=== PATIENT | female | born 1945 | race Caucasian/White ===

== ENCOUNTER 2020-07-07 15:21 | Inpatient (IN) | payer MEDICARE ==
--- NOTE | 2020-07-07 16:02 | ED ---
General Adult HPI - General Chief complaint: Shortness of Breath Stated complaint: fluid retention-sent by bridge construction inspector Time Seen by Provider: 07/07/20 15:43 Source: patient, family, RN notes reviewed, old records reviewed Mode of arrival: wheelchair Limitations: no limitations - History of Present Illness Initial comments: 75-year-old female presenting for evaluation of worsening dyspnea over the past one month. Patient is 2 months status post 2 vessel bypass and mitral valve repair at outside hospital. This history is obtained from the patient's son who is at bedside. This was at [facility] in [place]. She does follow with cardiology at this institution. She's had a weight gain, peripheral edema and worsening dyspnea over the past 4 weeks since the time of discharge. She is currently on metolazone 5 mg uncertain of other medication she is on. She has no fever. No central chest pain. - Related Data Home Medications Medication Instructions Recorded Confirmed Furosemide [Lasix] 1 tab PO DAILY 02/26/15 02/26/15 INSULIN LISPRO (HumaLOG) [humaLOG] 1 dose SQ DAILY 02/26/15 02/26/15 Insulin Glargine [Lantus] 02/26/15 02/26/15 Nitroglycerin Extended Release 1 tab PO DAILY 02/26/15 02/26/15 [Nitro-Bid] Omeprazole [PriLOSEC] 1 tab PO DAILY 02/26/15 02/26/15 atenoloL [Tenormin] 1 tab PO BID 02/26/15 02/26/15 hydrALAZINE HCL [Apresoline] 1 tab PO DAILY 02/26/15 02/26/15 lisinopriL [Zestril] 1 tab PO BID 02/26/15 02/26/15 Previous Rx's Medication Instructions Recorded Cephalexin [Keflex] 500 mg PO Q8HR #21 cap 02/26/15 Hydrocodone/Acetaminophen [Stuart 2 each PO Q6HR PRN #25 tab 02/26/15 5-325] Allergies Allergy/AdvReac Type Severity Reaction Status Date / Time ciprofloxacin [From Cipro] Allergy Rash/Hives Verified 02/26/15 19:54 ciprofloxacin HCl Allergy Rash/Hives Verified 02/26/15 19:54 [From Cipro] codeine Allergy Rash/Hives Verified 01/02/16 19:54 Penicillins Allergy Rash/Hives Verified 02/26/15 19:54 shellfish derived [Shellfish] Allergy Rash/Hives Verified 02/26/15 19:54 Sulfa (Sulfonamide Allergy Rash/Hives Verified 02/26/15 19:54 Antibiotics) Review of Systems ROS Statement: Those systems with pertinent positive or pertinent negative responses have been documented in the HPI. ROS Other: All systems not noted in ROS Statement are negative. Past Medical History Past Medical History: Heart Failure, Diabetes Mellitus, Hypertension History of Any Multi-Drug Resistant Organisms: None Reported Past Surgical History: Appendectomy, Cholecystectomy, Hysterectomy, Tubal Ligation Past Psychological History: No Psychological Hx Reported Past Alcohol Use History: None Reported Past Drug Use History: None Reported General Exam Limitations: no limitations General appearance: alert, in no apparent distress Head exam: Present: atraumatic, normocephalic Eye exam: Present: normal appearance, PERRL ENT exam: Present: normal exam Neck exam: Present: normal inspection. Absent: tenderness, meningismus Respiratory exam: Present: respiratory distress, wheezes, rhonchi Cardiovascular Exam: Present: normal rhythm, tachycardia GI/Abdominal exam: Present: soft, distended. Absent: tenderness, guarding, rebound Extremities exam: Present: pedal edema, other Neurological exam: Present: alert, oriented X3, CN II-XII intact. Absent: motor sensory deficit Psychiatric exam: Present: normal affect, normal mood Skin exam: Present: warm, dry, intact Course Vital Signs 07/07/20 07/07/20 15:26 17:00 Temperature 97.4 F L Pulse Rate 126 H 118 H Respiratory 18 20 Rate Blood Pressure 83/53 94/55 O2 Sat by Pulse 96 98 Oximetry EKG Findings - EKG Comments: EKG Findings:: Accelerated junctional rhythm, low voltage, rate of 126, QRS duration 94, QTC 466, no ST segment elevation Medical Decision Making - Medical Decision Making 75-year-old female who had presented with worsening dyspnea over the past several months. Initial blood pressures in the 80s. She has an elevated heart rate which is a junctional rhythm. She is in moderate respiratory distress. She has bilateral lower extremity edema which is worse on the left leg. Chest x-ray showing bilateral effusion worse on the right, I did order an urgent echo which was reported as a significantly low EF at 10%. I did perform an ultrasound of the left leg is the swelling in the left leg was worse than the right, this is negative for DVT. I discussed case with Dr. Rodrigues, covering for cardiology, recommended Lasix drip will be placed in the ICU I discussed case with the agricultural equipment sales engineer Dr. Weaver and the admitting physician Dr. Bryan. - Lab Data Result diagrams: 07/07/20 16:03 07/07/20 16:03 Lab Results 07/07/20 07/07/20 07/07/20 Range/Units 16:03 16:03 16:03 WBC 7.4 (3.8-10.6) k/uL RBC 3.72 L (3.80-5.40) m/uL Hgb 10.5 L (11.4-16.0) gm/dL Hct 33.1 L (34.0-46.0) % MCV 89.1 (80.0-100.0) fL MCH 28.3 (25.0-35.0) pg MCHC 31.8 (31.0-37.0) g/dL RDW 17.2 H (11.5-15.5) % Plt Count 238 (150-450) k/uL MPV 7.6 Neutrophils % 79 % Lymphocytes % 11 % Monocytes % 4 % Eosinophils % 5 % Basophils % 1 % Neutrophils # 5.8 (1.3-7.7) k/uL Lymphocytes # 0.8 L (1.0-4.8) k/uL Monocytes # 0.3 (0-1.0) k/uL Eosinophils # 0.4 (0-0.7) k/uL Basophils # 0.1 (0-0.2) k/uL Hypochromasia Slight Anisocytosis Slight PT 12.6 H (9.0-12.0) sec INR 1.2 H (<1.2) APTT 29.5 (22.0-30.0) sec Sodium 130 L (137-145) mmol/L Potassium 5.0 (3.5-5.1) mmol/L Chloride 91 L (98-107) mmol/L Carbon Dioxide 30 (22-30) mmol/L Anion Gap 9 mmol/L BUN 93 H (7-17) mg/dL Creatinine 2.07 H (0.52-1.04) mg/dL Est GFR (CKD-EPI)AfAm 26 (>60 ml/min/1.73 sqM) Est GFR (CKD-EPI)NonAf 23 (>60 ml/min/1.73 sqM) Glucose 134 H (74-99) mg/dL Calcium 8.6 (8.4-10.2) mg/dL Magnesium 3.2 H (1.6-2.3) mg/dL Total Bilirubin 0.6 (0.2-1.3) mg/dL AST 19 (14-36) U/L ALT 10 (4-34) U/L Alkaline Phosphatase 205 H (38-126) U/L Troponin I (0.000-0.034) ng/mL NT-Pro-B Natriuret Pep pg/mL Total Protein 6.6 (6.3-8.2) g/dL Albumin 3.5 (3.5-5.0) g/dL 07/07/20 07/07/20 Range/Units 16:03 16:03 WBC (3.8-10.6) k/uL RBC (3.80-5.40) m/uL Hgb (11.4-16.0) gm/dL Hct (34.0-46.0) % MCV (80.0-100.0) fL MCH (25.0-35.0) pg MCHC (31.0-37.0) g/dL RDW (11.5-15.5) % Plt Count (150-450) k/uL MPV Neutrophils % % Lymphocytes % % Monocytes % % Eosinophils % % Basophils % % Neutrophils # (1.3-7.7) k/uL Lymphocytes # (1.0-4.8) k/uL Monocytes # (0-1.0) k/uL Eosinophils # (0-0.7) k/uL Basophils # (0-0.2) k/uL Hypochromasia Anisocytosis PT (9.0-12.0) sec INR (<1.2) APTT (22.0-30.0) sec Sodium (137-145) mmol/L Potassium (3.5-5.1) mmol/L Chloride (98-107) mmol/L Carbon Dioxide (22-30) mmol/L Anion Gap mmol/L BUN (7-17) mg/dL Creatinine (0.52-1.04) mg/dL Est GFR (CKD-EPI)AfAm (>60 ml/min/1.73 sqM) Est GFR (CKD-EPI)NonAf (>60 ml/min/1.73 sqM) Glucose (74-99) mg/dL Calcium (8.4-10.2) mg/dL Magnesium (1.6-2.3) mg/dL Total Bilirubin (0.2-1.3) mg/dL AST (14-36) U/L ALT (4-34) U/L Alkaline Phosphatase (38-126) U/L Troponin I 0.017 (0.000-0.034) ng/mL NT-Pro-B Natriuret Pep 4330 pg/mL Total Protein (6.3-8.2) g/dL Albumin (3.5-5.0) g/dL Critical Care Time Critical Care Time: Yes Total Critical Care Time: 35 Disposition Clinical Impression: Acute pulmonary edema, Systolic congestive heart failure Disposition: ADMITTED IP TO THIS [facility] Condition: Serious Is patient prescribed a controlled substance at d/c from ED?: No Referrals: Arash Mendoza MD [Primary Care Provider] - 1-2 days Decision to Admit Reason: Admit from EC Decision Date: 07/07/20 Decision Time: 17:47
[2020-07-07 16:14] LABS: Anisocytosis Slight; Basophils # (A) 0.1 k/uL (0-0.2); Basophils % (A) 1 %; Eosinophils # (A) 0.4 k/uL (0-0.7); Eosinophils % (A) 5 %; HCT 33.1 % (34.0-46.0); HGB 10.5 gm/dL (11.4-16.0); Hypochromasia Slight; Lymphocytes # (A) 0.8 k/uL (1.0-4.8); Lymphocytes % (A) 11 %; MCH 28.3 pg (25.0-35.0); MCHC 31.8 g/dL (31.0-37.0); MCV 89.1 fL (80.0-100.0); Mean Platelet Volume 7.6; Monocytes # (A) 0.3 k/uL (0-1.0); Monocytes % (A) 4 %; Neutrophils # (A) 5.8 k/uL (1.3-7.7); Neutrophils % (A) 79 %; Platelet Count 238 k/uL (150-450); RBC 3.72 m/uL (3.80-5.40); RDW 17.2 % (11.5-15.5); WBC 7.4 k/uL (3.8-10.6)
[2020-07-07 16:27] LABS: Albumin 3.5 g/dL (3.5-5.0); Calcium 8.6 mg/dL (8.4-10.2); Magnesium 3.2 mg/dL (1.6-2.3); Total Bilirubin 0.6 mg/dL (0.2-1.3); Total Protein 6.6 g/dL (6.3-8.2)
--- NOTE | 2020-07-07 16:45 | XR ---
EXAMINATION TYPE: XR chest 2V DATE OF EXAM: 07/07/2020 COMPARISON: Correlation made with x-rays of the ribs from 02/26/2015 HISTORY: Shortness of breath. TECHNIQUE: Frontal and lateral views of the chest are obtained. FINDINGS: There is large bilateral pleural effusion worse on the right than on the left with presume d compressive atelectasis. Cardiomegaly and CHF is noted. Sternotomy wires are present. IMPRESSION: Bilateral large pleural effusions right greater than left likely due to CHF with stuart sive atelectasis. Thoracentesis is recommended.
[2020-07-07 17:00] LABS: INR 1.2 (<1.2); Partial Thromboplastin Time 29.5 sec (22.0-30.0); Prothrombin Time 12.6 sec (9.0-12.0)
--- NOTE | 2020-07-07 17:10 | US ---
EXAMINATION TYPE: US venous doppler duplex LE LT DATE OF EXAM: 07/07/2020 5:03 PM COMPARISON: NONE CLINICAL HISTORY: DVT?. edema SIDE PERFORMED: Left TECHNIQUE: The lower extremity deep venous system is examined utilizing real time linear array sonog hernando with graded compression, doppler sonography and color-flow sonography. VESSELS IMAGED: Common Femoral Vein Deep Femoral Vein Greater Saphenous Vein * Femoral Vein Popliteal Vein Small Saphenous Vein * Proximal Calf Veins (* superficial vessels) Left Leg: Negative for DVT IMPRESSION: Grayscale, color doppler, spectral doppler imaging performed of the deep veins of the lo wer extremities. There is normal flow, compressibility, vascular waveforms. No evidence of DVT in th e left lower extremity.
[2020-07-07] MEDS ORDERED: NALOXONE 0.4 MG/ML 1 ML VIAL IV PRN (17:21)
[2020-07-07] MEDS: FUROSEMIDE 100 MG in SODIUM CHLORIDE 0.9% 90 ML IV SCH (17:39)
[2020-07-07] MEDS ORDERED: IPRATROPIUM-ALBUTEROL 3 ML NEB INHALATION STA (17:44)
--- NOTE | 2020-07-07 18:00 | ECHOF ---
Referral Reason:CONCHITA MEASUREMENTS -------- HEIGHT: 152.4 cm WEIGHT: 98.0 kg BP: RVIDd: 3.6 cm (< 3.3) IVSd: 1.1 cm (0.6 - 1.1) LVIDd: 4.3 cm (3.9 - 5.3) LVPWd: 1.5 cm (0.6 - 1.1) IVSs: 1.2 cm LVIDs: 3.1 cm LVPWs: 1.9 cm MV EXCURSION: 17.961 mm (> 18.000) MV EF SLOPE: 98 mm/s (70 - 150) EPSS: 1.7 cm MV E Allan: 1.18 m/s MV DecT: 348 ms MV A Allan: 0.95 m/s MV E/A Ratio: 1.24 RAP: 15.00 mmHg RVSP: 33.88 mmHg FINDINGS -------- Undetermined rhythm. This was a technically difficult study with suboptimal views. The left ventricular size is normal. Left ventricular wall thickness is normal. There is severe g lobal hypokinesis of LV . Overall left ventricular systolic function is severely impaired with, an EF < 20%. The right ventricle is moderately enlarged. The left atrium is moderately dilated. The right atrial size is normal. There is mild aortic valve sclerosis. There is no evidence of aortic regurgitation. The peak and mean MV gradients are 5.94mmHg 1.35mmHg as measured by doppler. Mitral ring annullopla sty is in place. Jcyc-op-svtvodev tricuspid regurgitation present. The right ventricular systolic pressure, as measu red by Doppler, is 33.88mmHg. The pulmonic valve was not well visualized. The aortic root size is normal. There is a trivial pericardial effusion present. Large Pleural Effusion. CONCLUSIONS -------- 1. This was a technically difficult study with suboptimal views. 2. The left ventricular size is normal. 3. Left ventricular wall thickness is normal. 4. There is severe global hypokinesis of LV . 5. Overall left ventricular systolic function is severely impaired with, an EF < 20%. 6. The right ventricle is moderately enlarged. 7. The left atrium is moderately dilated. 8. The right atrial size is normal. 9. There is mild aortic valve sclerosis. 10. The peak and mean MV gradients are 5.94mmHg 1.35mmHg as measured by doppler. 11. Mitral ring annulloplasty is in place. 12. Qnbi-sw-kofvyxsr tricuspid regurgitation present. 13. The right ventricular systolic pressure, as measured by Doppler, is 33.88mmHg. 14. The pulmonic valve was not well visualized. 15. The aortic root size is normal. 16. There is a trivial pericardial effusion present. 17. Large Pleural Effusion. COMPUTED TOMOGRAPHY TECHNICIAN: Val Ashraf RDCS
[2020-07-07 20:16] LABS: Glucose,Whole Blood 69 mg/dL (75-99)
[2020-07-07] MEDS ORDERED: DEXTROSE 50% SYRINGE 50 ML IVP STA (20:47)
[2020-07-07 20:54] LABS: Glucose,Whole Blood 68 mg/dL (75-99)
[2020-07-07] MEDS ORDERED: HYDROcodone/APAP 5-325MG 1 EACH TAB PO PRN (20:54)
[2020-07-07] MEDS ORDERED: bisacodyL 5 MG TABLET.DR PO PRN (21:00)
--- NOTE | 2020-07-07 21:01 | P.HPIM ---
History of Present Illness H&P Date: 07/07/20 Chief Complaint: Shortness of breath Patient is a 75-year-old female with a history of congestive heart failure, diabetes Type 2 insulin requiring, hypertension who presented to the emergency department with complaints of worsening shortness of breath for the last 4 weeks. Apparently patient had 2 vessel bypass with mitral valve repair at [facility]. She underwent extensive evaluation in the emergency department including a chest x-ray which demonstrated large bilateral pleural effusions right greater than left recommending thoracentesis. Venous Doppler was completed which showed no evidence of DVT in the left lower extremity. EKG appeared to be consistent with accelerated junctional rhythm. Laboratory analysis showed hemoglobin of 10.5, creatinine 2. In the ER she was started on a furosemide drip and arrangements are made for admission to the ICU. Echocardiogram was completed this evening which showed an ejection fraction of less than 20%, severe global kinesis of the left ventricle, and a large pleural effusion. Patient was admitted to [facility] on April 22 and was subsequently discharged on June 08. Son was able to provide me with some records. Apparently when she went in she was found to have congestive heart failure with an ejection fraction of less than 15%, she ultimately underwent cardiac catheterization which showed triple vessel disease. She then had double bypass surgery with repair of her mitral valve and maze procedure. They redid an echocardiogram prior to discharge which showed an ejection fraction of 45%. He reports that after surgery she did require reintubation and did attend a stent in inpatient rehab. She has been at home and has had home health through [facility]. She has since transitioned to seeing Dr. Hensley for her primary care and Dr. Rodrigues for cardiology. She was last seen by Dr. Mendoza one week ago and had her left leg bandaged in the office. He presented to the hospital today because they noted that her weight has increased to 216 pounds, it was 109 8 pounds on June 08 and she was discharged from the hospital. They also note that she has had worsening shortness of breath, increased leg swelling, increased abdominal swelling. He reports she has been watching her fluid and salt intake at home. She has a FreeStyle Izabel meter and has been having hypoglycemia down to the 70s at night. Her niece has been taking care of her. They note that some of her medications have been changed since discharge from [place] including moving her Lantus from morning to night time. She reports increased anxiety and feeling as though she has never gotten her recover from this. She reports that she does have chest pain with cough but has not had chest pain otherwise. She has been using a walker. She is unable to lie flat due to shortness of breath. Pertinent positives and negatives as discussed in HPI, a complete review of systems was performed and all other systems are negative. General: ill appearing, mild distress due to dyspnea, Obese, appears older than stated age Derm: erythem left lower extremity with from distal calf to ankle, word left medial calf with slough, pink tissue, maldolorous an. warm, dry Head: atraumatic, normocephalic, symmetric Eyes: EOMI, no lid lag, anicteric sclera, pupils equal round reactive to light ENT: Nose and ears atraumatic, no thrush, no pharyngeal erythema Neck: No thyromegaly, no cervical lymphadenopathy, trachea midline, supple Mouth: no lip lesion, mucus membranes moist Cardiovascular: S1S2 reg, no murmur, positive posterior tibial pulse bilateral, 4+ edema, capillary refill less than 2 seconds Lungs: Decreased bs bilateral bases, no wheeze, no accessory muscle use, 3 word conversational dyspnea Abdominal: soft, nontender to palpation, no guarding, no appreciable organomegaly, normal bowel sounds Ext: no gross muscle atrophy, muscle strength muscle strength 5 out of 5 in all 4 extremities, no contractures Neuro: CN II-XI grossly intact, light touch intact all 4 extremities, finger to nose within normal limits, Psych: Alert, oriented, appropriate affect Acute exacerbation of systolic congestive heart failure with ejection fraction +20%, coronary artery disease with recent 2 vessel bypass and mitral valve replacement - hold entresto - lasix gtt, zaroxolyn - Cadio and Pulm recs - hold coreg due to BP - strict I and O daily weight Large pleural effusion due to CHF - hold xarelto - consult pulm Acute kidney injury versus chronic kidney disease of unknown baseline creatinine - continue with diuretics and monitor renal function closely, suspect cardiorenal syndrome - strict I and O - if Cr worse in AM consult nephro and consider renal US - Hold Entresto Hyponatremia secondary to fluid overload - diuresis - recheck sodium level in AM Normochromic normocytic anemia with unknown baseline -Check iron studies -If Ferritin less than 100 consider IV iron replacement with her systolic congestive heart failure -Follow CBC Asthma - resume spiriva, B agonist and inhaled steroid DM 2, insulin requiring with frequent hypoglycemia - hold lantus - SSI - check A1C , last 6.7 per son - Follow BS - consult certified lactation educator - leave free style izabel in place as patient has been having hypoglycemia and it will alarm P. A fib - hold xarelto with potential need for procedures - follow HR - Coreg on hold due to hypotension - if continues to have tachycardia then consider metoprolol Coccyx pressure ulcer, POA, Left lower extremity wound - Consult wound care - rotate q2 hours - barrier dressing to coccyx - left lower extremity with mucuparcin, vasaline gauze, and kerlix The patient is admitted with an anticipated greater than 2 midnight stay for evaluation of Acute exacerbation of CHF. Surrogate decision-maker: Pedrito Magana- Son CODE STATUS:Full Code DVT prophylaxis: Lovenox Discussed with: patient nursing Anticipated discharge date: 5-[address]: A total of 75 minutes was spent on the care of this complex patient more than 50% of the time was spent in counseling and care coordination. Past Medical History Past Medical History: Coronary Artery Disease (CAD), Heart Failure, Diabetes Vilma litus, Hypertension Additional Past Medical History / Comment(s): asthma, A fib History of Any Multi-Drug Resistant Organisms: None Reported Past Surgical History: Appendectomy, Cholecystectomy, Hysterectomy, Tubal Ligation Additional Past Surgical History / Comment(s): 2 vessel bypass with mitral valve repair - CHEN and endoscopic vein, mitral valve 32mm sjm ridig saddle ring, maze procedure. Retocele repair Past Psychological History: No Psychological Hx Reported Smoking Status: Second hand smoke exposure Past Alcohol Use History: None Reported Past Drug Use History: None Reported Additional History: walker - Past Family History Father Additional Family Medical History / Comment(s): at 55 with a massive [place] Mother Family Medical History: CVA/TIA Medications and Allergies Home Medications Medication Instructions Recorded Confirmed Type ALPRAZolam [Xanax] 0.5 mg PO Q6H PRN 07/07/20 07/07/20 History Acetaminophen Tab [Tylenol Tab] 500 mg PO BID 07/07/20 07/07/20 History Albuterol Inhaler [Ventolin Hfa 2 puff INHALATION RT-Q6H PRN 07/07/20 07/07/20 History Inhaler] Atorvastatin [Lipitor] 80 mg PO HS 07/07/20 07/07/20 History Bumetanide [Bumex] 1 mg PO DAILY 07/07/20 07/07/20 History Carvedilol [Coreg] 50 mg PO Q12H 07/07/20 07/07/20 History Docusate [Colace] 100 mg PO BID 07/07/20 07/07/20 History Fluticasone Nasal Lutz [Flonase 2 spr EA NOSTRIL DAILY 07/07/20 07/07/20 History Nasal Lutz] Fluticasone/Vilanterol [Breo 1 puff INHALATION RT-DAILY 07/07/20 07/07/20 History Ellipta 100-25 Mcg Inhaler] Insulin Glargine,Hum.rec.anlog 18 unit SQ HS 07/07/20 07/07/20 History [Lantus Solostar] Insulin Lispro [Insulin Lispro See Protocol SQ AC-TID 07/07/20 07/07/20 History Kwikpen U-100] Loratadine [Claritin] 10 mg PO DAILY 07/07/20 07/07/20 History Omeprazole 20 mg PO AC-SUPPER 07/07/20 07/07/20 History Rivaroxaban [Xarelto] 2.5 mg PO BID 07/07/20 07/07/20 History Sacubitril/Valsartan [Entresto 24 1 tab PO Q12H 07/07/20 07/07/20 History mg-26 mg Tablet] Tiotropium [place] [Spiriva] 2 cap INHALATION RT-DAILY 07/07/20 07/07/20 History metOLazone [Zaroxolyn] 5 mg PO DAILY 07/07/20 07/07/20 History Allergies Allergy/AdvReac Type Severity Reaction Status Date / Time ciprofloxacin [From Cipro] Allergy Rash/Hives Verified 07/07/20 17:56 ciprofloxacin HCl Allergy Rash/Hives Verified 07/07/20 17:56 [From Cipro] codeine Allergy Rash/Hives Verified 07/07/20 17:56 Penicillins Allergy Rash/Hives Verified 07/07/20 17:56 shellfish derived [Shellfish] Allergy Rash/Hives Verified 07/07/20 17:56 Sulfa (Sulfonamide Allergy Rash/Hives Verified 07/07/20 17:56 Antibiotics) Physical Exam Osteopathic Statement: *. No significant issues noted on an osteopathic structural exam other than those noted in the History and Physical/Consult. Vitals: Vital Signs Temp Pulse Resp BP Pulse Ox 07/07/20 19:00 129 H 18 86/69 98 07/07/20 18:05 128 H 07/07/20 18:00 121 H 20 83/58 99 07/07/20 17:55 118 H 07/07/20 17:00 118 H 20 94/55 98 07/07/20 15:26 97.4 F L 126 H 18 83/53 96 Intake and Output 07/07/20 07/07/20 07/07/20 06:59 14:59 22:59 Other: Weight 97.976 kg Results CBC & Chem 7: 07/07/20 16:03 07/07/20 16:03 Labs: Abnormal Lab Results - Last 24 Hours (Table) 07/07/20 07/07/20 07/07/20 Range/Units 16:03 16:03 16:03 RBC 3.72 L (3.80-5.40) m/uL Hgb 10.5 L (11.4-16.0) gm/dL Hct 33.1 L (34.0-46.0) % RDW 17.2 H (11.5-15.5) % Lymphocytes # 0.8 L (1.0-4.8) k/uL PT 12.6 H (9.0-12.0) sec INR 1.2 H (<1.2) Sodium 130 L (137-145) mmol/L Chloride 91 L (98-107) mmol/L BUN 93 H (7-17) mg/dL Creatinine 2.07 H (0.52-1.04) mg/dL Glucose 134 H (74-99) mg/dL Magnesium 3.2 H (1.6-2.3) mg/dL Alkaline Phosphatase 205 H (38-126) U/L
[2020-07-07 21:02] LABS: Glucose,Whole Blood 147 mg/dL (75-99)
[2020-07-07 21:21] LABS: Glucose,Whole Blood 140 mg/dL (75-99)
[2020-07-07] MEDS: metOLazone 5 MG TAB PO SCH (22:56)
[2020-07-07] MEDS: MUPIROCIN 2% OINT 22 GM TUBE TOPICAL SCH (23:24)
[2020-07-07] MEDS: ATORVASTATIN 80 MG TAB PO SCH (23:25)
[2020-07-08] MEDS ORDERED: DOBUTamine DRIP 500 MG in DEXTROSE/WATER 1 250ML.BAG IV SCH
[2020-07-08] MEDS: FUROSEMIDE 100 MG in SODIUM CHLORIDE 0.9% 90 ML IV SCH ×3 (01:05→21:31)
[2020-07-08 02:08] LABS: Glucose,Whole Blood 81 mg/dL (75-99)
[2020-07-08 04:03] LABS: Anisocytosis Slight; HCT 31.4 % (34.0-46.0); HGB 9.8 gm/dL (11.4-16.0); Hypochromasia Slight; MCH 28.3 pg (25.0-35.0); MCHC 31.3 g/dL (31.0-37.0); MCV 90.4 fL (80.0-100.0); Mean Platelet Volume 7.6; Platelet Count 228 k/uL (150-450); RBC 3.47 m/uL (3.80-5.40); RDW 17.2 % (11.5-15.5); WBC 7.8 k/uL (3.8-10.6)
[2020-07-08 04:38] LABS: Albumin 2.9 g/dL (3.5-5.0); Calcium 8.4 mg/dL (8.4-10.2); Magnesium 3.1 mg/dL (1.6-2.3); Potassium 4.8 mmol/L (3.5-5.1); Total Bilirubin 0.6 mg/dL (0.2-1.3); Total Protein 5.7 g/dL (6.3-8.2)
[2020-07-08 06:50] LABS: Glucose,Whole Blood 68 mg/dL (75-99)
[2020-07-08 07:13] LABS: Glucose,Whole Blood 130 mg/dL (75-99)
[2020-07-08] MEDS: INSULIN ASPART (NovoLOG) 100 UNIT/ML VIAL SQ SCH ×3 (07:41→17:49)
[2020-07-08] MEDS: IPRATROPIUM 0.5 MG/2.5 ML NEBU INHALATION SCH ×4 (07:46→19:16)
[2020-07-08] MEDS: SYMBICORT 80-4.5 MCG INHALER INHALATION SCH ×2 (07:46→19:16)
[2020-07-08] MEDS: ALBUTEROL NEBULIZED 2.5 MG/3 ML INHALATION PRN (07:48)
--- NOTE | 2020-07-08 08:10 | XR ---
EXAMINATION TYPE: XR chest 1V portable DATE OF EXAM: 07/08/2020 COMPARISON: 07/07/2020. HISTORY: Shortness of breath. TECHNIQUE: Single frontal view of the chest is obtained. FINDINGS: Moderate bilateral pleural effusion with compressive atelectasis/consolidation improved co mpared to prior examination. No pneumothorax. Cardiomegaly. IMPRESSION: Moderate bilateral pleural effusion with compressive atelectasis/consolidation. Improved compared to yesterday.
[2020-07-08] MEDS: ACETAMINOPHEN TAB 325 MG TAB PO PRN ×3 (08:49→23:38)
[2020-07-08] MEDS: LORATADINE 10 MG TAB PO SCH (08:50)
[2020-07-08] MEDS: ENOXAPARIN 30 MG/0.3 ML SYRINGE SQ SCH ×2 (08:50→09:16)
[2020-07-08] MEDS: metOLazone 5 MG TAB PO SCH ×2 (08:50→09:17)
[2020-07-08] MEDS ORDERED: DILTIAZEM 5 MG/ML 5 ML VIAL IVP STA (09:00)
[2020-07-08] MEDS: FLUTICASONE 50MCG/SPRAY NASAL 16GM EA NOSTRIL SCH (09:15)
[2020-07-08] MEDS: AMIODARONE 200 MG TAB PO SCH ×3 (09:24→21:38)
--- NOTE | 2020-07-08 09:59 | P.CRDCN ---
History of Present Illness History of present illness: HISTORY OF PRESENTING ILLNESS This is a pleasant 75-year-old female past medical history significant for ischemic cardiomyopathy, coronary artery disease status post bypass graftin g, valvular heart disease status post mitral ring annuloplasty, chronic systolic heart failure, paroxysmal atrial fibrillation on long-term anticoagulation, hypertension, diabetes mellitus, COPD and dyslipidemia. She initially underwent bypass grafting and mitral valve repair approximately 2 months ago and [facility]. She established in town with Dr. Rodrigues June 22. We have been asked to see in consultation for heart failure. She presented to the hospital with symptoms of shortness of breath, cough and lower extremity edema. She was initially admitted to [facility] April 22 where she was found to have an ejection fraction of less than 15%. She underwent cardiac catheterization which showed severe triple vessel disease and underwent two- vessel bypass grafting with repair for mitral valve and maze procedure. Repeat echocardiogram prior to discharge revealed an ejection fraction of 45%. She did go to inpatient rehab shortly thereafter and has since been at home with home care. EKG on arrival revealed atrial tachycardia with a heart rate in the 130s. She was initiated on dobutamine and IV Lasix. She is seen and examined sitting up in bed in no acute distress. Her heart continues to be tachycardic in the 130s. It appears regular but is difficult to differentiate possible underlying atrial flutter. Repeat echocardiogram on this admission revealed ejection fraction of less than 20%, severe global hypokinesia, large pleural effusion and mild to moderate mitral regurgitation. Chest x-ray this morning reveals moderate bilateral pleural effusions improved from previous exam. Venous duplex negative for DVT. Laboratory data reviewed, WBC 7.8, hemoglobin 9.8, platelets 228, sodium 131, potassium 4.8, creatinine 2.01, magnesium 3.1, troponin 0.0 17, TSH 4.03 and and proBNP 4330. Crit daily cardiac medications as recorded in Dr. Rodrigues's office on June 22 reveal aspirin 81 mg daily, atorvastatin 80 mg daily, Bumex 1 mg daily, Coreg 25 mg twice a day, Eliquis 5 mg twice a day, and entresto 24/26 mg twice a day and daily magnesium supplementation. REVIEW OF SYSTEMS At the time of my exam: CONSTITUTIONAL: Denies fever or chills. CARDIOVASCULAR: + sob, orthopnea. Denies chest pain, PND or palpitations. RESPIRATORY: + cough. GASTROINTESTINAL: Denies abdominal pain, diarrhea, constipation, nausea or vomiting. MUSCULOSKELETAL: Denies myalgias. NEUROLOGIC: Denies numbness, tingling, headacbe or weakness. ENDOCRINE: Denies fatigue, weight change, polydipsia or polyurina. GENITOURINARY: Denies burning, hematuria or urgency with micturation. HEMATOLOGIC: Denies history of anemia or bleeding. PHYSICAL EXAMINATION Blood pressure 100/90 heart rate 133 afebrile and maintaining oxygen saturation on nasal cannula. CONSTITUTIONAL: No apparent distress. HEENT: Head is normocephalic. Pupils are equal, round. Sclerae anicteric. Mucous membranes of the mouth are moist. No JVD. No carotid bruit. CHEST EXAMINATION: Bibasilar rales, expiratory wheezes. No rhonchi. No chest wall tenderness is noted on palpation or with deep breathing. HEART EXAMINATION: Regular rate and rhythm. S1, S2 heard. Soft systolic murmur at the left sternal border, no gallops or rub. ABDOMEN: Soft, nontender. Positive bowel sounds. EXTREMITIES: 2+ peripheral pulses, 2+ bilateral lower extremity pitting edema and no calf tenderness. NEUROLOGIC EXAMINATION: Patient is awake, alert and oriented x3. ASSESSMENT Acute on chronic systolic heart failure Acute kidney injury Atrial tachycardia, difficult to discern possible atrial flutter at this rate Coronary artery disease status post bypass grafting Status post mitral ring annuloplasty Paroxysmal atrial fibrillation on long-term anticoagulation Hypertension Dyslipidemia Diabetes mellitus COPD PLAN Resume Eliquis at 2.5 mg twice a day secondary to renal function. Initiate amiodarone 200 mg 3 times a day. Continue close telemetry monitoring. Obtain EKG if she slows down. She continues in atrial tachycardia she may require CELE cardioversion. Bedside cardizem bolus given in an attempt to slow her down to better evaluated her rhythm, unsuccessful. Continue Lasix infusion. Follow renal function and electrolytes daily. Document accurate intake along with daily weights. Hold entresto secondary to renal function and hypotension. Discontinue dobutamine infusion. Further recommendations to follow based upon clinical course. Thank you kindly for this consultation. Nurse Practitioner note has been reviewed, I agree with a documented findings and plan of care. Patient was seen and examined. Past Medical History Past Medical History: Coronary Artery Disease (CAD), Heart Failure, COPD, Diabetes Mellitus, Hypertension Additional Past Medical History / Comment(s): asthma, A fib History of Any Multi-Drug Resistant Organisms: None Reported Past Surgical History: Appendectomy, Cholecystectomy, Hysterectomy, Tubal Ligation Additional Past Surgical History / Comment(s): 2 vessel bypass with mitral valve repair - CHEN and endoscopic vein, mitral valve 32mm sjm ridig saddle ring, maze procedure. Retocele repair Past Anesthesia/Blood Transfusion Reactions: No Reported Reaction Past Psychological History: No Psychological Hx Reported Smoking Status: Never smoker Past Alcohol Use History: None Reported Past Drug Use History: None Reported - Past Family History Father Additional Family Medical History / Comment(s): at 55 with a massive [place] Mother Family Medical History: CVA/TIA Medications and Allergies Home Medications Medication Instructions Recorded Confirmed Type ALPRAZolam [Xanax] 0.5 mg PO Q6H PRN 07/07/20 07/07/20 History Acetaminophen Tab [Tylenol Tab] 500 mg PO BID 07/07/20 07/07/20 History Albuterol Inhaler [Ventolin Hfa 2 puff INHALATION RT-Q6H PRN 07/07/20 07/07/20 History Inhaler] Atorvastatin [Lipitor] 80 mg PO HS 07/07/20 07/07/20 History Bumetanide [Bumex] 1 mg PO DAILY 07/07/20 07/07/20 History Carvedilol [Coreg] 50 mg PO Q12H 07/07/20 07/07/20 History Docusate [Colace] 100 mg PO BID 07/07/20 07/07/20 History Fluticasone Nasal [place] [Flonase 2 spr EA NOSTRIL DAILY 07/07/20 07/07/20 History Nasal [place]] Fluticasone/Vilanterol [Breo 1 puff INHALATION RT-DAILY 07/07/20 07/07/20 History Ellipta 100-25 Mcg Inhaler] Insulin Glargine,Hum.rec.anlog 18 unit SQ HS 07/07/20 07/07/20 History [Lantus Solostar] Insulin Lispro [Insulin Lispro See Protocol SQ AC-TID 07/07/20 07/07/20 History Kwikpen U-100] Loratadine [Claritin] 10 mg PO DAILY 07/07/20 07/07/20 History Omeprazole 20 mg PO AC-SUPPER 07/07/20 07/07/20 History Rivaroxaban [Xarelto] 2.5 mg PO BID 07/07/20 07/07/20 History Sacubitril/Valsartan [Entresto 24 1 tab PO Q12H 07/07/20 07/07/20 History mg-26 mg Tablet] Tiotropium [place] [Spiriva] 2 cap INHALATION RT-DAILY 07/07/20 07/07/20 History metOLazone [Zaroxolyn] 5 mg PO DAILY 07/07/20 07/07/20 History Allergies Allergy/AdvReac Type Severity Reaction Status Date / Time ciprofloxacin [From Cipro] Allergy Rash/Hives Verified 07/07/20 17:56 ciprofloxacin HCl Allergy Rash/Hives Verified 07/07/20 17:56 [From Cipro] codeine Allergy Rash/Hives Verified 07/07/20 17:56 Penicillins Allergy Rash/Hives Verified 07/07/20 17:56 shellfish derived [Shellfish] Allergy Rash/Hives Verified 07/07/20 17:56 Sulfa (Sulfonamide Allergy Rash/Hives Verified 07/07/20 17:56 Antibiotics) Physical Exam Vitals: Vital Signs Temp Pulse Pulse Resp BP Pulse Ox 07/08/20 09:00 133 H 7 L 100/90 99 07/08/20 08:04 132 H 07/08/20 08:00 97.7 F 131 H 24 87/68 100 07/08/20 07:49 130 H 07/08/20 07:00 133 H 17 83/61 96 07/08/20 06:00 133 H 13 89/56 96 07/08/20 05:00 134 H 14 98/56 94 L 07/08/20 04:00 97.5 F L 133 H 16 89/57 96 07/08/20 03:00 133 H 20 91/62 96 07/08/20 02:00 133 H 14 82/55 96 07/08/20 01:00 131 H 16 82/43 98 07/08/20 00:23 96 07/08/20 00:17 97.6 F 131 H 15 07/07/20 23:00 131 H 16 96 07/07/20 22:00 130 H 18 96 07/07/20 21:00 129 H 20 110/84 95 07/07/20 20:24 130 H 30 H 96 07/07/20 19:41 129 H 33 H 72/54 07/07/20 19:00 129 H 18 86/69 98 07/07/20 18:05 128 H 07/07/20 18:00 121 H 20 83/58 99 07/07/20 17:55 118 H 07/07/20 17:00 118 H 20 94/55 98 07/07/20 15:38 14 90 L 07/07/20 15:26 97.4 F L 126 H 18 83/53 96 Intake and Output 07/07/20 07/08/20 07/08/20 22:59 06:59 14:59 Intake Total 74.333 66.01 Output Total 400 520 70 Balance -400 -445.667 -3.99 Intake: Intake, IV Titration 74.333 66.01 Amount DOBUTamine DRIP 500 mg In 66.01 Dextrose/Water 1 250ml. bag @ 2.5 MCG/KG/MIN 7. 348 mls/hr IV .Q24H SASHA Rx#:[id number] Furosemide 100 mg In 74.333 Sodium Chloride 0.9% 90 ml @ 10 MG/HR 10 mls/hr IV .Q10H SASHA Rx#: [id number] Output: Urine 400 520 70 Other: Voiding Method Indwelling Catheter Weight 98.6 kg 98.8 kg Results 07/08/20 03:18 07/08/20 03:18 Cardiac Enzymes 07/07/20 07/07/20 07/08/20 Range/Units 16:03 16:03 03:18 AST 19 17 (14-36) U/L Troponin I 0.017 (0.000-0.034) ng/mL Coagulation 07/07/20 Range/Units 16:03 PT 12.6 H (9.0-12.0) sec APTT 29.5 (22.0-30.0) sec CBC 07/07/20 07/08/20 Range/Units 16:03 03:18 WBC 7.4 7.8 (3.8-10.6) k/uL RBC 3.72 L 3.47 L (3.80-5.40) m/uL Hgb 10.5 L 9.8 L (11.4-16.0) gm/dL Hct 33.1 L 31.4 L (34.0-46.0) % Plt Count 238 228 (150-450) k/uL Comprehensive Metabolic Panel 07/07/20 07/08/20 Range/Units 16:03 03:18 Sodium 130 L 131 L (137-145) mmol/L Potassium 5.0 4.8 (3.5-5.1) mmol/L Chloride 91 L 92 L (98-107) mmol/L Carbon Dioxide 30 29 (22-30) mmol/L BUN 93 H 94 H (7-17) mg/dL Creatinine 2.07 H 2.01 H (0.52-1.04) mg/dL Glucose 134 H 55 L (74-99) mg/dL Calcium 8.6 8.4 (8.4-10.2) mg/dL AST 19 17 (14-36) U/L ALT 10 8 (4-34) U/L Alkaline Phosphatase 205 H 182 H (38-126) U/L Total Protein 6.6 5.7 L (6.3-8.2) g/dL Albumin 3.5 2.9 L (3.5-5.0) g/dL Current Medications Generic Name Dose Route Start Last Admin Trade Name Freq PRN Reason Stop Dose Admin Acetaminophen 650 mg 07/07/20 17:21 07/08/20 08:49 Acetaminophen Tab 325 Mg Tab PO 650 mg Q4HR PRN Administration Fever and/or Mild Pain Hydrocodone Bitart/Acetaminophen 1 each 07/07/20 20:54 Hydrocodone/Apap 5-325mg 1 Each Tab PO Q4HR PRN Moderate Pain Albuterol Sulfate 2.5 mg 07/07/20 21:00 07/08/20 07:48 Albuterol Nebulized 2.5 Mg/3 Ml INHALATION 2.5 mg RT-Q6H PRN Administration Shortness Of Breath Alprazolam 0.5 mg 07/07/20 22:00 Alprazolam 0.5 Mg Tab PO Q6H PRN Anxiety Amiodarone HCl 200 mg 07/08/20 09:15 07/08/20 09:24 Amiodarone 200 Mg Tab PO 200 mg TID SASHA Administration Apixaban 2.5 mg 07/08/20 09:15 Apixaban 2.5 Mg Tablet PO BID SASHA Atorvastatin Calcium 80 mg 07/07/20 21:00 07/07/20 23:25 Atorvastatin 80 Mg Tab PO 80 mg HS SASHA Administration Bisacodyl 5 mg 07/07/20 21:00 Bisacodyl 5 Mg Tablet.Dr PO DAILY PRN Constipation Budesonide/Formoterol Fumarate 2 puff 07/08/20 08:00 07/08/20 07:46 Symbicort 80-4.5 Mcg Inhaler INHALATION 2 puff RT-BID SASHA Administration Fluticasone Propionate 2 spray 07/08/20 09:00 07/08/20 09:15 Fluticasone 50mcg/[place] Nasal 16gm EA NOSTRIL 2 spray DAILY SASHA Administration Furosemide 100 mg/ Sodium 100 mls @ 10 mls/hr 07/07/20 17:00 07/08/20 01:05 Chloride IV 10 mg/hr .Q10H SASHA 10 mls/hr Administration 10 MG/HR Cefazolin Sodium 1,000 mg/ 50 mls @ 100 mls/hr 07/08/20 08:45 07/08/20 09:14 Sodium Chloride IVPB 100 mls/hr Q8HR SASHA Administration Insulin Aspart 0 unit 07/08/20 07:30 07/08/20 07:41 Insulin Aspart (Novolog) 100 Unit/Ml Vial SQ Not Given AC-TID SASHA Protocol Ipratropium [place] 0.5 mg 07/08/20 08:00 07/08/20 07:46 Ipratropium 0.5 Mg/2.5 Ml Nebu INHALATION 0.5 mg RT-QID SASHA Administration Loratadine 10 mg 07/08/20 09:00 07/08/20 08:50 Loratadine 10 Mg Tab PO 10 mg DAILY SASHA Administration Mupirocin 1 applic 07/07/20 22:00 07/07/20 23:24 Mupirocin 2% Oint 22 Gm Tube TOPICAL 1 applic TID SASHA Administration Naloxone HCl 0.2 mg 07/07/20 17:21 Naloxone 0.4 Mg/Ml 1 Ml Vial IV Q2M PRN Opioid Reversal Pantoprazole Sodium 40 mg 07/08/20 17:30 Pantoprazole 40 Mg Tablet PO AC-SUPPER SASHA Intake and Output 07/07/20 07/08/20 07/08/20 22:59 06:59 14:59 Intake Total 74.333 66.01 Output Total 400 520 70 Balance -400 -445.667 -3.99 Intake: Intake, IV Titration 74.333 66.01 Amount DOBUTamine DRIP 500 mg In 66.01 Dextrose/Water 1 250ml. bag @ 2.5 MCG/KG/MIN 7. 348 mls/hr IV .Q24H SASHA Rx#:[id number] Furosemide 100 mg In 74.333 Sodium Chloride 0.9% 90 ml @ 10 MG/HR 10 mls/hr IV .Q10H SASHA Rx#: [id number] Output: Urine 400 520 70 Other: Voiding Method Indwelling Catheter Weight 98.6 kg 98.8 kg 07/08/20 03:18 07/08/20 03:18
[2020-07-08 10:41] LABS: Ferritin 101.2 ng/mL (10.0-291.0)
[2020-07-08 10:43] LABS: % Iron Saturation 7.91 (12.00-45.00)
--- NOTE | 2020-07-08 11:08 | P.CONS ---
History of Present Illness - Reason for Consult Consult date: 07/08/20 wound care - History of Present Illness This is a 75 year old female being seen by wound care in ICU on healing ulceration to the sacrum and the left lower extremity. Sacral ulceration is stage II pressure ulcer with fatty layer exposure. Minimal granulation seen within the wound bed and slough throughout. Periwound wound shows excoriation and scarring. The left lower extremity is a nonhealing ulceration on Limited to skin breakdown with significant amount of drainage a culture was obtained. The left lower extremity dressing has been mupricin and a nonstick adherent dressing. Zinc. Cranial utilize for the sacrum ulceration. Patient's past medical history significant for coronary artery disease, heart failure, COPD, diabetes mellitus, hypertension Review Of Systems: Constitutional: No fever, no chills, no night sweats. No weight change. No weakness, fatigue or lethargy. No daytime sleepiness. Integumentary:reports wounds, no lesions. No rash or pruritus. No unusual bruising. No change in hair or nails. Physical exam: General Appearance: Alert, cooperative, no distress, appears stated age. Skin: See HPI all other Skin color, texture, tugor normal, no rashes or lesions. Neurologic: Alert oriented x3 Assessment: 1. Stage II pressure ulcer sacrum 2. Nonhealing ulceration of fat layer stories left lower extremity 3. Diabetes with skin ulceration Plan: 1. Sacrum ulceration apply honey alginate, saline moistened gauze, sacrum border phone. Change Saturday. Turn patient every 2 hours. Utilize surface algorithm for appropriate surface. When patient is sitting in a chair use waffle cushion. 2. Left lower extremity ulceration awaiting culture. We'll utilize honey alginate to the site feeling moist gauze, dry gauze, rolled gauze and secured paper tape. Change Saturday. 3. Patient may benefit from outpatient wound care upon discharge to the hosp ital we'll be happy to see her in the wound care center. Thank you for the consultation any questions please contact the wound care center DNP note has been reviewed and discussed with Dr. Feng and the impression and plan of care has been directed as dictated. Past Medical History Past Medical History: Coronary Artery Disease (CAD), Heart Failure, COPD, Diabetes Mellitus, Hypertension Additional Past Medical History / Comment(s): asthma, A fib History of Any Multi-Drug Resistant Organisms: None Reported Past Surgical History: Appendectomy, Cholecystectomy, Hysterectomy, Tubal Ligation Additional Past Surgical History / Comment(s): 2 vessel bypass with mitral valve repair - CHEN and endoscopic vein, mitral valve 32mm sjm ridig saddle ring, maze procedure. Retocele repair Past Anesthesia/Blood Transfusion Reactions: No Reported Reaction Past Psychological History: No Psychological Hx Reported Smoking Status: Never smoker Past Alcohol Use History: None Reported Past Drug Use History: None Reported - Past Family History Father Additional Family Medical History / Comment(s): at 55 with a massive [place] Mother Family Medical History: CVA/TIA Medications and Allergies Home Medications Medication Instructions Recorded Confirmed Type ALPRAZolam [Xanax] 0.5 mg PO Q6H PRN 07/07/20 07/07/20 History Acetaminophen Tab [Tylenol Tab] 500 mg PO BID 07/07/20 07/07/20 History Albuterol Inhaler [Ventolin Hfa 2 puff INHALATION RT-Q6H PRN 07/07/20 07/07/20 History Inhaler] Atorvastatin [Lipitor] 80 mg PO HS 07/07/20 07/07/20 History Bumetanide [Bumex] 1 mg PO DAILY 07/07/20 07/07/20 History Carvedilol [Coreg] 50 mg PO Q12H 07/07/20 07/07/20 History Docusate [Colace] 100 mg PO BID 07/07/20 07/07/20 History Fluticasone Nasal [place] [Flonase 2 spr EA NOSTRIL DAILY 07/07/20 07/07/20 History Nasal [place]] Fluticasone/Vilanterol [Breo 1 puff INHALATION RT-DAILY 07/07/20 07/07/20 History Ellipta 100-25 Mcg Inhaler] Insulin Glargine,Hum.rec.anlog 18 unit SQ HS 07/07/20 07/07/20 History [Lantus Solostar] Insulin Lispro [Insulin Lispro See Protocol SQ AC-TID 07/07/20 07/07/20 History Kwikpen U-100] Loratadine [Claritin] 10 mg PO DAILY 07/07/20 07/07/20 History Omeprazole 20 mg PO AC-SUPPER 07/07/20 07/07/20 History Rivaroxaban [Xarelto] 2.5 mg PO BID 07/07/20 07/07/20 History Sacubitril/Valsartan [Entresto 24 1 tab PO Q12H 07/07/20 07/07/20 History mg-26 mg Tablet] Tiotropium [place] [Spiriva] 2 cap INHALATION RT-DAILY 07/07/20 07/07/20 History metOLazone [Zaroxolyn] 5 mg PO DAILY 07/07/20 07/07/20 History Allergies Allergy/AdvReac Type Severity Reaction Status Date / Time ciprofloxacin [From Cipro] Allergy Rash/Hives Verified 07/07/20 17:56 ciprofloxacin HCl Allergy Rash/Hives Verified 07/07/20 17:56 [From Cipro] codeine Allergy Rash/Hives Verified 07/07/20 17:56 Penicillins Allergy Rash/Hives Verified 07/07/20 17:56 shellfish derived [Shellfish] Allergy Rash/Hives Verified 07/07/20 17:56 Sulfa (Sulfonamide Allergy Rash/Hives Verified 07/07/20 17:56 Antibiotics) Physical Exam Vitals: Vital Signs Temp Pulse Pulse Resp BP Pulse Ox 07/08/20 09:00 133 H 7 L 100/90 99 07/08/20 08:04 132 H 07/08/20 08:00 97.7 F 131 H 24 87/68 100 07/08/20 07:49 130 H 07/08/20 07:00 133 H 17 83/61 96 07/08/20 06:00 133 H 13 89/56 96 07/08/20 05:00 134 H 14 98/56 94 L 07/08/20 04:00 97.5 F L 133 H 16 89/57 96 07/08/20 03:00 133 H 20 91/62 96 07/08/20 02:00 133 H 14 82/55 96 07/08/20 01:00 131 H 16 82/43 98 07/08/20 00:23 96 07/08/20 00:17 97.6 F 131 H 15 07/07/20 23:00 131 H 16 96 07/07/20 22:00 130 H 18 96 07/07/20 21:00 129 H 20 110/84 95 07/07/20 20:24 130 H 30 H 96 07/07/20 19:41 129 H 33 H 72/54 07/07/20 19:00 129 H 18 86/69 98 07/07/20 18:05 128 H 07/07/20 18:00 121 H 20 83/58 99 07/07/20 17:55 118 H 07/07/20 17:00 118 H 20 94/55 98 07/07/20 15:38 14 90 L 07/07/20 15:26 97.4 F L 126 H 18 83/53 96 Intake and Output 07/07/20 07/08/20 07/08/20 22:59 06:59 14:59 Intake Total 74.333 66.01 Output Total 400 520 70 Balance -400 -445.667 -3.99 Intake: Intake, IV Titration 74.333 66.01 Amount DOBUTamine DRIP 500 mg In 66.01 Dextrose/Water 1 250ml. bag @ 2.5 MCG/KG/MIN 7. 348 mls/hr IV .Q24H SASHA Rx#:[id number] Furosemide 100 mg In 74.333 Sodium Chloride 0.9% 90 ml @ 10 MG/HR 10 mls/hr IV .Q10H SASHA Rx#: [id number] Output: Urine 400 520 70 Other: Voiding Method Indwelling Catheter Weight 98.6 kg 98.8 kg 98.8 kg Results CBC & Chem 7: 07/08/20 03:18 07/08/20 03:18 Labs: Abnormal Lab Results - Last 24 Hours (Table) 07/07/20 07/07/20 07/07/20 Range/Units 16:03 16:03 16:03 RBC 3.72 L (3.80-5.40) m/uL Hgb 10.5 L (11.4-16.0) gm/dL Hct 33.1 L (34.0-46.0) % RDW 17.2 H (11.5-15.5) % Lymphocytes # 0.8 L (1.0-4.8) k/uL PT 12.6 H (9.0-12.0) sec INR 1.2 H (<1.2) Sodium 130 L (137-145) mmol/L Chloride 91 L (98-107) mmol/L BUN 93 H (7-17) mg/dL Creatinine 2.07 H (0.52-1.04) mg/dL Glucose 134 H (74-99) mg/dL POC Glucose (mg/dL) (75-99) mg/dL Magnesium 3.2 H (1.6-2.3) mg/dL Iron (50-170) ug/dL % Saturation (12.00-45.00) Alkaline Phosphatase 205 H (38-126) U/L Total Protein (6.3-8.2) g/dL Albumin (3.5-5.0) g/dL 07/07/20 07/07/20 07/07/20 Range/Units 20:12 20:44 21:01 RBC (3.80-5.40) m/uL Hgb (11.4-16.0) gm/dL Hct (34.0-46.0) % RDW (11.5-15.5) % Lymphocytes # (1.0-4.8) k/uL PT (9.0-12.0) sec INR (<1.2) Sodium (137-145) mmol/L Chloride (98-107) mmol/L BUN (7-17) mg/dL Creatinine (0.52-1.04) mg/dL Glucose (74-99) mg/dL POC Glucose (mg/dL) 69 L 68 L 147 H (75-99) mg/dL Magnesium (1.6-2.3) mg/dL Iron (50-170) ug/dL % Saturation (12.00-45.00) Alkaline Phosphatase (38-126) U/L Total Protein (6.3-8.2) g/dL Albumin (3.5-5.0) g/dL 07/07/20 07/08/20 07/08/20 Range/Units 21:19 03:18 03:18 RBC 3.47 L (3.80-5.40) m/uL Hgb 9.8 L (11.4-16.0) gm/dL Hct 31.4 L (34.0-46.0) % RDW 17.2 H (11.5-15.5) % Lymphocytes # (1.0-4.8) k/uL PT (9.0-12.0) sec INR (<1.2) Sodium 131 L (137-145) mmol/L Chloride 92 L (98-107) mmol/L BUN 94 H (7-17) mg/dL Creatinine 2.01 H (0.52-1.04) mg/dL Glucose 55 L (74-99) mg/dL POC Glucose (mg/dL) 140 H (75-99) mg/dL Magnesium 3.1 H (1.6-2.3) mg/dL Iron 22 L (50-170) ug/dL % Saturation 7.91 L (12.00-45.00) Alkaline Phosphatase 182 H (38-126) U/L Total Protein 5.7 L (6.3-8.2) g/dL Albumin 2.9 L (3.5-5.0) g/dL 07/08/20 07/08/20 Range/Units 06:49 07:12 RBC (3.80-5.40) m/uL Hgb (11.4-16.0) gm/dL Hct (34.0-46.0) % RDW (11.5-15.5) % Lymphocytes # (1.0-4.8) k/uL PT (9.0-12.0) sec INR (<1.2) Sodium (137-145) mmol/L Chloride (98-107) mmol/L BUN (7-17) mg/dL Creatinine (0.52-1.04) mg/dL Glucose (74-99) mg/dL POC Glucose (mg/dL) 68 L 130 H (75-99) mg/dL Magnesium (1.6-2.3) mg/dL Iron (50-170) ug/dL % Saturation (12.00-45.00) Alkaline Phosphatase (38-126) U/L Total Protein (6.3-8.2) g/dL Albumin (3.5-5.0) g/dL Assessment and Plan (1) Pressure ulcer of sacral region, stage 2 Current Visit: Yes Status: Acute Code(s): L89.152 - PRESSURE ULCER OF SACRAL REGION, STAGE 2 SNOMED Code(s): 841413186 (2) Nonhealing ulcer of left lower extremity limited to breakdown of skin Current Visit: Yes Status: Acute Code(s): L97.921 - NON-PRS CHR ULC UNSP PRT OF L LOW LEG LIMITED TO BRKDWN SKIN SNOMED Code(s): 72318140 (3) Diabetes mellitus with skin ulcer Current Visit: Yes Status: Acute Code(s): E11.622 - TYPE 2 DIABETES MELLITUS WITH OTHER SKIN ULCER; L98.499 - NON-PRESSURE CHRONIC ULCER OF SKIN OF SITES W UNSP SEVERITY SNOMED Code(s): 54466176
--- NOTE | 2020-07-08 11:20 | P.PN ---
Subjective Progress Note Date: 07/08/20 Patient was seen by me in the ICU. She is awake and alert. She is complaining of a lot of pain in her left leg wound. She denies being short of breath. She denies dizziness. She appears tachycardic on the monitor with a heart rate of 130. Nursing staff informed me that patient blood pressure is been running on the lower side this morning. Patient received 1 dose of IV Cardizem in addition on being on Lasix drip. Objective - Vital Signs Vital signs: Vital Signs Temp 97.7 F 07/08/20 08:00 Pulse 130 H 07/08/20 11:10 Resp 15 07/08/20 11:00 BP 80/46 07/08/20 11:00 Pulse Ox 96 07/08/20 11:00 Intake & Output 07/07/20 07/08/20 07/08/20 18:59 06:59 18:59 Intake Total 74.333 66.01 Output Total 920 270 Balance -845.667 -203.99 Weight 97.976 kg 98.8 kg 98.8 kg Intake: Intake, IV Titration 74.333 66.01 Amount DOBUTamine DRIP 500 mg In 66.01 Dextrose/Water 1 250ml. bag @ 2.5 MCG/KG/MIN 7. 348 mls/hr IV .Q24H SASHA Rx#:[id number] Furosemide 100 mg In 74.333 Sodium Chloride 0.9% 90 ml @ 10 MG/HR 10 mls/hr IV .Q10H SASHA Rx#: [id number] Output: Urine 920 270 Other: Voiding Method Indwelling Catheter Indwelling Catheter - Exam General: The patient is awake and alert, in no distress Eye: there is normal conjunctiva bilaterally. Neck: The neck is supple, there is no JVD. Cardiovascular: Normal S1-S2, no S3-S4, no murmurs. Respiratory: Lungs clear to auscultation bilaterally Gastrointestinal: Abdomen is soft, nontender Musculoskeletal: There is evidence of anasarca up to the abdomen Neurological:. Speech is normal. Skin: Skin is warm and dry . Left lower extremity wound involving the mid chin area with some surrounding redness and no drainage - Labs CBC & Chem 7: 07/08/20 03:18 07/08/20 03:18 Labs: Abnormal Lab Results - Last 24 Hours (Table) 07/07/20 07/07/20 07/07/20 Range/Units 16:03 16:03 16:03 RBC 3.72 L (3.80-5.40) m/uL Hgb 10.5 L (11.4-16.0) gm/dL Hct 33.1 L (34.0-46.0) % RDW 17.2 H (11.5-15.5) % Lymphocytes # 0.8 L (1.0-4.8) k/uL PT 12.6 H (9.0-12.0) sec INR 1.2 H (<1.2) Sodium 130 L (137-145) mmol/L Chloride 91 L (98-107) mmol/L BUN 93 H (7-17) mg/dL Creatinine 2.07 H (0.52-1.04) mg/dL Glucose 134 H (74-99) mg/dL POC Glucose (mg/dL) (75-99) mg/dL Magnesium 3.2 H (1.6-2.3) mg/dL Iron (50-170) ug/dL % Saturation (12.00-45.00) Alkaline Phosphatase 205 H (38-126) U/L Total Protein (6.3-8.2) g/dL Albumin (3.5-5.0) g/dL 07/07/20 07/07/20 07/07/20 Range/Units 20:12 20:44 21:01 RBC (3.80-5.40) m/uL Hgb (11.4-16.0) gm/dL Hct (34.0-46.0) % RDW (11.5-15.5) % Lymphocytes # (1.0-4.8) k/uL PT (9.0-12.0) sec INR (<1.2) Sodium (137-145) mmol/L Chloride (98-107) mmol/L BUN (7-17) mg/dL Creatinine (0.52-1.04) mg/dL Glucose (74-99) mg/dL POC Glucose (mg/dL) 69 L 68 L 147 H (75-99) mg/dL Magnesium (1.6-2.3) mg/dL Iron (50-170) ug/dL % Saturation (12.00-45.00) Alkaline Phosphatase (38-126) U/L Total Protein (6.3-8.2) g/dL Albumin (3.5-5.0) g/dL 07/07/20 07/08/20 07/08/20 Range/Units 21:19 03:18 03:18 RBC 3.47 L (3.80-5.40) m/uL Hgb 9.8 L (11.4-16.0) gm/dL Hct 31.4 L (34.0-46.0) % RDW 17.2 H (11.5-15.5) % Lymphocytes # (1.0-4.8) k/uL PT (9.0-12.0) sec INR (<1.2) Sodium 131 L (137-145) mmol/L Chloride 92 L (98-107) mmol/L BUN 94 H (7-17) mg/dL Creatinine 2.01 H (0.52-1.04) mg/dL Glucose 55 L (74-99) mg/dL POC Glucose (mg/dL) 140 H (75-99) mg/dL Magnesium 3.1 H (1.6-2.3) mg/dL Iron 22 L (50-170) ug/dL % Saturation 7.91 L (12.00-45.00) Alkaline Phosphatase 182 H (38-126) U/L Total Protein 5.7 L (6.3-8.2) g/dL Albumin 2.9 L (3.5-5.0) g/dL 07/08/20 07/08/20 Range/Units 06:49 07:12 RBC (3.80-5.40) m/uL Hgb (11.4-16.0) gm/dL Hct (34.0-46.0) % RDW (11.5-15.5) % Lymphocytes # (1.0-4.8) k/uL PT (9.0-12.0) sec INR (<1.2) Sodium (137-145) mmol/L Chloride (98-107) mmol/L BUN (7-17) mg/dL Creatinine (0.52-1.04) mg/dL Glucose (74-99) mg/dL POC Glucose (mg/dL) 68 L 130 H (75-99) mg/dL Magnesium (1.6-2.3) mg/dL Iron (50-170) ug/dL % Saturation (12.00-45.00) Alkaline Phosphatase (38-126) U/L Total Protein (6.3-8.2) g/dL Albumin (3.5-5.0) g/dL Assessment and Plan Assessment: This is a 75-year-old female with very complex past medical history noted below Presented to the emergency room with worsening dyspnea, patient was evaluated in the ER and admitted to the ICU for further management of her medical problems noted below. 1. Acute systolic heart failure exacerbation: Started on IV Lasix drip. Managed by cardiology. Echocardiogram showed ejection fraction of 20% with severe global hypokinesia of the left ventricle. 2. Significant fluid overload with evidence of anasarca up to the abdomen and bilateral large pleural effusion 3. Acute kidney injury with possible underlying chronic kidney disease: Baseline creatinine unknown. Avoid nephrotoxins. 4. Atrial fibrillation with rapid ventricular response: Started on amiodarone and Eliquis by cardiology 5. Left lower extremity wound infection: Started on antibiotic with cefazolin day #1 6. Type 2 diabetes with episode of hypoglycemia: Home dose of Lantus discontinued. Continue sliding scale insulin 7. Coccyx pressure ulcer, POA: Wound care consulted, appreciate recommendation 8. Chronic medical problems, coronary artery disease status post 2 vessel bypass with mitral valve repair at [facility] in April 2020 9. CODE STATUS, patient is full code. Discussed by admitting physician
[2020-07-08 12:07] LABS: Glucose,Whole Blood 132 mg/dL (75-99)
[2020-07-08] MEDS: APIXABAN 2.5 MG TABLET PO SCH ×2 (12:37→21:31)
--- NOTE | 2020-07-08 14:01 | P.CNPUL ---
History of Present Illness Consult date: 07/08/20 Requesting physician: Jess Clark Reason for consult: dyspnea, pleural effusion Chief complaint: Shortness of breath History of present illness: This is a 75-year-old female with history of multiple medical problems including type 2 diabetes, hypertension, ischemic cardiomyopathy and LV dysfunction, patient had a two-vessel bypass surgery and mitral valve repair in the last couple of months at [facility], patient presented to the ER with a few weeks history of increased shortness of breath, workup was done in the ER, clearly the patient was in congestive heart failure with bilateral pleural effusions left greater than right. And check her blood pressure was noted to be marginal but did not require any pressors while in the ER. Patient was seen by cardiology on consultation, and she was noted to have an accelerated junctional rhythm, recommended that the patient gets admitted to the ICU and The patient on Lasix drip at 10 mg per hour. Considering her pleural effusions and her shortness of breath, I was asked to see the patient on consultation. I was notified about this patient last night from the ICU nurse where in she was noted to have marginal blood pressure and she had fairly good urine output, I did recommend starting the patient on Dobutrex at 2.5 mcg/kg/m, and the patient has been responding quite well to the Dobutrex along with a Lasix drip. Echocardi ogram showed poor LV function of 20%, there was severe global hypokinesis of the left ventricle. Follow-up chest x-ray this morning after diuresing the patient showed definite improvement in her pleural effusions, hence I have no plans to arrange for thoracentesis at this point. In addition to all of this, the patient had developed significant ulceration and what seems to be a cellulitis involving the left lower extremity related to the site of saphenous vein salvage. The area seems to be a bit necrotic, and I recommended starting the patient on antibiotics in the form of Ancef. Review of Systems CONSTITUTIONAL: Denies fever chills, but she feels generally weak. CARDIOVASCULAR: As noted in HPI mostly shortness of breath which is clearly cardiac in nature. RESPIRATORY: Minimal cough and shortness of breath GASTROINTESTINAL: No nausea no vomiting no abdominal pain MUSCULOSKELETAL: Denies any arthritis symptoms or myalgia. NEUROLOGIC: No headache blurred vision or dizziness. ENDOCRINE: Advised we stress and fatigue and her sugars have been fairly under control. GENITOURINARY: No dysuria frequency urgency or hematuria. HEMATOLOGIC: No history of clotting bleeding or bruising. Past Medical History Past Medical History: Coronary Artery Disease (CAD), Heart Failure, COPD, Diabetes Mellitus, Hypertension Additional Past Medical History / Comment(s): asthma, A fib History of Any Multi-Drug Resistant Organisms: None Reported Past Surgical History: Appendectomy, Cholecystectomy, Hysterectomy, Tubal Ligation Additional Past Surgical History / Comment(s): 2 vessel bypass with mitral valve repair - CHEN and endoscopic vein, mitral valve 32mm sjm ridig saddle ring, maze procedure. Retocele repair Past Anesthesia/Blood Transfusion Reactions: No Reported Reaction Past Psychological History: No Psychological Hx Reported Smoking Status: Never smoker Past Alcohol Use History: None Reported Past Drug Use History: None Reported - Past Family History Father Additional Family Medical History / Comment(s): at 55 with a massive NC Mother Family Medical History: CVA/TIA Medications and Allergies Home Medications Medication Instructions Recorded Confirmed Type ALPRAZolam [Xanax] 0.5 mg PO Q6H PRN 07/07/20 07/07/20 History Acetaminophen Tab [Tylenol Tab] 500 mg PO BID 07/07/20 07/07/20 History Albuterol Inhaler [Ventolin Hfa 2 puff INHALATION RT-Q6H PRN 07/07/20 07/07/20 History Inhaler] Atorvastatin [Lipitor] 80 mg PO HS 07/07/20 07/07/20 History Bumetanide [Bumex] 1 mg PO DAILY 07/07/20 07/07/20 History Carvedilol [Coreg] 50 mg PO Q12H 07/07/20 07/07/20 History Docusate [Colace] 100 mg PO BID 07/07/20 07/07/20 History Fluticasone Nasal [place] [Flonase 2 spr EA NOSTRIL DAILY 07/07/20 07/07/20 History Nasal [place]] Fluticasone/Vilanterol [Breo 1 puff INHALATION RT-DAILY 07/07/20 07/07/20 History Ellipta 100-25 Mcg Inhaler] Insulin Glargine,Hum.rec.anlog 18 unit SQ 07/07/20 07/07/20 History [Lantus Solostar] Insulin Lispro [Insulin Lispro See Protocol SQ AC-TID 07/07/20 07/07/20 History Kwikpen U-100] Loratadine [Claritin] 10 mg PO DAILY 07/07/20 07/07/20 History Omeprazole 20 mg PO AC-SUPPER 07/07/20 07/07/20 History Rivaroxaban [Xarelto] 2.5 mg PO BID 07/07/20 07/07/20 History Sacubitril/Valsartan [Entresto 24 1 tab PO Q12H 07/07/20 07/07/20 History mg-26 mg Tablet] Tiotropium [place] [Spiriva] 2 cap INHALATION RT-DAILY 07/07/20 07/07/20 History metOLazone [Zaroxolyn] 5 mg PO DAILY 07/07/20 07/07/20 History Allergies Allergy/AdvReac Type Severity Reaction Status Date / Time ciprofloxacin [From Cipro] Allergy Rash/Hives Verified 07/07/20 17:56 ciprofloxacin HCl Allergy Rash/Hives Verified 07/07/20 17:56 [From Cipro] codeine Allergy Rash/Hives Verified 07/07/20 17:56 Penicillins Allergy Rash/Hives Verified 07/07/20 17:56 shellfish derived [Shellfish] Allergy Rash/Hives Verified 07/07/20 17:56 Sulfa (Sulfonamide Allergy Rash/Hives Verified 07/07/20 17:56 Antibiotics) Physical Exam Vitals: Vital Signs Temp Pulse Pulse Resp BP Pulse Ox 07/08/20 13:00 129 H 9 L 103/70 96 07/08/20 12:00 97.9 F 128 H 12 77/56 96 07/08/20 11:19 128 H 07/08/20 11:10 130 H 07/08/20 11:00 129 H 15 80/46 96 07/08/20 10:00 130 H 8 L 66/41 96 07/08/20 09:00 133 H 7 L 100/90 99 07/08/20 08:04 132 H 07/08/20 08:00 97.7 F 131 H 24 87/68 100 07/08/20 07:49 130 H 07/08/20 07:00 133 H 17 83/61 96 07/08/20 06:00 133 H 13 89/56 96 07/08/20 05:00 134 H 14 98/56 94 L 07/08/20 04:00 97.5 F L 133 H 16 89/57 96 07/08/20 03:00 133 H 20 91/62 96 07/08/20 02:00 133 H 14 82/55 96 07/08/20 01:00 131 H 16 82/43 98 07/08/20 00:23 96 07/08/20 00:17 97.6 F 131 H 15 07/07/20 23:00 131 H 16 96 07/07/20 22:00 130 H 18 96 07/07/20 21:00 129 H 20 110/84 95 07/07/20 20:24 130 H 30 H 96 07/07/20 19:41 129 H 33 H 72/54 07/07/20 19:00 129 H 18 86/69 98 07/07/20 18:05 128 H 07/07/20 18:00 121 H 20 83/58 99 07/07/20 17:55 118 H 07/07/20 17:00 118 H 20 94/55 98 07/07/20 15:38 14 90 L 07/07/20 15:26 97.4 F L 126 H 18 83/53 96 Intake and Output 07/07/20 07/08/20 07/08/20 22:59 06:59 14:59 Intake Total 74.333 316.01 Output Total 400 520 520 Balance -400 -445.667 -203.99 Intake: Intake, IV Titration 74.333 166.01 Amount DOBUTamine DRIP 500 mg In 66.01 Dextrose/Water 1 250ml. bag @ 2.5 MCG/KG/MIN 7. 348 mls/hr IV .Q24H SASHA Rx#:[id number] Furosemide 100 mg In 74.333 100 Sodium Chloride 0.9% 90 ml @ 10 MG/HR 10 mls/hr IV .Q10H SASHA Rx#: [id number] Oral 150 Output: Urine 400 520 520 Other: Voiding Method Indwelling Catheter Indwelling Catheter Weight 98.6 kg 98.8 kg 98.8 kg Physical Exam: Revealed a 75-year-old female in no distress, on 2 L nasal cannula, and her O2 saturation is 96% Head: Atraumatic, normocephalic. HEENT:[Neck is supple.] [No neck masses.] [No thyromegaly.] [No JVD.] Chest: Symmetrical chest expansion, crackles at the bases, no rhonchi and no wheezes. Cardiac Exam: [Normal S1 and S2, no S3 gallop, over 6 systolic murmur thought the precordium. Abdomen: [Obese, Soft, nontender, no megaly, no rebound, no guarding, normal bowel sounds.] Abdominal wall edema is noted. Extremities: 1+ bipedal edema, ulceration noted in the medial aspect of the left lower extremity in the calf region. Wrapped with sterile dressing. Neurological Exam: Alert and oriented 3 no focal deficit. Psychiatric: Normal mood affect and normal mental status examination. Musculoskeletal: No deformities noted limitation range of motion. Results - Laboratory Findings CBC and BMP: 07/08/20 03:18 07/08/20 03:18 PT/INR, D-dimer PT 12.6 sec (9.0-12.0) H 07/07/20 16:03 INR 1.2 (<1.2) H 07/07/20 16:03 Abnormal lab findings: Abnormal Labs 07/07/20 07/07/20 07/07/20 16:03 16:03 16:03 RBC 3.72 L Hgb 10.5 L Hct 33.1 L RDW 17.2 H Lymphocytes # 0.8 L PT 12.6 H INR 1.2 H Sodium 130 L Chloride 91 L BUN 93 H Creatinine 2.07 H Glucose 134 H POC Glucose (mg/dL) Magnesium 3.2 H Iron % Saturation Alkaline Phosphatase 205 H Total Protein Albumin 07/07/20 07/07/20 07/07/20 20:12 20:44 21:01 RBC Hgb Hct RDW Lymphocytes # PT INR Sodium Chloride BUN Creatinine Glucose POC Glucose (mg/dL) 69 L 68 L 147 H Magnesium Iron % Saturation Alkaline Phosphatase Total Protein Albumin 07/07/20 07/08/20 07/08/20 21:19 03:18 03:18 RBC 3.47 L Hgb 9.8 L Hct 31.4 L RDW 17.2 H Lymphocytes # PT INR Sodium 131 L Chloride 92 L BUN 94 H Creatinine 2.01 H Glucose 55 L POC Glucose (mg/dL) 140 H Magnesium 3.1 H Iron 22 L % Saturation 7.91 L Alkaline Phosphatase 182 H Total Protein 5.7 L Albumin 2.9 L 07/08/20 07/08/20 07/08/20 06:49 07:12 12:06 RBC Hgb Hct RDW Lymphocytes # PT INR Sodium Chloride BUN Creatinine Glucose POC Glucose (mg/dL) 68 L 130 H 132 H Magnesium Iron % Saturation Alkaline Phosphatase Total Protein Albumin - Diagnostic Findings Chest x-ray: image reviewed (As noted in HPI. Chest x-ray is consistent with congestive heart failure.) Assessment and Plan Assessment: Impression: Acute on chronic systolic congestive heart failure Acute bilateral pleural effusions secondary to congestive heart failure as noted above. History of coronary artery disease and recent CABG at [facility]. paroxysmal atrial fibrillation, on long-term anti coagulation therapy. Acute kidney injury could be cardiorenal in nature knowing the patient has severe LV dysfunction. Type 2 diabetes. Questionable history of underlying COPD. Acute cellulitis of left lower extremity Recommendation: Continue Lasix drip. Discontinue Dobutrex. Continue amiodarone as ordered by cardiology. Continue to monitor I's and O's strictly. Continue to monitor electrolytes and renal profile daily. Cardiology is considering CELE/cardioversion. Continue bronchodilators. No need for thoracentesis at this point since we are certain that her pleural effusions are related to CHF, and the patient is clearly responding to diuretics. Prognosis is definitely guarded, we'll continue to follow. Time with Patient: Greater than 30
[2020-07-08] MEDS: MUPIROCIN 2% OINT 22 GM TUBE TOPICAL SCH ×3 (15:27→21:32)
[2020-07-08 17:29] LABS: Glucose,Whole Blood 177 mg/dL (75-99)
[2020-07-08] MEDS: PANTOPRAZOLE 40 MG TABLET PO SCH (17:49)
[2020-07-08] MEDS: ALPRAZolam 0.5 MG TAB PO PRN ×2 (17:51→23:38)
[2020-07-08] MEDS: ATORVASTATIN 80 MG TAB PO SCH (21:31)
[2020-07-08 21:42] LABS: Glucose,Whole Blood 196 mg/dL (75-99)
[2020-07-09 02:39] LABS: Glucose,Whole Blood 216 mg/dL (75-99)
[2020-07-09 04:07] LABS: Anisocytosis Slight; Basophils # (A) 0.1 k/uL (0-0.2); Basophils % (A) 1 %; Eosinophils # (A) 0.4 k/uL (0-0.7); Eosinophils % (A) 5 %; HCT 29.4 % (34.0-46.0); HGB 9.7 gm/dL (11.4-16.0); Lymphocytes # (A) 0.7 k/uL (1.0-4.8); Lymphocytes % (A) 10 %; MCH 29.6 pg (25.0-35.0); MCHC 33.1 g/dL (31.0-37.0); MCV 89.5 fL (80.0-100.0); Mean Platelet Volume 7.6; Monocytes # (A) 0.5 k/uL (0-1.0); Monocytes % (A) 7 %; Neutrophils # (A) 5.5 k/uL (1.3-7.7); Neutrophils % (A) 76 %; Platelet Count 190 k/uL (150-450); RBC 3.28 m/uL (3.80-5.40); RDW 16.9 % (11.5-15.5); WBC 7.2 k/uL (3.8-10.6)
[2020-07-09 04:40] LABS: Albumin 2.9 g/dL (3.5-5.0); Calcium 8.1 mg/dL (8.4-10.2); Magnesium 3.1 mg/dL (1.6-2.3); Potassium 4.5 mmol/L (3.5-5.1); Total Bilirubin 0.6 mg/dL (0.2-1.3); Total Protein 5.6 g/dL (6.3-8.2)
[2020-07-09] MEDS: ALBUTEROL NEBULIZED 2.5 MG/3 ML INHALATION PRN ×2 (05:58→21:02)
[2020-07-09 06:57] LABS: Glucose,Whole Blood 196 mg/dL (75-99)
[2020-07-09] MEDS: INSULIN ASPART (NovoLOG) 100 UNIT/ML VIAL SQ SCH ×3 (07:05→16:49)
--- NOTE | 2020-07-09 07:11 | XR ---
EXAMINATION TYPE: XR chest 1V portable DATE OF EXAM: 07/09/2020 COMPARISON: 07/08/2020 HISTORY: Pleural effusion TECHNIQUE: Single frontal view of the chest is obtained. FINDINGS: There is increasing right-sided consolidation and pleural effusion is stable left-sided co nsolidation postoperative changes with cardiomegaly noted. No sizable pneumothorax. Diffuse soft tiss ue. IMPRESSION: 1. Bilateral infiltrate and pleural effusion correlate for CHF otherwise consider pneumonia.
[2020-07-09] MEDS: FUROSEMIDE 100 MG in SODIUM CHLORIDE 0.9% 90 ML IV SCH ×2 (08:01→16:34)
[2020-07-09] MEDS: LORATADINE 10 MG TAB PO SCH (08:17)
[2020-07-09] MEDS: MUPIROCIN 2% OINT 22 GM TUBE TOPICAL SCH ×3 (08:18→21:21)
[2020-07-09] MEDS: AMIODARONE 200 MG TAB PO SCH (08:18)
[2020-07-09] MEDS: APIXABAN 2.5 MG TABLET PO SCH ×2 (08:18→21:20)
[2020-07-09] MEDS: FLUTICASONE 50MCG/SPRAY NASAL 16GM EA NOSTRIL SCH (08:19)
[2020-07-09] MEDS: SYMBICORT 80-4.5 MCG INHALER INHALATION SCH ×2 (09:18→21:02)
[2020-07-09] MEDS: IPRATROPIUM 0.5 MG/2.5 ML NEBU INHALATION SCH ×5 (09:18→21:02)
--- NOTE | 2020-07-09 09:28 | US ---
EXAMINATION TYPE: US chest DATE OF EXAM: 07/09/2020 COMPARISON: CXR CLINICAL HISTORY: pleural effusions. Effusion TECHNIQUE: Targeted ultrasound of the posterior lower bilateral hemithoraces EXAM MEASUREMENTS: Left Pleural Effusion pocket size: 7.8 cm Left skin surface to fluid distance: 3.9 cm Right side NOT marked for possible thoracentesis outside the dept. Left side marked for possible thoracentesis outside the dept. Pulmonologists are able to review the images in the patient?s EMR. IMPRESSIONS: Left pleural effusion.
--- NOTE | 2020-07-09 11:14 | P.PN ---
Subjective Progress Note Date: 07/09/20 Principal diagnosis: Acute on chronic systolic congestive heart failure This is a 75-year-old female with history of multiple medical problems including type 2 diabetes, hypertension, ischemic cardiomyopathy and LV dysfunction, patient had a two-vessel bypass surgery and mitral valve repair in the last couple of months at [facility], patient presented to the ER with a few weeks history of increased shortness of breath, workup was done in the ER, clearly the patient was in congestive heart failure with bilateral pleural effusions left greater than right. And check her blood pressure was noted to be marginal but did not require any pressors while in the ER. Patient was seen by cardiology on consultation, and she was noted to have an accelerated junctional rhythm, recommended that the patient gets admitted to the ICU and The patient on Lasix drip at 10 mg per hour. Considering her pleural effusions and her shortness of breath, I was asked to see the patient on consultation. I was notified about this patient last night from the ICU nurse where in she was noted to have marginal blood pressure and she had fairly good urine output, I did recommend starting the patient on Dobutrex at 2.5 mcg/kg/m, and the patient has been responding quite well to the Dobutrex along with a Lasix drip. Echocardiogram showed poor LV function of 20%, there was severe global hypokinesis of the left ventricle. Follow-up chest x-ray this morning after diuresing the patient showed definite improvement in her pleural effusions, hence I have no plans to arrange for thoracentesis at this point. In addition to all of this, the patient had developed significant ulceration and what seems to be a cellulitis involving the left lower extremity related to the site of saphenous vein salvage. The area seems to be a bit necrotic, and I recommended starting the patient on antibiotics in the form of Ancef. Patient was reevaluated today on 07/09/2020, remains in the ICU, patient is basically about the same. Minimal improvement if any. remains on Lasix drip, remains in atrial fibrillation urine output is dropping cough, she is down to 30 mL per hour. Patient remains on 2 L nasal cannula, chest x-ray questioned right pleural effusion more so than left pleural effusion, however the ultrasound of the chest showed more fluid on the left side, and hardly any fluid on the right side. Still planning to continue diuretics on this patient, will hold on thoracentesis unless the patient shows no improvement with diuresis. She still on Lasix at 10 mg per hour still on cefazolin. Creatinine today is slightly worse at 2.11, patient was doing better when she was on Dobutrex. However this was discontinued by cardiology, mostly because of her atrial fibrillation with RVR. WBC count is 7.2 hemoglobin is 9.7 BUN is 94 creatinine 2.11 Objective - Vital Signs Vital signs: Vital Signs Temp 97.4 F L 07/09/20 08:00 Pulse 123 H 07/09/20 10:00 Resp 14 07/09/20 10:00 BP 81/60 07/09/20 10:00 Pulse Ox 94 L 07/09/20 10:00 Intake & Output 07/08/20 07/09/20 07/09/20 18:59 06:59 18:59 Intake Total 466.01 389.167 150 Output Total 1045 480 90 Balance -578.99 -90.833 60 Weight 98.8 kg 98.5 kg Intake: Intake, IV Titration 166.01 139.167 150 Amount DOBUTamine DRIP 500 mg In 66.01 Dextrose/Water 1 250ml. bag @ 2.5 MCG/KG/MIN 7. 348 mls/hr IV .Q24H [facility] Rx#:[id number] Furosemide 100 mg In 100 89.167 100 Sodium Chloride 0.9% 90 ml @ 10 MG/HR 10 mls/hr IV .Q10H [facility] Rx#: [id number] ceFAZolin 1,000 mg In 50 50 Sodium Chloride 0.9% 50 ml @ 100 mls/hr IVPB Q8HR [facility] Rx#:[id number] Oral 300 250 Output: Urine 1045 480 90 Other: Voiding Method Indwelling Catheter Indwelling Catheter Indwelling Catheter - Exam Physical Exam: Revealed a 75-year-old female in no distress, on 2 L nasal cannula, and her O2 saturation is 96% Head: Atraumatic, normocephalic. HEENT:[Neck is supple.] [No neck masses.] [No thyromegaly.] [No JVD.] Chest: Symmetrical chest expansion, crackles at the bases, no rhonchi and no wh eezes. Cardiac Exam: [Normal S1 and S2, no S3 gallop, over 6 systolic murmur thought the precordium. Abdomen: [Obese, Soft, nontender, no megaly, no rebound, no guarding, normal bowel sounds.] Abdominal wall edema is noted. Extremities: 2+ bipedal edema, ulceration noted in the medial aspect of the left lower extremity in the calf region. Wrapped with sterile dressing. Neurological Exam: Alert and oriented 3 no focal deficit. Psychiatric: Normal mood affect and normal mental status examination. Musculoskeletal: No deformities noted limitation range of motion. - Labs CBC & Chem 7: 07/09/20 03:46 07/09/20 03:46 Labs: Abnormal Lab Results - Last 24 Hours (Table) 07/08/20 07/08/20 07/08/20 Range/Units 03:18 12:06 17:28 RBC (3.80-5.40) m/uL Hgb (11.4-16.0) gm/dL Hct (34.0-46.0) % RDW (11.5-15.5) % Lymphocytes # (1.0-4.8) k/uL Sodium (137-145) mmol/L Chloride (98-107) mmol/L Carbon Dioxide (22-30) mmol/L BUN (7-17) mg/dL Creatinine (0.52-1.04) mg/dL Glucose (74-99) mg/dL POC Glucose (mg/dL) 132 H 177 H (75-99) mg/dL Hemoglobin A1c 6.4 H (4.0-6.0) % Calcium (8.4-10.2) mg/dL Magnesium (1.6-2.3) mg/dL Alkaline Phosphatase (38-126) U/L Total Protein (6.3-8.2) g/dL Albumin (3.5-5.0) g/dL 07/08/20 07/09/20 07/09/20 Range/Units 21:40 02:38 03:46 RBC 3.28 L (3.80-5.40) m/uL Hgb 9.7 L (11.4-16.0) gm/dL Hct 29.4 L (34.0-46.0) % RDW 16.9 H (11.5-15.5) % Lymphocytes # 0.7 L (1.0-4.8) k/uL Sodium (137-145) mmol/L Chloride (98-107) mmol/L Carbon Dioxide (22-30) mmol/L BUN (7-17) mg/dL Creatinine (0.52-1.04) mg/dL Glucose (74-99) mg/dL POC Glucose (mg/dL) 196 H 216 H (75-99) mg/dL Hemoglobin A1c (4.0-6.0) % Calcium (8.4-10.2) mg/dL Magnesium (1.6-2.3) mg/dL Alkaline Phosphatase (38-126) U/L Total Protein (6.3-8.2) g/dL Albumin (3.5-5.0) g/dL 07/09/20 07/09/20 Range/Units 03:46 06:56 RBC (3.80-5.40) m/uL Hgb (11.4-16.0) gm/dL Hct (34.0-46.0) % RDW (11.5-15.5) % Lymphocytes # (1.0-4.8) k/uL Sodium 129 L (137-145) mmol/L Chloride 91 L (98-107) mmol/L Carbon Dioxide 31 H (22-30) mmol/L BUN 94 H (7-17) mg/dL Creatinine 2.11 H (0.52-1.04) mg/dL Glucose 182 H (74-99) mg/dL POC Glucose (mg/dL) 196 H (75-99) mg/dL Hemoglobin A1c (4.0-6.0) % Calcium 8.1 L (8.4-10.2) mg/dL Magnesium 3.1 H (1.6-2.3) mg/dL Alkaline Phosphatase 190 H (38-126) U/L Total Protein 5.6 L (6.3-8.2) g/dL Albumin 2.9 L (3.5-5.0) g/dL Microbiology - Last 24 Hours (Table) 07/08/20 09:30 Wound Culture - Preliminary Leg - Left 07/08/20 09:30 Anaerobic Culture - Preliminary Leg - Left Assessment and Plan Assessment: Impression: Acute on chronic systolic congestive heart failure Acute bilateral pleural effusions secondary to congestive heart failure as noted above. History of coronary artery disease and recent CABG at [facility]. paroxysmal atrial fibrillation, on long-term anti coagulation therapy. Acute kidney injury could be cardiorenal in nature knowing the patient has severe LV dysfunction. Type 2 diabetes. Questionable history of underlying COPD. Acute cellulitis of left lower extremity Recommendation: Continue Lasix drip. Cardiology to address her atrial fibrillation with RVR. Consider adding Dobutrex again. Patient was doing better with Dobutrex as far as her renal status is concerned and urine output. Continue to monitor I's and O's strictly. Continue to monitor electrolytes and renal profile daily. Cardiology is considering CELE/cardioversion. Continue bronchodilators. Would hold on thoracentesis for now, ultrasound was reviewed. Prognosis is definitely guarded, we'll continue to follow. Time with Patient: Less than 30
--- NOTE | 2020-07-09 12:11 | P.PN ---
Subjective Progress Note Date: 07/09/20 Patient is not feeling better today. Nursing staff informed me that patient became oliguric in the last few hours. Creatinine about the same compared to yesterday. Blood pressure still borderline low but this is expected with her low EF. Lactic acid yesterday was normal. Objective - Vital Signs Vital signs: Vital Signs Temp 97.4 F L 07/09/20 08:00 Pulse 123 H 07/09/20 10:00 Resp 14 07/09/20 10:00 BP 81/60 07/09/20 10:00 Pulse Ox 94 L 07/09/20 10:00 Intake & Output 07/08/20 07/09/20 07/09/20 18:59 06:59 18:59 Intake Total 466.01 389.167 150 Output Total 1045 480 130 Balance -578.99 -90.833 20 Weight 98.8 kg 98.5 kg Intake: Intake, IV Titration 166.01 139.167 150 Amount DOBUTamine DRIP 500 mg In 66.01 Dextrose/Water 1 250ml. bag @ 2.5 MCG/KG/MIN 7. 348 mls/hr IV .Q24H [facility] Rx#:[id number] Furosemide 100 mg In 100 89.167 100 Sodium Chloride 0.9% 90 ml @ 10 MG/HR 10 mls/hr IV .Q10H [facility] Rx#: [id number] ceFAZolin 1,000 mg In 50 50 Sodium Chloride 0.9% 50 ml @ 100 mls/hr IVPB Q8HR [facility] Rx#:[id number] Oral 300 250 Output: Urine 1045 480 130 Other: Voiding Method Indwelling Catheter Indwelling Catheter Indwelling Catheter - Exam General: The patient is awake and alert, in no distress Eye: there is normal conjunctiva bilaterally. Neck: The neck is supple, there is no JVD. Cardiovascular: Normal S1-S2, no S3-S4, no murmurs. Respiratory: Lungs clear to auscultation bilaterally Gastrointestinal: Abdomen is soft, nontender Musculoskeletal: There is evidence of anasarca up to the abdomen Neurological:. Speech is normal. Skin: Skin is warm and dry . Left lower extremity wound involving the mid chin area with some surrounding redness and no drainage - Labs CBC & Chem 7: 07/09/20 03:46 07/09/20 03:46 Labs: Abnormal Lab Results - Last 24 Hours (Table) 07/08/20 07/08/20 07/08/20 Range/Units 03:18 17:28 21:40 RBC (3.80-5.40) m/uL Hgb (11.4-16.0) gm/dL Hct (34.0-46.0) % RDW (11.5-15.5) % Lymphocytes # (1.0-4.8) k/uL Sodium (137-145) mmol/L Chloride (98-107) mmol/L Carbon Dioxide (22-30) mmol/L BUN (7-17) mg/dL Creatinine (0.52-1.04) mg/dL Glucose (74-99) mg/dL POC Glucose (mg/dL) 177 H 196 H (75-99) mg/dL Hemoglobin A1c 6.4 H (4.0-6.0) % Calcium (8.4-10.2) mg/dL Magnesium (1.6-2.3) mg/dL Alkaline Phosphatase (38-126) U/L Total Protein (6.3-8.2) g/dL Albumin (3.5-5.0) g/dL 07/09/20 07/09/20 07/09/20 Range/Units 02:38 03:46 03:46 RBC 3.28 L (3.80-5.40) m/uL Hgb 9.7 L (11.4-16.0) gm/dL Hct 29.4 L (34.0-46.0) % RDW 16.9 H (11.5-15.5) % Lymphocytes # 0.7 L (1.0-4.8) k/uL Sodium 129 L (137-145) mmol/L Chloride 91 L (98-107) mmol/L Carbon Dioxide 31 H (22-30) mmol/L BUN 94 H (7-17) mg/dL Creatinine 2.11 H (0.52-1.04) mg/dL Glucose 182 H (74-99) mg/dL POC Glucose (mg/dL) 216 H (75-99) mg/dL Hemoglobin A1c (4.0-6.0) % Calcium 8.1 L (8.4-10.2) mg/dL Magnesium 3.1 H (1.6-2.3) mg/dL Alkaline Phosphatase 190 H (38-126) U/L Total Protein 5.6 L (6.3-8.2) g/dL Albumin 2.9 L (3.5-5.0) g/dL 07/09/20 Range/Units 06:56 RBC (3.80-5.40) m/uL Hgb (11.4-16.0) gm/dL Hct (34.0-46.0) % RDW (11.5-15.5) % Lymphocytes # (1.0-4.8) k/uL Sodium (137-145) mmol/L Chloride (98-107) mmol/L Carbon Dioxide (22-30) mmol/L BUN (7-17) mg/dL Creatinine (0.52-1.04) mg/dL Glucose (74-99) mg/dL POC Glucose (mg/dL) 196 H (75-99) mg/dL Hemoglobin A1c (4.0-6.0) % Calcium (8.4-10.2) mg/dL Magnesium (1.6-2.3) mg/dL Alkaline Phosphatase (38-126) U/L Total Protein (6.3-8.2) g/dL Albumin (3.5-5.0) g/dL Microbiology - Last 24 Hours (Table) 07/08/20 09:30 Wound Culture - Preliminary Leg - Left 07/08/20 09:30 Anaerobic Culture - Preliminary Leg - Left Assessment and Plan Assessment: This is a 75-year-old female with very complex past medical history noted below Presented to the emergency room with worsening dyspnea, patient was evaluated in the ER and admitted to the ICU for further management of her medical problems noted below. 1. Acute systolic heart failure exacerbation: Started on IV Lasix drip. Managed by cardiology. Echocardiogram showed ejection fraction of 20% with severe global hypokinesia of the left ventricle. Patient may benefit from dobu tamine drip 2. Significant fluid overload with evidence of anasarca up to the abdomen and bilateral large pleural effusion 3. Acute kidney injury with possible underlying chronic kidney disease: B aseline creatinine unknown. Avoid nephrotoxins. Nephrology consulted for further evaluation. 4. Atrial fibrillation with rapid ventricular response: Started on amiodarone and Eliquis by cardiology 5. Left lower extremity wound infection: Started on antibiotic with cefazolin day #2 6. Type 2 diabetes with episode of hypoglycemia: Home dose of Lantus decreased from 18 units to 8 units of Levemir daily. Continue sliding scale insulin 7. Coccyx pressure ulcer, POA: Wound care consulted, appreciate recommendation 8. Chronic medical problems, coronary artery disease status post 2 vessel bypass with mitral valve repair at [facility] in April 2020 9. CODE STATUS, patient is full code. Discussed with her at bedside today
[2020-07-09 12:15] LABS: Glucose,Whole Blood 252 mg/dL (75-99)
[2020-07-09] MEDS: INSULIN DETEMIR (LEVEMIR) 100 UNIT/ML SYR SQ SCH (12:46)
[2020-07-09] MEDS ORDERED: AMIODARONE 360 MG in DEXTROSE 5% IN WATER 200 ML IV ONE ×2 (13:07)
[2020-07-09 16:38] LABS: Glucose,Whole Blood 201 mg/dL (75-99)
[2020-07-09] MEDS: PANTOPRAZOLE 40 MG TABLET PO SCH (16:49)
[2020-07-09] MEDS: DOBUTamine DRIP 500 MG in DEXTROSE/WATER 1 250ML.BAG IV SCH (18:18)
[2020-07-09] MEDS: NOREPINEPHRINE 4 MG in SODIUM CHLORIDE 0.9% 250 ML IV SCH (18:18)
[2020-07-09] MEDS: AMIODARONE 450 MG in DEXTROSE 5% IN WATER 250 ML IV SCH ×2 (18:55)
--- NOTE | 2020-07-09 21:09 | P.PN ---
Subjective HISTORY OF PRESENTING ILLNESS This is a pleasant 75-year-old female past medical history significant for ischemic cardiomyopathy, coronary artery disease status post bypass grafting, valvular heart disease status post mitral ring annuloplasty, chronic systolic heart failure, paroxysmal atrial fibrillation on long-term anticoagulation, hypertension, diabetes mellitus, COPD and dyslipidemia. She initially underwent bypass grafting and mitral valve repair approximately 2 months ago and [facility]. She established in town with Dr. Rodrigues June 22. We have been asked to see in consultation for heart failure. She presented to the hospital with symptoms of shortness of breath, cough and lower extremity edema. She was initially admitted to [facility] April 22 where she was found to have an ejection fraction of less than 15%. She underwent cardiac catheterization which showed severe triple vessel disease and underwent two-vessel bypass grafting with repair for mitral valve and maze procedure. Repeat echocardiogram prior to discharge revealed an ejection fraction of 45%. She did go to inpatient rehab shortly thereafter and has since been at home with home care. EKG on arrival revealed atrial tachycardia with a heart rate in the 130s. She was initiated on dobutamine and IV Lasix. She is seen and examined sitting up in bed in no acute distress. Her heart continues to be tachycardic in the 130s. It appears regular but is difficult to differentiate possible underlying atrial flutter. Repeat echocardiogram on this admission revealed ejection fraction of less than 20%, severe global hypok inesia, large pleural effusion and mild to moderate mitral regurgitation. Chest x-ray this morning reveals moderate bilateral pleural effusions improved from previous exam. Venous duplex negative for DVT. Laboratory data reviewed, WBC 7.8, hemoglobin 9.8, platelets 228, sodium 131, potassium 4.8, creatinine 2.01, magnesium 3.1, troponin 0.0 17, TSH 4.03 and and proBNP 4330. Crit daily cardiac medications as recorded in Dr. Rodrigues's office on June 22 reveal aspirin 81 mg daily, atorvastatin 80 mg daily, Bumex 1 mg daily, Coreg 25 mg twice a day, Eliquis 5 mg twice a day, and entresto 24/26 mg twice a day and daily magnesium supplementation. 07/09 Patient seen and examined. Patient remains with heart rates predominantly right at 128, occasionally lower with amiodarone and Cardizem were appears to be possible atrial flutter versus atrial tachycardia. She states she feels somewhat more tired than yesterday. Still complains of shortness breath. She previously did have good urine output however has decreased. Her blood pressures decreased into the 70s over 50s with a map in the low 60s. She had previously been on dobutamine to begin with however I was not on any vasopressors or inotropes. Echocardiogram revealed severely decreased ejection fraction 20% with [id number] mitral regurgitation. She is sitting upright in bed. Her creatinine mildly increased at 2.1 today. She denies any chest pain or pressure. She is still coughing. Patient and son at bedside admit that she has been tachycardic for approximately the last 3 weeks, was noted to be tachycardic when home health care came a few times. She was transitioned over to IV amiodarone earlier in the day without much improvement. REVIEW OF SYSTEMS At the time of my exam: CONSTITUTIONAL: Denies fever or chills. CARDIOVASCULAR: + sob, +orthopnea. Denies chest pain, PND or palpitations. RESPIRATORY: + cough. GASTROINTESTINAL: Denies abdominal pain, diarrhea, constipation, nausea or vomiting. MUSCULOSKELETAL: Denies myalgias. NEUROLOGIC: Denies numbness, tingling, headacbe or weakness. ENDOCRINE: Denies fatigue, weight change, polydipsia or polyurina. GENITOURINARY: Denies burning, hematuria or urgency with micturation. HEMATOLOGIC: Denies history of anemia or bleeding. PHYSICAL EXAMINATION Blood pressure 100/90 heart rate 133 afebrile and maintaining oxygen saturation on nasal cannula. CONSTITUTIONAL: No apparent distress. HEENT: Head is normocephalic. Pupils are equal, round. Sclerae anicteric. Mucous membranes of the mouth are moist. No JVD. No carotid bruit. CHEST EXAMINATION: Bibasilar rales, expiratory wheezes. No rhonchi. No chest wall tenderness is noted on palpation or with deep breathing. HEART EXAMINATION: Regular rate and rhythm. S1, S2 heard. Soft systolic murmur at the left sternal border, no gallops or rub. ABDOMEN: Soft, nontender. Positive bowel sounds. EXTREMITIES: 2+ peripheral pulses, 2+ bilateral lower extremity pitting edema and no calf tenderness. NEUROLOGIC EXAMINATION: Patient is awake, alert and oriented x3. ASSESSMENT Acute on chronic systolic heart failure Acute kidney injury Atrial tachycardia, difficult to discern possible atrial flutter at this rate Coronary artery disease status post bypass grafting Status post mitral ring annuloplasty Paroxysmal atrial fibrillation on long-term anticoagulation Hypertension Dyslipidemia Diabetes mellitus COPD PLAN Resume Eliquis at 2.5 mg twice a day secondary to renal function. Patient with worsened hypotension systolics in the 70s and 80s with a map in the low 60s. Concern of cardiogenic shock. Suspect a major component of her decompensation is uncontrolled atrial flutter versus atrial tachycardia with RVR for the last few weeks. She denies any angina-type symptoms. We therefore changed her to IV amiodarone. Additionally she is mildly hypotensive and we will start levo fed as well as dobutamine. Although dobutamine may worsen her tachycardia, she appears set at the rate of 128. Long discussion with patient and with son at bedside. Son at bedside anxious for patient to be back to normal. Discussed patient in critical condition with decreased blood pressure, multiorgan failure and concern of cardiogenic shock. Discussed possibility of attempting to treat with medications with antiarrhythmics versus more urgent cardioversion. Patient states she has been taking her anticoagulation without stopped for the last 30 days and if needed may consider urgent cardioversion. Patient and son however at this time would like to try of medications. Monitor urine output closely, goal MAP 65-70 and would avoid any higher pressures which will worsen heart failure. Prognosis guarded. Objective - Vital Signs Vital signs: Vital Signs Temp 97.7 F 07/09/20 12:00 Pulse 129 H 07/09/20 19:00 Resp 19 07/09/20 19:00 BP 112/66 07/09/20 19:00 Pulse Ox 97 07/09/20 19:00 Intake & Output 07/09/20 07/09/20 07/10/20 06:59 18:59 06:59 Intake Total 389.167 244.882 7.694 Output Total 480 290 30 Balance -90.833 -45.118 -22.306 Weight 98.5 kg Intake: Intake, IV Titration 139.167 244.882 7.694 Amount Furosemide 100 mg In 89.167 185.5 Sodium Chloride 0.9% 90 ml @ 10 MG/HR 10 mls/hr IV .Q10H [facility] Rx#: [id number] Norepinephrine 4 mg In 9.382 7.694 Sodium Chloride 0.9% 250 ml @ 0.05 MCG/KG/MIN 18. 764 mls/hr IV .[id number] [facility] Rx#:[id number] ceFAZolin 1,000 mg In 50 50 Sodium Chloride 0.9% 50 ml @ 100 mls/hr IVPB Q8HR [facility] Rx#:[id number] Oral 250 Output: Urine 480 290 30 Other: Voiding Method Indwelling Catheter Indwelling Catheter - Labs CBC & Chem 7: 07/09/20 03:46 07/09/20 03:46 Labs: Abnormal Lab Results - Last 24 Hours (Table) 07/08/20 07/09/20 07/09/20 Range/Units 21:40 02:38 03:46 RBC 3.28 L (3.80-5.40) m/uL Hgb 9.7 L (11.4-16.0) gm/dL Hct 29.4 L (34.0-46.0) % RDW 16.9 H (11.5-15.5) % Lymphocytes # 0.7 L (1.0-4.8) k/uL Sodium (137-145) mmol/L Chloride (98-107) mmol/L Carbon Dioxide (22-30) mmol/L BUN (7-17) mg/dL Creatinine (0.52-1.04) mg/dL Glucose (74-99) mg/dL POC Glucose (mg/dL) 196 H 216 H (75-99) mg/dL Calcium (8.4-10.2) mg/dL Magnesium (1.6-2.3) mg/dL Alkaline Phosphatase (38-126) U/L Total Protein (6.3-8.2) g/dL Albumin (3.5-5.0) g/dL 07/09/20 07/09/20 07/09/20 Range/Units 03:46 06:56 12:13 RBC (3.80-5.40) m/uL Hgb (11.4-16.0) gm/dL Hct (34.0-46.0) % RDW (11.5-15.5) % Lymphocytes # (1.0-4.8) k/uL Sodium 129 L (137-145) mmol/L Chloride 91 L (98-107) mmol/L Carbon Dioxide 31 H (22-30) mmol/L BUN 94 H (7-17) mg/dL Creatinine 2.11 H (0.52-1.04) mg/dL Glucose 182 H (74-99) mg/dL POC Glucose (mg/dL) 196 H 252 H (75-99) mg/dL Calcium 8.1 L (8.4-10.2) mg/dL Magnesium 3.1 H (1.6-2.3) mg/dL Alkaline Phosphatase 190 H (38-126) U/L Total Protein 5.6 L (6.3-8.2) g/dL Albumin 2.9 L (3.5-5.0) g/dL 07/09/20 Range/Units 16:36 RBC (3.80-5.40) m/uL Hgb (11.4-16.0) gm/dL Hct (34.0-46.0) % RDW (11.5-15.5) % Lymphocytes # (1.0-4.8) k/uL Sodium (137-145) mmol/L Chloride (98-107) mmol/L Carbon Dioxide (22-30) mmol/L BUN (7-17) mg/dL Creatinine (0.52-1.04) mg/dL Glucose (74-99) mg/dL POC Glucose (mg/dL) 201 H (75-99) mg/dL Calcium (8.4-10.2) mg/dL Magnesium (1.6-2.3) mg/dL Alkaline Phosphatase (38-126) U/L Total Protein (6.3-8.2) g/dL Albumin (3.5-5.0) g/dL Microbiology - Last 24 Hours (Table) 07/08/20 09:30 Wound Culture - Preliminary Leg - Left 07/08/20 09:30 Anaerobic Culture - Preliminary Leg - Left
[2020-07-09] MEDS: ATORVASTATIN 80 MG TAB PO SCH (21:20)
[2020-07-09] MEDS: ALPRAZolam 0.5 MG TAB PO PRN (22:47)
[2020-07-10] MEDS: FUROSEMIDE 100 MG in SODIUM CHLORIDE 0.9% 90 ML IV SCH ×3 (02:10→21:02)
[2020-07-10 02:11] LABS: Glucose,Whole Blood 102 mg/dL (75-99)
[2020-07-10 03:45] LABS: Anisocytosis Slight; Basophils # (A) 0.1 k/uL (0-0.2); Basophils % (A) 1 %; Eosinophils # (A) 0.5 k/uL (0-0.7); Eosinophils % (A) 6 %; HCT 30.7 % (34.0-46.0); HGB 10.2 gm/dL (11.4-16.0); Lymphocytes # (A) 0.7 k/uL (1.0-4.8); Lymphocytes % (A) 9 %; MCH 29.7 pg (25.0-35.0); MCHC 33.1 g/dL (31.0-37.0); MCV 89.7 fL (80.0-100.0); Mean Platelet Volume 7.4; Monocytes # (A) 0.5 k/uL (0-1.0); Monocytes % (A) 7 %; Neutrophils # (A) 5.7 k/uL (1.3-7.7); Neutrophils % (A) 76 %; Platelet Count 217 k/uL (150-450); RBC 3.42 m/uL (3.80-5.40); RDW 16.7 % (11.5-15.5); WBC 7.5 k/uL (3.8-10.6)
[2020-07-10 04:15] LABS: Calcium 8.3 mg/dL (8.4-10.2); Magnesium 2.9 mg/dL (1.6-2.3); Potassium 4.3 mmol/L (3.5-5.1)
[2020-07-10 07:01] LABS: Glucose,Whole Blood 98 mg/dL (75-99)
[2020-07-10] MEDS: ALBUTEROL NEBULIZED 2.5 MG/3 ML INHALATION PRN ×2 (07:43→11:20)
[2020-07-10] MEDS: IPRATROPIUM 0.5 MG/2.5 ML NEBU INHALATION SCH ×4 (07:43→19:20)
[2020-07-10] MEDS: SYMBICORT 80-4.5 MCG INHALER INHALATION SCH ×2 (07:44→19:20)
--- NOTE | 2020-07-10 08:17 | XR ---
EXAMINATION TYPE: XR chest 1V portable DATE OF EXAM: 07/10/2020 COMPARISON: 07/09/2020 HISTORY: Shortness of breath TECHNIQUE: Single frontal view of the chest is obtained. FINDINGS: Stable bilateral consolidation and pleural effusion. Heart is enlarged and there is postop erative change. Atherosclerotic change aorta. Arthropathy of the shoulders. No pneumothorax. Biapical pleural thickening. IMPRESSION: Stable diffuse pleural-parenchymal changes correlate for CHF versus pneumonia.
[2020-07-10] MEDS: INSULIN ASPART (NovoLOG) 100 UNIT/ML VIAL SQ SCH ×3 (08:32→17:23)
[2020-07-10] MEDS: AMIODARONE 450 MG in DEXTROSE 5% IN WATER 250 ML IV SCH ×4 (08:44→21:02)
[2020-07-10] MEDS: INSULIN DETEMIR (LEVEMIR) 100 UNIT/ML SYR SQ SCH (08:44)
[2020-07-10] MEDS: MUPIROCIN 2% OINT 22 GM TUBE TOPICAL SCH ×3 (08:45→23:07)
[2020-07-10] MEDS: FLUTICASONE 50MCG/SPRAY NASAL 16GM EA NOSTRIL SCH (08:46)
--- NOTE | 2020-07-10 09:23 | US ---
EXAMINATION TYPE: US chest DATE OF EXAM: 07/10/2020 COMPARISON: US & CXR CLINICAL HISTORY: Markings for thoracentesis by pulmonary staff. Effusion TECHNIQUE: Targeted ultrasound of the posterior lower bilateral hemithoraces EXAM MEASUREMENTS: Right Pleural Effusion pocket size: 10.4 cm Right skin surface to fluid distance: 4.2 cm Left Pleural Effusion pocket size: 9.7 cm Left skin surface to fluid distance: 4.2 cm Right side marked for possible thoracentesis outside the dept. Left side marked for possible thoracentesis outside the dept. Pulmonologists are able to review the images in the patient?s EMR. IMPRESSIONS: Bilateral pleural effusion.
[2020-07-10] MEDS: ACETAMINOPHEN TAB 325 MG TAB PO PRN ×2 (10:14→20:43)
--- NOTE | 2020-07-10 10:42 | US ---
EXAMINATION TYPE: US kidneys/renal and bladder DATE OF EXAM: 07/10/2020 COMPARISON: NONE CLINICAL HISTORY: rf. Renal failure EXAM MEASUREMENTS: Right Kidney: 11.0 x 5.3 x 6.4 cm Left Kidney: 11.4 x 5.7 x 5.8 cm Morbidly obese, immobile ICU pt, difficult exam Right Kidney: Cortical thinning Left Kidney: Cortical thinning Bladder: Unable to visualize, pt has cath in place No hydronephrosis or nephrolithiasis as visualized. See above regarding limitation of this exam. IMPRESSION: Correlate for chronic medical renal disease.
[2020-07-10] MEDS ORDERED: HEPARIN SODIUM 1,000 UN/ML (10ML VL) IV PRN (10:44)
[2020-07-10] MEDS: APIXABAN 2.5 MG TABLET PO SCH (10:48)
--- NOTE | 2020-07-10 10:53 | P.PN ---
Subjective HISTORY OF PRESENTING ILLNESS This is a pleasant 75-year-old female past medical history significant for ischemic cardiomyopathy, coronary artery disease status post bypass grafting, valvular heart disease status post mitral ring annuloplasty, chronic systolic heart failure, paroxysmal atrial fibrillation on long-term anticoagulation, hypertension, diabetes mellitus, COPD and dyslipidemia. She initially underwent bypass grafting and mitral valve repair approximately 2 months ago and [facility]. She established in town with Dr. Rodrigues June 22. We have been asked to see in consultation for heart failure. She presented to the hospital with symptoms of shortness of breath, cough and lower extremity edema. She was initially admitted to [facility] April 22 where she was found to have an ejection fraction of less than 15%. She underwent cardiac catheterization which showed severe triple vessel disease and underwent two-vessel bypass grafting with repair for mitral valve and maze procedure. Repeat echocardiogram prior to discharge revealed an ejection fraction of 45%. She did go to inpatient rehab shortly thereafter and has since been at home with home care. EKG on arrival revealed atrial tachycardia with a heart rate in the 130s. She was initiated on dobutamine and IV Lasix. She is seen and examined sitting up in bed in no acute distress. Her heart continues to be tachycardic in the 130s. It appears regular but is difficult to differentiate possible underlying atrial flutter. Repeat echocardiogram on this admission revealed ejection fraction of less than 20%, severe global hypok inesia, large pleural effusion and mild to moderate mitral regurgitation. Chest x-ray this morning reveals moderate bilateral pleural effusions improved from previous exam. Venous duplex negative for DVT. Laboratory data reviewed, WBC 7.8, hemoglobin 9.8, platelets 228, sodium 131, potassium 4.8, creatinine 2.01, magnesium 3.1, troponin 0.0 17, TSH 4.03 and and proBNP 4330. Crit daily cardiac medications as recorded in Dr. Rodrigues's office on June 22 reveal aspirin 81 mg daily, atorvastatin 80 mg daily, Bumex 1 mg daily, Coreg 25 mg twice a day, Eliquis 5 mg twice a day, and entresto 24/26 mg twice a day and daily magnesium supplementation. 07/09 Patient seen and examined. Patient remains with heart rates predominantly right at 128, occasionally lower with amiodarone and Cardizem were appears to be possible atrial flutter versus atrial tachycardia. She states she feels somewhat more tired than yesterday. Still complains of shortness breath. She previously did have good urine output however has decreased. Her blood pressures decreased into the 70s over 50s with a map in the low 60s. She had previously been on dobutamine to begin with however I was not on any vasopressors or inotropes. Echocardiogram revealed severely decreased ejection fraction 20% with [id number] mitral regurgitation. She is sitting upright in bed. Her creatinine mildly increased at 2.1 today. She denies any chest pain or pressure. She is still coughing. Patient and son at bedside admit that she has been tachycardic for approximately the last 3 weeks, was noted to be tachycardic when home health care came a few times. She was transitioned over to IV amiodarone earlier in the day without much improvement. 07/10 Patient seen and examined. Patient states she feels somewhat better compared to yesterday. Maintained on amiodarone drip, she was placed on levophed and dobutamine drip yesterday and has had improved urine outputs this morning up to 300-400 mL an hour on the Lasix drip. She denies any chest pain or pressure. Remains in the atrial tachycardia, atrial flutter at 130 bpm. REVIEW OF SYSTEMS At the time of my exam: CONSTITUTIONAL: Denies fever or chills. CARDIOVASCULAR: + sob, +orthopnea. Denies chest pain, PND or palpitations. RESPIRATORY: + cough. GASTROINTESTINAL: Denies abdominal pain, diarrhea, constipation, nausea or vomiting. MUSCULOSKELETAL: Denies myalgias. NEUROLOGIC: Denies numbness, tingling, headacbe or weakness. ENDOCRINE: Denies fatigue, weight change, polydipsia or polyurina. GENITOURINARY: Denies burning, hematuria or urgency with micturation. HEMATOLOGIC: Denies history of anemia or bleeding. PHYSICAL EXAMINATION vital signs reviewed CONSTITUTIONAL: No apparent distress. HEENT: Head is normocephalic. Pupils are equal, round. Sclerae anicteric. Mucous membranes of the mouth are moist. No JVD. No carotid bruit. CHEST EXAMINATION: Bibasilar rales, expiratory wheezes. No rhonchi. No chest wall tenderness is noted on palpation or with deep breathing. HEART EXAMINATION: Regular rate and rhythm. S1, S2 heard. Soft systolic murmur at the left sternal border, no gallops or rub. ABDOMEN: Soft, nontender. Positive bowel sounds. EXTREMITIES: 2+ peripheral pulses, 2+ bilateral lower extremity pitting edema and no calf tenderness. NEUROLOGIC EXAMINATION: Patient is awake, alert and oriented x3. ASSESSMENT Acute on chronic systolic heart failure Cardiogenic shock Acute kidney injury Atrial tachycardia, difficult to discern possible atrial flutter at this rate Coronary artery disease status post bypass grafting Status post mitral ring annuloplasty Paroxysmal atrial fibrillation on long-term anticoagulation Hypertension Dyslipidemia Diabetes mellitus COPD PLAN Patient with hypotension, multiorgan failure related to cardiogenic shock. Decrease in ejection fraction possibly related to tachycardia induced cardiomyopathy. Long discussion yesterday with patient and son and at this time they would like to try medical therapy with treating her heart failure, atrial flutter/ atrial tach. She has recently had increased urine output up to 300-400 mL/h. It appears she is opening up and we will continue with current therapy with levophed with MAP goal 65-70 and low dose Dobutamine. May increase dobutamine drip if urine outpt decreases. Discussed with pulmonary, ICU regarding possible thoracentesis tomorrow. We will transition from Eliquis to heparin drip and if needed patient may undergo thoracentesis tomorrow. Patient has however had good urine output and we will continue with current Lasix drip. Objective - Vital Signs Vital signs: Vital Signs Temp 97.5 F L 07/10/20 08:00 Pulse 135 H 07/10/20 10:00 Resp 24 07/10/20 10:00 BP 103/72 07/10/20 09:00 Pulse Ox 93 L 07/10/20 10:00 Intake & Output 07/09/20 07/10/20 07/10/20 18:59 06:59 18:59 Intake Total 244.882 203.694 345.949 Output Total 290 1330 350 Balance -45.118 -1126.306 -4.051 Weight 100.2 kg Intake: Intake, IV Titration 244.882 103.694 345.949 Amount Amiodarone 450 mg In 230.282 Dextrose 5% in Water 250 ml @ 0.5 MG/MIN 16.667 mls/hr IV .Q15H [facility] Rx#: [id number] Furosemide 100 mg In 185.5 96 65.667 Sodium Chloride 0.9% 90 ml @ 10 MG/HR 10 mls/hr IV .Q10H [facility] Rx#: [id number] Norepinephrine 4 mg In 9.382 7.694 Sodium Chloride 0.9% 250 ml @ 0.05 MCG/KG/MIN 18. 764 mls/hr IV .[id number] [facility] Rx#:[id number] ceFAZolin 1,000 mg In 50 Sodium Chloride 0.9% 50 ml @ 100 mls/hr IVPB Q12HR [facility] Rx#:[id number] ceFAZolin 1,000 mg In 50 Sodium Chloride 0.9% 50 ml @ 100 mls/hr IVPB Q8HR [facility] Rx#:[id number] Oral 100 Output: Urine 290 1330 350 Other: Voiding Method Indwelling Catheter Indwelling Catheter ABP, PAP, CO, CI - Last Documented Arterial Blood Pressure 105/51 - Labs CBC & Chem 7: 07/10/20 03:05 07/10/20 03:05 Labs: Abnormal Lab Results - Last 24 Hours (Table) 07/09/20 07/09/20 07/10/20 Range/Units 12:13 16:36 02:09 RBC (3.80-5.40) m/uL Hgb (11.4-16.0) gm/dL Hct (34.0-46.0) % RDW (11.5-15.5) % Lymphocytes # (1.0-4.8) k/uL Sodium (137-145) mmol/L Chloride (98-107) mmol/L BUN (7-17) mg/dL Creatinine (0.52-1.04) mg/dL POC Glucose (mg/dL) 252 H 201 H 102 H (75-99) mg/dL Calcium (8.4-10.2) mg/dL Magnesium (1.6-2.3) mg/dL 07/10/20 07/10/20 Range/Units 03:05 03:05 RBC 3.42 L (3.80-5.40) m/uL Hgb 10.2 L (11.4-16.0) gm/dL Hct 30.7 L (34.0-46.0) % RDW 16.7 H (11.5-15.5) % Lymphocytes # 0.7 L (1.0-4.8) k/uL Sodium 128 L (137-145) mmol/L Chloride 92 L (98-107) mmol/L BUN 100 H (7-17) mg/dL Creatinine 2.04 H (0.52-1.04) mg/dL POC Glucose (mg/dL) (75-99) mg/dL Calcium 8.3 L (8.4-10.2) mg/dL Magnesium 2.9 H (1.6-2.3) mg/dL Microbiology - Last 24 Hours (Table) 07/08/20 09:30 Gram Stain - Preliminary Leg - Left Wound Culture - Preliminary
[2020-07-10] MEDS: LORATADINE 10 MG TAB PO SCH (10:58)
[2020-07-10] MEDS: HEPARIN SOD,PORK IN 0.45% NACL 25,000 UNIT in 0.45% NACL 1 250ML.BAG IV SCH (11:29)
--- NOTE | 2020-07-10 11:33 | CONS ---
CONSULTATION REASON FOR CONSULT: Renal failure. HISTORY OF PRESENT ILLNESS: Patient is a 75-year-old female with history of coronary artery bypass surgery which was recent although deet is not available. The patient was at home and apparently was not taking her medications and was admitted to the hospital with complaints of worsening shortness of breath, increased lower extremity edema and decreased mentation. She had been weak as well. No significant nausea, vomiting. The patient was definitely fluid overloaded and is currently being diuresed. Her blood pressure was low and her urine output was low as well on initial admission. Ejection fraction is less than 20%. The patient was started on small dose of Levophed along with dobutamine and Lasix drip. Her urine output has improved significantly now. Blood pressure is not low. Overall, patient is feeling better. Serum creatinine is at 2.0. It has been about 2.0 since admission on 07/07/2020. We do not have any prior labs available for comparison. Serum sodium was 130 on initial admission, currently at 128. PAST MEDICAL HISTORY: Coronary artery disease status post recent coronary artery bypass surgery, CHF, type 2 diabetes, hypertension. The patient denies history of kidney disease. She has history of atrial fibrillation. PAST SURGICAL HISTORY: Appendectomy, cholecystectomy, hysterectomy, tubal ligation, coronary artery bypass surgery possibly in May of 2020, rectocele repair, maze procedure, mitral valve ring, not sure this was mitral valve replacement or repair. SOCIAL HISTORY: Negative for drug abuse or alcohol abuse. Patient has history of secondhand smoking. MEDICATIONS: Medications at home prior to admission included Xanax, Lipitor, Bumex, Coreg, Colace, insulin, Claritin, Xarelto, omeprazole, Entresto, Spiriva, Zaroxolyn, although patient was not taking most of her medications. ALLERGIES: Include CIPRO, CODEINE, PENICILLIN, SHELLFISH. REVIEW OF SYSTEMS: As per HPI. Other systems negative. EXAMINATION: Patient is awake, comfortable, not in any acute distress. Blood pressure 89/59, heart rate 111 per minute. She is afebrile. Examination of the heart S1, S2. Examination of the lungs, decreased breath sounds at bases. Abdomen is soft, obese. Examination of lower extremities shows edema 3+ bilaterally. Left leg is noted to have a wound in the lower part at the site of the harvesting of the veins for coronary artery bypass surgery. It is currently draining and it is dressed. [employer] exam grossly intact. Patient is moving all four extremities. LAB: Show sodium 128, potassium 4.3, chloride 92, BUN 100, serum creatinine 2.04, hemoglobin 10.2 g/dL. BNP 5820. ASSESSMENT: 1. Acute kidney injury, cardiorenal, currently stable. Patient is being diuresed. I will continue with the Lasix drip for now and we can switch to IV push Lasix later on this evening. The patient currently has an output of about 125-175 mL an hour. Continue with the dobutamine. The patient is on a small dose of Levophed which I will continue as well for now. 2. Rule out chronic kidney disease. 3. Volume overload. 4. Congestive heart failure, acute on top of chronic, mainly systolic. 5. Left leg wound at the site of harvesting of the veins for coronary artery bypass surgery. Infectious Disease has been consulted. Maintained on IV antibiotics. 6. Recent coronary artery bypass surgery in May of 2020 at [facility]. 7. Hyponatremia which is hypervolemic but worsened with use of dobutamine which is mostly based in D5W. PLAN: Continue to diurese patient. Switch to IV push Lasix later on this evening. Monitor electrolytes. If the sodium is worse tomorrow, I will add a dose of tolvaptan. Check urinalysis and check ultrasound of the kidneys. Thank you for this consultation. We will continue to follow the patient with you during her hospitalization. MMODL / IJN: [id number] /
[2020-07-10 11:39] LABS: Appearance,Urine Clear (Clear); Bacteria,Urine Occasional /hpf; Bilirubin,Urine Negative (Negative); Blood,Urine Large (Negative); Color,Urine Light Yellow; Glucose,Urine (UA) Negative (Negative); Hyaline Casts,Urine 1 /lpf (0-2); Ketones,Urine Negative (Negative); Leukocyte Esterase,Urine Small (Negative); Mucus,Urine Rare /hpf; Nitrite,Urine Negative (Negative); Protein,Urine Negative (Negative); RBC,Urine >182 /hpf (0-5); Specific Gravity,Urine 1.007 (1.001-1.035); Urobilinogen,Urine <2.0 mg/dL (<2.0); WBC,Urine 7 /hpf (0-5)
[2020-07-10 11:41] LABS: Glucose,Whole Blood 161 mg/dL (75-99)
[2020-07-10 11:52] LABS: INR 1.2 (<1.2); Partial Thromboplastin Time 28.3 sec (22.0-30.0); Prothrombin Time 12.6 sec (9.0-12.0)
--- NOTE | 2020-07-10 13:13 | PCN ---
PROCEDURE NOTE OPERATIVE REPORT: Placement of right brachial arterial line. PREOPERATIVE DIAGNOSES: Acute hypoxic respiratory failure, acute systolic congestive heart failure and atrial fibrillation with RVR. POSTOPERATIVE DIAGNOSES: Acute hypoxic respiratory failure, acute systolic congestive heart failure and atrial fibrillation with RVR. ANESTHESIA: Used none deployed. PROCEDURE DETAILS: The patient was placed in a supine position. The arm was taped to a bedside table, and the right brachial area was prepared in a sterile fashion. The drapes were applied. The right brachial artery was localized by Doppler. Then the cannulation of the right brachial artery was done. A guidewire was placed and a Cook catheter was placed over the guidewire and the guidewire was removed. Good blood flow, good waveform noted. No evidence of any complications. The line was secured using 3.0 silk sutures. MMODL / IJN: [id number] /
--- NOTE | 2020-07-10 13:25 | PCN ---
PROCEDURE NOTE OPERATIVE REPORT: Placement of the right femoral triple-lumen catheter. PREOPERATIVE DIAGNOSES: Acute systolic congestive heart failure, atrial fibrillation with RVR, hypotension. The patient is on multiple inotropes and pressors. POSTOPERATIVE DIAGNOSES: Acute systolic congestive heart failure, atrial fibrillation with RVR, hypotension. The patient is on multiple inotropes and pressors. ANESTHESIA USED: 2 mL of 1% lidocaine. PROCEDURE: The patient was placed in a supine position, the right groin was prepared in a sterile fashion and drapes were applied. The area was locally anesthetized, then the right femoral vein was easily cannulated with 1 attempt, and a guidewire was placed. The area of the guidewire was dilated. Then a triple-lumen catheter was inserted over the guidewire, and the guidewire was removed. Good blood flow noted in the 3 different ports, the line was secured using 3.0 silk sutures. No evidence of any immediate complications. MMODL / IJN: [id number] /
--- NOTE | 2020-07-10 13:50 | P.PN ---
Subjective Progress Note Date: 07/10/20 Principal diagnosis: Acute on chronic systolic congestive heart failure This is a 75-year-old female with history of multiple medical problems including type 2 diabetes, hypertension, ischemic cardiomyopathy and LV dysfunction, patient had a two-vessel bypass surgery and mitral valve repair in the last couple of months at [facility], patient presented to the ER with a few weeks history of increased shortness of breath, workup was done in the ER, clearly the patient was in congestive heart failure with bilateral pleural effusions left greater than right. And check her blood pressure was noted to be marginal but did not require any pressors while in the ER. Patient was seen by cardiology on consultation, and she was noted to have an accelerated junctional rhythm, recommended that the patient gets admitted to the ICU and The patient on Lasix drip at 10 mg per hour. Considering her pleural effusions and her shortness of breath, I was asked to see the patient on consultation. I was notified about this patient last night from the ICU nurse where in she was noted to have marginal blood pressure and she had fairly good urine output, I did recommend starting the patient on Dobutrex at 2.5 mcg/kg/m, and the patient has been responding quite well to the Dobutrex along with a Lasix drip. Echocardiogram showed poor LV function of 20%, there was severe global hypokinesis of the left ventricle. Follow-up chest x-ray this morning after diuresing the patient showed definite improvement in her pleural effusions, hence I have no plans to arrange for thoracentesis at this point. In addition to all of this, the patient had developed significant ulceration and what seems to be a cellulitis involving the left lower extremity related to the site of saphenous vein salvage. The area seems to be a bit necrotic, and I recommended starting the patient on antibiotics in the form of Ancef. Patient was reevaluated today on 07/09/2020, remains in the ICU, patient is basically about the same. Minimal improvement if any. remains on Lasix drip, remains in atrial fibrillation urine output is dropping cough, she is down to 30 mL per hour. Patient remains on 2 L nasal cannula, chest x-ray questioned right pleural effusion more so than left pleural effusion, however the ultrasound of the chest showed more fluid on the left side, and hardly any fluid on the right side. Still planning to continue diuretics on this patient, will hold on thoracentesis unless the patient shows no improvement with diuresis. She still on Lasix at 10 mg per hour still on cefazolin. Creatinine today is slightly worse at 2.11, patient was doing better when she was on Dobutrex. However this was discontinued by cardiology, mostly because of her atrial fibrillation with RVR. WBC count is 7.2 hemoglobin is 9.7 BUN is 94 creatinine 2.11 Patient was reevaluated today on 07/10/2020, patient is feeling better today, breathing a lot easier, however she is now back on Dobutrex 2.5 mcg/kg/m. she is also on amiodarone, 0.5 mg/m. norepinephrine, 0.03 mcg/kg/m Lasix 10 mg per hour drip and as soon as this was done, her urine output has picked up nicely to 309575 mL per hour. Patient remains in atrial flutter rate of 134/m. Chest x-ray this morning showed worsening right-sided pleural effusion, ultrasound confirmed fairly good sized right-sided pleural effusion the left sided pleural effusion is small and the patient will definitely require a right-sided thoracentesis if she does not improve with diuretics. I have a feeling that the patient may not require thoracentesis if she continues to respond with significant urine output as such. However in the meantime I did transition the patient to heparin and discussed her condition with the bounty trapper on the case , they may consider cardioversion on this patient, and she will remain anticoagulated, and if we decide to do thoracentesis in the next 48 hours, that could be accomplished by holding the heparin for few hours prior. I did discontinue her Eliquis for the time being. Considering the patient is now on multiple drips including Dobutrex, norepinephrine, and amiodarone, I did place a right femoral triple-lumen catheter and I also placed a arterial line for close monitoring of the patient. Surprisingly the patient did clinically improve as her urine output picked up nicely with the inotropes and pressors on the case WBC count is 7.5 hemoglobin is 10.2 patient remains on cefazolin for her cellul itis. Renal functioning showed a BUN of 100 creatinine 2.04, and this is again a cardiorenal picture. Will likely improve with the inotropes and pressors her BNP level today is 5820. Objective - Vital Signs Vital signs: Vital Signs Temp 96.8 F L 07/10/20 12:00 Pulse 122 H 07/10/20 13:00 Resp 12 07/10/20 13:00 BP 103/72 07/10/20 09:00 Pulse Ox 94 L 07/10/20 13:00 Intake & Output 07/09/20 07/10/20 07/10/20 18:59 06:59 18:59 Intake Total 244.882 203.694 345.949 Output Total 290 1330 1150 Balance -45.118 -1126.306 -804.051 Weight 100.2 kg Intake: Intake, IV Titration 244.882 103.694 345.949 Amount Amiodarone 450 mg In 230.282 Dextrose 5% in Water 250 ml @ 0.5 MG/MIN 16.667 mls/hr IV .Q15H SASHA Rx#: [id number] Furosemide 100 mg In 185.5 96 65.667 Sodium Chloride 0.9% 90 ml @ 10 MG/HR 10 mls/hr IV .Q10H SASHA Rx#: [id number] Norepinephrine 4 mg In 9.382 7.694 Sodium Chloride 0.9% 250 ml @ 0.05 MCG/KG/MIN 18. 764 mls/hr IV .[id number] SASHA Rx#:[id number] ceFAZolin 1,000 mg In 50 Sodium Chloride 0.9% 50 ml @ 100 mls/hr IVPB Q12HR SASHA Rx#:[id number] ceFAZolin 1,000 mg In 50 Sodium Chloride 0.9% 50 ml @ 100 mls/hr IVPB Q8HR SASHA Rx#:[id number] Oral 100 Output: Urine 290 1330 1150 Other: Voiding Method Indwelling Catheter Indwelling Catheter Indwelling Catheter ABP, PAP, CO, CI - Last Documented Arterial Blood Pressure 106/44 - Exam Physical Exam: Revealed a 75-year-old female in no distress, on 2 L nasal cannula, feels better today compared to yesterday. Head: Atraumatic, normocephalic. HEENT:[Neck is supple.] [No neck masses.] [No thyromegaly.] [No JVD.] Chest: Symmetrical chest expansion, crackles at the bases, no rhonchi and no wheezes. Cardiac Exam: [Normal S1 and S2, no S3 gallop, over 6 systolic murmur thought the precordium. Abdomen: [Obese, Soft, nontender, no megaly, no rebound, no guarding, normal bowel sounds.] Abdominal wall edema is noted. Extremities: 2+ bipedal edema, ulceration noted in the medial aspect of the left lower extremity in the calf region. Wrapped with sterile dressing. Neurological Exam: Alert and oriented 3 no focal deficit. Psychiatric: Normal mood affect and normal mental status examination. Musculoskeletal: No deformities noted limitation range of motion. - Labs CBC & Chem 7: 07/10/20 03:05 07/10/20 03:05 Labs: Abnormal Lab Results - Last 24 Hours (Table) 07/09/20 07/10/20 07/10/20 Range/Units 16:36 02:09 03:05 RBC 3.42 L (3.80-5.40) m/uL Hgb 10.2 L (11.4-16.0) gm/dL Hct 30.7 L (34.0-46.0) % RDW 16.7 H (11.5-15.5) % Lymphocytes # 0.7 L (1.0-4.8) k/uL PT (9.0-12.0) sec INR (<1.2) Sodium (137-145) mmol/L Chloride (98-107) mmol/L BUN (7-17) mg/dL Creatinine (0.52-1.04) mg/dL POC Glucose (mg/dL) 201 H 102 H (75-99) mg/dL Calcium (8.4-10.2) mg/dL Magnesium (1.6-2.3) mg/dL Urine Blood (Negative) Ur Leukocyte Esterase (Negative) Urine RBC (0-5) /hpf Urine WBC (0-5) /hpf Urine Bacteria (None) /hpf Urine Mucus (None) /hpf 07/10/20 07/10/20 07/10/20 Range/Units 03:05 10:07 10:46 RBC (3.80-5.40) m/uL Hgb (11.4-16.0) gm/dL Hct (34.0-46.0) % RDW (11.5-15.5) % Lymphocytes # (1.0-4.8) k/uL PT 12.6 H (9.0-12.0) sec INR 1.2 H (<1.2) Sodium 128 L (137-145) mmol/L Chloride 92 L (98-107) mmol/L BUN 100 H (7-17) mg/dL Creatinine 2.04 H (0.52-1.04) mg/dL POC Glucose (mg/dL) (75-99) mg/dL Calcium 8.3 L (8.4-10.2) mg/dL Magnesium 2.9 H (1.6-2.3) mg/dL Urine Blood Large H (Negative) Ur Leukocyte Esterase Small H (Negative) Urine RBC >182 H (0-5) /hpf Urine WBC 7 H (0-5) /hpf Urine Bacteria Occasional H (None) /hpf Urine Mucus Rare H (None) /hpf 07/10/20 Range/Units 11:40 RBC (3.80-5.40) m/uL Hgb (11.4-16.0) gm/dL Hct (34.0-46.0) % RDW (11.5-15.5) % Lymphocytes # (1.0-4.8) k/uL PT (9.0-12.0) sec INR (<1.2) Sodium (137-145) mmol/L Chloride (98-107) mmol/L BUN (7-17) mg/dL Creatinine (0.52-1.04) mg/dL POC Glucose (mg/dL) 161 H (75-99) mg/dL Calcium (8.4-10.2) mg/dL Magnesium (1.6-2.3) mg/dL Urine Blood (Negative) Ur Leukocyte Esterase (Negative) Urine RBC (0-5) /hpf Urine WBC (0-5) /hpf Urine Bacteria (None) /hpf Urine Mucus (None) /hpf Microbiology - Last 24 Hours (Table) 07/08/20 09:30 Gram Stain - Preliminary Leg - Left Wound Culture - Preliminary Assessment and Plan Assessment: Impression: Acute on chronic systolic congestive heart failure Acute bilateral pleural effusions secondary to congestive heart failure as noted above. Right greater than left, may or may not require thoracentesis patient is presently improving with inotropes pressors and Lasix drip. History of coronary artery disease and recent CABG at [facility]. Atrial flutter, poorly controlled, patient is now on amiodarone, norepinephrine, and she is also on Dobutrex as recommended by cardiology again. May eventually require cardioversion. Acute kidney injury could be cardiorenal in nature knowing the patient has severe LV dysfunction. Type 2 diabetes. Questionable history of underlying COPD. Acute cellulitis of left lower extremity, remains on cefazolin. Recommendation: Continue pressors and inotropes as per cardiology. Continue amiodarone. Continue Lasix drip. Urine output has been excellent since above meds were added. Will hold Eliquis for now, and place the patient on heparin just in case we need to do thoracentesis and assuming the patient doesn't improve with diuresis. At this rate of her urine output, I believe the patient may not even need thoracentesis. Cardiology may consider cardioversion on this patient in the next 24 hours. Continue to monitor I's and O's strictly. Continue to monitor electrolytes and renal profile daily. Continue bronchodilators. Discussed with cardiology may or may not require thoracentesis, and that will be decided upon in the next 24-48 hours. Central line and arterial line were placed in this patient because she is on multiple meds as noted above. Critical care time is over 30 minutes. Discussed her condition with her son yesterday. And explained to him her whole clinical picture. Prognosis is definitely guarded, we'll continue to follow. Time with Patient: Greater than 30
--- NOTE | 2020-07-10 14:08 | P.PN ---
Subjective Progress Note Date: 07/10/20 Patient is feeling better today. Her shortness of breath is improving. Nursing staff informed me that urine output improved significantly and currently around 300 mL per hour. Patient was started on dobutamine drip this morning. Also amiodarone changed to drink by cardiology. Her son is at bedside. Objective - Vital Signs Vital signs: Vital Signs Temp 96.8 F L 07/10/20 12:00 Pulse 122 H 07/10/20 13:00 Resp 12 07/10/20 13:00 BP 103/72 07/10/20 09:00 Pulse Ox 94 L 07/10/20 13:00 Intake & Output 07/09/20 07/10/20 07/10/20 18:59 06:59 18:59 Intake Total 244.882 203.694 345.949 Output Total 290 1330 1150 Balance -45.118 -1126.306 -804.051 Weight 100.2 kg Intake: Intake, IV Titration 244.882 103.694 345.949 Amount Amiodarone 450 mg In 230.282 Dextrose 5% in Water 250 ml @ 0.5 MG/MIN 16.667 mls/hr IV .Q15H SASHA Rx#: [id number] Furosemide 100 mg In 185.5 96 65.667 Sodium Chloride 0.9% 90 ml @ 10 MG/HR 10 mls/hr IV .Q10H SASHA Rx#: [id number] Norepinephrine 4 mg In 9.382 7.694 Sodium Chloride 0.9% 250 ml @ 0.05 MCG/KG/MIN 18. 764 mls/hr IV .[id number] SASHA Rx#:[id number] ceFAZolin 1,000 mg In 50 Sodium Chloride 0.9% 50 ml @ 100 mls/hr IVPB Q12HR SASHA Rx#:[id number] ceFAZolin 1,000 mg In 50 Sodium Chloride 0.9% 50 ml @ 100 mls/hr IVPB Q8HR SASHA Rx#:[id number] Oral 100 Output: Urine 290 1330 1150 Other: Voiding Method Indwelling Catheter Indwelling Catheter Indwelling Catheter ABP, PAP, CO, CI - Last Documented Arterial Blood Pressure 106/44 - Exam General: The patient is awake and alert, in no distress Eye: there is normal conjunctiva bilaterally. Neck: The neck is supple, there is no JVD. Cardiovascular: Normal S1-S2, no S3-S4, no murmurs. Respiratory: Lungs clear to auscultation bilaterally Gastrointestinal: Abdomen is soft, nontender Musculoskeletal: There is evidence of anasarca up to the abdomen Neurological:. Speech is normal. Skin: Skin is warm and dry . Left lower extremity wound involving the mid chin area with some surrounding redness and no drainage - Labs CBC & Chem 7: 07/10/20 03:05 07/10/20 03:05 Labs: Abnormal Lab Results - Last 24 Hours (Table) 07/09/20 07/10/20 07/10/20 Range/Units 16:36 02:09 03:05 RBC 3.42 L (3.80-5.40) m/uL Hgb 10.2 L (11.4-16.0) gm/dL Hct 30.7 L (34.0-46.0) % RDW 16.7 H (11.5-15.5) % Lymphocytes # 0.7 L (1.0-4.8) k/uL PT (9.0-12.0) sec INR (<1.2) Sodium (137-145) mmol/L Chloride (98-107) mmol/L BUN (7-17) mg/dL Creatinine (0.52-1.04) mg/dL POC Glucose (mg/dL) 201 H 102 H (75-99) mg/dL Calcium (8.4-10.2) mg/dL Magnesium (1.6-2.3) mg/dL Procalcitonin (0.02-0.09) ng/mL Urine Blood (Negative) Ur Leukocyte Esterase (Negative) Urine RBC (0-5) /hpf Urine WBC (0-5) /hpf Urine Bacteria (None) /hpf Urine Mucus (None) /hpf 07/10/20 07/10/20 07/10/20 Range/Units 03:05 03:05 10:07 RBC (3.80-5.40) m/uL Hgb (11.4-16.0) gm/dL Hct (34.0-46.0) % RDW (11.5-15.5) % Lymphocytes # (1.0-4.8) k/uL PT (9.0-12.0) sec INR (<1.2) Sodium 128 L (137-145) mmol/L Chloride 92 L (98-107) mmol/L BUN 100 H (7-17) mg/dL Creatinine 2.04 H (0.52-1.04) mg/dL POC Glucose (mg/dL) (75-99) mg/dL Calcium 8.3 L (8.4-10.2) mg/dL Magnesium 2.9 H (1.6-2.3) mg/dL Procalcitonin 0.11 H (0.02-0.09) ng/mL Urine Blood Large H (Negative) Ur Leukocyte Esterase Small H (Negative) Urine RBC >182 H (0-5) /hpf Urine WBC 7 H (0-5) /hpf Urine Bacteria Occasional H (None) /hpf Urine Mucus Rare H (None) /hpf 07/10/20 07/10/20 Range/Units 10:46 11:40 RBC (3.80-5.40) m/uL Hgb (11.4-16.0) gm/dL Hct (34.0-46.0) % RDW (11.5-15.5) % Lymphocytes # (1.0-4.8) k/uL PT 12.6 H (9.0-12.0) sec INR 1.2 H (<1.2) Sodium (137-145) mmol/L Chloride (98-107) mmol/L BUN (7-17) mg/dL Creatinine (0.52-1.04) mg/dL POC Glucose (mg/dL) 161 H (75-99) mg/dL Calcium (8.4-10.2) mg/dL Magnesium (1.6-2.3) mg/dL Procalcitonin (0.02-0.09) ng/mL Urine Blood (Negative) Ur Leukocyte Esterase (Negative) Urine RBC (0-5) /hpf Urine WBC (0-5) /hpf Urine Bacteria (None) /hpf Urine Mucus (None) /hpf Microbiology - Last 24 Hours (Table) 07/08/20 09:30 Gram Stain - Preliminary Leg - Left Wound Culture - Preliminary Assessment and Plan Assessment: This is a 75-year-old female with very complex past medical history noted below Presented to the emergency room with worsening dyspnea, patient was evaluated in the ER and admitted to the ICU for further management of her medical problems noted below. 1. Acute systolic heart failure exacerbation: Started on IV Lasix drip. Managed by cardiology. Echocardiogram showed ejection fraction of 20% with severe global hypokinesia of the left ventricle. Dobutamine drip managed by [facility] 2. Significant fluid overload with evidence of anasarca up to the abdomen and bilateral large pleural effusion: Plan for possible thoracentesis tomorrow 3. Acute kidney injury with possible underlying chronic kidney disease: Creatinine stable around 2. Baseline creatinine unknown. Avoid nephrotoxins. Nephrology consulted for further evaluation. 4. Atrial fibrillation with rapid ventricular response: Started on amiodarone and Eliquis by cardiology 5. Left lower extremity wound infection: Started on antibiotic with cefazolin day #3 6. Type 2 diabetes with episode of hypoglycemia: Home dose of Lantus decreased from 18 units to 8 units of Levemir daily. Continue sliding scale insulin 7. Coccyx pressure ulcer, POA: Wound care consulted, appreciate recommendation 8. Chronic medical problems, coronary artery disease status post 2 vessel bypass with mitral valve repair at [facility] in April 2020 9. CODE STATUS, patient is full code. Discussed with her at bedside today
[2020-07-10 16:37] LABS: Glucose,Whole Blood 181 mg/dL (75-99)
[2020-07-10] MEDS: NOREPINEPHRINE 4 MG in SODIUM CHLORIDE 0.9% 250 ML IV SCH ×2 (17:23→20:45)
[2020-07-10] MEDS: PANTOPRAZOLE 40 MG TABLET PO SCH (17:23)
[2020-07-10 20:07] LABS: Glucose,Whole Blood 131 mg/dL (75-99)
[2020-07-10] MEDS: ATORVASTATIN 80 MG TAB PO SCH (20:44)
[2020-07-10] MEDS: DOBUTamine DRIP 500 MG in DEXTROSE/WATER 1 250ML.BAG IV SCH (20:44)
[2020-07-10] MEDS: ALPRAZolam 0.5 MG TAB PO PRN (21:47)
[2020-07-10] MEDS: POTASSIUM CHLORIDE 20 MEQ in WATER FOR INJECTION 1 100ML.BAG IVPB SCH (23:44)
[2020-07-11 02:26] LABS: Glucose,Whole Blood 177 mg/dL (75-99)
[2020-07-11] MEDS: POTASSIUM CHLORIDE 20 MEQ in WATER FOR INJECTION 1 100ML.BAG IVPB SCH (02:33)
[2020-07-11 04:55] LABS: Anisocytosis Slight; Basophils # (A) 0.1 k/uL (0-0.2); Basophils % (A) 1 %; Eosinophils # (A) 0.7 k/uL (0-0.7); Eosinophils % (A) 8 %; HCT 30.8 % (34.0-46.0); Lymphocytes # (A) 0.8 k/uL (1.0-4.8); Lymphocytes % (A) 9 %; MCH 28.5 pg (25.0-35.0); MCHC 32.4 g/dL (31.0-37.0); MCV 87.9 fL (80.0-100.0); Mean Platelet Volume 7.1; Monocytes # (A) 0.4 k/uL (0-1.0); Monocytes % (A) 5 %; Neutrophils # (A) 6.9 k/uL (1.3-7.7); Neutrophils % (A) 78 %; Platelet Count 251 k/uL (150-450); RDW 17.2 % (11.5-15.5); WBC 8.8 k/uL (3.8-10.6)
[2020-07-11 05:07] LABS: ALT <6 U/L (4-34); AST 17 U/L (14-36); African American GFR (CKD) 39 (>60 ml/min/1.73 sqM); Albumin 3.1 g/dL (3.5-5.0); Alkaline Phosphatase 190 U/L (38-126); Anion Gap 9 mmol/L; Blood Urea Nitrogen 84 mg/dL (7-17); Calcium 8.5 mg/dL (8.4-10.2); Carbon Dioxide 34 mmol/L (22-30); Chloride 90 mmol/L (98-107); Glucose 165 mg/dL (74-99); Non-African American GFR(CKD) 33 (>60 ml/min/1.73 sqM); Sodium 133 mmol/L (137-145); Total Bilirubin 0.9 mg/dL (0.2-1.3)
[2020-07-11 05:18] LABS: Potassium 3.6 mmol/L (3.5-5.1)
--- NOTE | 2020-07-11 06:21 | CONS ---
CONSULTATION DATE OF SERVICE: 07/10/2020 REASON FOR CONSULTATION: 1. Left lower extremity wound. 2. Possible pneumonia. HISTORY OF PRESENT ILLNESS: The patient is a 75-year-old female who is status post 2 vessel coronary artery bypass grafting and mitral valve repair done at [facility] in March of 2020. The patient mentioning he did have a wound to the left lower extremity at the site of vein grafting which has not healed. The patient presented to [facility] ER on the June for evaluation of increasing shortness of breath along with increasing swelling to the lower extremity that apparently has been getting worse for the last few days before presentation to the hospital. The patient on arrival to the ER was noticed to be afebrile. The patient did have a normal white count. Chest x- ray has been suggestive of bilateral large pleural effusion, right greater than the left with some compressive atelectasis. Patient has been diagnosed with acute exacerbation of congestive heart failure. Patient with EF of 20%. Has been treated with IV Lasix drip as well as dobutamine. Did have renal insufficiency. The patient also has a cough which is moderate in intensity with occasional whitish to yellow sputum. No hemoptysis. No nausea, no vomiting. No abdominal pain or diarrhea. The patient did have mild dull aching pain to the left leg wound, intensity 3 to 4/10 and no radiation. The patient is currently being treated with cefazolin. Infectious Disease consulted today with concern for possible left leg wound cellulitis and possible pneumonia. REVIEW OF SYSTEMS: Positive points have been mentioned in HPI. Rest of systems are negative. PAST MEDICAL HISTORY: Heart failure, diabetes mellitus, hypertension, coronary artery disease. PAST SURGICAL HISTORY: Appendectomy, cholecystectomy hysterectomy, tubal ligation and coronary artery bypass grafting, mitral valve repair. SOCIAL HISTORY: Denies smoking, drinking or drug use. FAMILY HISTORY: No pertinent findings noticed. ALLERGIES: PENICILLIN SULFA, CIPROFLOXACIN. MEDICATIONS: The patient is currently on Tylenol, Amma, Ventolin, Xanax, amiodarone, Lipitor, Dulcolax, Symbicort, cefazolin 1 g q.12h. She is on dobutamine, Lasix drip, heparin, NovoLog, Levemir, Atrovent, Claritin. PHYSICAL EXAMINATION: VITAL SIGNS: Blood pressure 133/65, pulse of 123, temperature 98. She is 95% on 2 L nasal cannula. GENERAL DESCRIPTION: Patient is an elderly female lying in bed in no distress. No tachypnea or accessory muscles of respiration use. HEENT: Examination shows slight pallor, no scleral icterus. Oral mucous membrane is dry. NECK: Trachea central, no thyromegaly. LUNGS: Unlabored breathing, coarse breath sounds bilaterally, no wheeze. HEART: S1-S2, regular rate and rhythm. ABDOMEN: Soft, no tenderness. No guarding or rigidity. EXTREMITIES: 2+ edema of the feet. The patient did have a wound to the left leg with slough tissue. No significant surrounding swelling, redness or drainage. SKIN: The patient has a stage I pressure ulcer to the sacral area. NEUROLOGICAL: Patient is awake, alert, oriented times three. Mood and affect normal. LABORATORY DATA: White count was 10.1, white count 7.5, procalcitonin 0.11 BUN of 100, creatinine 2.04. Electrolytes have been normal. DIAGNOSTIC IMPRESSION: 1. Patient with chronic nonhealing wound to left leg, site of vein bypass grafting in this patient status post coronary bypass grafting x2 in March now with evidence of nonhealing wound, but no evidence of any secondary cellulitis. The wound base did have slough tissue. 2. The patient with stage I sacral pressure ulcer with no evidence of cellulitis. 3. The patient did have a congested cough and mildly elevated procalcitonin at 0.11. Clinically not behaving as pneumonia. PLAN: 1. Local wound care to the left leg wound with Santyl followed by moist dressing to be changed daily. 2. Calmoseptine lotion to sacral wound area. 3. No need for any systemic antibiotic therapy since clinic suspicion low for pneumonia. Thank you for this consultation. Will follow this patient along with you. MMODL / IJN: [id number] / MTDD
[2020-07-11 06:36] LABS: Glucose,Whole Blood 179 mg/dL (75-99)
[2020-07-11] MEDS: INSULIN DETEMIR (LEVEMIR) 100 UNIT/ML SYR SQ SCH (06:43)
[2020-07-11] MEDS: INSULIN ASPART (NovoLOG) 100 UNIT/ML VIAL SQ SCH ×3 (06:43→17:25)
[2020-07-11] MEDS: AMIODARONE 450 MG in DEXTROSE 5% IN WATER 250 ML IV SCH ×2 (07:10)
[2020-07-11] MEDS: NOREPINEPHRINE 4 MG in SODIUM CHLORIDE 0.9% 250 ML IV SCH (07:10)
[2020-07-11] MEDS: FUROSEMIDE 100 MG in SODIUM CHLORIDE 0.9% 90 ML IV SCH ×2 (07:10→16:44)
[2020-07-11] MEDS: IPRATROPIUM 0.5 MG/2.5 ML NEBU INHALATION SCH ×4 (07:37→19:20)
[2020-07-11] MEDS: SYMBICORT 80-4.5 MCG INHALER INHALATION SCH ×2 (07:38→19:20)
--- NOTE | 2020-07-11 08:24 | XR ---
EXAMINATION TYPE: XR chest 1V portable DATE OF EXAM: 07/11/2020 COMPARISON: Chest x-ray 07/10/2020 HISTORY: Assess lungs, abnormal chest x-ray TECHNIQUE: Single frontal view of the chest is obtained. FINDINGS: Bibasilar increased attenuation is again noted, there is blunting the costophrenic angles. Patient is post median sternotomy and cardiac valve replacement. Aorta is dense. There is no evident pneumothorax. Heart is obscured but thought to be enlarged and stable. There is some prominence of i nterstitium. Question prominence of pulmonary artery, consider pulmonary artery hypertension. IMPRESSION: Right greater than left pleural effusion. Correlate for volume overload, pulmonary venou s hypertension and interstitial edema.
[2020-07-11] MEDS: COLLAGENASE 250 UNIT/GM OINTMENT 30 GM TUBE TOPICAL SCH (09:31)
[2020-07-11] MEDS: FLUTICASONE 50MCG/SPRAY NASAL 16GM EA NOSTRIL SCH (09:31)
[2020-07-11] MEDS: LORATADINE 10 MG TAB PO SCH (09:31)
[2020-07-11] MEDS: MUPIROCIN 2% OINT 22 GM TUBE TOPICAL SCH ×3 (09:32→20:44)
--- NOTE | 2020-07-11 10:10 | PN ---
PROGRESS NOTE The patient is seen for followup for acute kidney injury mostly cardiorenal. Currently patient is being diuresed. She is maintained on Lasix drip. She has had good urine output and she is in negative 3.4 L for 24 hours. Total urine output 5.3 L over 24 hours. Serum creatinine has improved going down from 2.0 to 1.5 currently. CO2 has increased to 34 from 28. Blood pressure remains stable around 120 to 114 mmHg. Overall patient states she is feeling better. PHYSICAL EXAMINATION: On examination today, blood pressure 115/52, heart rate 120 per minute. She is afebrile EXAMINATION OF THE HEART: S1, S2. EXAMINATION OF THE LUNGS: Decreased breath sounds at bases. Abdomen is soft, obese, nontender. Examination of the lower extremities chronic skin changes, draining wound on the left lower extremity and edema about 3+ bilaterally. 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 Patient moving all 4 extremities. LABS: Labs show sodium 133, potassium 3.6, chloride 90, CO2 is 34, BUN 84, creatinine 1.5. ASSESSMENT: 1. Acute kidney injury cardiorenal currently improved with ongoing diuresis. We will continue to diurese patient. Decrease Lasix drip to 5 mg an hour this evening. 2. Metabolic alkalosis secondary to diuresis. Expect improvement with decreasing diuretics. 3. Hypervolemic hyponatremia improved with ongoing diuresis. 4. Congestive heart failure acute on top of chronic, systolic, ejection fraction less than 20%. 5. Left leg wound at the site of the harvesting of veins for coronary artery bypass surgery. 6. Recent coronary artery bypass surgery May of 2020. PLAN: Decrease Lasix drip to 5 mg an hour today and switch to IV push Lasix tomorrow. Watch for worsening metabolic alkalosis from ongoing diuresis. Repeat labs in a.m. Monitor electrolytes. MMODL / IJN: [id number] /
--- NOTE | 2020-07-11 10:13 | P.PN ---
Subjective Progress Note Date: 07/11/20 Patient is diuresing well. She was 3 L negative. Her fluid balance yesterday. She was started on norepinephrine as directed by cardiology. No acute events overnight reported to me by nursing staff. Objective - Vital Signs Vital signs: Vital Signs Temp 97.6 F 07/11/20 08:00 Pulse 137 H 07/11/20 10:00 Resp 8 L 07/11/20 10:00 BP 103/65 07/11/20 07:00 Pulse Ox 94 L 07/11/20 10:00 Intake & Output 07/10/20 07/11/20 07/11/20 18:59 06:59 18:59 Intake Total 775.874 7591.102 534.333 Output Total 2730 2625 1150 Balance -2048.711 -1392.898 -615.667 Weight 99.8 kg Intake: Intake, IV Titration 681.289 752.102 434.333 Amount Amiodarone 450 mg In 230.282 205.004 168.892 Dextrose 5% in Water 250 ml @ 0.5 MG/MIN 16.667 mls/hr IV .Q15H [facility] Rx#: [id number] DOBUTamine DRIP 500 mg In 195.289 Dextrose/Water 1 250ml. bag @ 2.5 MCG/KG/MIN 7. 388 mls/hr IV .Q24H [facility] Rx#:[id number] Furosemide 100 mg In 165.667 100 Sodium Chloride 0.9% 90 ml @ 10 MG/HR 10 mls/hr IV .Q10H [facility] Rx#: [id number] Heparin Sod,Pork in 0.45% 70.333 109.812 NaCl 25,000 unit In 0.45 % NaCl 1 250ml.bag @ 9.98 UNITS/KG/HR 10 mls/hr IV .Q24H [facility] Rx#:[id number] Norepinephrine 4 mg In 165.007 151.809 5.629 Sodium Chloride 0.9% 250 ml @ 0.05 MCG/KG/MIN 18. 764 mls/hr IV .[id number] [facility] Rx#:[id number] Potassium Chloride 20 meq 200 In Water For Injection 1 100ml.bag @ 50 mls/hr IVPB Q2H [facility] Rx#: [id number] ceFAZolin 1,000 mg In 50 50 Sodium Chloride 0.9% 50 ml @ 100 mls/hr IVPB Q12HR [facility] Rx#:[id number] Oral 480 100 Output: Urine 2730 2625 1150 Other: Voiding Method Indwelling Catheter Indwelling Catheter # Bowel Movements 1 ABP, PAP, CO, CI - Last Documented Arterial Blood Pressure 117/54 - Exam General: The patient is awake and alert, in no distress Eye: there is normal conjunctiva bilaterally. Neck: The neck is supple, there is no JVD. Cardiovascular: Normal S1-S2, no S3-S4, no murmurs. Respiratory: Lungs clear to auscultation bilaterally Gastrointestinal: Abdomen is soft, nontender Musculoskeletal: There is evidence of anasarca up to the abdomen Neurological:. Speech is normal. Skin: Skin is warm and dry . Left lower extremity wound involving the mid chin area with some surrounding redness and no drainage - Labs CBC & Chem 7: 07/11/20 04:40 07/11/20 04:40 Labs: Abnormal Lab Results - Last 24 Hours (Table) 07/10/20 07/10/20 07/10/20 Range/Units 03:05 10:07 10:46 RBC (3.80-5.40) m/uL Hgb (11.4-16.0) gm/dL Hct (34.0-46.0) % RDW (11.5-15.5) % Lymphocytes # (1.0-4.8) k/uL PT 12.6 H (9.0-12.0) sec INR 1.2 H (<1.2) APTT (22.0-30.0) sec Sodium (137-145) mmol/L Potassium (3.5-5.1) mmol/L Chloride (98-107) mmol/L Carbon Dioxide (22-30) mmol/L BUN (7-17) mg/dL Creatinine (0.52-1.04) mg/dL Glucose (74-99) mg/dL POC Glucose (mg/dL) (75-99) mg/dL Alkaline Phosphatase (38-126) U/L Total Protein (6.3-8.2) g/dL Albumin (3.5-5.0) g/dL Procalcitonin 0.11 H (0.02-0.09) ng/mL Urine Blood Large H (Negative) Ur Leukocyte Esterase Small H (Negative) Urine RBC >182 H (0-5) /hpf Urine WBC 7 H (0-5) /hpf Urine Bacteria Occasional H (None) /hpf Urine Mucus Rare H (None) /hpf 07/10/20 07/10/20 07/10/20 Range/Units 11:40 16:36 17:36 RBC (3.80-5.40) m/uL Hgb (11.4-16.0) gm/dL Hct (34.0-46.0) % RDW (11.5-15.5) % Lymphocytes # (1.0-4.8) k/uL PT (9.0-12.0) sec INR (<1.2) APTT 82.9 H (22.0-30.0) sec Sodium (137-145) mmol/L Potassium (3.5-5.1) mmol/L Chloride (98-107) mmol/L Carbon Dioxide (22-30) mmol/L BUN (7-17) mg/dL Creatinine (0.52-1.04) mg/dL Glucose (74-99) mg/dL POC Glucose (mg/dL) 161 H 181 H (75-99) mg/dL Alkaline Phosphatase (38-126) U/L Total Protein (6.3-8.2) g/dL Albumin (3.5-5.0) g/dL Procalcitonin (0.02-0.09) ng/mL Urine Blood (Negative) Ur Leukocyte Esterase (Negative) Urine RBC (0-5) /hpf Urine WBC (0-5) /hpf Urine Bacteria (None) /hpf Urine Mucus (None) /hpf 07/10/20 07/10/20 07/10/20 Range/Units 20:00 20:05 23:35 RBC (3.80-5.40) m/uL Hgb (11.4-16.0) gm/dL Hct (34.0-46.0) % RDW (11.5-15.5) % Lymphocytes # (1.0-4.8) k/uL PT (9.0-12.0) sec INR (<1.2) APTT 51.2 H (22.0-30.0) sec Sodium (137-145) mmol/L Potassium 3.4 L (3.5-5.1) mmol/L Chloride (98-107) mmol/L Carbon Dioxide (22-30) mmol/L BUN (7-17) mg/dL Creatinine (0.52-1.04) mg/dL Glucose (74-99) mg/dL POC Glucose (mg/dL) 131 H (75-99) mg/dL Alkaline Phosphatase (38-126) U/L Total Protein (6.3-8.2) g/dL Albumin (3.5-5.0) g/dL Procalcitonin (0.02-0.09) ng/mL Urine Blood (Negative) Ur Leukocyte Esterase (Negative) Urine RBC (0-5) /hpf Urine WBC (0-5) /hpf Urine Bacteria (None) /hpf Urine Mucus (None) /hpf 07/11/20 07/11/20 07/11/20 Range/Units 02:25 04:40 04:40 RBC 3.50 L (3.80-5.40) m/uL Hgb 10.0 L (11.4-16.0) gm/dL Hct 30.8 L (34.0-46.0) % RDW 17.2 H (11.5-15.5) % Lymphocytes # 0.8 L (1.0-4.8) k/uL PT (9.0-12.0) sec INR (<1.2) APTT 49.0 H (22.0-30.0) sec Sodium (137-145) mmol/L Potassium (3.5-5.1) mmol/L Chloride (98-107) mmol/L Carbon Dioxide (22-30) mmol/L BUN (7-17) mg/dL Creatinine (0.52-1.04) mg/dL Glucose (74-99) mg/dL POC Glucose (mg/dL) 177 H (75-99) mg/dL Alkaline Phosphatase (38-126) U/L Total Protein (6.3-8.2) g/dL Albumin (3.5-5.0) g/dL Procalcitonin (0.02-0.09) ng/mL Urine Blood (Negative) Ur Leukocyte Esterase (Negative) Urine RBC (0-5) /hpf Urine WBC (0-5) /hpf Urine Bacteria (None) /hpf Urine Mucus (None) /hpf 07/11/20 07/11/20 Range/Units 04:40 06:35 RBC (3.80-5.40) m/uL Hgb (11.4-16.0) gm/dL Hct (34.0-46.0) % RDW (11.5-15.5) % Lymphocytes # (1.0-4.8) k/uL PT (9.0-12.0) sec INR (<1.2) APTT (22.0-30.0) sec Sodium 133 L (137-145) mmol/L Potassium (3.5-5.1) mmol/L Chloride 90 L (98-107) mmol/L Carbon Dioxide 34 H (22-30) mmol/L BUN 84 H (7-17) mg/dL Creatinine 1.51 H (0.52-1.04) mg/dL Glucose 165 H (74-99) mg/dL POC Glucose (mg/dL) 179 H (75-99) mg/dL Alkaline Phosphatase 190 H (38-126) U/L Total Protein 6.0 L (6.3-8.2) g/dL Albumin 3.1 L (3.5-5.0) g/dL Procalcitonin (0.02-0.09) ng/mL Urine Blood (Negative) Ur Leukocyte Esterase (Negative) Urine RBC (0-5) /hpf Urine WBC (0-5) /hpf Urine Bacteria (None) /hpf Urine Mucus (None) /hpf Microbiology - Last 24 Hours (Table) 07/08/20 09:30 Gram Stain - Final Leg - Left Wound Culture - Final Assessment and Plan Assessment: This is a 75-year-old female with very complex past medical history noted below Presented to the emergency room with worsening dyspnea, patient was evaluated in the ER and admitted to the ICU for further management of her medical problems noted below. 1. Acute systolic heart failure exacerbation: Started on IV Lasix drip. Managed by cardiology. Echocardiogram showed ejection fraction of 20% with severe global hypokinesia of the left ventricle. Dobutamine and norepinephrine drip managed by cardiology 2. Significant fluid overload with evidence of anasarca up to the abdomen and bilateral large pleural effusion: Plan for possible thoracentesis today 3. Acute kidney injury with possible underlying chronic kidney disease: Creatinine stable around 2. Baseline creatinine unknown. Avoid nephrotoxins. Nephrology consulted for further evaluation. 4. Atrial fibrillation with rapid ventricular response: Started on amiodarone and Eliquis by cardiology. Anticoagulation on hold right now for possible thoracentesis 5. Left lower extremity wound infection: Started on antibiotic with cefazolin day #4 then discontinued by infectious disease. Continue local wound care. 6. Type 2 diabetes with episode of hypoglycemia: Home dose of Lantus decreased from 18 units to 8 units of Levemir daily. Continue sliding scale insulin 7. Coccyx pressure ulcer, POA: Wound care consulted, appreciate recommendation 8. Chronic medical problems, coronary artery disease status post 2 vessel bypass with mitral valve repair at [facility] in April 2020 9. CODE STATUS, patient is full code. Discussed with her at bedside
--- NOTE | 2020-07-11 10:51 | XR ---
EXAMINATION TYPE: XR chest 1V DATE OF EXAM: 07/11/2020 COMPARISON: Chest x-ray 07/11/2020 at earlier time HISTORY: Status post thoracentesis TECHNIQUE: Single frontal view of the chest is obtained. FINDINGS: There is some improvement in aeration in the right lung as compared to prior exam. No evid ent pneumothorax. No other significant interval change. IMPRESSION: No evident complication status post thoracentesis.
--- NOTE | 2020-07-11 11:05 | P.PN ---
Subjective Progress Note Date: 07/11/20 Principal diagnosis: Congestive heart failure. This is a 75-year-old female with history of multiple medical problems including type 2 diabetes, hypertension, ischemic cardiomyopathy and LV dysfunction, patient had a two-vessel bypass surgery and mitral valve repair in the last couple of months at [facility], patient presented to the ER with a few weeks history of increased shortness of breath, workup was done in the ER, clearly the patient was in congestive heart failure with bilateral pleural effusions left greater than right. And check her blood pressure was noted to be marginal but did not require any pressors while in the ER. Patient was seen by cardiology on consultation, and she was noted to have an accelerated junctional rhythm, recommended that the patient gets admitted to the ICU and The patient on Lasix drip at 10 mg per hour. Considering her pleural effusions and her shortness of breath, I was asked to see the patient on consultation. I was n otified about this patient last night from the ICU nurse where in she was noted to have marginal blood pressure and she had fairly good urine output, I did recommend starting the patient on Dobutrex at 2.5 mcg/kg/m, and the patient has been responding quite well to the Dobutrex along with a Lasix drip. Echocardiogram showed poor LV function of 20%, there was severe global hypokinesis of the left ventricle. Follow-up chest x-ray this morning after diuresing the patient showed definite improvement in her pleural effusions, hence I have no plans to arrange for thoracentesis at this point. In addition to all of this, the patient had developed significant ulceration and what seems to be a cellulitis involving the left lower extremity related to the site of saphenous vein salvage. The area seems to be a bit necrotic, and I recommended starting the patient on antibiotics in the form of Ancef. Patient was reevaluated today on 07/09/2020, remains in the ICU, patient is basically about the same. Minimal improvement if any. remains on Lasix drip, remains in atrial fibrillation urine output is dropping cough, she is down to 30 mL per hour. Patient remains on 2 L nasal cannula, chest x-ray questioned right pleural effusion more so than left pleural effusion, however the ultrasound of t he chest showed more fluid on the left side, and hardly any fluid on the right side. Still planning to continue diuretics on this patient, will hold on thoracentesis unless the patient shows no improvement with diuresis. She still on Lasix at 10 mg per hour still on cefazolin. Creatinine today is slightly worse at 2.11, patient was doing better when she was on Dobutrex. However this was discontinued by cardiology, mostly because of her atrial fibrillation with RVR. WBC count is 7.2 hemoglobin is 9.7 BUN is 94 creatinine 2.11 Patient was reevaluated today on 07/10/2020, patient is feeling better today, breathing a lot easier, however she is now back on Dobutrex 2.5 mcg/kg/m. she is also on amiodarone, 0.5 mg/m. norepinephrine, 0.03 mcg/kg/m Lasix 10 mg per hour drip and as soon as this was done, her urine output has picked up nicely to 981031 mL per hour. Patient remains in atrial flutter rate of 134/m. Chest x-ray this morning showed worsening right-sided pleural effusion, ultrasound confirmed fairly good sized right-sided pleural effusion the left sided pleural effusion is small and the patient will definitely require a right-sided thoracentesis if she does not improve with diuretics. I have a feeling that the patient may not require thoracentesis if she continues to respond with significant urine output as such. However in the meantime I did transition the patient to heparin and discussed her condition with the neurosurgery physician on the case, they may consider cardioversion on this patient, and she will remain anticoagulated, and if we decide to do thoracentesis in the next 48 hours, that could be accomplished by holding the heparin for few hours prior. I did di scontinue her Eliquis for the time being. Considering the patient is now on multiple drips including Dobutrex, norepinephrine, and amiodarone, I did place a right femoral triple-lumen catheter and I also placed a arterial line for close monitoring of the patient. Surprisingly the patient did clinically improve as her urine output picked up nicely with the inotropes and pressors on the case WBC count is 7.5 hemoglobin is 10.2 patient remains on cefazolin for her cellulitis. Renal functioning showed a BUN of 100 creatinine 2.04, and this is again a cardiorenal picture. Will likely improve with the inotropes and pressors her BNP level today is 5820. Progress note dated 07/11/2020. 75-year-old female admitted on July 07 with a diagnosis of CHF. The patient had a recent bypass grafting at [facility] 2 months ago. Chest x-rays reviewed and shows bilateral pleural effusions. Today, we did a right-sided thoracentesis, and 360 mL of yellow fluid was removed. It was sent for anal ysis. We will do the left side tomorrow. The patient's breathing is improved. She still on 2 L nasal cannula. She is on a number of drips. Currently, she is on Lasix drip at 10 mg an hour, heparin drip via weightbase based protocol, amiodarone, and 0.5 mg/m, dobutamine, at 2.5 mcg/kg/m, and norepinephrine at 5 mcg/m. The patient tolerated the thoracentesis well. I told her that we would do the left side tomorrow. Heparin was discontinued a couple hours before the thoracentesis was done. White count 8.8, hemoglobin 10, hematocrit 30.8, and platelet count 251,000. PTT is 49. Sodium 133, potassium 3.6, chlorides 90, CO2 34, anion gap 9, BUN 84, and creatinine 1.51. Chest x-ray shows improvement in the aeration of the right lung following the procedure, without evidence of pneumothorax. Objective - Vital Signs Vital signs: Vital Signs Temp 97.6 F 07/11/20 08:00 Pulse 137 H 07/11/20 10:00 Resp 8 L 07/11/20 10:00 BP 103/65 07/11/20 07:00 Pulse Ox 94 L 07/11/20 10:00 Intake & Output 07/10/20 07/11/20 07/11/20 18:59 06:59 18:59 Intake Total 596.898 5217.102 534.333 Output Total 2730 2625 1150 Balance -2048.711 -1392.898 -615.667 Weight 99.8 kg Intake: Intake, IV Titration 681.289 752.102 434.333 Amount Amiodarone 450 mg In 230.282 205.004 168.892 Dextrose 5% in Water 250 ml @ 0.5 MG/MIN 16.667 mls/hr IV .Q15H [facility] Rx#: [id number] DOBUTamine DRIP 500 mg In 195.289 Dextrose/Water 1 250ml. bag @ 2.5 MCG/KG/MIN 7. 388 mls/hr IV .Q24H [facility] Rx#:[id number] Furosemide 100 mg In 165.667 100 Sodium Chloride 0.9% 90 ml @ 10 MG/HR 10 mls/hr IV .Q10H [facility] Rx#: [id number] Heparin Sod,Pork in 0.45% 70.333 109.812 NaCl 25,000 unit In 0.45 % NaCl 1 250ml.bag @ 9.98 UNITS/KG/HR 10 mls/hr IV .Q24H [facility] Rx#:[id number] Norepinephrine 4 mg In 165.007 151.809 5.629 Sodium Chloride 0.9% 250 ml @ 0.05 MCG/KG/MIN 18. 764 mls/hr IV .[id number] [facility] Rx#:[id number] Potassium Chloride 20 meq 200 In Water For Injection 1 100ml.bag @ 50 mls/hr IVPB Q2H [facility] Rx#: [id number] ceFAZolin 1,000 mg In 50 50 Sodium Chloride 0.9% 50 ml @ 100 mls/hr IVPB Q12HR [facility] Rx#:[id number] Oral 480 100 Output: Urine 2730 2625 1150 Other: Voiding Method Indwelling Catheter Indwelling Catheter Indwelling Catheter # Bowel Movements 1 ABP, PAP, CO, CI - Last Documented Arterial Blood Pressure 117/54 - Exam No acute distress, oriented 3. Patient with mild conversational dyspnea, currently on 2 L. HEENT examination is grossly unremarkable. Neck supple. Full range of motion. No adenopathy thyromegaly or neck vein distention. Cardiovascular examination reveals regular rhythm rate. S1-S2 normal. No S3 or S4. A soft systolic murmur is noted. Heart rate 120 bpm. Lungs reveal diminished breath sounds at the bases. Bibasilar crackles are noted. No rhonchi or wheezes. Breath sounds equal bilaterally. There is dullness at the bases as well. Abdomen soft bowel sounds are heard. No masses or tenderness. Extremities are intact. No cyanosis or clubbing noted. There is bilateral lower extremity edema, 1-2+. Skin is without rash or lesion. Neurologic examination is brief but nonfocal. - Labs CBC & Chem 7: 07/11/20 04:40 07/11/20 04:40 Labs: Abnormal Lab Results - Last 24 Hours (Table) 07/10/20 07/10/20 07/10/20 Range/Units 03:05 10:07 10:46 RBC (3.80-5.40) m/uL Hgb (11.4-16.0) gm/dL Hct (34.0-46.0) % RDW (11.5-15.5) % Lymphocytes # (1.0-4.8) k/uL PT 12.6 H (9.0-12.0) sec INR 1.2 H (<1.2) APTT (22.0-30.0) sec Sodium (137-145) mmol/L Potassium (3.5-5.1) mmol/L Chloride (98-107) mmol/L Carbon Dioxide (22-30) mmol/L BUN (7-17) mg/dL Creatinine (0.52-1.04) mg/dL Glucose (74-99) mg/dL POC Glucose (mg/dL) (75-99) mg/dL Alkaline Phosphatase (38-126) U/L Total Protein (6.3-8.2) g/dL Albumin (3.5-5.0) g/dL Procalcitonin 0.11 H (0.02-0.09) ng/mL Urine Blood Large H (Negative) Ur Leukocyte Esterase Small H (Negative) Urine RBC >182 H (0-5) /hpf Urine WBC 7 H (0-5) /hpf Urine Bacteria Occasional H (None) /hpf Urine Mucus Rare H (None) /hpf 07/10/20 07/10/20 07/10/20 Range/Units 11:40 16:36 17:36 RBC (3.80-5.40) m/uL Hgb (11.4-16.0) gm/dL Hct (34.0-46.0) % RDW (11.5-15.5) % Lymphocytes # (1.0-4.8) k/uL PT (9.0-12.0) sec INR (<1.2) APTT 82.9 H (22.0-30.0) sec Sodium (137-145) mmol/L Potassium (3.5-5.1) mmol/L Chloride (98-107) mmol/L Carbon Dioxide (22-30) mmol/L BUN (7-17) mg/dL Creatinine (0.52-1.04) mg/dL Glucose (74-99) mg/dL POC Glucose (mg/dL) 161 H 181 H (75-99) mg/dL Alkaline Phosphatase (38-126) U/L Total Protein (6.3-8.2) g/dL Albumin (3.5-5.0) g/dL Procalcitonin (0.02-0.09) ng/mL Urine Blood (Negative) Ur Leukocyte Esterase (Negative) Urine RBC (0-5) /hpf Urine WBC (0-5) /hpf Urine Bacteria (None) /hpf Urine Mucus (None) /hpf 07/10/20 07/10/20 07/10/20 Range/Units 20:00 20:05 23:35 RBC (3.80-5.40) m/uL Hgb (11.4-16.0) gm/dL Hct (34.0-46.0) % RDW (11.5-15.5) % Lymphocytes # (1.0-4.8) k/uL PT (9.0-12.0) sec INR (<1.2) APTT 51.2 H (22.0-30.0) sec Sodium (137-145) mmol/L Potassium 3.4 L (3.5-5.1) mmol/L Chloride (98-107) mmol/L Carbon Dioxide (22-30) mmol/L BUN (7-17) mg/dL Creatinine (0.52-1.04) mg/dL Glucose (74-99) mg/dL POC Glucose (mg/dL) 131 H (75-99) mg/dL Alkaline Phosphatase (38-126) U/L Total Protein (6.3-8.2) g/dL Albumin (3.5-5.0) g/dL Procalcitonin (0.02-0.09) ng/mL Urine Blood (Negative) Ur Leukocyte Esterase (Negative) Urine RBC (0-5) /hpf Urine WBC (0-5) /hpf Urine Bacteria (None) /hpf Urine Mucus (None) /hpf 07/11/20 07/11/20 07/11/20 Range/Units 02:25 04:40 04:40 RBC 3.50 L (3.80-5.40) m/uL Hgb 10.0 L (11.4-16.0) gm/dL Hct 30.8 L (34.0-46.0) % RDW 17.2 H (11.5-15.5) % Lymphocytes # 0.8 L (1.0-4.8) k/uL PT (9.0-12.0) sec INR (<1.2) APTT 49.0 H (22.0-30.0) sec Sodium (137-145) mmol/L Potassium (3.5-5.1) mmol/L Chloride (98-107) mmol/L Carbon Dioxide (22-30) mmol/L BUN (7-17) mg/dL Creatinine (0.52-1.04) mg/dL Glucose (74-99) mg/dL POC Glucose (mg/dL) 177 H (75-99) mg/dL Alkaline Phosphatase (38-126) U/L Total Protein (6.3-8.2) g/dL Albumin (3.5-5.0) g/dL Procalcitonin (0.02-0.09) ng/mL Urine Blood (Negative) Ur Leukocyte Esterase (Negative) Urine RBC (0-5) /hpf Urine WBC (0-5) /hpf Urine Bacteria (None) /hpf Urine Mucus (None) /hpf 07/11/20 07/11/20 Range/Units 04:40 06:35 RBC (3.80-5.40) m/uL Hgb (11.4-16.0) gm/dL Hct (34.0-46.0) % RDW (11.5-15.5) % Lymphocytes # (1.0-4.8) k/uL PT (9.0-12.0) sec INR (<1.2) APTT (22.0-30.0) sec Sodium 133 L (137-145) mmol/L Potassium (3.5-5.1) mmol/L Chloride 90 L (98-107) mmol/L Carbon Dioxide 34 H (22-30) mmol/L BUN 84 H (7-17) mg/dL Creatinine 1.51 H (0.52-1.04) mg/dL Glucose 165 H (74-99) mg/dL POC Glucose (mg/dL) 179 H (75-99) mg/dL Alkaline Phosphatase 190 H (38-126) U/L Total Protein 6.0 L (6.3-8.2) g/dL Albumin 3.1 L (3.5-5.0) g/dL Procalcitonin (0.02-0.09) ng/mL Urine Blood (Negative) Ur Leukocyte Esterase (Negative) Urine RBC (0-5) /hpf Urine WBC (0-5) /hpf Urine Bacteria (None) /hpf Urine Mucus (None) /hpf Microbiology - Last 24 Hours (Table) 07/08/20 09:30 Gram Stain - Final Leg - Left Wound Culture - Final Assessment and Plan Assessment: Acute on chronic systolic congestive heart failure. Bilateral pleural effusions, status post right-sided thoracentesis today, with plans on doing the left side tomorrow. History of CAD, and recent bypass grafting at [facility]. Poorly-controlled atrial flutter. Acute kidney injury. Type 2 diabetes mellitus. Questionable history of underlying COPD. Acute cellulitis of left lower extremity. Plan: Plan dated 07/11/2020. The patient underwent right-sided thoracentesis today. 360 mL of yellow, thin fluid was removed, likely related to underlying CHF. The fluid was sent for analysis including microbiology, cytology, and chemistry. The left side will be drained tomorrow. The patient remains on a number of different drips including Lasix, heparin, amiodarone, dobutamine, and norepinephrine. The patient did have a bypass grafting 2 months ago at [facility]. Most of the patient's issues are cardiac in nature. We'll continue to follow for the time being. The patient continues on antibiotics for the left leg cellulitis. Microbiology is currently negative. The chest x-ray after thoracentesis showed improved aera tion of the right lung, without evidence of pneumothorax. Time with Patient: Greater than 30
[2020-07-11 11:31] LABS: Glucose,Whole Blood 137 mg/dL (75-99)
--- NOTE | 2020-07-11 11:31 | P.PN ---
Subjective Progress Note Date: 07/11/20 HISTORY OF PRESENT ILLNESS: This is a pleasant 75-year-old female past medical history significant for ischemic cardiomyopathy, coronary artery disease status post bypass grafting, valvular heart disease status post mitral ring annuloplasty, chronic systolic heart failure, paroxysmal atrial fibrillation on long-term anticoagulation, hypertension, diabetes mellitus, COPD and dyslipidemia. She initially underwent bypass grafting and mitral valve repair approximately 2 months ago and [facility]. She established in town with Dr. Rodrigues June 22. We have been asked to see in consultation for heart failure. She presented to the hospital with symptoms of shortness of breath, cough and lower extremity edema. She was initially admitted to April 22 where she was found to have an ejection fraction of less than 15%. She underwent cardiac catheterization which showed severe triple vessel disease and underwent two-vessel bypass grafting with repair for mitral valve and maze procedure. Repeat echocardiogram prior to discharge revealed an ejection fraction of 45%. She did go to inpatient rehab shortly thereafter and has since been at home with home care. EKG on arrival revealed atrial tachycardia with a heart rate in the 130s. She was initiated on dobutamine and IV Lasix. She is seen and examined sitting up in bed in no acute distress. Her heart continues to be tachycardic in the 130s. It appears regular but is difficult to differentiate possible underlying atrial flutter. Repeat echocardiogram on this admission revealed ejection fraction of less than 20%, severe global hypokinesia, large pleural effusion and mild to moderate mitral regurgitation. Chest x-ray this morning reveals moderate bilateral pleural effusions improved from previous exam. Venous duplex negative for DVT. Laboratory data reviewed, WBC 7.8, hemoglobin 9.8, platelets 228, sodium 131, potassium 4.8, creatinine 2.01, magnesium 3.1, troponin 0.0 17, TSH 4.03 and and proBNP 4330. Crit daily cardiac medications as recorded in Dr. Rodrigues's office on June 22 reveal aspirin 81 mg daily, atorvastatin 80 mg daily, Bumex 1 mg daily, Coreg 25 mg twice a day, Eliquis 5 mg twice a day, and entresto 24/26 mg twice a day and daily magnesium supplementation. 07/09 Patient seen and examined. Patient remains with heart rates predominantly right at 128, occasionally lower with amiodarone and Cardizem were appears to be possible atrial flutter versus atrial tachycardia. She states she feels somewhat more tired than yesterday. Still complains of shortness breath. She previously did have good urine output however has decreased. Her blood pressures decreased into the 70s over 50s with a map in the low 60s. She had previously been on dobutamine to begin with however I was not on any vasopressors or inotropes. Echocardiogram revealed severely decreased ejection fraction 20% with [id number] mitral regurgitation. She is sitting upright in bed. Her creatinine mildly increased at 2.1 today. She denies any chest pain or pressure. She is still coughing. Patient and son at bedside admit that she has been tachycardic for approximately the last 3 weeks, was noted to be tachycardic when home health care came a few times. She was transitioned over to IV amiodarone earlier in the day without much improvement. 07/10 Patient seen and examined. Patient states she feels somewhat better compared to yesterday. Maintained on amiodarone drip, she was placed on levophed and dobutamine drip yesterday and has had improved urine outputs this morning up to 300-400 mL an hour on the Lasix drip. She denies any chest pain or pressure. Remains in the atrial tachycardia, atrial flutter at 130 bpm. 07/11/2020 Patient examined this morning in the intensive care unit. Patient remains on lasix drip, amio, dobutamine, and levophed. She continues to have good urine output. Eliquis remains on hold. Patient is on IV heparin for possible thoracentesis. Patient remains tachycardic with a heart rate in the 120s. PHYSICAL EXAM: VITAL SIGNS: Reviewed. GENERAL: Well-developed in no acute distress. NECK: Supple. No JVD or thyromegaly LUNGS: Respirations even and unlabored. Lungs diminished bilaterally with expiratory wheezing noted. HEART: Tachycardic. Irregular rate and rhythm. S1 and S2 heard. Systolic murmur noted. EXTREMITIES: Normal range of motion. No clubbing or cyanosis. Peripheral p ulses intact. 2+ bilateral lower extremity edema. Dressing to left leg noted. ASSESSMENT: Acute on chronic systolic heart failure, EF 20% Cardiogenic shock Acute kidney injury Atrial tachycardia, difficult to discern possible atrial flutter at this rate Coronary artery disease status post bypass grafting Status post mitral ring annuloplasty Paroxysmal atrial fibrillation on long-term anticoagulation Hypertension Dyslipidemia Diabetes mellitus COPD PLAN: Discontinue IV Amio. Begin oral amio 400mg BID Add metoprolol 25mg BID. Continue IV Dobutamine Continue Lasix drip Monitor I&O Wean levophed as tolerated Continue lipitor Continue heparin. May transition back to Eliquis after thoracentesis. Further recommendations pending patient course Nurse practitioner note has been reviewed by physician. Signing provider agrees with the documented findings, assessment, and plan of care. Objective - Vital Signs Vital signs: Vital Signs Temp 97.6 F 07/11/20 08:00 Pulse 137 H 07/11/20 10:00 Resp 8 L 07/11/20 10:00 BP 103/65 07/11/20 07:00 Pulse Ox 94 L 07/11/20 10:00 Intake & Output 07/10/20 07/11/20 07/11/20 18:59 06:59 18:59 Intake Total 881.945 8850.102 534.333 Output Total 2730 2625 1150 Balance -2048.711 -1392.898 -615.667 Weight 99.8 kg Intake: Intake, IV Titration 681.289 752.102 434.333 Amount Amiodarone 450 mg In 230.282 205.004 168.892 Dextrose 5% in Water 250 ml @ 0.5 MG/MIN 16.667 mls/hr IV .Q15H SASHA Rx#: [id number] DOBUTamine DRIP 500 mg In 195.289 Dextrose/Water 1 250ml. bag @ 2.5 MCG/KG/MIN 7. 388 mls/hr IV .Q24H SASHA Rx#:[id number] Furosemide 100 mg In 165.667 100 Sodium Chloride 0.9% 90 ml @ 10 MG/HR 10 mls/hr IV .Q10H SASHA Rx#: [id number] Heparin Sod,Pork in 0.45% 70.333 109.812 NaCl 25,000 unit In 0.45 % NaCl 1 250ml.bag @ 9.98 UNITS/KG/HR 10 mls/hr IV .Q24H SASHA Rx#:[id number] Norepinephrine 4 mg In 165.007 151.809 5.629 Sodium Chloride 0.9% 250 ml @ 0.05 MCG/KG/MIN 18. 764 mls/hr IV .[id number] SASHA Rx#:[id number] Potassium Chloride 20 meq 200 In Water For Injection 1 100ml.bag @ 50 mls/hr IVPB Q2H SASHA Rx#: [id number] ceFAZolin 1,000 mg In 50 50 Sodium Chloride 0.9% 50 ml @ 100 mls/hr IVPB Q12HR SASHA Rx#:[id number] Oral 480 100 Output: Urine 2730 2625 1150 Other: Voiding Method Indwelling Catheter Indwelling Catheter # Bowel Movements 1 ABP, PAP, CO, CI - Last Documented Arterial Blood Pressure 117/54 - Labs CBC & Chem 7: 07/11/20 04:40 07/11/20 04:40 Labs: Abnormal Lab Results - Last 24 Hours (Table) 07/10/20 07/10/20 07/10/20 Range/Units 03:05 10:07 10:46 RBC (3.80-5.40) m/uL Hgb (11.4-16.0) gm/dL Hct (34.0-46.0) % RDW (11.5-15.5) % Lymphocytes # (1.0-4.8) k/uL PT 12.6 H (9.0-12.0) sec INR 1.2 H (<1.2) APTT (22.0-30.0) sec Sodium (137-145) mmol/L Potassium (3.5-5.1) mmol/L Chloride (98-107) mmol/L Carbon Dioxide (22-30) mmol/L BUN (7-17) mg/dL Creatinine (0.52-1.04) mg/dL Glucose (74-99) mg/dL POC Glucose (mg/dL) (75-99) mg/dL Alkaline Phosphatase (38-126) U/L Total Protein (6.3-8.2) g/dL Albumin (3.5-5.0) g/dL Procalcitonin 0.11 H (0.02-0.09) ng/mL Urine Blood Large H (Negative) Ur Leukocyte Esterase Small H (Negative) Urine RBC >182 H (0-5) /hpf Urine WBC 7 H (0-5) /hpf Urine Bacteria Occasional H (None) /hpf Urine Mucus Rare H (None) /hpf 07/10/20 07/10/20 07/10/20 Range/Units 11:40 16:36 17:36 RBC (3.80-5.40) m/uL Hgb (11.4-16.0) gm/dL Hct (34.0-46.0) % RDW (11.5-15.5) % Lymphocytes # (1.0-4.8) k/uL PT (9.0-12.0) sec INR (<1.2) APTT 82.9 H (22.0-30.0) sec Sodium (137-145) mmol/L Potassium (3.5-5.1) mmol/L Chloride (98-107) mmol/L Carbon Dioxide (22-30) mmol/L BUN (7-17) mg/dL Creatinine (0.52-1.04) mg/dL Glucose (74-99) mg/dL POC Glucose (mg/dL) 161 H 181 H (75-99) mg/dL Alkaline Phosphatase (38-126) U/L Total Protein (6.3-8.2) g/dL Albumin (3.5-5.0) g/dL Procalcitonin (0.02-0.09) ng/mL Urine Blood (Negative) Ur Leukocyte Esterase (Negative) Urine RBC (0-5) /hpf Urine WBC (0-5) /hpf Urine Bacteria (None) /hpf Urine Mucus (None) /hpf 07/10/20 07/10/20 07/10/20 Range/Units 20:00 20:05 23:35 RBC (3.80-5.40) m/uL Hgb (11.4-16.0) gm/dL Hct (34.0-46.0) % RDW (11.5-15.5) % Lymphocytes # (1.0-4.8) k/uL PT (9.0-12.0) sec INR (<1.2) APTT 51.2 H (22.0-30.0) sec Sodium (137-145) mmol/L Potassium 3.4 L (3.5-5.1) mmol/L Chloride (98-107) mmol/L Carbon Dioxide (22-30) mmol/L BUN (7-17) mg/dL Creatinine (0.52-1.04) mg/dL Glucose (74-99) mg/dL POC Glucose (mg/dL) 131 H (75-99) mg/dL Alkaline Phosphatase (38-126) U/L Total Protein (6.3-8.2) g/dL Albumin (3.5-5.0) g/dL Procalcitonin (0.02-0.09) ng/mL Urine Blood (Negative) Ur Leukocyte Esterase (Negative) Urine RBC (0-5) /hpf Urine WBC (0-5) /hpf Urine Bacteria (None) /hpf Urine Mucus (None) /hpf 07/11/20 07/11/20 07/11/20 Range/Units 02:25 04:40 04:40 RBC 3.50 L (3.80-5.40) m/uL Hgb 10.0 L (11.4-16.0) gm/dL Hct 30.8 L (34.0-46.0) % RDW 17.2 H (11.5-15.5) % Lymphocytes # 0.8 L (1.0-4.8) k/uL PT (9.0-12.0) sec INR (<1.2) APTT 49.0 H (22.0-30.0) sec Sodium (137-145) mmol/L Potassium (3.5-5.1) mmol/L Chloride (98-107) mmol/L Carbon Dioxide (22-30) mmol/L BUN (7-17) mg/dL Creatinine (0.52-1.04) mg/dL Glucose (74-99) mg/dL POC Glucose (mg/dL) 177 H (75-99) mg/dL Alkaline Phosphatase (38-126) U/L Total Protein (6.3-8.2) g/dL Albumin (3.5-5.0) g/dL Procalcitonin (0.02-0.09) ng/mL Urine Blood (Negative) Ur Leukocyte Esterase (Negative) Urine RBC (0-5) /hpf Urine WBC (0-5) /hpf Urine Bacteria (None) /hpf Urine Mucus (None) /hpf 07/11/20 07/11/20 Range/Units 04:40 06:35 RBC (3.80-5.40) m/uL Hgb (11.4-16.0) gm/dL Hct (34.0-46.0) % RDW (11.5-15.5) % Lymphocytes # (1.0-4.8) k/uL PT (9.0-12.0) sec INR (<1.2) APTT (22.0-30.0) sec Sodium 133 L (137-145) mmol/L Potassium (3.5-5.1) mmol/L Chloride 90 L (98-107) mmol/L Carbon Dioxide 34 H (22-30) mmol/L BUN 84 H (7-17) mg/dL Creatinine 1.51 H (0.52-1.04) mg/dL Glucose 165 H (74-99) mg/dL POC Glucose (mg/dL) 179 H (75-99) mg/dL Alkaline Phosphatase 190 H (38-126) U/L Total Protein 6.0 L (6.3-8.2) g/dL Albumin 3.1 L (3.5-5.0) g/dL Procalcitonin (0.02-0.09) ng/mL Urine Blood (Negative) Ur Leukocyte Esterase (Negative) Urine RBC (0-5) /hpf Urine WBC (0-5) /hpf Urine Bacteria (None) /hpf Urine Mucus (None) /hpf Microbiology - Last 24 Hours (Table) 07/08/20 09:30 Gram Stain - Final Leg - Left Wound Culture - Final
[2020-07-11] MEDS: AMIODARONE 200 MG TAB PO SCH ×2 (11:33→20:44)
[2020-07-11] MEDS: METOPROLOL TARTRATE 25 MG TAB PO SCH ×2 (11:33→20:43)
--- NOTE | 2020-07-11 12:15 | PN ---
PROGRESS NOTE DATE OF SERVICE: 07/11/2020 REASON FOR FOLLOWUP: Left lower extremity wound and a question of pneumonia. INTERVAL HISTORY: The patient is afebrile. The patient is breathing slightly comfortably. The patient's cough has decreased in intensity. No chest pain. No nausea, no vomiting. No abdominal pain. Did complain of pain to the left leg last night, states it is slightly better this morning. PHYSICAL EXAMINATION: Blood pressure 110/46, pulse of 116, temperature is 97.6. She is 96% on 2 L nasal cannula. General description is an elderly female lying in bed in no distress. RESPIRATORY SYSTEM: Unlabored breathing, clear to auscultation anteriorly. HEART: S1, S2. Regular rate and rhythm. ABDOMEN: Soft, no tenderness. Left leg wound is currently dressed. No drainage on the dressing. LABS: Hemoglobin is 10, white count 8.8. BUN of 84, creatinine 1.51. DIAGNOSTIC IMPRESSION AND PLAN: 1. Patient with left lower extremity wound in this patient with recent vein grafts for her bypass surgery. No significant inflammation was noticed. Local care to continue with Santyl and mild compression dressing. 2. Patient with cough, shortness of breath, more likely fluid overload. Clinically doubt pneumonia. 3. Patient has stage I pressure ulcer to sacral area with no cellulitis. Local care to continue with Calmoseptine lotion, keep the area dry and off the pressure. MMODL / IJN: [id number] /
[2020-07-11] MEDS: PANTOPRAZOLE 40 MG TABLET PO SCH (16:40)
[2020-07-11] MEDS: ACETAMINOPHEN TAB 325 MG TAB PO PRN ×2 (16:40→23:51)
[2020-07-11] MEDS: HEPARIN SOD,PORK IN 0.45% NACL 25,000 UNIT in 0.45% NACL 1 250ML.BAG IV SCH (16:47)
[2020-07-11 17:16] LABS: Glucose,Whole Blood 184 mg/dL (75-99)
[2020-07-11 17:32] LABS: Appearance,BF Hazy; Nucleated Cells, Body Fluid 16 /uL; RBC, Body Fluid 495 /uL
[2020-07-11 20:28] LABS: Glucose,Whole Blood 155 mg/dL (75-99)
[2020-07-11] MEDS: ATORVASTATIN 80 MG TAB PO SCH (20:44)
--- NOTE | 2020-07-11 21:52 | PCN ---
PROCEDURE NOTE PULMONARY/CRITICAL CARE PROCEDURE NOTE: PROCEDURE: Right-sided thoracentesis. PREOPERATIVE DIAGNOSIS: Right pleural effusion. POSTOPERATIVE DIAGNOSIS: Right pleural effusion. OPERATORS: 1. Dr. Pickens. 2. Dr. Paulino. There was informed consent and universal timeout. The right posterior chest was marked by ultrasound. PROCEDURE DESCRIPTION: A time-out was completed verifying correct patient, procedure, site, positioning, and implant (s) or special equipment if applicable. Ultrasound guidance was used and appropriate fluid pocket was identified and marked. Patient was positioned, prepped and draped in usual sterile fashion. Lidocaine was used to anesthetize the area. A thoracentesis catheter was introduced into the pleural space and fluid was removed. Blood loss was none. A chest x-ray was ordered to evaluate for pneumothorax. Total Fluid Removed from the right pleural space: 360 mL Color of Fluid: Yellow and thin. It appeared to be a transudate. Fluid was sent for appropriate laboratory tests. Patient tolerated the procedure well and there were no immediate complications. The left side will be done tomorrow. MMODL / IJN: [id number] /
[2020-07-11] MEDS: ALPRAZolam 0.5 MG TAB PO PRN (23:51)
[2020-07-11] MEDS: DOBUTamine DRIP 500 MG in DEXTROSE/WATER 1 250ML.BAG IV SCH (23:54)
[2020-07-12] MEDS: NOREPINEPHRINE 4 MG in SODIUM CHLORIDE 0.9% 250 ML IV SCH ×3 (00:51→23:25)
[2020-07-12 01:23] LABS: Total Protein, Body Fluid 2240 mg/dL
[2020-07-12 01:37] LABS: Glucose, BF Source Pleural Fluid; Glucose, Body Fluid 155 mg/dL; LDH, Body Fluid Source Pleural Fluid
[2020-07-12 02:03] LABS: Glucose,Whole Blood 188 mg/dL (75-99)
[2020-07-12 04:18] LABS: Anisocytosis Slight; Basophils % (A) 0 %; Eosinophils # (A) 0.7 k/uL (0-0.7); Eosinophils % (A) 8 %; HCT 29.3 % (34.0-46.0); HGB 9.9 gm/dL (11.4-16.0); Lymphocytes # (A) 0.7 k/uL (1.0-4.8); Lymphocytes % (A) 9 %; MCH 29.3 pg (25.0-35.0); MCHC 33.7 g/dL (31.0-37.0); MCV 86.8 fL (80.0-100.0); Monocytes # (A) 0.4 k/uL (0-1.0); Monocytes % (A) 5 %; Neutrophils # (A) 6.1 k/uL (1.3-7.7); Neutrophils % (A) 77 %; Platelet Count 232 k/uL (150-450); RBC 3.38 m/uL (3.80-5.40)
[2020-07-12 05:37] LABS: ALT <6 U/L (4-34); AST 20 U/L (14-36); African American GFR (CKD) 54 (>60 ml/min/1.73 sqM); Albumin 2.9 g/dL (3.5-5.0); Alkaline Phosphatase 174 U/L (38-126); Anion Gap 5 mmol/L; Blood Urea Nitrogen 70 mg/dL (7-17); Calcium 8.5 mg/dL (8.4-10.2); Carbon Dioxide 39 mmol/L (22-30); Chloride 89 mmol/L (98-107); Glucose 173 mg/dL (74-99); Non-African American GFR(CKD) 46 (>60 ml/min/1.73 sqM); Potassium 3.2 mmol/L (3.5-5.1); Sodium 133 mmol/L (137-145); Total Bilirubin 0.9 mg/dL (0.2-1.3); Total Protein 5.6 g/dL (6.3-8.2)
[2020-07-12] MEDS: POTASSIUM CHLORIDE 20 MEQ in WATER FOR INJECTION 1 100ML.BAG IVPB SCH ×2 (06:12→09:14)
[2020-07-12 06:21] LABS: Glucose,Whole Blood 212 mg/dL (75-99)
[2020-07-12] MEDS: INSULIN DETEMIR (LEVEMIR) 100 UNIT/ML SYR SQ SCH (06:23)
[2020-07-12] MEDS: INSULIN ASPART (NovoLOG) 100 UNIT/ML VIAL SQ SCH ×3 (06:24→17:36)
[2020-07-12] MEDS: SYMBICORT 80-4.5 MCG INHALER INHALATION SCH ×2 (06:55→20:48)
[2020-07-12] MEDS: IPRATROPIUM 0.5 MG/2.5 ML NEBU INHALATION SCH ×4 (06:55→20:48)
[2020-07-12] MEDS: FUROSEMIDE 100 MG in SODIUM CHLORIDE 0.9% 90 ML IV SCH (07:03)
--- NOTE | 2020-07-12 08:12 | XR ---
EXAMINATION TYPE: XR chest 1V portable DATE OF EXAM: 07/12/2020 COMPARISON: Prior chest x-ray 07/11/2020 HISTORY: Abnormal chest x-ray, pleural effusions TECHNIQUE: Single frontal view of the chest is obtained. FINDINGS: Findings are similar to prior exam. IMPRESSION: Correlate for congestive heart failure, bilateral effusions
--- NOTE | 2020-07-12 09:27 | XR ---
EXAMINATION TYPE: XR chest 1V portable DATE OF EXAM: 07/12/2020 CLINICAL HISTORY: Left-sided thoracentesis progress study. TECHNIQUE: Single AP portable frontal view of the chest is obtained. COMPARISON: Chest x-ray from earlier today an older studies FINDINGS: No left-sided pneumothorax after thoracentesis. Persistent small to moderate right greater than left pleural effusions and associated bibasilar atelectasis and/or infiltrate. Overlying sterna l wires and mediastinal clips along with cardiomegaly and valvular ring redemonstrated. Degenerative change bilateral glenohumeral joints. IMPRESSION: No pneumothorax after left-sided thoracentesis. Other findings are not significantly burt ged.
[2020-07-12] MEDS: AMIODARONE 200 MG TAB PO SCH ×2 (09:38→21:28)
[2020-07-12] MEDS: LORATADINE 10 MG TAB PO SCH (09:38)
[2020-07-12] MEDS: METOPROLOL TARTRATE 25 MG TAB PO SCH ×3 (09:39→21:28)
[2020-07-12] MEDS: FLUTICASONE 50MCG/SPRAY NASAL 16GM EA NOSTRIL SCH (09:39)
[2020-07-12] MEDS: COLLAGENASE 250 UNIT/GM OINTMENT 30 GM TUBE TOPICAL SCH (09:39)
--- NOTE | 2020-07-12 09:46 | P.PN ---
Subjective Progress Note Date: 07/12/20 Patient is doing fairly well today. She is diuresing well. She underwent a left-sided thoracentesis this morning with postprocedure x-ray showing no evidence of pneumothorax. Patient denies any shortness of breath at this time. Objective - Vital Signs Vital signs: Vital Signs Temp 97.9 F 07/12/20 00:00 Pulse 131 H 07/12/20 09:15 Resp 15 07/12/20 09:15 BP 103/65 07/12/20 05:45 Pulse Ox 94 L 07/12/20 09:15 Intake & Output 07/11/20 07/12/20 07/12/20 18:59 06:59 18:59 Intake Total 1167.139 685.795 122.072 Output Total 3550 2400 500 Balance -2382.861 -1714.205 -377.928 Weight 97 kg Intake: Intake, IV Titration 817.139 205.795 122.072 Amount Amiodarone 450 mg In 232.782 Dextrose 5% in Water 250 ml @ 0.5 MG/MIN 16.667 mls/hr IV .Q15H SASHA Rx#: [id number] Furosemide 100 mg In 195.667 100 Sodium Chloride 0.9% 90 ml @ 5 MG/HR 5 mls/hr IV .Q20H SASHA Rx#:[id number] Heparin Sod,Pork in 0.45% 140.730 122.072 NaCl 25,000 unit In 0.45 % NaCl 1 250ml.bag @ 9.98 UNITS/KG/HR 10 mls/hr IV .Q24H SASHA Rx#:[id number] Norepinephrine 4 mg In 197.960 55.795 Sodium Chloride 0.9% 250 ml @ 0.05 MCG/KG/MIN 18. 764 mls/hr IV .[id number] SASHA Rx#:[id number] ceFAZolin 1,000 mg In 50 50 Sodium Chloride 0.9% 50 ml @ 100 mls/hr IVPB Q12HR SASHA Rx#:[id number] Oral 350 480 Output: Urine 3550 2400 500 Other: Voiding Method Indwelling Catheter Indwelling Catheter ABP, PAP, CO, CI - Last Documented Arterial Blood Pressure 102/45 - Exam General: The patient is awake and alert, in no distress Eye: there is normal conjunctiva bilaterally. Neck: The neck is supple, there is no JVD. Cardiovascular: Normal S1-S2, no S3-S4, no murmurs. Respiratory: Lungs clear to auscultation bilaterally Gastrointestinal: Abdomen is soft, nontender Musculoskeletal: There is evidence of anasarca up to the abdomen Neurological:. Speech is normal. Skin: Skin is warm and dry . Left lower extremity wound involving the mid chin area with some surrounding redness and no drainage - Labs CBC & Chem 7: 07/12/20 04:05 07/12/20 04:05 Labs: Abnormal Lab Results - Last 24 Hours (Table) 07/11/20 07/11/20 07/11/20 Range/Units 11:29 17:15 20:26 RBC (3.80-5.40) m/uL Hgb (11.4-16.0) gm/dL Hct (34.0-46.0) % RDW (11.5-15.5) % Lymphocytes # (1.0-4.8) k/uL APTT (22.0-30.0) sec Sodium (137-145) mmol/L Potassium (3.5-5.1) mmol/L Chloride (98-107) mmol/L Carbon Dioxide (22-30) mmol/L BUN (7-17) mg/dL Creatinine (0.52-1.04) mg/dL Glucose (74-99) mg/dL POC Glucose (mg/dL) 137 H 184 H 155 H (75-99) mg/dL Alkaline Phosphatase (38-126) U/L Total Protein (6.3-8.2) g/dL Albumin (3.5-5.0) g/dL 07/12/20 07/12/20 07/12/20 Range/Units 02:02 04:05 04:05 RBC 3.38 L (3.80-5.40) m/uL Hgb 9.9 L (11.4-16.0) gm/dL Hct 29.3 L (34.0-46.0) % RDW 17.0 H (11.5-15.5) % Lymphocytes # 0.7 L (1.0-4.8) k/uL APTT 56.8 H (22.0-30.0) sec Sodium (137-145) mmol/L Potassium (3.5-5.1) mmol/L Chloride (98-107) mmol/L Carbon Dioxide (22-30) mmol/L BUN (7-17) mg/dL Creatinine (0.52-1.04) mg/dL Glucose (74-99) mg/dL POC Glucose (mg/dL) 188 H (75-99) mg/dL Alkaline Phosphatase (38-126) U/L Total Protein (6.3-8.2) g/dL Albumin (3.5-5.0) g/dL 07/12/20 07/12/20 Range/Units 04:05 06:19 RBC (3.80-5.40) m/uL Hgb (11.4-16.0) gm/dL Hct (34.0-46.0) % RDW (11.5-15.5) % Lymphocytes # (1.0-4.8) k/uL APTT (22.0-30.0) sec Sodium 133 L (137-145) mmol/L Potassium 3.2 L (3.5-5.1) mmol/L Chloride 89 L (98-107) mmol/L Carbon Dioxide 39 H (22-30) mmol/L BUN 70 H (7-17) mg/dL Creatinine 1.15 H (0.52-1.04) mg/dL Glucose 173 H (74-99) mg/dL POC Glucose (mg/dL) 212 H (75-99) mg/dL Alkaline Phosphatase 174 H (38-126) U/L Total Protein 5.6 L (6.3-8.2) g/dL Albumin 2.9 L (3.5-5.0) g/dL Microbiology - Last 24 Hours (Table) 07/11/20 10:00 Gram Stain - Preliminary Pleural Fluid Body Fluid Culture - Preliminary 07/08/20 09:30 Anaerobic Culture - Final Leg - Left Anaerobic Gm Negative Bacilli Assessment and Plan Assessment: This is a 75-year-old female with very complex past medical history noted below Presented to the emergency room with worsening dyspnea, patient was evaluated in the ER and admitted to the ICU for further management of her medical problems noted below. 1. Acute systolic heart failure exacerbation: Started on IV Lasix drip. Managed by cardiology. Echocardiogram showed ejection fraction of 20% with severe global hypokinesia of the left ventricle. Dobutamine and norepinephrine drip managed by cardiology 2. Significant fluid overload with evidence of anasarca up to the abdomen and bilateral large pleural effusion: Status post left thoracentesis on 07/12 3. Acute kidney injury with possible underlying chronic kidney disease: Creatinine improving since admission. Avoid nephrotoxins. Nephrology consulted for further evaluation. 4. Atrial fibrillation with rapid ventricular response: Started on amiodarone and Eliquis by cardiology. Anticoagulation on hold right now for possible thoracentesis 5. Left lower extremity wound infection: Started on antibiotic with cefazolin day #4 then discontinued by infectious disease. Continue local wound care. Apparently antibiotic was resumed ICU team today 6. Type 2 diabetes with episode of hypoglycemia: Home dose of Lantus decreased from 18 units to 8 units of Levemir daily. Continue sliding scale insulin 7. Coccyx pressure ulcer, POA: Wound care consulted, appreciate recommendation 8. Chronic medical problems, coronary artery disease status post 2 vessel bypass with mitral valve repair at [facility] in April 2020 9. CODE STATUS, patient is full code. Discussed with her at bedside
--- NOTE | 2020-07-12 09:49 | PCN ---
PROCEDURE NOTE PROCEDURE: Left thoracentesis. PREOPERATIVE DIAGNOSIS: Left pleural effusion. POSTOPERATIVE DIAGNOSIS: Left pleural effusion. There was informed consent and universal timeout. The patient's procedure took place in room 256. OPERATORS: Dr. Pickens and Dr. Paulino. Indication Pleural effusion. A time-out was completed verifying correct patient, procedure, site, positioning , and implant (s) or special equipment if applicable. Ultrasound guidance was used and appropriate fluid pocket was identified and marked. Patient was positioned, prepped and draped in usual sterile fashion. Lidocaine was used to anesthetize the area. A Thoracentesis catheter was introduced into the pleural space and fluid was removed. Blood loss was none. A chest x-ray was ordered to evaluate for pneumothorax. Total Fluid Removed: Only about 3 to 4 mL. Color of Fluid: Bloody fluid. Fluid was not sent for appropriate laboratory tests. Patient tolerated the procedure well and there were no complications. The left posterior chest was marked by ultrasound. Only about 3-4 mL of bloody fluid was removed from the left pleural space. The patient tolerated the procedure well. The fluid will not be sent for analysis. Yesterday's fluid was sent for analysis. There was no immediate complication. A chest x-ray was ordered to rule out pneumothorax. The patient tolerated the procedure well. MMODL / IJN: [id number] /
[2020-07-12] MEDS: MUPIROCIN 2% OINT 22 GM TUBE TOPICAL SCH (10:00)
--- NOTE | 2020-07-12 10:28 | P.PN ---
Subjective Progress Note Date: 07/12/20 Principal diagnosis: Congestive heart failure. This is a 75-year-old female with history of multiple medical problems including type 2 diabetes, hypertension, ischemic cardiomyopathy and LV dysfunction, patient had a two-vessel bypass surgery and mitral valve repair in the last couple of months at [facility], patient presented to the ER with a few weeks history of increased shortness of breath, workup was done in the ER, clearly the patient was in congestive heart failure with bilateral pleural effusions left greater than right. And check her blood pressure was noted to be marginal but did not require any pressors while in the ER. Patient was seen by cardiology on consultation, and she was noted to have an accelerated junctional rhythm, recommended that the patient gets admitted to the ICU and The patient on Lasix drip at 10 mg per hour. Considering her pleural effusions and her shortness of breath, I was asked to see the patient on consultation. I was n otified about this patient last night from the ICU nurse where in she was noted to have marginal blood pressure and she had fairly good urine output, I did recommend starting the patient on Dobutrex at 2.5 mcg/kg/m, and the patient has been responding quite well to the Dobutrex along with a Lasix drip. Echocardiogram showed poor LV function of 20%, there was severe global hypokinesis of the left ventricle. Follow-up chest x-ray this morning after diuresing the patient showed definite improvement in her pleural effusions, hence I have no plans to arrange for thoracentesis at this point. In addition to all of this, the patient had developed significant ulceration and what seems to be a cellulitis involving the left lower extremity related to the site of saphenous vein salvage. The area seems to be a bit necrotic, and I recommended starting the patient on antibiotics in the form of Ancef. Patient was reevaluated today on 07/09/2020, remains in the ICU, patient is basically about the same. Minimal improvement if any. remains on Lasix drip, remains in atrial fibrillation urine output is dropping cough, she is down to 30 mL per hour. Patient remains on 2 L nasal cannula, chest x-ray questioned right pleural effusion more so than left pleural effusion, however the ultrasound of t he chest showed more fluid on the left side, and hardly any fluid on the right side. Still planning to continue diuretics on this patient, will hold on thoracentesis unless the patient shows no improvement with diuresis. She still on Lasix at 10 mg per hour still on cefazolin. Creatinine today is slightly worse at 2.11, patient was doing better when she was on Dobutrex. However this was discontinued by cardiology, mostly because of her atrial fibrillation with RVR. WBC count is 7.2 hemoglobin is 9.7 BUN is 94 creatinine 2.11 Patient was reevaluated today on 07/10/2020, patient is feeling better today, breathing a lot easier, however she is now back on Dobutrex 2.5 mcg/kg/m. she is also on amiodarone, 0.5 mg/m. norepinephrine, 0.03 mcg/kg/m Lasix 10 mg per hour drip and as soon as this was done, her urine output has picked up nicely to 889808 mL per hour. Patient remains in atrial flutter rate of 134/m. Chest x-ray this morning showed worsening right-sided pleural effusion, ultrasound confirmed fairly good sized right-sided pleural effusion the left sided pleural effusion is small and the patient will definitely require a right-sided thoracentesis if she does not improve with diuretics. I have a feeling that the patient may not require thoracentesis if she continues to respond with significant urine output as such. However in the meantime I did transition the patient to heparin and discussed her condition with the wallpaper printer on the case, they may consider cardioversion on this patient, and she will remain anticoagulated, and if we decide to do thoracentesis in the next 48 hours, that could be accomplished by holding the heparin for few hours prior. I did di scontinue her Eliquis for the time being. Considering the patient is now on multiple drips including Dobutrex, norepinephrine, and amiodarone, I did place a right femoral triple-lumen catheter and I also placed a arterial line for close monitoring of the patient. Surprisingly the patient did clinically improve as her urine output picked up nicely with the inotropes and pressors on the case WBC count is 7.5 hemoglobin is 10.2 patient remains on cefazolin for her cellulitis. Renal functioning showed a BUN of 100 creatinine 2.04, and this is again a cardiorenal picture. Will likely improve with the inotropes and pressors her BNP level today is 5820. Progress note dated 07/11/2020. 75-year-old female admitted on July 07 with a diagnosis of CHF. The patient had a recent bypass grafting at [facility] 2 months ago. Chest x-rays reviewed and shows bilateral pleural effusions. Today, we did a right-sided thoracentesis, and 360 mL of yellow fluid was removed. It was sent for anal ysis. We will do the left side tomorrow. The patient's breathing is improved. She still on 2 L nasal cannula. She is on a number of drips. Currently, she is on Lasix drip at 10 mg an hour, heparin drip via weightbase based protocol, amiodarone, and 0.5 mg/m, dobutamine, at 2.5 mcg/kg/m, and norepinephrine at 5 mcg/m. The patient tolerated the thoracentesis well. I told her that we would do the left side tomorrow. Heparin was discontinued a couple hours before the thoracentesis was done. White count 8.8, hemoglobin 10, hematocrit 30.8, and platelet count 251,000. PTT is 49. Sodium 133, potassium 3.6, chlorides 90, CO2 34, anion gap 9, BUN 84, and creatinine 1.51. Chest x-ray shows improvement in the aeration of the right lung following the procedure, without evidence of pneumothorax. Progress note dated 07/12/2020. 75-year-old female, admitted on July 07, with a diagnosis of CHF. The patient had a recent bypass grafting at [facility], some 2 months ago. Yesterday, she had a right-sided thoracentesis and today we attempted a left- sided thoracentesis but only got a minimum amount of fluid, maybe 5 mL or so. Yesterday's fluid was sent for analysis. Yesterday, we were able to remove 360 mL of thin yellow fluid consistent with transudate and probably related to CHF. Currently, the patient is on 2 L nasal cannula. The patient's on heparin via weightbase protocol, Lasix drip at 5 mg an hour, dobutamine at 2.5 g kilogram per minute, and norepinephrine at 3 mcg/m. She's not receiving any IV fluids. She does feel a bit better although she does have a very congested cough. Chest x-ray yesterday after thoracentesis, did not show a pneumothorax and chest x-ray today after thoracentesis also did not show a pneumothorax. White count 8.0, hemoglobin 9.9, hematocrit 29.3, and platelet count 232,000. PTT is 56.8. Sodium 133, potassium 3.2, chlorides 89, CO2 39, anion gap 5, BUN 70, and creatinine 1.15. Chest x-rays from yesterday and today are both reviewed. Objective - Vital Signs Vital signs: Vital Signs Temp 97.9 F 07/12/20 00:00 Pulse 111 H 07/12/20 10:00 Resp 13 07/12/20 10:00 BP 103/65 07/12/20 05:45 Pulse Ox 96 07/12/20 10:00 Intake & Output 07/11/20 07/12/20 07/12/20 18:59 06:59 18:59 Intake Total 1167.139 685.795 462.072 Output Total 3550 2400 975 Balance -2382.861 -1714.205 -512.928 Weight 97 kg Intake: Intake, IV Titration 817.139 205.795 222.072 Amount Amiodarone 450 mg In 232.782 Dextrose 5% in Water 250 ml @ 0.5 MG/MIN 16.667 mls/hr IV .Q15H [facility] Rx#: [id number] Furosemide 100 mg In 195.667 100 Sodium Chloride 0.9% 90 ml @ 5 MG/HR 5 mls/hr IV .Q20H [facility] Rx#:[id number] Heparin Sod,Pork in 0.45% 140.730 122.072 NaCl 25,000 unit In 0.45 % NaCl 1 250ml.bag @ 9.98 UNITS/KG/HR 10 mls/hr IV .Q24H [facility] Rx#:[id number] Norepinephrine 4 mg In 197.960 55.795 Sodium Chloride 0.9% 250 ml @ 0.05 MCG/KG/MIN 18. 764 mls/hr IV .[id number] [facility] Rx#:[id number] Potassium Chloride 20 meq 100 In Water For Injection 1 100ml.bag @ 50 mls/hr IVPB Q2H [facility] Rx#: [id number] ceFAZolin 1,000 mg In 50 50 Sodium Chloride 0.9% 50 ml @ 100 mls/hr IVPB Q12HR [facility] Rx#:[id number] Oral 350 480 240 Output: Urine 3550 2400 975 Other: Voiding Method Indwelling Catheter Indwelling Catheter Indwelling Catheter ABP, PAP, CO, CI - Last Documented Arterial Blood Pressure 99/50 - Exam No acute distress, oriented 3. Patient with mild conversational dyspnea, currently on 2 L. HEENT examination is grossly unremarkable. Neck supple. Full range of motion. No adenopathy thyromegaly or neck vein distention. Cardiovascular examination reveals regular rhythm rate. S1-S2 normal. No S3 or S4. A soft systolic murmur is noted. Heart rate 111 bpm. Lungs reveal diminished breath sounds at the bases. Bibasilar crackles are noted. No rhonchi or wheezes. Breath sounds equal bilaterally. There is dullness at the bases as well. Abdomen soft bowel sounds are heard. No masses or tenderness. Extremities are intact. No cyanosis or clubbing noted. There is bilateral lower extremity edema, 1-2+. Skin is without rash or lesion. Neurologic examination is brief but nonfocal. - Labs CBC & Chem 7: 07/12/20 04:05 07/12/20 04:05 Labs: Abnormal Lab Results - Last 24 Hours (Table) 07/11/20 07/11/20 07/11/20 Range/Units 11:29 17:15 20:26 RBC (3.80-5.40) m/uL Hgb (11.4-16.0) gm/dL Hct (34.0-46.0) % RDW (11.5-15.5) % Lymphocytes # (1.0-4.8) k/uL APTT (22.0-30.0) sec Sodium (137-145) mmol/L Potassium (3.5-5.1) mmol/L Chloride (98-107) mmol/L Carbon Dioxide (22-30) mmol/L BUN (7-17) mg/dL Creatinine (0.52-1.04) mg/dL Glucose (74-99) mg/dL POC Glucose (mg/dL) 137 H 184 H 155 H (75-99) mg/dL Alkaline Phosphatase (38-126) U/L Total Protein (6.3-8.2) g/dL Albumin (3.5-5.0) g/dL 07/12/20 07/12/20 07/12/20 Range/Units 02:02 04:05 04:05 RBC 3.38 L (3.80-5.40) m/uL Hgb 9.9 L (11.4-16.0) gm/dL Hct 29.3 L (34.0-46.0) % RDW 17.0 H (11.5-15.5) % Lymphocytes # 0.7 L (1.0-4.8) k/uL APTT 56.8 H (22.0-30.0) sec Sodium (137-145) mmol/L Potassium (3.5-5.1) mmol/L Chloride (98-107) mmol/L Carbon Dioxide (22-30) mmol/L BUN (7-17) mg/dL Creatinine (0.52-1.04) mg/dL Glucose (74-99) mg/dL POC Glucose (mg/dL) 188 H (75-99) mg/dL Alkaline Phosphatase (38-126) U/L Total Protein (6.3-8.2) g/dL Albumin (3.5-5.0) g/dL 07/12/20 07/12/20 Range/Units 04:05 06:19 RBC (3.80-5.40) m/uL Hgb (11.4-16.0) gm/dL Hct (34.0-46.0) % RDW (11.5-15.5) % Lymphocytes # (1.0-4.8) k/uL APTT (22.0-30.0) sec Sodium 133 L (137-145) mmol/L Potassium 3.2 L (3.5-5.1) mmol/L Chloride 89 L (98-107) mmol/L Carbon Dioxide 39 H (22-30) mmol/L BUN 70 H (7-17) mg/dL Creatinine 1.15 H (0.52-1.04) mg/dL Glucose 173 H (74-99) mg/dL POC Glucose (mg/dL) 212 H (75-99) mg/dL Alkaline Phosphatase 174 H (38-126) U/L Total Protein 5.6 L (6.3-8.2) g/dL Albumin 2.9 L (3.5-5.0) g/dL Microbiology - Last 24 Hours (Table) 07/11/20 10:00 Gram Stain - Preliminary Pleural Fluid Body Fluid Culture - Preliminary 07/08/20 09:30 Anaerobic Culture - Final Leg - Left Anaerobic Gm Negative Bacilli Assessment and Plan Assessment: Acute on chronic systolic congestive heart failure. Bilateral pleural effusions, status post right-sided thoracentesis today, with plans on doing the left side tomorrow. History of CAD, and recent bypass grafting at [facility]. Poorly-controlled atrial flutter. Acute kidney injury. Type 2 diabetes mellitus. Questionable history of underlying COPD. Acute cellulitis of left lower extremity. Plan: Plan dated 07/11/2020. The patient underwent right-sided thoracentesis today. 360 mL of yellow, thin fluid was removed, likely related to underlying CHF. The fluid was sent for analysis including microbiology, cytology, and chemistry. The left side will be drained tomorrow. The patient remains on a number of different drips including Lasix, heparin, amiodarone, dobutamine, and norepinephrine. The patient did have a bypass grafting 2 months ago at [facility]. Most of the patient's issues are cardiac in nature. We'll continue to follow for the time being. The patient continues on antibiotics for the left leg cellulitis. Microbiology is currently negative. The chest x-ray after thoracentesis showed improved aeration of the right lung, without evidence of pneumothorax. Plan dated 07/12/2020. The patient seemed be doing a bit better. The patient did have a left-sided thoracentesis today, but only about 5 mL of fluid was retrieved. It was discarded. Yesterday's fluid was sent for analysis. Labs and x-rays are reviewed. There wasn't evidence of any pneumothorax after either thoracentesis. The fluid from yesterday was hazy in color, with a glucose of 155, a total protein at 2.24 g, and an LDH of 93. This is consistent with a transudate. This likely relates to her underlying CHF. We will continue to follow and make recommendations. Apparently her Lasix drip is been converted to Lasix 40 mg IV push every 8 hours, and dobutamine has been turned off. We will continue to f oli make recommendations were appropriate. Time with Patient: Greater than 30
--- NOTE | 2020-07-12 10:57 | P.PN ---
Subjective Progress Note Date: 07/12/20 HISTORY OF PRESENT ILLNESS: This is a pleasant 75-year-old female past medical history significant for ischemic cardiomyopathy, coronary artery disease status post bypass grafting, valvular heart disease status post mitral ring annuloplasty, chronic systolic heart failure, paroxysmal atrial fibrillation on long-term anticoagulation, hypertension, diabetes mellitus, COPD and dyslipidemia. She initially underwent bypass grafting and mitral valve repair approximately 2 months ago and [facility]. She established in town with Dr. Rodrigues June 22. We have been asked to see in consultation for heart failure. She presented to the hospital with symptoms of shortness of breath, cough and lower extremity edema. She was initially admitted to [facility] April 22 where she was found to have an ejection fraction of less than 15%. She underwent cardiac catheterization which showed severe triple vessel disease and underwent two-vessel bypass grafting with repair for mitral valve and maze procedure. Repeat echocardiogram prior to discharge revealed an ejection fraction of 45%. She did go to inpatient rehab shortly thereafter and has since been at home with home care. EKG on arrival revealed atrial tachycardia with a heart rate in the 130s. She was initiated on dobutamine and IV Lasix. She is seen and examined sitting up in bed in no acute distress. Her heart continues to be tachycardic in the 130s. It appears regular but is difficult to differentiate possible underlying atrial flutter. Repeat echocardiogram on this admission revealed ejection fraction of less than 20%, severe global hypokinesia, large pleural effusion and mild to moderate mitral regurgitation. Chest x-ray this morning reveals moderate bilateral pleural effusions improved from previous exam. Venous duplex negative for DVT. Laboratory data reviewed, WBC 7.8, hemoglobin 9.8, platelets 228, sodium 131, potassium 4.8, creatinine 2.01, magnesium 3.1, troponin 0.0 17, TSH 4.03 and and proBNP 4330. Crit daily cardiac medications as recorded in Dr. Rodrigues's office on June 22 reveal aspirin 81 mg daily, atorvastatin 80 mg daily, Bumex 1 mg daily, Coreg 25 mg twice a day, Eliquis 5 mg twice a day, and entresto 24/26 mg twice a day and daily magnesium supplementation. 07/09 Patient seen and examined. Patient remains with heart rates predominantly right at 128, occasionally lower with amiodarone and Cardizem were appears to be possible atrial flutter versus atrial tachycardia. She states she feels somewhat more tired than yesterday. Still complains of shortness breath. She previously did have good urine output however has decreased. Her blood pressures decreased into the 70s over 50s with a map in the low 60s. She had previously been on dobutamine to begin with however I was not on any vasopressors or inotropes. Echocardiogram revealed severely decreased ejection fraction 20% with [id number] mitral regurgitation. She is sitting upright in bed. Her creatinine mildly increased at 2.1 today. She denies any chest pain or pressure. She is still coughing. Patient and son at bedside admit that she has been tachycardic for approximately the last 3 weeks, was noted to be tachycardic when home health care came a few times. She was transitioned over to IV amiodarone earlier in the day without much improvement. 07/10 Patient seen and examined. Patient states she feels somewhat better compared to yesterday. Maintained on amiodarone drip, she was placed on levophed and dobutamine drip yesterday and has had improved urine outputs this morning up to 300-400 mL an hour on the Lasix drip. She denies any chest pain or pressure. Remains in the atrial tachycardia, atrial flutter at 130 bpm. 07/11/2020 Patient examined this morning in the intensive care unit. Patient remains on lasix drip, amio, dobutamine, and levophed. She continues to have good urine output. Eliquis remains on hold. Patient is on IV heparin for possible thoracentesis. Patient remains tachycardic with a heart rate in the 120s. 07/12/2020 Patient examined this morning in the ICU. Patient states her breathing has improved today. She underwent left thoracentesis with Dr. Pickens and is scheduled to have right thoracentesis performed today. She is on IV heparin, IV dobutatmine, Levophed and lasix drip. She denies chest pain or pressure. PHYSICAL EXAM: VITAL SIGNS: Reviewed. GENERAL: Well-developed in no acute distress. NECK: Supple. No JVD or thyromegaly LUNGS: Respirations even and unlabored. Lungs diminished bilaterally HEART: Tachycardic. Irregular rate and rhythm. S1 and S2 heard. Systolic murmur noted. EXTREMITIES: Normal range of motion. No clubbing or cyanosis. Peripheral pulses intact. 1-2+ bilateral lower extremity edema. Dressing to left leg noted. ASSESSMENT: Acute on chronic systolic heart failure, EF 20% Cardiogenic shock Acute kidney injury Coronary artery disease status post bypass grafting Status post mitral ring annuloplasty Paroxysmal atrial fibrillation on long-term anticoagulation Atrial tachycardia, difficult to discern possible atrial flutter at this rate Hypertension Dyslipidemia Diabetes mellitus COPD Bilateral pleural effusions, s/p thoracentesis PLAN: Continue oral amio Increase metoprolol to 25mg TID Discontinue IV Dobutamine Lasix switched to 40mg IVP q8 hours per nephrology Monitor I&O Wean levophed as tolerated Continue lipitor Resume Eliquis. Change dosing to 5mg BID Further recommendations pending patient course Nurse practitioner note has been reviewed by physician. Signing provider agrees with the documented findings, assessment, and plan of care. Objective - Vital Signs Vital signs: Vital Signs Temp 97.9 F 07/12/20 00:00 Pulse 111 H 07/12/20 10:00 Resp 13 07/12/20 10:00 BP 103/65 07/12/20 05:45 Pulse Ox 96 07/12/20 10:00 Intake & Output 07/11/20 07/12/20 07/12/20 18:59 06:59 18:59 Intake Total 1167.139 685.795 462.072 Output Total 3550 2400 975 Balance -2382.861 -1714.205 -512.928 Weight 97 kg Intake: Intake, IV Titration 817.139 205.795 222.072 Amount Amiodarone 450 mg In 232.782 Dextrose 5% in Water 250 ml @ 0.5 MG/MIN 16.667 mls/hr IV .Q15H [facility] Rx#: [id number] Furosemide 100 mg In 195.667 100 Sodium Chloride 0.9% 90 ml @ 5 MG/HR 5 mls/hr IV .Q20H [facility] Rx#:[id number] Heparin Sod,Pork in 0.45% 140.730 122.072 NaCl 25,000 unit In 0.45 % NaCl 1 250ml.bag @ 9.98 UNITS/KG/HR 10 mls/hr IV .Q24H [facility] Rx#:[id number] Norepinephrine 4 mg In 197.960 55.795 Sodium Chloride 0.9% 250 ml @ 0.05 MCG/KG/MIN 18. 764 mls/hr IV .[id number] [facility] Rx#:[id number] Potassium Chloride 20 meq 100 In Water For Injection 1 100ml.bag @ 50 mls/hr IVPB Q2H [facility] Rx#: [id number] ceFAZolin 1,000 mg In 50 50 Sodium Chloride 0.9% 50 ml @ 100 mls/hr IVPB Q12HR [facility] Rx#:[id number] Oral 350 480 240 Output: Urine 3550 2400 975 Other: Voiding Method Indwelling Catheter Indwelling Catheter Indwelling Catheter ABP, PAP, CO, CI - Last Documented Arterial Blood Pressure 99/50 - Labs CBC & Chem 7: 07/12/20 04:05 07/12/20 04:05 Labs: Abnormal Lab Results - Last 24 Hours (Table) 07/11/20 07/11/20 07/11/20 Range/Units 11:29 17:15 20:26 RBC (3.80-5.40) m/uL Hgb (11.4-16.0) gm/dL Hct (34.0-46.0) % RDW (11.5-15.5) % Lymphocytes # (1.0-4.8) k/uL APTT (22.0-30.0) sec Sodium (137-145) mmol/L Potassium (3.5-5.1) mmol/L Chloride (98-107) mmol/L Carbon Dioxide (22-30) mmol/L BUN (7-17) mg/dL Creatinine (0.52-1.04) mg/dL Glucose (74-99) mg/dL POC Glucose (mg/dL) 137 H 184 H 155 H (75-99) mg/dL Alkaline Phosphatase (38-126) U/L Total Protein (6.3-8.2) g/dL Albumin (3.5-5.0) g/dL 07/12/20 07/12/20 07/12/20 Range/Units 02:02 04:05 04:05 RBC 3.38 L (3.80-5.40) m/uL Hgb 9.9 L (11.4-16.0) gm/dL Hct 29.3 L (34.0-46.0) % RDW 17.0 H (11.5-15.5) % Lymphocytes # 0.7 L (1.0-4.8) k/uL APTT 56.8 H (22.0-30.0) sec Sodium (137-145) mmol/L Potassium (3.5-5.1) mmol/L Chloride (98-107) mmol/L Carbon Dioxide (22-30) mmol/L BUN (7-17) mg/dL Creatinine (0.52-1.04) mg/dL Glucose (74-99) mg/dL POC Glucose (mg/dL) 188 H (75-99) mg/dL Alkaline Phosphatase (38-126) U/L Total Protein (6.3-8.2) g/dL Albumin (3.5-5.0) g/dL 07/12/20 07/12/20 Range/Units 04:05 06:19 RBC (3.80-5.40) m/uL Hgb (11.4-16.0) gm/dL Hct (34.0-46.0) % RDW (11.5-15.5) % Lymphocytes # (1.0-4.8) k/uL APTT (22.0-30.0) sec Sodium 133 L (137-145) mmol/L Potassium 3.2 L (3.5-5.1) mmol/L Chloride 89 L (98-107) mmol/L Carbon Dioxide 39 H (22-30) mmol/L BUN 70 H (7-17) mg/dL Creatinine 1.15 H (0.52-1.04) mg/dL Glucose 173 H (74-99) mg/dL POC Glucose (mg/dL) 212 H (75-99) mg/dL Alkaline Phosphatase 174 H (38-126) U/L Total Protein 5.6 L (6.3-8.2) g/dL Albumin 2.9 L (3.5-5.0) g/dL Microbiology - Last 24 Hours (Table) 07/11/20 10:00 Gram Stain - Preliminary Pleural Fluid Body Fluid Culture - Preliminary 07/08/20 09:30 Anaerobic Culture - Final Leg - Left Anaerobic Gm Negative Bacilli
[2020-07-12] MEDS ORDERED: APIXABAN 2.5 MG TABLET PO SCH (11:00)
--- NOTE | 2020-07-12 11:06 | PN ---
PROGRESS NOTE The patient is seen for followup for acute kidney injury and volume overload with CHF exacerbation. The patient's renal function has been improving. Her volume status has improved. She has been on Lasix drip which was decreased yesterday to 5 mg an hour. Patient has developed some degree of metabolic alkalosis. Urine output has been 150- 200 mL an hour with 24-hour output at 5.9 L. PHYSICAL EXAMINATION: On examination today, patient is comfortable, awake. She is not in any acute distress. She states she is feeling better. Blood pressure 107/52, heart rate 125 per minute. She is afebrile. EXAMINATION OF THE HEART: S1, S2. EXAMINATION OF THE LUNGS: Bilateral breath sounds are heard. Abdomen is soft, nontender. Examination of lower extremities shows much improved edema. STUDIO DIRECTOR exam grossly intact. Left leg ulcer is currently dressed. LABS: Labs show sodium 133, potassium 3.2, chloride 89. CO2 is 39, BUN 70, creatinine 1.15, hemoglobin 9.9 g/dL. ASSESSMENT: 1. Acute kidney injury, cardiorenal, currently improved with diuresis. 2. Metabolic alkalosis secondary to diuresis, will decrease Lasix. 3. Hypokalemia secondary to diuretics, we will replace. 4. Hyponatremia which is hypervolemic and exacerbated by dobutamine which is maintained on D5W currently improved with ongoing diuresis. 5. Congestive heart failure acute on top of chronic systolic. 6. Status post recent coronary artery bypass surgery in May at . 7. Left lower extremity ulcer. 8. Cardiomyopathy, ejection fraction less than 20%. PLAN: Decrease Lasix to 40 mg q.8 hours. Replace potassium and repeat labs in a.m. MMODL / IJN: [id number] /
[2020-07-12 11:35] LABS: Glucose,Whole Blood 164 mg/dL (75-99)
[2020-07-12] MEDS: APIXABAN 5 MG TAB PO SCH ×2 (11:51→21:28)
[2020-07-12] MEDS: PANTOPRAZOLE 40 MG TABLET PO SCH (16:46)
[2020-07-12] MEDS: FUROSEMIDE 10 MG/ML 4 ML VIAL IV SCH ×2 (16:47→23:25)
[2020-07-12 17:08] LABS: Glucose,Whole Blood 64 mg/dL (75-99)
[2020-07-12 17:31] LABS: Glucose,Whole Blood 83 mg/dL (75-99)
--- NOTE | 2020-07-12 20:15 | PN ---
PROGRESS NOTE DATE OF SERVICE: 07/12/2020 REASON FOR FOLLOWUP: 1. Left lower extremity wound and a question of cellulitis. 2. Cough and question of pneumonia. INTERVAL HISTORY: The patient is currently afebrile. The patient is breathing comfortably. The patient does have a congested cough, not bringing up any sputum. No chest pain. No abdominal pain. Pain to the left lower leg has slightly decreased in intensity. PHYSICAL EXAMINATION: Blood pressure 112/64, pulse is 125, temperature of 98. She is 99% on 2 L nasal cannula. General description is an elderly female lying in bed in no distress. RESPIRATORY SYSTEM: Unlabored breathing with decreased intensity of breath sounds. No wheeze. HEART: S1, S2. Regular rate and rhythm. ABDOMEN: Soft. No tenderness. LABS: Hemoglobin is 9.9, white count 8.0, BUN of 70, creatinine 1.15. Local culture with anaerobes. DIAGNOSTIC IMPRESSION AND PLAN: Patient with left lower extremity wound. Clinically doubt any cellulitis. I recommend local wound care with Santyl. No need for systemic antibiotic therapy, as no evidence of pneumonia, either. MMODL / IJN: [id number] /
[2020-07-12 21:08] LABS: Glucose,Whole Blood 145 mg/dL (75-99)
[2020-07-12] MEDS: ATORVASTATIN 80 MG TAB PO SCH (21:28)
[2020-07-12] MEDS: ACETAMINOPHEN TAB 325 MG TAB PO PRN (21:33)
[2020-07-13 02:16] LABS: Glucose,Whole Blood 141 mg/dL (75-99)
[2020-07-13] MEDS: ALPRAZolam 0.5 MG TAB PO PRN (02:18)
[2020-07-13 04:49] LABS: Anisocytosis Slight; Basophils % (A) 1 %; Eosinophils # (A) 0.5 k/uL (0-0.7); Eosinophils % (A) 7 %; HCT 29.1 % (34.0-46.0); HGB 9.7 gm/dL (11.4-16.0); Lymphocytes # (A) 0.7 k/uL (1.0-4.8); Lymphocytes % (A) 9 %; MCH 29.2 pg (25.0-35.0); MCHC 33.3 g/dL (31.0-37.0); MCV 87.6 fL (80.0-100.0); Mean Platelet Volume 7.7; Monocytes # (A) 0.4 k/uL (0-1.0); Monocytes % (A) 5 %; Neutrophils # (A) 5.8 k/uL (1.3-7.7); Neutrophils % (A) 77 %; Platelet Count 215 k/uL (150-450); RBC 3.32 m/uL (3.80-5.40); WBC 7.6 k/uL (3.8-10.6)
[2020-07-13 05:38] LABS: ALT <6 U/L (4-34); AST 17 U/L (14-36); African American GFR (CKD) 53 (>60 ml/min/1.73 sqM); Albumin 2.9 g/dL (3.5-5.0); Alkaline Phosphatase 170 U/L (38-126); Blood Urea Nitrogen 55 mg/dL (7-17); Calcium 8.5 mg/dL (8.4-10.2); Chloride 89 mmol/L (98-107); Glucose 135 mg/dL (74-99); Non-African American GFR(CKD) 46 (>60 ml/min/1.73 sqM); Potassium 3.4 mmol/L (3.5-5.1); Sodium 135 mmol/L (137-145); Total Protein 5.7 g/dL (6.3-8.2)
[2020-07-13 05:45] LABS: Anion Gap 8 mmol/L; Carbon Dioxide 38 mmol/L (22-30)
[2020-07-13] MEDS ORDERED: Potassium Replacement Protocol 1 EACH MISC MISCELLANE PRN (06:17)
[2020-07-13 06:33] LABS: Glucose,Whole Blood 160 mg/dL (75-99)
[2020-07-13] MEDS: INSULIN DETEMIR (LEVEMIR) 100 UNIT/ML SYR SQ SCH (06:44)
[2020-07-13] MEDS: POTASSIUM CHLORIDE 20 MEQ in WATER FOR INJECTION 1 100ML.BAG IVPB SCH ×2 (06:44→11:10)
[2020-07-13] MEDS: INSULIN ASPART (NovoLOG) 100 UNIT/ML VIAL SQ SCH ×3 (06:44→17:00)
[2020-07-13] MEDS: IPRATROPIUM 0.5 MG/2.5 ML NEBU INHALATION SCH (09:12)
[2020-07-13] MEDS: SYMBICORT 80-4.5 MCG INHALER INHALATION SCH ×2 (09:12→19:53)
--- NOTE | 2020-07-13 09:25 | XR ---
EXAMINATION TYPE: XR chest 1V DATE OF EXAM: 07/13/2020 COMPARISON: Chest x-ray 07/12/2020 HISTORY: Shortness of breath TECHNIQUE: Single frontal view of the chest is obtained. FINDINGS: Findings are similar to prior exam. Bilateral pleural effusions are present, postop change s are stable. Heart remains enlarged. No evident pneumothorax. There is some prominence of interstiti um. IMPRESSION: Correlate for congestive heart failure with pleural effusions, pneumonia not excluded. Akiko winston.
--- NOTE | 2020-07-13 09:42 | P.PN ---
Subjective Progress Note Date: 07/13/20 Principal diagnosis: Congestive heart failure. This is a 75-year-old female with history of multiple medical problems including type 2 diabetes, hypertension, ischemic cardiomyopathy and LV dysfunction, patient had a two-vessel bypass surgery and mitral valve repair in the last couple of months at , patient presented to the ER with a few weeks history of increased shortness of breath, workup was done in the ER, clearly the patient was in congestive heart failure with bilateral pleural effusions left greater than right. And check her blood pressure was noted to be marginal but did not require any pressors while in the ER. Patient was seen by cardiology on consultation, and she was noted to have an accelerated junctional rhythm, recommended that the patient gets admitted to the ICU and The patient on Lasix drip at 10 mg per hour. Considering her pleural effusions and her shortness of breath, I was asked to see the patient on consultation. I was n otified about this patient last night from the ICU nurse where in she was noted to have marginal blood pressure and she had fairly good urine output, I did recommend starting the patient on Dobutrex at 2.5 mcg/kg/m, and the patient has been responding quite well to the Dobutrex along with a Lasix drip. Echocardiogram showed poor LV function of 20%, there was severe global hypokinesis of the left ventricle. Follow-up chest x-ray this morning after diuresing the patient showed definite improvement in her pleural effusions, hence I have no plans to arrange for thoracentesis at this point. In addition to all of this, the patient had developed significant ulceration and what seems to be a cellulitis involving the left lower extremity related to the site of saphenous vein salvage. The area seems to be a bit necrotic, and I recommended starting the patient on antibiotics in the form of Ancef. Patient was reevaluated today on 07/09/2020, remains in the ICU, patient is basically about the same. Minimal improvement if any. remains on Lasix drip, remains in atrial fibrillation urine output is dropping cough, she is down to 30 mL per hour. Patient remains on 2 L nasal cannula, chest x-ray questioned right pleural effusion more so than left pleural effusion, however the ultrasound of t he chest showed more fluid on the left side, and hardly any fluid on the right side. Still planning to continue diuretics on this patient, will hold on thoracentesis unless the patient shows no improvement with diuresis. She still on Lasix at 10 mg per hour still on cefazolin. Creatinine today is slightly worse at 2.11, patient was doing better when she was on Dobutrex. However this was discontinued by cardiology, mostly because of her atrial fibrillation with RVR. WBC count is 7.2 hemoglobin is 9.7 BUN is 94 creatinine 2.11 Patient was reevaluated today on 07/10/2020, patient is feeling better today, breathing a lot easier, however she is now back on Dobutrex 2.5 mcg/kg/m. she is also on amiodarone, 0.5 mg/m. norepinephrine, 0.03 mcg/kg/m Lasix 10 mg per hour drip and as soon as this was done, her urine output has picked up nicely to 332141 mL per hour. Patient remains in atrial flutter rate of 134/m. Chest x-ray this morning showed worsening right-sided pleural effusion, ultrasound confirmed fairly good sized right-sided pleural effusion the left sided pleural effusion is small and the patient will definitely require a right-sided thoracentesis if she does not improve with diuretics. I have a feeling that the patient may not require thoracentesis if she continues to respond with significant urine output as such. However in the meantime I did transition the patient to heparin and discussed her condition with the smooth stucco resurfacer on the case, they may consider cardioversion on this patient, and she will remain anticoagulated, and if we decide to do thoracentesis in the next 48 hours, that could be accomplished by holding the heparin for few hours prior. I did di scontinue her Eliquis for the time being. Considering the patient is now on multiple drips including Dobutrex, norepinephrine, and amiodarone, I did place a right femoral triple-lumen catheter and I also placed a arterial line for close monitoring of the patient. Surprisingly the patient did clinically improve as her urine output picked up nicely with the inotropes and pressors on the case WBC count is 7.5 hemoglobin is 10.2 patient remains on cefazolin for her cellulitis. Renal functioning showed a BUN of 100 creatinine 2.04, and this is again a cardiorenal picture. Will likely improve with the inotropes and pressors her BNP level today is 5820. Progress note dated 07/11/2020. 75-year-old female admitted on July 07 with a diagnosis of CHF. The patient had a recent bypass grafting at 2 months ago. Chest x-rays reviewed and shows bilateral pleural effusions. Today, we did a right-sided thoracentesis, and 360 mL of yellow fluid was removed. It was sent for anal ysis. We will do the left side tomorrow. The patient's breathing is improved. She still on 2 L nasal cannula. She is on a number of drips. Currently, she is on Lasix drip at 10 mg an hour, heparin drip via weightbase based protocol, amiodarone, and 0.5 mg/m, dobutamine, at 2.5 mcg/kg/m, and norepinephrine at 5 mcg/m. The patient tolerated the thoracentesis well. I told her that we would do the left side tomorrow. Heparin was discontinued a couple hours before the thoracentesis was done. White count 8.8, hemoglobin 10, hematocrit 30.8, and platelet count 251,000. PTT is 49. Sodium 133, potassium 3.6, chlorides 90, CO2 34, anion gap 9, BUN 84, and creatinine 1.51. Chest x-ray shows improvement in the aeration of the right lung following the procedure, without evidence of pneumothorax. Progress note dated 07/12/2020. 75-year-old female, admitted on July 07, with a diagnosis of CHF. The patient had a recent bypass grafting at , some 2 months ago. Yesterday, she had a right-sided thoracentesis and today we attempted a left- sided thoracentesis but only got a minimum amount of fluid, maybe 5 mL or so. Yesterday's fluid was sent for analysis. Yesterday, we were able to remove 360 mL of thin yellow fluid consistent with transudate and probably related to CHF. Currently, the patient is on 2 L nasal cannula. The patient's on heparin via weightbase protocol, Lasix drip at 5 mg an hour, dobutamine at 2.5 g kilogram per minute, and norepinephrine at 3 mcg/m. She's not receiving any IV fluids. She does feel a bit better although she does have a very congested cough. Chest x-ray yesterday after thoracentesis, did not show a pneumothorax and chest x-ray today after thoracentesis also did not show a pneumothorax. White count 8.0, hemoglobin 9.9, hematocrit 29.3, and platelet count 232,000. PTT is 56.8. Sodium 133, potassium 3.2, chlorides 89, CO2 39, anion gap 5, BUN 70, and creatinine 1.15. Chest x-rays from yesterday and today are both reviewed. Progress note dated 07/13/2020. 75-year-old female, admitted back on July 07 with a diagnosis of congestive heart failure. The patient had a recent bypass grafting at , about 2 months ago. A couple days ago, we did a right-sided thoracentesis in yesterday we attempted a left-sided thoracentesis. We were able to remove about 360 mL from the right pleural space and only 5 mL in the left pleural space. Currently, the patient's on 2 L nasal cannula. Her norepinephrine is at 1 mcg/m. Can be turned on. She's not receiving any IV fluids. From my perspective, the patient could be transferred out to the cardiac floor. Her breathing is much improved. Chest x-rays improved. White count 7.6, hemoglobin 9.7, hematocrit 29.1, platelet count 215,000. Sodium 135, potassium 3.4, chlorides 89, CO2 38, anion gap 8, BUN 55, creatinine 1.16. Chest x-ray shows findings of congestive heart failure, with pleural effusions. Objective - Vital Signs Vital signs: Vital Signs Temp 97.9 F 07/13/20 04:00 Pulse 106 H 07/13/20 09:25 Resp 18 07/13/20 07:00 BP 103/65 07/12/20 05:45 Pulse Ox 92 L 07/13/20 09:13 Intake & Output 07/12/20 07/13/20 07/13/20 18:59 06:59 18:59 Intake Total 873.584 187.398 70.426 Output Total 1620 995 135 Balance -746.416 -807.602 -64.574 Weight 91.4 kg Intake: IV 33 6 A line flush 33 6 Intake, IV Titration 393.584 29.398 64.426 Amount Heparin Sod,Pork in 0.45% 122.072 NaCl 25,000 unit In 0.45 % NaCl 1 250ml.bag @ 9.98 UNITS/KG/HR 10 mls/hr IV .Q24H SASHA Rx#:[id number] Norepinephrine 4 mg In 171.512 29.398 64.426 Sodium Chloride 0.9% 250 ml @ 0.05 MCG/KG/MIN 18. 764 mls/hr IV .[id number] SASHA Rx#:[id number] Potassium Chloride 20 meq 100 In Water For Injection 1 100ml.bag @ 50 mls/hr IVPB Q2H SASHA Rx#: [id number] Oral 480 125 Output: Urine 1620 995 135 Other: Voiding Method Indwelling Catheter Indwelling Catheter ABP, PAP, CO, CI - Last Documented Arterial Blood Pressure 127/69 - Exam No acute distress, oriented 3. Patient with mild conversational dyspnea, currently on 2 L. lacerations 97%. HEENT examination is grossly unremarkable. Neck supple. Full range of motion. No adenopathy thyromegaly or neck vein distention. Cardiovascular examination reveals regular rhythm rate. S1-S2 normal. No S3 or S4. A soft systolic murmur is noted. Heart rate 106 bpm. Lungs reveal diminished breath sounds at the bases. Bibasilar crackles are noted. No rhonchi or wheezes. Breath sounds equal bilaterally. There is dullness at the bases as well. Abdomen soft bowel sounds are heard. No masses or tenderness. Extremities are intact. No cyanosis or clubbing noted. There is bilateral lower extremity edema, 1-2+. Skin is without rash or lesion. Neurologic examination is brief but nonfocal. - Labs CBC & Chem 7: 07/13/20 04:45 07/13/20 04:45 Labs: Abnormal Lab Results - Last 24 Hours (Table) 07/12/20 07/12/20 07/12/20 Range/Units 11:33 17:06 21:07 RBC (3.80-5.40) m/uL Hgb (11.4-16.0) gm/dL Hct (34.0-46.0) % RDW (11.5-15.5) % Lymphocytes # (1.0-4.8) k/uL Sodium (137-145) mmol/L Potassium (3.5-5.1) mmol/L Chloride (98-107) mmol/L Carbon Dioxide (22-30) mmol/L BUN (7-17) mg/dL Creatinine (0.52-1.04) mg/dL Glucose (74-99) mg/dL POC Glucose (mg/dL) 164 H 64 L 145 H (75-99) mg/dL Alkaline Phosphatase (38-126) U/L Total Protein (6.3-8.2) g/dL Albumin (3.5-5.0) g/dL 07/13/20 07/13/20 07/13/20 Range/Units 02:14 04:45 04:45 RBC 3.32 L (3.80-5.40) m/uL Hgb 9.7 L (11.4-16.0) gm/dL Hct 29.1 L (34.0-46.0) % RDW 17.0 H (11.5-15.5) % Lymphocytes # 0.7 L (1.0-4.8) k/uL Sodium 135 L (137-145) mmol/L Potassium 3.4 L (3.5-5.1) mmol/L Chloride 89 L (98-107) mmol/L Carbon Dioxide 38 H (22-30) mmol/L BUN 55 H (7-17) mg/dL Creatinine 1.16 H (0.52-1.04) mg/dL Glucose 135 H (74-99) mg/dL POC Glucose (mg/dL) 141 H (75-99) mg/dL Alkaline Phosphatase 170 H (38-126) U/L Total Protein 5.7 L (6.3-8.2) g/dL Albumin 2.9 L (3.5-5.0) g/dL 07/13/20 Range/Units 06:31 RBC (3.80-5.40) m/uL Hgb (11.4-16.0) gm/dL Hct (34.0-46.0) % RDW (11.5-15.5) % Lymphocytes # (1.0-4.8) k/uL Sodium (137-145) mmol/L Potassium (3.5-5.1) mmol/L Chloride (98-107) mmol/L Carbon Dioxide (22-30) mmol/L BUN (7-17) mg/dL Creatinine (0.52-1.04) mg/dL Glucose (74-99) mg/dL POC Glucose (mg/dL) 160 H (75-99) mg/dL Alkaline Phosphatase (38-126) U/L Total Protein (6.3-8.2) g/dL Albumin (3.5-5.0) g/dL Microbiology - Last 24 Hours (Table) 07/12/20 15:31 Gram Stain - Preliminary Sputum Sputum Culture - Preliminary 07/11/20 10:00 Gram Stain - Preliminary Pleural Fluid Body Fluid Culture - Preliminary Assessment and Plan Assessment: Acute on chronic systolic congestive heart failure. Bilateral pleural effusions, status post right-sided thoracentesis 07/11/2020, with left-sided thoracentesis on 07/12/2020. History of CAD, and recent bypass grafting at . Poorly-controlled atrial flutter. Acute kidney injury. Type 2 diabetes mellitus. Questionable history of underlying COPD. Acute cellulitis of left lower extremity. Plan: Plan dated 07/11/2020. The patient underwent right-sided thoracentesis today. 360 mL of yellow, thin fluid was removed, likely related to underlying CHF. The fluid was sent for analysis including microbiology, cytology, and chemistry. The left side will be drained tomorrow. The patient remains on a number of different drips including Lasix, heparin, amiodarone, dobutamine, and norepinephrine. The patient did have a bypass grafting 2 months ago at . Most of the patient's issues are cardiac in nature. We'll continue to follow for the time being. The patient continues on antibiotics for the left leg cellulitis. Microbiology is currently negative. The chest x-ray after thoracentesis showed improved aeration of the right lung, without evidence of pneumothorax. Plan dated 07/12/2020. The patient seemed be doing a bit better. The patient did have a left-sided thoracentesis today, but only about 5 mL of fluid was retrieved. It was discarded. Yesterday's fluid was sent for analysis. Labs and x-rays are reviewed. There wasn't evidence of any pneumothorax after either thoracentesis. The fluid from yesterday was hazy in color, with a glucose of 155, a total protein at 2.24 g, and an LDH of 93. This is consistent with a transudate. This likely relates to her underlying CHF. We will continue to follow and make recommendations. Apparently her Lasix drip is been converted to Lasix 40 mg IV push every 8 hours, and dobutamine has been turned off. We will continue to follow make recommendations were appropriate. Plan dated 07/13/2020. The patient's doing much better. She's only on 2 L nasal cannula. She is on 1 mcg/m of norepinephrine which can be discontinued. From my perspective, if she stays up and norepinephrine, she can be transferred out to the cardiac floor. The fluid analysis shows transudate from the right side. Small amount of fluid from the left side was not sent for analysis. Additional recommendations and suggestions are forthcoming. Additional recommendations and suggestions are forthcoming. We'll continue to follow this patient for the time being. Time with Patient: Less than 30
[2020-07-13] MEDS ORDERED: IPRATROPIUM-ALBUTEROL 3 ML NEB INHALATION PRN (09:43)
--- NOTE | 2020-07-13 10:23 | PN ---
PROGRESS NOTE Patient is seen for followup for acute kidney injury, mostly cardiorenal. Her renal function has improved. She is doing better. Volume status has improved as well. PHYSICAL EXAMINATION: On examination today, patient is comfortable awake. Blood pressure was 127/69, heart rate 103 per minute. She is afebrile. EXAMINATION OF THE HEART: S1, S2. EXAMINATION OF THE LUNGS: Decreased breath sounds at bases. Abdomen is soft, obese, nontender. Examination lower extremities shows edema 2+ bilaterally. Chronic skin changes noted. Left leg ulcer is currently dressed. LABS: Labs show sodium 135, potassium 3.4, chloride 89. CO2 is 38, BUN 55, creatinine 1.16. ASSESSMENT: 1. Acute kidney injury cardiorenal currently improved. Patient continues to diurese fairly well. She was on Lasix drip which was discontinued yesterday and she is currently on 40 mg IV q.8 hours. The 24-hour urine output was about 2.6 L. Her weight is down significantly. I will increase the Lasix to 60 mg q.8 hours for today. 2. Metabolic alkalosis, currently stable. 3. Hypokalemia secondary to diuresis, we will replace. 4. Cardiomyopathy, ejection fraction less than 20%. 5. Left lower extremity ulcer. 6. Status post recent coronary artery bypass surgery in May. 7. Hypervolemic hyponatremia, currently improved. PLAN: Increase Lasix to 60 mg q.8 hours for 24 to 48 hours. Replace potassium. Repeat labs in a.m. MMODL / IJN: [id number] /
--- NOTE | 2020-07-13 10:45 | P.PN ---
Subjective Progress Note Date: 07/13/20 HISTORY OF PRESENT ILLNESS: This is a pleasant 75-year-old female past medical history significant for ischemic cardiomyopathy, coronary artery disease status post bypass grafting, valvular heart disease status post mitral ring annuloplasty, chronic systolic heart failure, paroxysmal atrial fibrillation on long-term anticoagulation, hypertension, diabetes mellitus, COPD and dyslipidemia. She initially underwent bypass grafting and mitral valve repair approximately 2 months ago and [facility]. She established in town with Dr. Rodrigues June 22. We have been asked to see in consultation for heart failure. She presented to the hospital with symptoms of shortness of breath, cough and lower extremity edema. She was initially admitted to [facility] April 22 where she was found to have an ejection fraction of less than 15%. She underwent cardiac catheterization which showed severe triple vessel disease and underwent two-vessel bypass grafting with repair for mitral valve and maze procedure. Repeat echocardiogram prior to discharge revealed an ejection fraction of 45%. She did go to inpatient rehab shortly thereafter and has since been at home with home care. EKG on arrival revealed atrial tachycardia with a heart rate in the 130s. She was initiated on dobutamine and IV Lasix. She is seen and examined sitting up in bed in no acute distress. Her heart continues to be tachycardic in the 130s. It appears regular but is difficult to differentiate possible underlying atrial flutter. Repeat echocardiogram on this admission revealed ejection fraction of less than 20%, severe global hypokinesia, large pleural effusion and mild to moderate mitral regurgitation. Chest x-ray this morning reveals moderate bilateral pleural effusions improved from previous exam. Venous duplex negative for DVT. Laboratory data reviewed, WBC 7.8, hemoglobin 9.8, platelets 228, sodium 131, potassium 4.8, creatinine 2.01, magnesium 3.1, troponin 0.0 17, TSH 4.03 and and proBNP 4330. Crit daily cardiac medications as recorded in Dr. Rodrigues's office on June 22 reveal aspirin 81 mg daily, atorvastatin 80 mg daily, Bumex 1 mg daily, Coreg 25 mg twice a day, Eliquis 5 mg twice a day, and entresto 24/26 mg twice a day and daily magnesium supplementation. 07/09 Patient seen and examined. Patient remains with heart rates predominantly right at 128, occasionally lower with amiodarone and Cardizem were appears to be possible atrial flutter versus atrial tachycardia. She states she feels somewhat more tired than yesterday. Still complains of shortness breath. She previously did have good urine output however has decreased. Her blood pressures decreased into the 70s over 50s with a map in the low 60s. She had previously been on dobutamine to begin with however I was not on any vasopressors or inotropes. Echocardiogram revealed severely decreased ejection fraction 20% with [id number] mitral regurgitation. She is sitting upright in bed. Her creatinine mildly increased at 2.1 today. She denies any chest pain or pressure. She is still coughing. Patient and son at bedside admit that she has been tachycardic for approximately the last 3 weeks, was noted to be tachycardic when home health care came a few times. She was transitioned over to IV amiodarone earlier in the day without much improvement. 07/10 Patient seen and examined. Patient states she feels somewhat better compared to yesterday. Maintained on amiodarone drip, she was placed on levophed and dobutamine drip yesterday and has had improved urine outputs this morning up to 300-400 mL an hour on the Lasix drip. She denies any chest pain or pressure. Remains in the atrial tachycardia, atrial flutter at 130 bpm. 07/11/2020 Patient examined this morning in the intensive care unit. Patient remains on lasix drip, amio, dobutamine, and levophed. She continues to have good urine output. Eliquis remains on hold. Patient is on IV heparin for possible thoracentesis. Patient remains tachycardic with a heart rate in the 120s. 07/12/2020 Patient examined this morning in the ICU. Patient states her breathing has improved today. She underwent left thoracentesis with Dr. Pickens and is scheduled to have right thoracentesis performed today. She is on IV heparin, IV dobutatmine, Levophed and lasix drip. She denies chest pain or pressure. 07/13/2020 Patient examined this morning in the ICU. Patient is s/p bilateral thoracentesis with 360cc removed from the right and 5cc removed from the left. Patient was resumed on her Eliquis yesterday. She remains on IV lasix per nephrology. Vasopressors have been weaned off this morning. Telemetry reveals afib with fairly controlled ventricular rate of 80-110. PHYSICAL EXAM: VITAL SIGNS: Reviewed. GENERAL: Well-developed in no acute distress. NECK: Supple. No JVD or thyromegaly LUNGS: Respirations even and unlabored. Lungs diminished bilaterally HEART: Tachycardic. Irregular rate and rhythm. S1 and S2 heard. Systolic murmur noted. EXTREMITIES: Normal range of motion. No clubbing or cyanosis. Peripheral pulses intact. 1-2+ bilateral lower extremity edema. Dressing to left leg noted. ASSESSMENT: Acute on chronic systolic heart failure, EF 20% Cardiogenic shock Acute kidney injury Coronary artery disease status post bypass grafting Status post mitral ring annuloplasty Paroxysmal atrial fibrillation on long-term anticoagulation Atrial tachycardia, difficult to discern possible atrial flutter at this rate Hypertension Dyslipidemia Diabetes mellitus COPD Bilateral pleural effusions, s/p thoracentesis PLAN: Continue oral amio Continue metoprolol to 25mg TID. Continue telemetry monitoring. Continue lipitor and eliquis Continue IV lasix per nephrology Monitor I&O Patient may transfer to with telemetry Further recommendations pending patient course Nurse practitioner note has been reviewed by physician. Signing provider agrees with the documented findings, assessment, and plan of care. Objective - Vital Signs Vital signs: Vital Signs Temp 97.9 F 07/13/20 04:00 Pulse 106 H 07/13/20 09:25 Resp 18 07/13/20 07:00 BP 103/65 07/12/20 05:45 Pulse Ox 92 L 07/13/20 09:13 Intake & Output 07/12/20 07/13/20 07/13/20 18:59 06:59 18:59 Intake Total 873.584 187.398 70.426 Output Total 1620 995 135 Balance -746.416 -807.602 -64.574 Weight 91.4 kg Intake: IV 33 6 A line flush 33 6 Intake, IV Titration 393.584 29.398 64.426 Amount Heparin Sod,Pork in 0.45% 122.072 NaCl 25,000 unit In 0.45 % NaCl 1 250ml.bag @ 9.98 UNITS/KG/HR 10 mls/hr IV .Q24H [facility] Rx#:[id number] Norepinephrine 4 mg In 171.512 29.398 64.426 Sodium Chloride 0.9% 250 ml @ 0.05 MCG/KG/MIN 18. 764 mls/hr IV .[id number] [facility] Rx#:[id number] Potassium Chloride 20 meq 100 In Water For Injection 1 100ml.bag @ 50 mls/hr IVPB Q2H [facility] Rx#: [id number] Oral 480 125 Output: Urine 1620 995 135 Other: Voiding Method Indwelling Catheter Indwelling Catheter ABP, PAP, CO, CI - Last Documented Arterial Blood Pressure 127/69 - Labs CBC & Chem 7: 07/13/20 04:45 07/13/20 04:45 Labs: Abnormal Lab Results - Last 24 Hours (Table) 07/12/20 07/12/20 07/12/20 Range/Units 11:33 17:06 21:07 RBC (3.80-5.40) m/uL Hgb (11.4-16.0) gm/dL Hct (34.0-46.0) % RDW (11.5-15.5) % Lymphocytes # (1.0-4.8) k/uL Sodium (137-145) mmol/L Potassium (3.5-5.1) mmol/L Chloride (98-107) mmol/L Carbon Dioxide (22-30) mmol/L BUN (7-17) mg/dL Creatinine (0.52-1.04) mg/dL Glucose (74-99) mg/dL POC Glucose (mg/dL) 164 H 64 L 145 H (75-99) mg/dL Alkaline Phosphatase (38-126) U/L Total Protein (6.3-8.2) g/dL Albumin (3.5-5.0) g/dL 07/13/20 07/13/20 07/13/20 Range/Units 02:14 04:45 04:45 RBC 3.32 L (3.80-5.40) m/uL Hgb 9.7 L (11.4-16.0) gm/dL Hct 29.1 L (34.0-46.0) % RDW 17.0 H (11.5-15.5) % Lymphocytes # 0.7 L (1.0-4.8) k/uL Sodium 135 L (137-145) mmol/L Potassium 3.4 L (3.5-5.1) mmol/L Chloride 89 L (98-107) mmol/L Carbon Dioxide 38 H (22-30) mmol/L BUN 55 H (7-17) mg/dL Creatinine 1.16 H (0.52-1.04) mg/dL Glucose 135 H (74-99) mg/dL POC Glucose (mg/dL) 141 H (75-99) mg/dL Alkaline Phosphatase 170 H (38-126) U/L Total Protein 5.7 L (6.3-8.2) g/dL Albumin 2.9 L (3.5-5.0) g/dL 07/13/20 Range/Units 06:31 RBC (3.80-5.40) m/uL Hgb (11.4-16.0) gm/dL Hct (34.0-46.0) % RDW (11.5-15.5) % Lymphocytes # (1.0-4.8) k/uL Sodium (137-145) mmol/L Potassium (3.5-5.1) mmol/L Chloride (98-107) mmol/L Carbon Dioxide (22-30) mmol/L BUN (7-17) mg/dL Creatinine (0.52-1.04) mg/dL Glucose (74-99) mg/dL POC Glucose (mg/dL) 160 H (75-99) mg/dL Alkaline Phosphatase (38-126) U/L Total Protein (6.3-8.2) g/dL Albumin (3.5-5.0) g/dL Microbiology - Last 24 Hours (Table) 07/12/20 15:31 Gram Stain - Preliminary Sputum Sputum Culture - Preliminary 07/11/20 10:00 Gram Stain - Preliminary Pleural Fluid Body Fluid Culture - Preliminary
[2020-07-13] MEDS: APIXABAN 5 MG TAB PO SCH ×2 (11:10→20:31)
[2020-07-13] MEDS: METOPROLOL TARTRATE 25 MG TAB PO SCH ×3 (11:10→20:31)
[2020-07-13] MEDS: FUROSEMIDE 10 MG/ML 4 ML VIAL IV SCH ×2 (11:10→16:57)
[2020-07-13] MEDS: LORATADINE 10 MG TAB PO SCH (11:10)
[2020-07-13] MEDS: AMIODARONE 200 MG TAB PO SCH ×2 (11:10→20:31)
[2020-07-13] MEDS: FLUTICASONE 50MCG/SPRAY NASAL 16GM EA NOSTRIL SCH (11:17)
[2020-07-13] MEDS: COLLAGENASE 250 UNIT/GM OINTMENT 30 GM TUBE TOPICAL SCH (11:25)
[2020-07-13] MEDS: ACETAMINOPHEN TAB 325 MG TAB PO PRN ×2 (11:52→20:29)
[2020-07-13 12:13] LABS: Glucose,Whole Blood 223 mg/dL (75-99)
[2020-07-13] MEDS: IPRATROPIUM-ALBUTEROL 3 ML NEB INHALATION SCH ×2 (12:25→19:53)
--- NOTE | 2020-07-13 16:18 | P.PN ---
Subjective Progress Note Date: 07/13/20 (delayed charting seen at 0945) Principal diagnosis: shortness of breath Patient is a 75-year-old female with a history of congestive heart failure, diabetes Type 2 insulin requiring, hypertension who presented to the emergency department with complaints of worsening shortness of breath for the last 4 weeks. Apparently patient had 2 vessel bypass with mitral valve repair at [facility] in April 2018. She underwent extensive evaluation in the emergency department including a chest x-ray which demonstrated large bilateral pleural effusions right greater than left recommending thoracentesis. Venous Doppler was completed which showed no evidence of DVT in the left lower extremity. EKG appeared to be consistent with accelerated junctional rhythm. Laboratory analysis showed hemoglobin of 10.5, creatinine 2. In the ER she was started on a furosemide drip and arrangements are made for admission to the ICU. Cardiology and pulm consulted. She was started on dobutamine for cardiogenic shock. She became tachycardiac, they attempted Cardizem bolus which was unsuccessful and she was started on oral amio due to concerns for a flutter. Cardio stopped the dobutmine infusion due to A fib with RVR. She did not respond to oral amio and was started on amio gtt. She became hypotensive and was started on levo and dobutamined. Art line and TLC placed on 07/10. Eliquis was transitioned to heparin gtt for thoracentesis. She underwent right sided tho racentesis on 07/11. On 07/12 dobutamine was stopped and Lasix was transitioned to IVP. She was able to come off Levo on 07/13. Patient seen and examined at bedside. She denies any chest pain, breathing is much easier than on admission, edema is lessening, no nausea or vomiting, eating and drinking well. We discussed the importance of taking medications as prescribed on discharge. Having tell health monitoring and needing close cardiac follow-up. General: Ill-appearing, no distress, appears at stated age, obese Derm: warm, dry Head: atraumatic, normocephalic, symmetric Eyes: EOMI, no lid lag, anicteric sclera Mouth: no lip lesion, mucus membranes moist Cardiovascular: S1S2 reg, no murmur, positive posterior tibial pulse bilateral, Lungs: [Coarse breath sounds bilateral, no accessory muscle use Abdominal: soft, nontender to palpation, no guarding, no appreciable organomegaly Ext: no gross muscle atrophy, 4+ edema, no contractures Neuro: CN II-XI grossly intact, no focal neuro deficits Psych: Alert, oriented, appropriate affect Acute exacerbation of systolic congestive heart failure with ejection fraction <20% and large pleural effusions, coronary artery disease with recent 2 vessel bypass and mitral valve replacement - hold entresto - Lasix IVP - Cadio and Pulm recs - lopressor - strict I and O daily weight -s/p Right sided thoracentesis on 07/11 Acute kidney injury versus chronic kidney disease of unknown baseline creatinine, improving - due to cardiorenal syndrome - strict I and O - avoid additional nephrotoxic agents - Hold Entresto Hyponatremia secondary to fluid overload - diuresis - recheck sodium level in AM Fe deficiency anemia - start oral iron - follow CBC Left lower extremity wound infection - ID recs no need to systemic antibotics, santyl Asthma - resume spiriva, B agonist and inhaled steroid DM 2, insulin requiring with frequent hypoglycemia - levemir - SSI - A1C 6.4 - Follow BS P. A fib with RVR - amio, eliquis - follow HR - metoprolol Stage II pressure ulcer of the scarum, nonhealing ulcer of left lower extremity -Wound care recs -Outpatient follow-up with wound care DVT prophylaxis: Ray Discussed with: Patient, nursing, cardio Anticipated discharge: 2-[address]: home A total of 45 minutes was spent on the care of this complex patient more than 50% of the time was spent in counseling and care coordination. Objective - Vital Signs Vital signs: Vital Signs Temp 98.5 F 07/13/20 12:00 Pulse 99 07/13/20 14:00 Resp 15 07/13/20 14:00 BP 103/65 07/12/20 05:45 Pulse Ox 95 07/13/20 14:00 Intake & Output 07/12/20 07/13/20 07/13/20 18:59 06:59 18:59 Intake Total 873.584 187.398 285.426 Output Total 1620 995 785 Balance -746.416 -807.602 -499.574 Weight 91.4 kg 91.4 kg Intake: IV 33 21 A line flush 33 21 Intake, IV Titration 393.584 29.398 264.426 Amount Heparin Sod,Pork in 0.45% 122.072 NaCl 25,000 unit In 0.45 % NaCl 1 250ml.bag @ 9.98 UNITS/KG/HR 10 mls/hr IV .Q24H [facility] Rx#:[id number] Norepinephrine 4 mg In 171.512 29.398 64.426 Sodium Chloride 0.9% 250 ml @ 0.05 MCG/KG/MIN 18. 764 mls/hr IV .[id number] [facility] Rx#:[id number] Potassium Chloride 20 meq 100 In Water For Injection 1 100ml.bag @ 50 mls/hr IVPB Q2H [facility] Rx#: [id number] Potassium Chloride 20 meq 200 In Water For Injection 1 100ml.bag @ 50 mls/hr IVPB Q2H [facility] Rx#: [id number] Oral 480 125 Output: Urine 1620 995 785 Other: Voiding Method Indwelling Catheter Indwelling Catheter Indwelling Catheter ABP, PAP, CO, CI - Last Documented Arterial Blood Pressure 98/92 - Labs CBC & Chem 7: 07/13/20 04:45 07/13/20 04:45 Labs: Abnormal Lab Results - Last 24 Hours (Table) 07/12/20 07/12/20 07/13/20 Range/Units 17:06 21:07 02:14 RBC (3.80-5.40) m/uL Hgb (11.4-16.0) gm/dL Hct (34.0-46.0) % RDW (11.5-15.5) % Lymphocytes # (1.0-4.8) k/uL Sodium (137-145) mmol/L Potassium (3.5-5.1) mmol/L Chloride (98-107) mmol/L Carbon Dioxide (22-30) mmol/L BUN (7-17) mg/dL Creatinine (0.52-1.04) mg/dL Glucose (74-99) mg/dL POC Glucose (mg/dL) 64 L 145 H 141 H (75-99) mg/dL Alkaline Phosphatase (38-126) U/L Total Protein (6.3-8.2) g/dL Albumin (3.5-5.0) g/dL 07/13/20 07/13/20 07/13/20 Range/Units 04:45 04:45 06:31 RBC 3.32 L (3.80-5.40) m/uL Hgb 9.7 L (11.4-16.0) gm/dL Hct 29.1 L (34.0-46.0) % RDW 17.0 H (11.5-15.5) % Lymphocytes # 0.7 L (1.0-4.8) k/uL Sodium 135 L (137-145) mmol/L Potassium 3.4 L (3.5-5.1) mmol/L Chloride 89 L (98-107) mmol/L Carbon Dioxide 38 H (22-30) mmol/L BUN 55 H (7-17) mg/dL Creatinine 1.16 H (0.52-1.04) mg/dL Glucose 135 H (74-99) mg/dL POC Glucose (mg/dL) 160 H (75-99) mg/dL Alkaline Phosphatase 170 H (38-126) U/L Total Protein 5.7 L (6.3-8.2) g/dL Albumin 2.9 L (3.5-5.0) g/dL 07/13/20 Range/Units 12:12 RBC (3.80-5.40) m/uL Hgb (11.4-16.0) gm/dL Hct (34.0-46.0) % RDW (11.5-15.5) % Lymphocytes # (1.0-4.8) k/uL Sodium (137-145) mmol/L Potassium (3.5-5.1) mmol/L Chloride (98-107) mmol/L Carbon Dioxide (22-30) mmol/L BUN (7-17) mg/dL Creatinine (0.52-1.04) mg/dL Glucose (74-99) mg/dL POC Glucose (mg/dL) 223 H (75-99) mg/dL Alkaline Phosphatase (38-126) U/L Total Protein (6.3-8.2) g/dL Albumin (3.5-5.0) g/dL Microbiology - Last 24 Hours (Table) 07/12/20 15:31 Gram Stain - Preliminary Sputum Sputum Culture - Preliminary Gram Neg Bacilli 07/11/20 10:00 Gram Stain - Preliminary Pleural Fluid Body Fluid Culture - Preliminary
--- NOTE | 2020-07-13 16:30 | PN ---
PROGRESS NOTE DATE OF SERVICE: 07/13/2020 REASON FOR FOLLOWUP: Left lower extremity wound and a question of pneumonia. INTERVAL HISTORY: The patient is currently afebrile. The patient is breathing more comfortably. The patient denies having any chest pain. She continues to have some cough, not bringing up any sputum. No abdominal pain or diarrhea. PHYSICAL EXAMINATION: Blood pressure is 120/58 with a pulse of 94, temperature 98.5. She is 100% on 2 L nasal cannula. General description is an elderly female lying in bed in no distress. RESPIRATORY SYSTEM: Unlabored breathing. Clear to auscultation anteriorly. HEART: S1, S2. Regular rate and rhythm. ABDOMEN: Soft. No tenderness. Left heel wound is currently dressed. No obvious drainage on the dressing. LABS: Hemoglobin is 9.7, white count 7.6, BUN of 55, creatinine is 1.16. DIAGNOSTIC IMPRESSION AND PLAN: 1. Patient with left lower extremity wound with no evidence of any secondary cellulitis. Local care to continue with Santyl followed by moist dressing. 2. Patient with a positive sputum culture showing Gram-negative. She is clinically not behaving as a pneumonia, with normal white count. We will repeat her procalcitonin and CRP tomorrow and continue with supportive care. MMODL / IJN: [id number] /
[2020-07-13] MEDS: PANTOPRAZOLE 40 MG TABLET PO SCH (16:57)
[2020-07-13] MEDS: FERROUS SULFATE 325 MG TAB PO SCH (16:57)
[2020-07-13 16:58] LABS: Glucose,Whole Blood 183 mg/dL (75-99)
[2020-07-13 19:55] LABS: Glucose,Whole Blood 135 mg/dL (75-99)
[2020-07-13] MEDS: ATORVASTATIN 80 MG TAB PO SCH (20:31)
[2020-07-14] MEDS: FUROSEMIDE 10 MG/ML 4 ML VIAL IV SCH (00:14)
[2020-07-14 03:26] LABS: Glucose,Whole Blood 137 mg/dL (75-99)
[2020-07-14 04:03] LABS: Anisocytosis Slight; HCT 30.5 % (34.0-46.0); HGB 10.3 gm/dL (11.4-16.0); Hypochromasia Slight; MCH 30.1 pg (25.0-35.0); MCHC 33.7 g/dL (31.0-37.0); MCV 89.2 fL (80.0-100.0); Mean Platelet Volume 7.1; Platelet Count 207 k/uL (150-450); RBC 3.42 m/uL (3.80-5.40); RDW 16.8 % (11.5-15.5); WBC 7.4 k/uL (3.8-10.6)
[2020-07-14 04:11] LABS: Potassium 3.7 mmol/L (3.5-5.1)
[2020-07-14 04:14] LABS: ALT <6 U/L (4-34); AST 18 U/L (14-36); African American GFR (CKD) 59 (>60 ml/min/1.73 sqM); Albumin 3.1 g/dL (3.5-5.0); Alkaline Phosphatase 183 U/L (38-126); Anion Gap 6 mmol/L; Blood Urea Nitrogen 51 mg/dL (7-17); C Reactive Protein 5.7 mg/dL (<1.0); Calcium 8.8 mg/dL (8.4-10.2); Carbon Dioxide 37 mmol/L (22-30); Chloride 89 mmol/L (98-107); Glucose 122 mg/dL (74-99); Magnesium 1.8 mg/dL (1.6-2.3); Non-African American GFR(CKD) 51 (>60 ml/min/1.73 sqM); Sodium 132 mmol/L (137-145); Total Bilirubin 0.9 mg/dL (0.2-1.3)
[2020-07-14] MEDS ORDERED: POTASSIUM CHLORIDE ER 20 MEQ TAB.ER PO SCH (05:00)
[2020-07-14 06:37] LABS: Glucose,Whole Blood 144 mg/dL (75-99)
[2020-07-14] MEDS: FERROUS SULFATE 325 MG TAB PO SCH ×2 (06:51→16:38)
[2020-07-14] MEDS: INSULIN DETEMIR (LEVEMIR) 100 UNIT/ML SYR SQ SCH (06:51)
[2020-07-14] MEDS: INSULIN ASPART (NovoLOG) 100 UNIT/ML VIAL SQ SCH ×3 (06:51→18:09)
[2020-07-14] MEDS: SYMBICORT 80-4.5 MCG INHALER INHALATION SCH ×2 (07:30→20:25)
[2020-07-14] MEDS: IPRATROPIUM-ALBUTEROL 3 ML NEB INHALATION SCH ×3 (07:30→20:25)
[2020-07-14] MEDS: FLUTICASONE 50MCG/SPRAY NASAL 16GM EA NOSTRIL SCH (08:40)
[2020-07-14] MEDS: LORATADINE 10 MG TAB PO SCH (08:40)
[2020-07-14] MEDS: AMIODARONE 200 MG TAB PO SCH ×2 (08:40→20:45)
[2020-07-14] MEDS: METOPROLOL TARTRATE 25 MG TAB PO SCH ×3 (08:40→20:45)
[2020-07-14] MEDS: COLLAGENASE 250 UNIT/GM OINTMENT 30 GM TUBE TOPICAL SCH (08:40)
[2020-07-14] MEDS: APIXABAN 5 MG TAB PO SCH ×2 (08:40→20:45)
[2020-07-14] MEDS ORDERED: FUROSEMIDE 40 MG TAB PO SCH (09:00)
--- NOTE | 2020-07-14 09:38 | P.PN ---
Subjective Progress Note Date: 07/14/20 Principal diagnosis: Congestive heart failure. This is a 75-year-old female with history of multiple medical problems including type 2 diabetes, hypertension, ischemic cardiomyopathy and LV dysfunction, patient had a two-vessel bypass surgery and mitral valve repair in the last couple of months at [facility], patient presented to the ER with a few weeks history of increased shortness of breath, workup was done in the ER, clearly the patient was in congestive heart failure with bilateral pleural effusions left greater than right. And check her blood pressure was noted to be marginal but did not require any pressors while in the ER. Patient was seen by cardiology on consultation, and she was noted to have an accelerated junctional rhythm, recommended that the patient gets admitted to the ICU and The patient on Lasix drip at 10 mg per hour. Considering her pleural effusions and her shortness of breath, I was asked to see the patient on consultation. I was n otified about this patient last night from the ICU nurse where in she was noted to have marginal blood pressure and she had fairly good urine output, I did recommend starting the patient on Dobutrex at 2.5 mcg/kg/m, and the patient has been responding quite well to the Dobutrex along with a Lasix drip. Echocardiogram showed poor LV function of 20%, there was severe global hypokinesis of the left ventricle. Follow-up chest x-ray this morning after diuresing the patient showed definite improvement in her pleural effusions, hence I have no plans to arrange for thoracentesis at this point. In addition to all of this, the patient had developed significant ulceration and what seems to be a cellulitis involving the left lower extremity related to the site of saphenous vein salvage. The area seems to be a bit necrotic, and I recommended starting the patient on antibiotics in the form of Ancef. Patient was reevaluated today on 07/09/2020, remains in the ICU, patient is basically about the same. Minimal improvement if any. remains on Lasix drip, remains in atrial fibrillation urine output is dropping cough, she is down to 30 mL per hour. Patient remains on 2 L nasal cannula, chest x-ray questioned right pleural effusion more so than left pleural effusion, however the ultrasound of t he chest showed more fluid on the left side, and hardly any fluid on the right side. Still planning to continue diuretics on this patient, will hold on thoracentesis unless the patient shows no improvement with diuresis. She still on Lasix at 10 mg per hour still on cefazolin. Creatinine today is slightly worse at 2.11, patient was doing better when she was on Dobutrex. However this was discontinued by cardiology, mostly because of her atrial fibrillation with RVR. WBC count is 7.2 hemoglobin is 9.7 BUN is 94 creatinine 2.11 Patient was reevaluated today on 07/10/2020, patient is feeling better today, breathing a lot easier, however she is now back on Dobutrex 2.5 mcg/kg/m. she is also on amiodarone, 0.5 mg/m. norepinephrine, 0.03 mcg/kg/m Lasix 10 mg per hour drip and as soon as this was done, her urine output has picked up nicely to 309148 mL per hour. Patient remains in atrial flutter rate of 134/m. Chest x-ray this morning showed worsening right-sided pleural effusion, ultrasound confirmed fairly good sized right-sided pleural effusion the left sided pleural effusion is small and the patient will definitely require a right-sided thoracentesis if she does not improve with diuretics. I have a feeling that the patient may not require thoracentesis if she continues to respond with significant urine output as such. However in the meantime I did transition the patient to heparin and discussed her condition with the track dresser on the case, they may consider cardioversion on this patient, and she will remain anticoagulated, and if we decide to do thoracentesis in the next 48 hours, that could be accomplished by holding the heparin for few hours prior. I did di scontinue her Eliquis for the time being. Considering the patient is now on multiple drips including Dobutrex, norepinephrine, and amiodarone, I did place a right femoral triple-lumen catheter and I also placed a arterial line for close monitoring of the patient. Surprisingly the patient did clinically improve as her urine output picked up nicely with the inotropes and pressors on the case WBC count is 7.5 hemoglobin is 10.2 patient remains on cefazolin for her cellulitis. Renal functioning showed a BUN of 100 creatinine 2.04, and this is again a cardiorenal picture. Will likely improve with the inotropes and pressors her BNP level today is 5820. Progress note dated 07/11/2020. 75-year-old female admitted on July 07 with a diagnosis of CHF. The patient had a recent bypass grafting at [facility] 2 months ago. Chest x-rays reviewed and shows bilateral pleural effusions. Today, we did a right-sided thoracentesis, and 360 mL of yellow fluid was removed. It was sent for anal ysis. We will do the left side tomorrow. The patient's breathing is improved. She still on 2 L nasal cannula. She is on a number of drips. Currently, she is on Lasix drip at 10 mg an hour, heparin drip via weightbase based protocol, amiodarone, and 0.5 mg/m, dobutamine, at 2.5 mcg/kg/m, and norepinephrine at 5 mcg/m. The patient tolerated the thoracentesis well. I told her that we would do the left side tomorrow. Heparin was discontinued a couple hours before the thoracentesis was done. White count 8.8, hemoglobin 10, hematocrit 30.8, and platelet count 251,000. PTT is 49. Sodium 133, potassium 3.6, chlorides 90, CO2 34, anion gap 9, BUN 84, and creatinine 1.51. Chest x-ray shows improvement in the aeration of the right lung following the procedure, without evidence of pneumothorax. Progress note dated 07/12/2020. 75-year-old female, admitted on July 07, with a diagnosis of CHF. The patient had a recent bypass grafting at [facility], some 2 months ago. Yesterday, she had a right-sided thoracentesis and today we attempted a left- sided thoracentesis but only got a minimum amount of fluid, maybe 5 mL or so. Yesterday's fluid was sent for analysis. Yesterday, we were able to remove 360 mL of thin yellow fluid consistent with transudate and probably related to CHF. Currently, the patient is on 2 L nasal cannula. The patient's on heparin via weightbase protocol, Lasix drip at 5 mg an hour, dobutamine at 2.5 g kilogram per minute, and norepinephrine at 3 mcg/m. She's not receiving any IV fluids. She does feel a bit better although she does have a very congested cough. Chest x-ray yesterday after thoracentesis, did not show a pneumothorax and chest x-ray today after thoracentesis also did not show a pneumothorax. White count 8.0, hemoglobin 9.9, hematocrit 29.3, and platelet count 232,000. PTT is 56.8. Sodium 133, potassium 3.2, chlorides 89, CO2 39, anion gap 5, BUN 70, and creatinine 1.15. Chest x-rays from yesterday and today are both reviewed. Progress note dated 07/13/2020. 75-year-old female, admitted back on July 07 with a diagnosis of congestive heart failure. The patient had a recent bypass grafting at [facility], about 2 months ago. A couple days ago, we did a right-sided thoracentesis in yesterday we attempted a left-sided thoracentesis. We were able to remove about 360 mL from the right pleural space and only 5 mL in the left pleural space. Currently, the patient's on 2 L nasal cannula. Her norepinephrine is at 1 mcg/m. Can be turned on. She's not receiving any IV fluids. From my perspective, the patient could be transferred out to the cardiac floor. Her breathing is much improved. Chest x-rays improved. White count 7.6, hemoglobin 9.7, hematocrit 29.1, platelet count 215,000. Sodium 135, potassium 3.4, chlorides 89, CO2 38, anion gap 8, BUN 55, creatinine 1.16. Chest x-ray shows findings of congestive heart failure, with pleural effusions. Progress note dated 07/14/2020. 75-year-old female, admitted back on July 07 with a diagnosis of congestive heart failure. The patient had a recent bypass grafting at [facility]. She had thoracentesis both on the right side and left side. Currently, she is on 2 L nasal cannula. Not receiving any IV fluids. Initially she was on a number different drips but those have all been weaned off. All her medications are oral now. White count 7.4, hemoglobin 10.3, hematocrit 30.5, platelet count 207,000. Sodium 132, potassium 3.7, chlorides 89, CO2 37, anion gap 6, BUN 51, creatinine 1.07. Objective - Vital Signs Vital signs: Vital Signs Temp 97.9 F 07/14/20 04:00 Pulse 110 H 07/14/20 07:40 Resp 20 07/14/20 04:49 BP 111/65 07/14/20 04:00 Pulse Ox 95 07/14/20 04:00 Intake & Output 07/13/20 07/14/20 07/14/20 18:59 06:59 18:59 Intake Total 294.426 275 Output Total 1485 880 0 Balance -1190.574 -605 0 Weight 91.4 kg 90.5 kg Intake: IV 30 A line flush 30 Intake, IV Titration 264.426 Amount Norepinephrine 4 mg In 64.426 Sodium Chloride 0.9% 250 ml @ 0.05 MCG/KG/MIN 18. 764 mls/hr IV .[id number] [facility] Rx#:[id number] Potassium Chloride 20 meq 200 In Water For Injection 1 100ml.bag @ 50 mls/hr IVPB Q2H [facility] Rx#: [id number] Oral 275 Output: Urine 1485 880 0 Other: Voiding Method Indwelling Catheter Indwelling Catheter # Voids 0 ABP, PAP, CO, CI - Last Documented Arterial Blood Pressure 98/92 - Exam No acute distress, oriented 3. Patient with mild conversational dyspnea, currently on 2 L. Saturations 95%. HEENT examination is grossly unremarkable. Neck supple. Full range of motion. No adenopathy thyromegaly or neck vein distention. Cardiovascular examination reveals regular rhythm rate. S1-S2 normal. No S3 or S4. A soft systolic murmur is noted. Heart rate 110 bpm. Lungs reveal diminished breath sounds at the bases. Bibasilar crackles are noted. No rhonchi or wheezes. Breath sounds equal bilaterally. Abdomen soft bowel sounds are heard. No masses or tenderness. Extremities are intact. No cyanosis or clubbing noted. There is bilateral lower extremity edema, 1+. Skin is without rash or lesion. Neurologic examination is brief but nonfocal. - Labs CBC & Chem 7: 07/14/20 03:33 07/14/20 03:33 Labs: Abnormal Lab Results - Last 24 Hours (Table) 07/13/20 07/13/20 07/13/20 Range/Units 12:12 16:56 19:54 RBC (3.80-5.40) m/uL Hgb (11.4-16.0) gm/dL Hct (34.0-46.0) % RDW (11.5-15.5) % Sodium (137-145) mmol/L Chloride (98-107) mmol/L Carbon Dioxide (22-30) mmol/L BUN (7-17) mg/dL Creatinine (0.52-1.04) mg/dL Glucose (74-99) mg/dL POC Glucose (mg/dL) 223 H 183 H 135 H (75-99) mg/dL Alkaline Phosphatase (38-126) U/L C-Reactive Protein (<1.0) mg/dL Total Protein (6.3-8.2) g/dL Albumin (3.5-5.0) g/dL 07/14/20 07/14/20 07/14/20 Range/Units 03:25 03:33 03:33 RBC 3.42 L (3.80-5.40) m/uL Hgb 10.3 L (11.4-16.0) gm/dL Hct 30.5 L (34.0-46.0) % RDW 16.8 H (11.5-15.5) % Sodium 132 L (137-145) mmol/L Chloride 89 L (98-107) mmol/L Carbon Dioxide 37 H (22-30) mmol/L BUN 51 H (7-17) mg/dL Creatinine 1.07 H (0.52-1.04) mg/dL Glucose 122 H (74-99) mg/dL POC Glucose (mg/dL) 137 H (75-99) mg/dL Alkaline Phosphatase 183 H (38-126) U/L C-Reactive Protein 5.7 H (<1.0) mg/dL Total Protein 6.0 L (6.3-8.2) g/dL Albumin 3.1 L (3.5-5.0) g/dL 07/14/20 Range/Units 06:36 RBC (3.80-5.40) m/uL Hgb (11.4-16.0) gm/dL Hct (34.0-46.0) % RDW (11.5-15.5) % Sodium (137-145) mmol/L Chloride (98-107) mmol/L Carbon Dioxide (22-30) mmol/L BUN (7-17) mg/dL Creatinine (0.52-1.04) mg/dL Glucose (74-99) mg/dL POC Glucose (mg/dL) 144 H (75-99) mg/dL Alkaline Phosphatase (38-126) U/L C-Reactive Protein (<1.0) mg/dL Total Protein (6.3-8.2) g/dL Albumin (3.5-5.0) g/dL Microbiology - Last 24 Hours (Table) 07/11/20 10:00 Gram Stain - Preliminary Pleural Fluid Body Fluid Culture - Preliminary 07/12/20 15:31 Gram Stain - Preliminary Sputum Sputum Culture - Preliminary Gram Neg Bacilli Assessment and Plan Assessment: Acute on chronic systolic congestive heart failure. Bilateral pleural effusions, status post right-sided thoracentesis 07/11/2020, with left-sided thoracentesis on 07/12/2020. History of CAD, and recent CABG at [facility]. Poorly-controlled atrial flutter. Acute kidney injury. Type 2 diabetes mellitus. Questionable history of underlying COPD. Acute cellulitis of left lower extremity. Plan: Plan dated 07/11/2020. The patient underwent right-sided thoracentesis today. 360 mL of yellow, thin fluid was removed, likely related to underlying CHF. The fluid was sent for analysis including microbiology, cytology, and chemistry. The left side will be drained tomorrow. The patient remains on a number of different drips including Lasix, heparin, amiodarone, dobutamine, and norepinephrine. The patient did have a bypass grafting 2 months ago at [facility]. Most of the patient's issues are cardiac in nature. We'll continue to follow for the time being. The patient continues on antibiotics for the left leg cellulitis. Microbiology is currently negative. The chest x-ray after thoracentesis showed improved aeration of the right lung, without evidence of pneumothorax. Plan dated 07/12/2020. The patient seemed be doing a bit better. The patient did have a left-sided thoracentesis today, but only about 5 mL of fluid was retrieved. It was discarded. Yesterday's fluid was sent for analysis. Labs and x-rays are reviewed. There wasn't evidence of any pneumothorax after either thoracentesis. The fluid from yesterday was hazy in color, with a glucose of 155, a total protein at 2.24 g, and an LDH of 93. This is consistent with a transudate. This likely relates to her underlying CHF. We will continue to follow and make recommendations. Apparently her Lasix drip is been converted to Lasix 40 mg IV push every 8 hours, and dobutamine has been turned off. We will continue to fo llow make recommendations were appropriate. Plan dated 07/13/2020. The patient's doing much better. She's only on 2 L nasal cannula. She is on 1 mcg/m of norepinephrine which can be discontinued. From my perspective, if she stays up and norepinephrine, she can be transferred out to the cardiac floor. The fluid analysis shows transudate from the right side. Small amount of fluid from the left side was not sent for analysis. Additional recommendations and suggestions are forthcoming. Additional recommendations and suggestions are forthcoming. We'll continue to follow this patient for the time being. Plan dated 07/14/2020. The patient's doing much better. The patient is only on 2 L. She's not receiving any IV fluids. The patient can be transferred to the cardiac floor. No additional recommendations are made. Prognosis is guarded. We'll see only as needed in the future. Respiratory status and hemodynamics status are both stable this time. Time with Patient: Less than 30
--- NOTE | 2020-07-14 11:54 | P.PN ---
Subjective Progress Note Date: 07/14/20 HISTORY OF PRESENT ILLNESS: This is a pleasant 75-year-old female past medical history significant for ischemic cardiomyopathy, coronary artery disease status post bypass grafting, valvular heart disease status post mitral ring annuloplasty, chronic systolic heart failure, paroxysmal atrial fibrillation on long-term anticoagulation, hypertension, diabetes mellitus, COPD and dyslipidemia. She initially underwent bypass grafting and mitral valve repair approximately 2 months ago and [facility]. She established in town with Dr. Rodrigues June 22. We have been asked to see in consultation for heart failure. She presented to the hospital with symptoms of shortness of breath, cough and lower extremity edema. She was initially admitted to [facility] April 22 where she was found to have an ejection fraction of less than 15%. She underwent cardiac catheterization which showed severe triple vessel disease and underwent two-vessel bypass grafting with repair for mitral valve and maze procedure. Repeat echocardiogram prior to discharge revealed an ejection fraction of 45%. She did go to inpatient rehab shortly thereafter and has since been at home with home care. EKG on arrival revealed atrial tachycardia with a heart rate in the 130s. She was initiated on dobutamine and IV Lasix. She is seen and examined sitting up in bed in no acute distress. Her heart continues to be tachycardic in the 130s. It appears regular but is difficult to differentiate possible underlying atrial flutter. Repeat echocardiogram on this admission revealed ejection fraction of less than 20%, severe global hypokinesia, large pleural effusion and mild to moderate mitral regurgitation. Chest x-ray this morning reveals moderate bilateral pleural effusions improved from previous exam. Venous duplex negative for DVT. Laboratory data reviewed, WBC 7.8, hemoglobin 9.8, platelets 228, sodium 131, potassium 4.8, creatinine 2.01, magnesium 3.1, troponin 0.0 17, TSH 4.03 and and proBNP 4330. Crit daily cardiac medications as recorded in Dr. Rodrigues's office on June 22 reveal aspirin 81 mg daily, atorvastatin 80 mg daily, Bumex 1 mg daily, Coreg 25 mg twice a day, Eliquis 5 mg twice a day, and entresto 24/26 mg twice a day and daily magnesium supplementation. 07/09 Patient seen and examined. Patient remains with heart rates predominantly right at 128, occasionally lower with amiodarone and Cardizem were appears to be possible atrial flutter versus atrial tachycardia. She states she feels somewhat more tired than yesterday. Still complains of shortness breath. She previously did have good urine output however has decreased. Her blood pressures decreased into the 70s over 50s with a map in the low 60s. She had previously been on dobutamine to begin with however I was not on any vasopressors or inotropes. Echocardiogram revealed severely decreased ejection fraction 20% with [id number] mitral regurgitation. She is sitting upright in bed. Her creatinine mildly increased at 2.1 today. She denies any chest pain or pressure. She is still coughing. Patient and son at bedside admit that she has been tachycardic for approximately the last 3 weeks, was noted to be tachycardic when home health care came a few times. She was transitioned over to IV amiodarone earlier in the day without much improvement. 07/10 Patient seen and examined. Patient states she feels somewhat better compared to yesterday. Maintained on amiodarone drip, she was placed on levophed and dobutamine drip yesterday and has had improved urine outputs this morning up to 300-400 mL an hour on the Lasix drip. She denies any chest pain or pressure. Remains in the atrial tachycardia, atrial flutter at 130 bpm. 07/11/2020 Patient examined this morning in the intensive care unit. Patient remains on lasix drip, amio, dobutamine, and levophed. She continues to have good urine output. Eliquis remains on hold. Patient is on IV heparin for possible thoracentesis. Patient remains tachycardic with a heart rate in the 120s. 07/12/2020 Patient examined this morning in the ICU. Patient states her breathing has improved today. She underwent left thoracentesis with Dr. Pickens and is scheduled to have right thoracentesis performed today. She is on IV heparin, IV dobutatmine, Levophed and lasix drip. She denies chest pain or pressure. 07/13/2020 Patient examined this morning in the ICU. Patient is s/p bilateral thoracentesis with 360cc removed from the right and 5cc removed from the left. Patient was resumed on her Eliquis yesterday. She remains on IV lasix per nephrology. Vasopressors have been weaned off this morning. Telemetry reveals afib with fairly controlled ventricular rate of 80-110. 07/14/2020 Patient examined this morning in the ICU. Patient is sitting up in the chair. She denies chest pain or pressure. She remains in atrial fibrillation with heart rate ranging from 90-115. Blood pressures are on the lower side of normal with SBP in the 90-100s. Patient was changed to IV lasix 60mg IV q 8 hours per internal medicine. PHYSICAL EXAM: VITAL SIGNS: Reviewed. GENERAL: Well-developed in no acute distress. NECK: Supple. No JVD or thyromegaly LUNGS: Respirations even and unlabored. Lungs diminished bilaterally HEART: Tachycardic. Irregular rate and rhythm. S1 and S2 heard. Systolic murmur noted. EXTREMITIES: Normal range of motion. No clubbing or cyanosis. Peripheral pulses intact. 1+ bilateral lower extremity edema. Dressing to left leg noted. ASSESSMENT: Acute on chronic systolic heart failure, EF 20% Cardiogenic shock Acute kidney injury Coronary artery disease status post bypass grafting Status post mitral ring annuloplasty Paroxysmal atrial fibrillation on long-term anticoagulation Atrial tachycardia, difficult to discern possible atrial flutter at this rate Hypertension Dyslipidemia Diabetes mellitus COPD Bilateral pleural effusions, s/p thoracentesis PLAN: Continue oral amio Continue metoprolol to 25mg TID. Continue telemetry monitoring. Continue lipitor and eliquis Patient placed on IV lasix 60mg IV q8 hours per internal medicine Monitor I&O Patient may transfer to with telemetry Further recommendations pending patient course Nurse practitioner note has been reviewed by physician. Signing provider agrees with the documented findings, assessment, and plan of care. Objective - Vital Signs Vital signs: Vital Signs Temp 98.2 F 07/14/20 08:00 Pulse 102 H 07/14/20 11:26 Resp 20 07/14/20 08:00 BP 114/62 07/14/20 08:00 Pulse Ox 95 07/14/20 04:00 Intake & Output 07/13/20 07/14/20 07/14/20 18:59 06:59 18:59 Intake Total 294.426 275 240 Output Total 1485 880 1 Balance -1190.574 -605 239 Weight 91.4 kg 90.5 kg Intake: IV 30 A line flush 30 Intake, IV Titration 264.426 Amount Norepinephrine 4 mg In 64.426 Sodium Chloride 0.9% 250 ml @ 0.05 MCG/KG/MIN 18. 764 mls/hr IV .[id number] [facility] Rx#:[id number] Potassium Chloride 20 meq 200 In Water For Injection 1 100ml.bag @ 50 mls/hr IVPB Q2H [facility] Rx#: [id number] Oral 275 240 Output: Urine 1485 880 0 Stool 1 Other: Voiding Method Indwelling Catheter Indwelling Catheter Indwelling Catheter # Voids 1 ABP, PAP, CO, CI - Last Documented Arterial Blood Pressure 98/92 - Labs CBC & Chem 7: 07/14/20 03:33 07/14/20 03:33 Labs: Abnormal Lab Results - Last 24 Hours (Table) 07/13/20 07/13/20 07/13/20 Range/Units 12:12 16:56 19:54 RBC (3.80-5.40) m/uL Hgb (11.4-16.0) gm/dL Hct (34.0-46.0) % RDW (11.5-15.5) % Sodium (137-145) mmol/L Chloride (98-107) mmol/L Carbon Dioxide (22-30) mmol/L BUN (7-17) mg/dL Creatinine (0.52-1.04) mg/dL Glucose (74-99) mg/dL POC Glucose (mg/dL) 223 H 183 H 135 H (75-99) mg/dL Alkaline Phosphatase (38-126) U/L C-Reactive Protein (<1.0) mg/dL Total Protein (6.3-8.2) g/dL Albumin (3.5-5.0) g/dL 07/14/20 07/14/20 07/14/20 Range/Units 03:25 03:33 03:33 RBC 3.42 L (3.80-5.40) m/uL Hgb 10.3 L (11.4-16.0) gm/dL Hct 30.5 L (34.0-46.0) % RDW 16.8 H (11.5-15.5) % Sodium 132 L (137-145) mmol/L Chloride 89 L (98-107) mmol/L Carbon Dioxide 37 H (22-30) mmol/L BUN 51 H (7-17) mg/dL Creatinine 1.07 H (0.52-1.04) mg/dL Glucose 122 H (74-99) mg/dL POC Glucose (mg/dL) 137 H (75-99) mg/dL Alkaline Phosphatase 183 H (38-126) U/L C-Reactive Protein 5.7 H (<1.0) mg/dL Total Protein 6.0 L (6.3-8.2) g/dL Albumin 3.1 L (3.5-5.0) g/dL 07/14/20 Range/Units 06:36 RBC (3.80-5.40) m/uL Hgb (11.4-16.0) gm/dL Hct (34.0-46.0) % RDW (11.5-15.5) % Sodium (137-145) mmol/L Chloride (98-107) mmol/L Carbon Dioxide (22-30) mmol/L BUN (7-17) mg/dL Creatinine (0.52-1.04) mg/dL Glucose (74-99) mg/dL POC Glucose (mg/dL) 144 H (75-99) mg/dL Alkaline Phosphatase (38-126) U/L C-Reactive Protein (<1.0) mg/dL Total Protein (6.3-8.2) g/dL Albumin (3.5-5.0) g/dL Microbiology - Last 24 Hours (Table) 07/12/20 15:31 Gram Stain - Final Sputum Sputum Culture - Final Citrobacter freundii 07/11/20 10:00 Gram Stain - Preliminary Pleural Fluid Body Fluid Culture - Preliminary
[2020-07-14 11:58] LABS: Glucose,Whole Blood 154 mg/dL (75-99)
--- NOTE | 2020-07-14 12:41 | PN ---
PROGRESS NOTE Patient is seen for followup for acute kidney injury and volume overload. The patient is being transferred out of the ICU. She is currently comfortable, awake, not in any acute distress. PHYSICAL EXAMINATION: Blood pressure was 114/62, heart rate 110 per minute. She has had about 2.3 L of urine output for 24 hours. The patient still continues to have significant edema. The legs have about 3+ edema bilaterally. Left leg ulcer is currently wrapped. SURVEYOR GEOPHYSICAL PROSPECTING exam grossly intact. Examination of the lungs done showed basal crackles as per hospitalist. The Mcgregor catheter has been discontinued. LABS: Labs show sodium 132, potassium 3.7, chloride 89. CO2 is 37, BUN 51, creatinine 1.07, Hemoglobin 10.3. ASSESSMENT: 1. Acute kidney injury, cardiorenal, currently improved. 2. Volume overload slowly improving. The patient remains with significant edema of lower extremities. I will change the IV back to IV Lasix for another 24-48 hours. 3. Metabolic alkalosis, stable and improved since discontinuation of Lasix drip. 4. Chronic atrial fibrillation maintained on Eliquis. 5. Hypokalemia secondary to diuresis, status post replacement. 6. Cardiomyopathy, ejection fraction less than 20%. 7. Status post recent coronary artery bypass surgery. 8. Hypervolemic hyponatremia, currently improved. PLAN: Maintain Lasix 60 IV q.8 hours for another 24 to 48 hours. Repeat labs in a.m. MMODL / IJN: [id number] /
[2020-07-14] MEDS ORDERED: CEFEPIME 2 GM in SODIUM CHLORIDE 0.9% 100 ML IVPB ONE (14:00)
--- NOTE | 2020-07-14 14:36 | P.PN ---
Subjective Progress Note Date: 07/14/20 (delayed charting seen at 1030) Principal diagnosis: shortness of breath Patient is a 75-year-old female with a history of congestive heart failure, diabetes Type 2 insulin requiring, hypertension who presented to the emergency department with complaints of worsening shortness of breath for the last 4 weeks. Apparently patient had 2 vessel bypass with mitral valve repair at [facility] in April 2018. She underwent extensive evaluation in the emergency department including a chest x-ray which demonstrated large bilateral pleural effusions right greater than left recommending thoracentesis. Venous Doppler was completed which showed no evidence of DVT in the left lower extremity. EKG appeared to be consistent with accelerated junctional rhythm. Laboratory analysis showed hemoglobin of 10.5, creatinine 2. In the ER she was started on a furosemide drip and arrangements are made for admission to the ICU. Cardiology and pulm consulted. She was started on dobutamine for cardiogenic shock. She became tachycardiac, they attempted Cardizem bolus which was unsuccessful and she was started on oral amio due to concerns for a flutter. Cardio stopped the dobutmine infusion due to A fib with RVR. She did not respond to oral amio and was started on amio gtt. She became hypotensive and was started on levo and dobutamined. Art line and TLC placed on 07/10. Eliquis was transitioned to heparin gtt for thoracentesis. She underwent right sided tho racentesis on 07/11. On 07/12 dobutamine was stopped and Lasix was transitioned to IVP. She was able to come off Levo on 07/13. She continued with lasix and her breathing improved. Patient seen and examined at bedside. No chest pain, breathing so much better, no nausea, no vomiting, feeling better everyday. General: Ill-appearing, no distress, appears at stated age, obese Derm: warm, dry Head: atraumatic, normocephalic, symmetric Eyes: EOMI, no lid lag, anicteric sclera Mouth: no lip lesion, mucus membranes moist Cardiovascular: S1S2 reg, no murmur, positive posterior tibial pulse bilateral, Lungs: [Coarse breath sounds bilateral, no accessory muscle use Abdominal: soft, nontender to palpation, no guarding, no appreciable organomegaly Ext: no gross muscle atrophy, 4+ edema, no contractures Neuro: CN II-XI grossly intact, no focal neuro deficits Psych: Alert, oriented, appropriate affect Acute exacerbation of systolic congestive heart failure with ejection fraction <20% and large pleural effusions, coronary artery disease with recent 2 vessel bypass and mitral valve replacement - hold entresto - Lasix IVP 60 q8- d/w nephro - Cadio and Pulm recs - lopressor - strict I and O daily weight -s/p Right sided thoracentesis on 07/11 Acute kidney injury versus chronic kidney disease of unknown baseline creatinine, improving - due to cardiorenal syndrome - strict I and O - avoid additional nephrotoxic agents - Hold Entresto Hyponatremia secondary to fluid overload - diuresis - recheck sodium level in AM Fe deficiency anemia - start oral iron - follow CBC Left lower extremity wound infection - ID recs no need to systemic antibotics, santyl Asthma - resume spiriva, B agonist and inhaled steroid DM 2, insulin requiring with frequent hypoglycemia - levemir - SSI - A1C 6.4 - Follow BS P. A fib with RVR - amiomukeshquis - follow HR - metoprolol Stage II pressure ulcer of the scarum, nonhealing ulcer of left lower extremity -Wound care recs -Outpatient follow-up with wound care transfer to DVT prophylaxis: Ray Discussed with: Patient, nursing, cardio Anticipated discharge: 1-[address]: home A total of 45 minutes was spent on the care of this complex patient more than 50% of the time was spent in counseling and care coordination. Objective - Vital Signs Vital signs: Vital Signs Temp 98.0 F 07/14/20 12:00 Pulse 105 H 07/14/20 12:00 Resp 18 07/14/20 12:00 BP 114/70 07/14/20 12:00 Pulse Ox 95 07/14/20 04:00 Intake & Output 07/13/20 07/14/20 07/14/20 18:59 06:59 18:59 Intake Total 294.426 275 240 Output Total 1485 880 1 Balance -1190.574 -605 239 Weight 91.4 kg 90.5 kg Intake: IV 30 A line flush 30 Intake, IV Titration 264.426 Amount Norepinephrine 4 mg In 64.426 Sodium Chloride 0.9% 250 ml @ 0.05 MCG/KG/MIN 18. 764 mls/hr IV .[id number] SASHA Rx#:[id number] Potassium Chloride 20 meq 200 In Water For Injection 1 100ml.bag @ 50 mls/hr IVPB Q2H SASHA Rx#: [id number] Oral 275 240 Output: Urine 1485 880 0 Stool 1 Other: Voiding Method Indwelling Catheter Indwelling Catheter Indwelling Catheter # Voids 1 ABP, PAP, CO, CI - Last Documented Arterial Blood Pressure 98/92 - Labs CBC & Chem 7: 07/14/20 03:33 07/14/20 03:33 Labs: Abnormal Lab Results - Last 24 Hours (Table) 07/13/20 07/13/20 07/14/20 Range/Units 16:56 19:54 03:25 RBC (3.80-5.40) m/uL Hgb (11.4-16.0) gm/dL Hct (34.0-46.0) % RDW (11.5-15.5) % Sodium (137-145) mmol/L Chloride (98-107) mmol/L Carbon Dioxide (22-30) mmol/L BUN (7-17) mg/dL Creatinine (0.52-1.04) mg/dL Glucose (74-99) mg/dL POC Glucose (mg/dL) 183 H 135 H 137 H (75-99) mg/dL Alkaline Phosphatase (38-126) U/L C-Reactive Protein (<1.0) mg/dL Total Protein (6.3-8.2) g/dL Albumin (3.5-5.0) g/dL 07/14/20 07/14/20 07/14/20 Range/Units 03:33 03:33 06:36 RBC 3.42 L (3.80-5.40) m/uL Hgb 10.3 L (11.4-16.0) gm/dL Hct 30.5 L (34.0-46.0) % RDW 16.8 H (11.5-15.5) % Sodium 132 L (137-145) mmol/L Chloride 89 L (98-107) mmol/L Carbon Dioxide 37 H (22-30) mmol/L BUN 51 H (7-17) mg/dL Creatinine 1.07 H (0.52-1.04) mg/dL Glucose 122 H (74-99) mg/dL POC Glucose (mg/dL) 144 H (75-99) mg/dL Alkaline Phosphatase 183 H (38-126) U/L C-Reactive Protein 5.7 H (<1.0) mg/dL Total Protein 6.0 L (6.3-8.2) g/dL Albumin 3.1 L (3.5-5.0) g/dL 07/14/20 Range/Units 11:57 RBC (3.80-5.40) m/uL Hgb (11.4-16.0) gm/dL Hct (34.0-46.0) % RDW (11.5-15.5) % Sodium (137-145) mmol/L Chloride (98-107) mmol/L Carbon Dioxide (22-30) mmol/L BUN (7-17) mg/dL Creatinine (0.52-1.04) mg/dL Glucose (74-99) mg/dL POC Glucose (mg/dL) 154 H (75-99) mg/dL Alkaline Phosphatase (38-126) U/L C-Reactive Protein (<1.0) mg/dL Total Protein (6.3-8.2) g/dL Albumin (3.5-5.0) g/dL Microbiology - Last 24 Hours (Table) 07/12/20 15:31 Gram Stain - Final Sputum Sputum Culture - Final Citrobacter freundii 07/11/20 10:00 Gram Stain - Preliminary Pleural Fluid Body Fluid Culture - Preliminary
[2020-07-14] MEDS: ACETAMINOPHEN TAB 325 MG TAB PO PRN (14:52)
[2020-07-14 15:57] LABS: Glucose,Whole Blood 254 mg/dL (75-99)
[2020-07-14] MEDS ORDERED: FUROSEMIDE 10 MG/ML 4 ML VIAL IV SCH (16:00)
--- NOTE | 2020-07-14 16:32 | PN ---
PROGRESS NOTE DATE OF SERVICE: 07/15/2020 REASON FOR FOLLOWUP: 1. Left leg wound. 2. Positive sputum culture and a question of pneumonia. INTERVAL HISTORY: The patient is afebrile. The patient is breathing comfortably. The patient denies having any chest pain or shortness of breath. She continues to have a cough with occasional sputum. No abdominal pain. Still has pain to the left medial leg wound area, but no worsening. PHYSICAL EXAMINATION: Blood pressure is 114/70, pulse of 105, temperature 98. General description is an elderly female up in the chair in no distress. RESPIRATORY SYSTEM: Unlabored breathing. Coarse breath sounds bilaterally. No wheeze. HEART: S1, S2. Regular rate and rhythm. ABDOMEN: Soft. No tenderness. Left medial leg surrounding redness and no drainage. LABS: Hemoglobin is 10.3, white count 7.4. CRP is 5.7. Pleural cultures are currently pending. Sputum is showing Citrobacter. DIAGNOSTIC IMPRESSION AND PLAN: 1. Patient with a left medial leg wound with no evidence of any secondary cellulitis. Positive culture; possible colonization. Local care to continue with Santyl followed by moist dressing to be changed daily. 2. Patient with positive sputum with Citrobacter. Concern for possible Colonization/pneumonia. Procalcitonin is pending. Will empirically add cefepime and monitor clinical course closely. MMODL / IJN: [id number] / MTDD
[2020-07-14] MEDS: FUROSEMIDE 10 MG/ML 10 ML VIAL IV SCH (16:37)
[2020-07-14] MEDS: PANTOPRAZOLE 40 MG TABLET PO SCH (16:41)
[2020-07-14] MEDS: ATORVASTATIN 80 MG TAB PO SCH (20:45)
[2020-07-15] MEDS: FUROSEMIDE 10 MG/ML 10 ML VIAL IV SCH ×2 (02:55→10:45)
[2020-07-15] MEDS: CEFEPIME 2 GM in SODIUM CHLORIDE 0.9% 100 ML IVPB SCH ×2 (03:10→14:34)
[2020-07-15] MEDS: ACETAMINOPHEN TAB 325 MG TAB PO PRN (04:10)
[2020-07-15 04:21] LABS: Anisocytosis Slight; HCT 30.7 % (34.0-46.0); HGB 10.1 gm/dL (11.4-16.0); Hypochromasia Slight; MCH 29.3 pg (25.0-35.0); MCHC 32.9 g/dL (31.0-37.0); MCV 89.1 fL (80.0-100.0); Mean Platelet Volume 7.1; Platelet Count 224 k/uL (150-450); RBC 3.45 m/uL (3.80-5.40); RDW 16.9 % (11.5-15.5); WBC 8.3 k/uL (3.8-10.6)
[2020-07-15 04:38] LABS: Calcium 8.7 mg/dL (8.4-10.2); Magnesium 1.7 mg/dL (1.6-2.3); Potassium 3.8 mmol/L (3.5-5.1)
[2020-07-15] MEDS ORDERED: POTASSIUM CHLORIDE ER 20 MEQ TAB.ER PO SCH (06:00)
[2020-07-15 06:21] LABS: Glucose,Whole Blood 145 mg/dL (75-99)
[2020-07-15] MEDS: MAGNESIUM SULFATE-D5W PMX 1 GM in DEXTROSE/WATER 1 100ML.BAG IVPB SCH ×2 (06:25→08:25)
[2020-07-15] MEDS: FERROUS SULFATE 325 MG TAB PO SCH ×2 (06:25→18:22)
[2020-07-15] MEDS: INSULIN ASPART (NovoLOG) 100 UNIT/ML VIAL SQ SCH ×3 (06:26→18:22)
[2020-07-15] MEDS: INSULIN DETEMIR (LEVEMIR) 100 UNIT/ML SYR SQ SCH (06:26)
[2020-07-15] MEDS: SYMBICORT 80-4.5 MCG INHALER INHALATION SCH ×2 (07:11→20:15)
[2020-07-15] MEDS: IPRATROPIUM-ALBUTEROL 3 ML NEB INHALATION SCH ×3 (07:11→20:15)
[2020-07-15] MEDS: ALPRAZolam 0.5 MG TAB PO PRN ×3 (08:26→23:22)
[2020-07-15] MEDS: LORATADINE 10 MG TAB PO SCH (08:26)
[2020-07-15] MEDS: METOPROLOL TARTRATE 25 MG TAB PO SCH (08:26)
[2020-07-15] MEDS: APIXABAN 5 MG TAB PO SCH ×2 (08:26→20:43)
[2020-07-15] MEDS: AMIODARONE 200 MG TAB PO SCH ×2 (08:27→20:43)
--- NOTE | 2020-07-15 08:30 | XR ---
EXAMINATION TYPE: XR chest 1V portable DATE OF EXAM: 07/15/2020 COMPARISON: Chest x-ray 07/13/2020 HISTORY: Shortness of breath TECHNIQUE: Single frontal view of the chest is obtained. FINDINGS: Patient is post median sternotomy. Heart remains enlarged. Interstitium is increased. Biba silar increased density excuse the hemidiaphragms, this blunting the costophrenic angles. Aorta is de nse. Cardiac valve replacement change is noted. IMPRESSION: Findings are similar to prior exam, correlate for congestive heart failure with pleural effusions.
[2020-07-15] MEDS: FLUTICASONE 50MCG/SPRAY NASAL 16GM EA NOSTRIL SCH (08:31)
[2020-07-15] MEDS ORDERED: METOPROLOL TARTRATE 25 MG TAB PO STA (09:27)
--- NOTE | 2020-07-15 10:32 | P.PN ---
Subjective Progress Note Date: 07/15/20 HISTORY OF PRESENT ILLNESS: This is a pleasant 75-year-old female past medical history significant for ischemic cardiomyopathy, coronary artery disease status post bypass grafting, valvular heart disease status post mitral ring annuloplasty, chronic systolic heart failure, paroxysmal atrial fibrillation on long-term anticoagulation, hypertension, diabetes mellitus, COPD and dyslipidemia. She initially underwent bypass grafting and mitral valve repair approximately 2 months ago and [facility]. She established in town with Dr. Rodrigues June 22. We have been asked to see in consultation for heart failure. She presented to the hospital with symptoms of shortness of breath, cough and lower extremity edema. She was initially admitted to [facility] April 22 where she was found to have an ejection fraction of less than 15%. She underwent cardiac catheterization which showed severe triple vessel disease and underwent two-vessel bypass grafting with repair for mitral valve and maze procedure. Repeat echocardiogram prior to discharge revealed an ejection fraction of 45%. She did go to inpatient rehab shortly thereafter and has since been at home with home care. EKG on arrival revealed atrial tachycardia with a heart rate in the 130s. She was initiated on dobutamine and IV Lasix. She is seen and examined sitting up in bed in no acute distress. Her heart continues to be tachycardic in the 130s. It appears regular but is difficult to differentiate possible underlying atrial flutter. Repeat echocardiogram on this admission revealed ejection fraction of less than 20%, severe global hypokinesia, large pleural effusion and mild to moderate mitral regurgitation. Chest x-ray this morning reveals moderate bilateral pleural effusions improved from previous exam. Venous duplex negative for DVT. Laboratory data reviewed, WBC 7.8, hemoglobin 9.8, platelets 228, sodium 131, potassium 4.8, creatinine 2.01, magnesium 3.1, troponin 0.0 17, TSH 4.03 and and proBNP 4330. Crit daily cardiac medications as recorded in Dr. Rodrigues's office on June 22 reveal aspirin 81 mg daily, atorvastatin 80 mg daily, Bumex 1 mg daily, Coreg 25 mg twice a day, Eliquis 5 mg twice a day, and entresto 24/26 mg twice a day and daily magnesium supplementation. 07/09 Patient seen and examined. Patient remains with heart rates predominantly right at 128, occasionally lower with amiodarone and Cardizem were appears to be possible atrial flutter versus atrial tachycardia. She states she feels somewhat more tired than yesterday. Still complains of shortness breath. She previously did have good urine output however has decreased. Her blood pressures decreased into the 70s over 50s with a map in the low 60s. She had previously been on dobutamine to begin with however I was not on any vasopressors or inotropes. Echocardiogram revealed severely decreased ejection fraction 20% with [id number] mitral regurgitation. She is sitting upright in bed. Her creatinine mildly increased at 2.1 today. She denies any chest pain or pressure. She is still coughing. Patient and son at bedside admit that she has been tachycardic for approximately the last 3 weeks, was noted to be tachycardic when home health care came a few times. She was transitioned over to IV amiodarone earlier in the day without much improvement. 07/10 Patient seen and examined. Patient states she feels somewhat better compared to yesterday. Maintained on amiodarone drip, she was placed on levophed and dobutamine drip yesterday and has had improved urine outputs this morning up to 300-400 mL an hour on the Lasix drip. She denies any chest pain or pressure. Remains in the atrial tachycardia, atrial flutter at 130 bpm. 07/11/2020 Patient examined this morning in the intensive care unit. Patient remains on lasix drip, amio, dobutamine, and levophed. She continues to have good urine output. Eliquis remains on hold. Patient is on IV heparin for possible thoracentesis. Patient remains tachycardic with a heart rate in the 120s. 07/12/2020 Patient examined this morning in the ICU. Patient states her breathing has improved today. She underwent left thoracentesis with Dr. Pickens and is scheduled to have right thoracentesis performed today. She is on IV heparin, IV dobutatmine, Levophed and lasix drip. She denies chest pain or pressure. 07/13/2020 Patient examined this morning in the ICU. Patient is s/p bilateral thoracentesis with 360cc removed from the right and 5cc removed from the left. Patient was resumed on her Eliquis yesterday. She remains on IV lasix per nephrology. Vasopressors have been weaned off this morning. Telemetry reveals afib with fairly controlled ventricular rate of 80-110. 07/14/2020 Patient examined this morning in the ICU. Patient is sitting up in the chair. She denies chest pain or pressure. She remains in atrial fibrillation with heart rate ranging from 90-115. Blood pressures are on the lower side of normal with SBP in the 90-100s. Patient was changed to IV lasix 60mg IV q 8 hours per internal medicine. 07/15/2020 Patient examined this morning in the ICU. Patient is sitting up in the chair. She denies chest pain or pressure. Denies shortness of breath. Lower extremity edema has improved. She is on IV lasix 60mg IV q8 hours. Telemetry reveals atrial fibrillation with a heart rate in the low 100s. BUN 45. Creatinine 1.01. PHYSICAL EXAM: VITAL SIGNS: Reviewed. GENERAL: Well-developed in no acute distress. NECK: Supple. No JVD or thyromegaly LUNGS: Respirations even and unlabored. Lungs diminished bilaterally HEART: Tachycardic. Irregular rate and rhythm. S1 and S2 heard. Systolic murmur noted. EXTREMITIES: Normal range of motion. No clubbing or cyanosis. Peripheral pulses intact. 1+ bilateral lower extremity edema. Dressing to left leg noted. ASSESSMENT: Acute on chronic systolic heart failure, EF 20% Cardiogenic shock Acute kidney injury Coronary artery disease status post bypass grafting Status post mitral ring annuloplasty Paroxysmal atrial fibrillation on long-term anticoagulation Atrial tachycardia, difficult to discern possible atrial flutter at this rate Hypertension Dyslipidemia Diabetes mellitus COPD Bilateral pleural effusions, s/p thoracentesis PLAN: Continue oral amio. Decrease dose to 200mg BID on 07/18/2020 Continue telemetry monitoring Change metoprolol to 50mg BID Continue lipitor and eliquis Discontinue IV lasix. Patient on bumex at home. Change to oral lasix 60mg PO BID per Dr. Douglass. Monitor I&O Patient may transfer to with telemetry Further recommendations pending patient course Nurse practitioner note has been reviewed by physician. Signing provider agrees with the documented findings, assessment, and plan of care. Objective - Vital Signs Vital signs: Vital Signs Temp 97.5 F L 07/15/20 08:00 Pulse 121 H 07/15/20 08:00 Resp 24 07/15/20 08:00 BP 116/64 07/15/20 08:00 Pulse Ox 97 07/15/20 08:00 Intake & Output 07/14/20 07/15/20 07/15/20 18:59 06:59 18:59 Intake Total 240 Output Total 1 Balance 239 Weight 90.3 kg Intake: Oral 240 Output: Urine 0 Stool 1 Other: Voiding Method Toilet Toilet # Voids 1 ABP, PAP, CO, CI - Last Documented Arterial Blood Pressure 98/92 - Labs CBC & Chem 7: 07/15/20 03:54 07/15/20 03:54 Labs: Abnormal Lab Results - Last 24 Hours (Table) 07/14/20 07/14/20 07/14/20 Range/Units 03:33 11:57 15:55 RBC (3.80-5.40) m/uL Hgb (11.4-16.0) gm/dL Hct (34.0-46.0) % RDW (11.5-15.5) % Sodium (137-145) mmol/L Chloride (98-107) mmol/L Carbon Dioxide (22-30) mmol/L BUN (7-17) mg/dL Glucose (74-99) mg/dL POC Glucose (mg/dL) 154 H 254 H (75-99) mg/dL Procalcitonin 0.11 H (0.02-0.09) ng/mL 07/15/20 07/15/20 07/15/20 Range/Units 03:54 03:54 06:20 RBC 3.45 L (3.80-5.40) m/uL Hgb 10.1 L (11.4-16.0) gm/dL Hct 30.7 L (34.0-46.0) % RDW 16.9 H (11.5-15.5) % Sodium 133 L (137-145) mmol/L Chloride 89 L (98-107) mmol/L Carbon Dioxide 39 H (22-30) mmol/L BUN 45 H (7-17) mg/dL Glucose 128 H (74-99) mg/dL POC Glucose (mg/dL) 145 H (75-99) mg/dL Procalcitonin (0.02-0.09) ng/mL Microbiology - Last 24 Hours (Table) 07/11/20 10:00 Gram Stain - Preliminary Pleural Fluid Body Fluid Culture - Preliminary 07/12/20 15:31 Gram Stain - Final Sputum Sputum Culture - Final Citrobacter freundii
--- NOTE | 2020-07-15 10:32 | P.PN ---
Subjective Progress Note Date: 07/15/20 Principal diagnosis: Congestive heart failure. This is a 75-year-old female with history of multiple medical problems including type 2 diabetes, hypertension, ischemic cardiomyopathy and LV dysfunction, patient had a two-vessel bypass surgery and mitral valve repair in the last couple of months at [facility], patient presented to the ER with a few weeks history of increased shortness of breath, workup was done in the ER, clearly the patient was in congestive heart failure with bilateral pleural effusions left greater than right. And check her blood pressure was noted to be marginal but did not require any pressors while in the ER. Patient was seen by cardiology on consultation, and she was noted to have an accelerated junctional rhythm, recommended that the patient gets admitted to the ICU and The patient on Lasix drip at 10 mg per hour. Considering her pleural effusions and her shortness of breath, I was asked to see the patient on consultation. I was n otified about this patient last night from the ICU nurse where in she was noted to have marginal blood pressure and she had fairly good urine output, I did recommend starting the patient on Dobutrex at 2.5 mcg/kg/m, and the patient has been responding quite well to the Dobutrex along with a Lasix drip. Echocardiogram showed poor LV function of 20%, there was severe global hypokinesis of the left ventricle. Follow-up chest x-ray this morning after diuresing the patient showed definite improvement in her pleural effusions, hence I have no plans to arrange for thoracentesis at this point. In addition to all of this, the patient had developed significant ulceration and what seems to be a cellulitis involving the left lower extremity related to the site of saphenous vein salvage. The area seems to be a bit necrotic, and I recommended starting the patient on antibiotics in the form of Ancef. Patient was reevaluated today on 07/09/2020, remains in the ICU, patient is basically about the same. Minimal improvement if any. remains on Lasix drip, remains in atrial fibrillation urine output is dropping cough, she is down to 30 mL per hour. Patient remains on 2 L nasal cannula, chest x-ray questioned right pleural effusion more so than left pleural effusion, however the ultrasound of t he chest showed more fluid on the left side, and hardly any fluid on the right side. Still planning to continue diuretics on this patient, will hold on thoracentesis unless the patient shows no improvement with diuresis. She still on Lasix at 10 mg per hour still on cefazolin. Creatinine today is slightly worse at 2.11, patient was doing better when she was on Dobutrex. However this was discontinued by cardiology, mostly because of her atrial fibrillation with RVR. WBC count is 7.2 hemoglobin is 9.7 BUN is 94 creatinine 2.11 Patient was reevaluated today on 07/10/2020, patient is feeling better today, breathing a lot easier, however she is now back on Dobutrex 2.5 mcg/kg/m. she is also on amiodarone, 0.5 mg/m. norepinephrine, 0.03 mcg/kg/m Lasix 10 mg per hour drip and as soon as this was done, her urine output has picked up nicely to 227121 mL per hour. Patient remains in atrial flutter rate of 134/m. Chest x-ray this morning showed worsening right-sided pleural effusion, ultrasound confirmed fairly good sized right-sided pleural effusion the left sided pleural effusion is small and the patient will definitely require a right-sided thoracentesis if she does not improve with diuretics. I have a feeling that the patient may not require thoracentesis if she continues to respond with significant urine output as such. However in the meantime I did transition the patient to heparin and discussed her condition with the veneer stock layer on the case, they may consider cardioversion on this patient, and she will remain anticoagulated, and if we decide to do thoracentesis in the next 48 hours, that could be accomplished by holding the heparin for few hours prior. I did di scontinue her Eliquis for the time being. Considering the patient is now on multiple drips including Dobutrex, norepinephrine, and amiodarone, I did place a right femoral triple-lumen catheter and I also placed a arterial line for close monitoring of the patient. Surprisingly the patient did clinically improve as her urine output picked up nicely with the inotropes and pressors on the case WBC count is 7.5 hemoglobin is 10.2 patient remains on cefazolin for her cellulitis. Renal functioning showed a BUN of 100 creatinine 2.04, and this is again a cardiorenal picture. Will likely improve with the inotropes and pressors her BNP level today is 5820. Progress note dated 07/11/2020. 75-year-old female admitted on July 07 with a diagnosis of CHF. The patient had a recent bypass grafting at [facility] 2 months ago. Chest x-rays reviewed and shows bilateral pleural effusions. Today, we did a right-sided thoracentesis, and 360 mL of yellow fluid was removed. It was sent for anal ysis. We will do the left side tomorrow. The patient's breathing is improved. She still on 2 L nasal cannula. She is on a number of drips. Currently, she is on Lasix drip at 10 mg an hour, heparin drip via weightbase based protocol, amiodarone, and 0.5 mg/m, dobutamine, at 2.5 mcg/kg/m, and norepinephrine at 5 mcg/m. The patient tolerated the thoracentesis well. I told her that we would do the left side tomorrow. Heparin was discontinued a couple hours before the thoracentesis was done. White count 8.8, hemoglobin 10, hematocrit 30.8, and platelet count 251,000. PTT is 49. Sodium 133, potassium 3.6, chlorides 90, CO2 34, anion gap 9, BUN 84, and creatinine 1.51. Chest x-ray shows improvement in the aeration of the right lung following the procedure, without evidence of pneumothorax. Progress note dated 07/12/2020. 75-year-old female, admitted on July 07, with a diagnosis of CHF. The patient had a recent bypass grafting at [facility], some 2 months ago. Yesterday, she had a right-sided thoracentesis and today we attempted a left- sided thoracentesis but only got a minimum amount of fluid, maybe 5 mL or so. Yesterday's fluid was sent for analysis. Yesterday, we were able to remove 360 mL of thin yellow fluid consistent with transudate and probably related to CHF. Currently, the patient is on 2 L nasal cannula. The patient's on heparin via weightbase protocol, Lasix drip at 5 mg an hour, dobutamine at 2.5 g kilogram per minute, and norepinephrine at 3 mcg/m. She's not receiving any IV fluids. She does feel a bit better although she does have a very congested cough. Chest x-ray yesterday after thoracentesis, did not show a pneumothorax and chest x-ray today after thoracentesis also did not show a pneumothorax. White count 8.0, hemoglobin 9.9, hematocrit 29.3, and platelet count 232,000. PTT is 56.8. Sodium 133, potassium 3.2, chlorides 89, CO2 39, anion gap 5, BUN 70, and creatinine 1.15. Chest x-rays from yesterday and today are both reviewed. Progress note dated 07/13/2020. 75-year-old female, admitted back on July 07 with a diagnosis of congestive heart failure. The patient had a recent bypass grafting at [facility], about 2 months ago. A couple days ago, we did a right-sided thoracentesis in yesterday we attempted a left-sided thoracentesis. We were able to remove about 360 mL from the right pleural space and only 5 mL in the left pleural space. Currently, the patient's on 2 L nasal cannula. Her norepinephrine is at 1 mcg/m. Can be turned on. She's not receiving any IV fluids. From my perspective, the patient could be transferred out to the cardiac floor. Her breathing is much improved. Chest x-rays improved. White count 7.6, hemoglobin 9.7, hematocrit 29.1, platelet count 215,000. Sodium 135, potassium 3.4, chlorides 89, CO2 38, anion gap 8, BUN 55, creatinine 1.16. Chest x-ray shows findings of congestive heart failure, with pleural effusions. Progress note dated 07/14/2020. 75-year-old female, admitted back on July 07 with a diagnosis of congestive heart failure. The patient had a recent bypass grafting at [facility]. She had thoracentesis both on the right side and left side. Currently, she is on 2 L nasal cannula. Not receiving any IV fluids. Initially she was on a number different drips but those have all been weaned off. All her medications are oral now. White count 7.4, hemoglobin 10.3, hematocrit 30.5, platelet count 207,000. Sodium 132, potassium 3.7, chlorides 89, CO2 37, anion gap 6, BUN 51, creatinine 1.07. Progress note dated 07/15/2020. Patient is again seen today in room 256 in the intensive care unit. The patient is not receiving any IV fluids. The patient's on 2 L nasal cannula. The patient's doing well. She was admitted back on July 07 with a diagnosis of CHF. She recently had bypass grafting at [facility] a couple months ago. The patient did require thoracentesis on the right side, 360 mL of transudate of fluid removed. The left-sided thoracentesis only revealed a small amount of fluid. White count 8.3, hemoglobin 10.1, hematocrit 30.7, and platelet count. 224,000. Sodium 133, potassium 3.8, chlorides 89, CO2 39, anion gap 5, BUN 45, and creatinine 1.01. Chest x-ray shows evidence of fluid overload/CHF with small effusions. Objective - Vital Signs Vital signs: Vital Signs Temp 97.5 F L 07/15/20 08:00 Pulse 121 H 07/15/20 08:00 Resp 24 07/15/20 08:00 BP 116/64 07/15/20 08:00 Pulse Ox 97 07/15/20 08:00 Intake & Output 07/14/20 07/15/20 07/15/20 18:59 06:59 18:59 Intake Total 240 Output Total 1 Balance 239 Weight 90.3 kg Intake: Oral 240 Output: Urine 0 Stool 1 Other: Voiding Method Toilet Toilet # Voids 1 ABP, PAP, CO, CI - Last Documented Arterial Blood Pressure 98/92 - Exam No acute distress, oriented 3. Patient with mild conversational dyspnea, currently on 2 L. Saturations 97%. HEENT examination is grossly unremarkable. Neck supple. Full range of motion. No adenopathy thyromegaly or neck vein distention. Cardiovascular examination reveals regular rhythm rate. S1-S2 normal. No S3 or S4. A soft systolic murmur is noted. Heart rate 106 bpm. Lungs reveal diminished breath sounds at the bases. Bibasilar crackles are noted. No rhonchi or wheezes. Breath sounds equal bilaterally. Abdomen soft bowel sounds are heard. No masses or tenderness. Extremities are intact. No cyanosis or clubbing noted. There is bilateral lower extremity edema, 1+. Skin is without rash or lesion. Neurologic examination is brief but nonfocal. - Labs CBC & Chem 7: 07/15/20 03:54 07/15/20 03:54 Labs: Abnormal Lab Results - Last 24 Hours (Table) 07/14/20 07/14/20 07/14/20 Range/Units 03:33 11:57 15:55 RBC (3.80-5.40) m/uL Hgb (11.4-16.0) gm/dL Hct (34.0-46.0) % RDW (11.5-15.5) % Sodium (137-145) mmol/L Chloride (98-107) mmol/L Carbon Dioxide (22-30) mmol/L BUN (7-17) mg/dL Glucose (74-99) mg/dL POC Glucose (mg/dL) 154 H 254 H (75-99) mg/dL Procalcitonin 0.11 H (0.02-0.09) ng/mL 07/15/20 07/15/20 07/15/20 Range/Units 03:54 03:54 06:20 RBC 3.45 L (3.80-5.40) m/uL Hgb 10.1 L (11.4-16.0) gm/dL Hct 30.7 L (34.0-46.0) % RDW 16.9 H (11.5-15.5) % Sodium 133 L (137-145) mmol/L Chloride 89 L (98-107) mmol/L Carbon Dioxide 39 H (22-30) mmol/L BUN 45 H (7-17) mg/dL Glucose 128 H (74-99) mg/dL POC Glucose (mg/dL) 145 H (75-99) mg/dL Procalcitonin (0.02-0.09) ng/mL Microbiology - Last 24 Hours (Table) 07/11/20 10:00 Gram Stain - Preliminary Pleural Fluid Body Fluid Culture - Preliminary 07/12/20 15:31 Gram Stain - Final Sputum Sputum Culture - Final Citrobacter freundii Assessment and Plan Assessment: Acute on chronic systolic congestive heart failure. Bilateral pleural effusions, status post right-sided thoracentesis 07/11/2020, with left-sided thoracentesis on 07/12/2020. History of CAD, and recent CABG at [facility]. Poorly-controlled atrial flutter. Acute kidney injury. Type 2 diabetes mellitus. Questionable history of underlying COPD. Acute cellulitis of left lower extremity. Plan: Plan dated 07/11/2020. The patient underwent right-sided thoracentesis today. 360 mL of yellow, thin fluid was removed, likely related to underlying CHF. The fluid was sent for analysis including microbiology, cytology, and chemistry. The left side will be drained tomorrow. The patient remains on a number of different drips including Lasix, heparin, amiodarone, dobutamine, and norepinephrine. The patient did h ave a bypass grafting 2 months ago at [facility]. Most of the patient's issues are cardiac in nature. We'll continue to follow for the time being. The patient continues on antibiotics for the left leg cellulitis. Microbiology is currently negative. The chest x-ray after thoracentesis showed improved aeration of the right lung, without evidence of pneumothorax. Plan dated 07/12/2020. The patient seemed be doing a bit better. The patient did have a left-sided thoracentesis today, but only about 5 mL of fluid was retrieved. It was discarded. Yesterday's fluid was sent for analysis. Labs and x-rays are reviewed. There wasn't evidence of any pneumothorax after either thoracentesis. The fluid from yesterday was hazy in color, with a glucose of 155, a total protein at 2.24 g, and an LDH of 93. This is consistent with a transudate. This likely relates to her underlying CHF. We will continue to follow and make recommendations. Apparently her Lasix drip is been converted to Lasix 40 mg IV push every 8 hours, and dobutamine has been turned off. We will continue to follow make recommendations were appropriate. Plan dated 07/13/2020. The patient's doing much better. She's only on 2 L nasal cannula. She is on 1 mcg/m of norepinephrine which can be discontinued. From my perspective, if she stays up and norepinephrine, she can be transferred out to the cardiac floor. The fluid analysis shows transudate from the right side. Small amount of fluid from the left side was not sent for analysis. Additional recommendations and suggestions are forthcoming. Additional recommendations and suggestions are forthcoming. We'll continue to follow this patient for the time being. Plan dated 07/14/2020. The patient's doing much better. The patient is only on 2 L. She's not receiving any IV fluids. The patient can be transferred to the cardiac floor. No additional recommendations are made. Prognosis is guarded. We'll see only as needed in the future. Respiratory status and hemodynamics status are both stable this time. Plan dated 07/15/2020. Currently, the patient's doing well. Labs x-rays a medications are all reviewed. From the pulmonary standpoint, the patient stable. Her saturations are 97% on 2 L. She did receive a lateral thoracentesis. We will see the patient moving forth, only as needed. No additional recommendations are made at this time. Time with Patient: Less than 30
[2020-07-15] MEDS: FUROSEMIDE 20 MG TAB PO SCH ×2 (10:45→18:24)
--- NOTE | 2020-07-15 10:45 | PN ---
PROGRESS NOTE The patient is seen for followup for acute kidney injury mostly cardiorenal associated with severe volume overload. The patient has severe ischemic cardiomyopathy with ejection fraction less than 20%. She has been diuresed. Initially patient was on Lasix drip which was then discontinued. Currently maintained on IV push Lasix 60 mg q.8 hours. She continues to have significant edema of lower extremities. A 24-hour urine output documented at 2.3 L today. Lasix was increased again yesterday to 60 mg q.8 hours. She did get about one day's worth of oral diuretics. Renal function has improved with creatinine down to 1.01. PHYSICAL EXAMINATION: On examination today, blood pressure was 116/64, heart rate 120 per minute. Patient is afebrile. EXAMINATION OF THE HEART: S1, S2. EXAMINATION OF THE LUNGS: Decreased breath sounds at the bases. Abdomen is soft, obese, nontender. Examination of lower extremities shows chronic skin changes, edema about 3+ bilaterally. There is left leg ulcer is currently wrapped. ASSOCIATE [employer]ESS[employer]IC[employer] exam grossly intact. LABS: Labs show sodium 133, potassium 3.8, chloride 89. CO2 is 39, BUN 45, creatinine 1.01, hemoglobin 10.1 g/dL. ASSESSMENT: 1. Acute kidney injury, cardiorenal, currently improved. 2. Volume overload, improving. Continue to diurese patient. May continue with current dose of Lasix. 3. Metabolic alkalosis secondary to diuresis, status post Diamox. 4. Hypokalemia secondary to diuresis, status post replacement. 5. Severe cardiomyopathy, ejection fraction less than 20%. 6. Recent coronary artery bypass surgery in May of 2020. PLAN: Add Diamox. Continue with current dose of Lasix. Repeat labs in a.m. Consider decreasing diuretics tomorrow. MMODL / IJN: [id number] /
--- NOTE | 2020-07-15 10:50 | P.PN ---
Subjective Progress Note Date: 07/15/20 Patient continues to have a cough, appears to be improving from a lung standpoint. Energy levels are improving but still low. Objective - Vital Signs Vital signs: Vital Signs Temp 97.5 F L 07/15/20 08:00 Pulse 121 H 07/15/20 08:00 Resp 24 07/15/20 08:00 BP 116/64 07/15/20 08:00 Pulse Ox 97 07/15/20 08:00 Intake & Output 07/14/20 07/15/20 07/15/20 18:59 06:59 18:59 Intake Total 240 Output Total 1 Balance 239 Weight 90.3 kg Intake: Oral 240 Output: Urine 0 Stool 1 Other: Voiding Method Toilet Toilet # Voids 1 ABP, PAP, CO, CI - Last Documented Arterial Blood Pressure 98/92 - Exam Gen: awake, alert HEENT: normocephalic, atraumatic, good hearing acuity, moist mucous membranes Resp: good air exchange, breathing comfortably with no accessory muscle use, crackles in the bases posteriorly CVS: good distal perfusion x 4, tachycardic, irregular rhythm GI: soft, NTTP, ND : no SPT, no CVAT, hager catheter not present MSK: no pitting edema, no clubbing Neuro: non-focal, moving all extremities Psych: cooperative, euthymic mood - Labs CBC & Chem 7: 07/15/20 03:54 07/15/20 03:54 Labs: Abnormal Lab Results - Last 24 Hours (Table) 07/14/20 07/14/20 07/14/20 Range/Units 03:33 11:57 15:55 RBC (3.80-5.40) m/uL Hgb (11.4-16.0) gm/dL Hct (34.0-46.0) % RDW (11.5-15.5) % Sodium (137-145) mmol/L Chloride (98-107) mmol/L Carbon Dioxide (22-30) mmol/L BUN (7-17) mg/dL Glucose (74-99) mg/dL POC Glucose (mg/dL) 154 H 254 H (75-99) mg/dL Procalcitonin 0.11 H (0.02-0.09) ng/mL 07/15/20 07/15/20 07/15/20 Range/Units 03:54 03:54 06:20 RBC 3.45 L (3.80-5.40) m/uL Hgb 10.1 L (11.4-16.0) gm/dL Hct 30.7 L (34.0-46.0) % RDW 16.9 H (11.5-15.5) % Sodium 133 L (137-145) mmol/L Chloride 89 L (98-107) mmol/L Carbon Dioxide 39 H (22-30) mmol/L BUN 45 H (7-17) mg/dL Glucose 128 H (74-99) mg/dL POC Glucose (mg/dL) 145 H (75-99) mg/dL Procalcitonin (0.02-0.09) ng/mL Microbiology - Last 24 Hours (Table) 07/11/20 10:00 Gram Stain - Preliminary Pleural Fluid Body Fluid Culture - Preliminary 07/12/20 15:31 Gram Stain - Final Sputum Sputum Culture - Final Citrobacter freundii Assessment and Plan Assessment: Acute exacerbation of systolic congestive heart failure with ejection fraction <20% and large pleural effusions, coronary artery disease with recent 2 vessel bypass and mitral valve replacement - hold entresto - Lasix IVP 60 q8- transitioned to 60 by mouth twice a day - Cadio and Pulm recs - lopressor - strict I and O daily weight -s/p Right sided thoracentesis on 07/11, left-sided thoracentesis on 07/12 Acute kidney injury versus chronic kidney disease of unknown baseline creatinine, improving - due to cardiorenal syndrome - strict I and O - avoid additional nephrotoxic agents - Hold Entresto Hyponatremia secondary to fluid overload - diuresis - recheck sodium level in AM Fe deficiency anemia - start oral iron - follow CBC Left lower extremity wound Community acquired pneumonia - ID recs no need to systemic antibotics for wound, however, placed on cefepime for Citrobacter growing in sputum culture -Follow up sensitivities of Citrobacter and sputum culture Asthma - resume spiriva, B agonist and inhaled steroid DM 2, insulin requiring with frequent hypoglycemia - levemir - SSI - A1C 6.4 - Follow BS P. A fib with RVR - amio, eliquis - follow HR - metoprolol Stage II pressure ulcer of the scarum, nonhealing ulcer of left lower extremity -Wound care recs -Outpatient follow-up with wound care transfer to 1 bed available DVT prophylaxis: Ray Discussed with: Patient, nursing, cardio Anticipated discharge: 1-[address]: home
[2020-07-15 12:02] LABS: Glucose,Whole Blood 140 mg/dL (75-99)
[2020-07-15 12:48] VITALS: BMI 37.6
[2020-07-15] MEDS: acetaZOLAMIDE 250 MG TAB PO SCH (14:34)
--- NOTE | 2020-07-15 15:14 | PN ---
PROGRESS NOTE DATE OF SERVICE: 07/15/2020 REASON FOR FOLLOWUP: 1. Left leg wound. 2. Possible pneumonia. INTERVAL HISTORY: The patient is afebrile. The patient is breathing comfortably currently on room air. The patient denies having any chest pain. The patient continued to have a congested cough with occasional sputum. No abdominal pain. No diarrhea. Denies any worsening pain to the left leg wound area. PHYSICAL EXAMINATION: Blood pressure is 118/56, pulse of 110, temperature 98.1. She is 99% on room air. General description is an elderly female up in the chair in no distress. RESPIRATORY SYSTEM: Unlabored breathing, decreased breath sounds at the bases. No wheeze. HEART: S1, S2. Regular rate and rhythm. ABDOMEN: Soft, no tenderness. Left leg is currently dressed up. No obvious drainage on the dressing. LABS: Hemoglobin is 10.1, white count 8.3, BUN of 45, creatinine 1.01. DIAGNOSTIC IMPRESSION AND PLAN: 1. Patient with left leg wound. No evidence of cellulitis. Local care to continue with Santyl followed by moist dressing. 2. Patient with a cough. Sputum is positive for Citrobacter, possible tracheobronchitis pneumonia less likely. Patient did have mildly elevated procalcitonin. Continue cefepime. Continue supportive care. MMODL / IJN: [id number] / [facility]ES HOSPITALDiane
[2020-07-15 17:16] LABS: Glucose,Whole Blood 141 mg/dL (75-99)
[2020-07-15] MEDS: PANTOPRAZOLE 40 MG TABLET PO SCH (18:22)
[2020-07-15] MEDS: COLLAGENASE 250 UNIT/GM OINTMENT 30 GM TUBE TOPICAL SCH (18:23)
[2020-07-15 20:27] LABS: Glucose,Whole Blood 200 mg/dL (75-99)
[2020-07-15] MEDS: ATORVASTATIN 80 MG TAB PO SCH (20:42)
[2020-07-15] MEDS: METOPROLOL TARTRATE 50 MG TAB PO SCH (20:43)
[2020-07-16] MEDS: CEFEPIME 2 GM in SODIUM CHLORIDE 0.9% 100 ML IVPB SCH ×2 (02:33→14:26)
[2020-07-16 04:05] LABS: Albumin 3.4 g/dL (3.5-5.0); Calcium 8.6 mg/dL (8.4-10.2); Potassium 4.3 mmol/L (3.5-5.1); Total Bilirubin 1.2 mg/dL (0.2-1.3); Total Protein 6.4 g/dL (6.3-8.2)
--- NOTE | 2020-07-16 06:15 | XR ---
EXAMINATION TYPE: XR chest 1V portable DATE OF EXAM: 07/16/2020 CLINICAL HISTORY: Difficulty breathing progress study. TECHNIQUE: Single AP portable semiupright view of the chest is obtained. COMPARISON: Chest x-ray from one day earlier and older studies FINDINGS: Persistent moderate right and small to moderate left pleural effusions and associated bib asilar atelectasis and/or infiltrate. Overlying sternal wires and mediastinal clips along with cardio megaly and valvular ring redemonstrated. Osseous structures are intact . IMPRESSION: Cardiomegaly with central vascular congestion and moderate sized right greater than left pleural effusions and associated bibasilar atelectasis and/or infiltrate are all redemonstrated consi stent with CHF exacerbation. No significant change from most recent x-ray.
[2020-07-16 06:32] LABS: Glucose,Whole Blood 150 mg/dL (75-99)
[2020-07-16] MEDS: INSULIN ASPART (NovoLOG) 100 UNIT/ML VIAL SQ SCH ×2 (06:36→12:06)
[2020-07-16] MEDS: FERROUS SULFATE 325 MG TAB PO SCH (06:36)
[2020-07-16] MEDS: INSULIN DETEMIR (LEVEMIR) 100 UNIT/ML SYR SQ SCH (06:36)
[2020-07-16] MEDS: SYMBICORT 80-4.5 MCG INHALER INHALATION SCH (07:50)
[2020-07-16] MEDS: IPRATROPIUM-ALBUTEROL 3 ML NEB INHALATION SCH ×2 (07:50→11:29)
[2020-07-16] MEDS: ACETAMINOPHEN TAB 325 MG TAB PO PRN (08:03)
[2020-07-16] MEDS: AMIODARONE 200 MG TAB PO SCH (08:04)
[2020-07-16] MEDS: acetaZOLAMIDE 250 MG TAB PO SCH (08:04)
[2020-07-16] MEDS: FUROSEMIDE 20 MG TAB PO SCH (08:04)
[2020-07-16] MEDS: LORATADINE 10 MG TAB PO SCH (08:04)
[2020-07-16] MEDS: APIXABAN 5 MG TAB PO SCH (08:04)
[2020-07-16] MEDS: METOPROLOL TARTRATE 50 MG TAB PO SCH (08:04)
[2020-07-16] MEDS: FLUTICASONE 50MCG/SPRAY NASAL 16GM EA NOSTRIL SCH (08:05)
[2020-07-16] MEDS: COLLAGENASE 250 UNIT/GM OINTMENT 30 GM TUBE TOPICAL SCH (08:06)
[2020-07-16 11:31] VITALS: RESP 16
[2020-07-16 12:02] LABS: Glucose,Whole Blood 170 mg/dL (75-99)
[2020-07-16 12:10] VITALS: BP 115/80; PULSE 110; TEMP 97.8
--- NOTE | 2020-07-16 12:14 | P.PN ---
Subjective Progress Note Date: 07/16/20 Principal diagnosis: This is a 75-year-old female seen in consultation because of acute kidney injury, from cardiorenal syndrome, congestive heart failure. She was started Lasix drip and converted to by mouth Lasix. She is being discharged today He continues to have edema but her breathing is much better on room air. She does have minimal cough. Good appetite. No dizziness. She is known with cardiomyopathy with ejection fraction 20% coronary artery disease obesity. Objective - Vital Signs Vital signs: Vital Signs Temp 97.6 F 07/16/20 08:00 Pulse 111 H 07/16/20 11:42 Resp 16 07/16/20 11:42 BP 117/66 07/16/20 08:00 Pulse Ox 96 07/16/20 08:00 Intake & Output 07/15/20 07/16/20 07/16/20 18:59 06:59 18:59 Weight 90.3 kg 90.7 kg Other: Voiding Method Toilet Toilet Toilet ABP, PAP, CO, CI - Last Documented Arterial Blood Pressure 98/92 On examination is awake alert oriented comfortable on room air. HEENT exam no JVP neck is supple no facial asymmetry Lungs clear to auscultation good air entry bilaterally Heart sounds unremarkable no murmur rub gallop Abdomen soft nontender Extremity exam was mild edema Neurologically awake alert oriented A chest x-ray on 07/16/2020 this morning shows congestive heart failure - Labs CBC & Chem 7: 07/15/20 03:54 07/16/20 03:15 Labs: Abnormal Lab Results - Last 24 Hours (Table) 07/15/20 07/15/20 07/16/20 Range/Units 17:14 20:24 03:15 Sodium 134 L (137-145) mmol/L Chloride 92 L (98-107) mmol/L Carbon Dioxide 33 H (22-30) mmol/L BUN 41 H (7-17) mg/dL Creatinine 1.28 H (0.52-1.04) mg/dL Glucose 164 H (74-99) mg/dL POC Glucose (mg/dL) 141 H 200 H (75-99) mg/dL Alkaline Phosphatase 188 H (38-126) U/L Albumin 3.4 L (3.5-5.0) g/dL 07/16/20 07/16/20 Range/Units 06:31 12:00 Sodium (137-145) mmol/L Chloride (98-107) mmol/L Carbon Dioxide (22-30) mmol/L BUN (7-17) mg/dL Creatinine (0.52-1.04) mg/dL Glucose (74-99) mg/dL POC Glucose (mg/dL) 150 H 170 H (75-99) mg/dL Alkaline Phosphatase (38-126) U/L Albumin (3.5-5.0) g/dL Microbiology - Last 24 Hours (Table) 07/11/20 10:00 Gram Stain - Final Pleural Fluid Body Fluid Culture - Final Assessment and Plan Assessment: Impression 1. Acute kidney injury secondary to cardiorenal syndrome maintained on Lasix by mouth and improved, with less shortness of breath and edema. Creatinine was 1.01 yesterday but went up to 1.28 this morning 2. Mild hyponatremia sodium is 134 significant congestive heart failure and acute kidney injury 3. Mild degree of metabolic alkalosis from diuresis bicarb is 33 4. Anemia of chronic kidney disease hemoglobin is 10.1 and no need for any intervention Recommendation 1. May be discharged on current medication. 2. Should been instructed to see us back in the office in 2-3 days' time. 3. Should been instructed to keep accurate weight heart rate and blood pressure records and bring it to the office. 4. Should been warned about possible readmission if she does not follow through with these above instructions
--- NOTE | 2020-07-16 12:53 | PN ---
PROGRESS NOTE Doris is a 75-year-old lady with history of ischemic cardiomyopathy, coronary artery disease status post bypass surgery, status post mitral valve repair, chronic systolic heart failure, paroxysmal atrial fibrillation who is admitted to the hospital with acute exacerbation of chronic systolic heart failure and persistent atrial fibrillation with poorly controlled ventricular rate. The patient is currently on amiodarone, whose dose I am going to decrease to 200 b.i.d. on discharge, metoprolol 50 b.i.d. and Lipitor and Eliquis. This morning, she is feeling better. She has an O2 saturation of 96% on room air. Blood pressure is 117/66, respiratory rate is 20. Chest exam reveals good air entry bilaterally. Heart exam reveals first and second heart sounds, irregular rhythm. Systolic murmur at the left lower sternal border. Abdomen is soft. Examination of extremities reveals mild edema bilaterally. LABS: Labs show a potassium of 4.3. BUN is 41, creatinine is 1.2. Labs show a hemoglobin of 10.1, platelet count is 224. ASSESSMENT: 1. Acute exacerbation of chronic systolic heart failure. 2. Persistent atrial fibrillation with somewhat better controlled ventricular rate. 3. Coronary artery disease status post coronary artery bypass grafting. 4. Mitral regurgitation status post mitral valve repair. PLAN: Patient is doing better. Possible discharge today and follow up with Cardiology in the office. SUSAN / HEIDIN: [id number] /
--- NOTE | 2020-07-16 13:19 | P.DS ---
Providers Date of admission: 07/07/20 17:21 Expected date of discharge: 07/16/20 Attending physician: Amina Bryan MD Consults: 07/07/20 17:21 Consult Physician Stat Consulting Provider: Luis Weaver Consult Reason/Comments: chf Do you want consulting provider notified?: Already Contacted Consult Physician Urgent Consulting Provider: Mendoza Rodrigues Consult Reason/Comments: chf Do you want consulting provider notified?: Already Contacted 07/09/20 11:32 Consult Physician Routine Consulting Provider: Claudia Wild Consult Reason/Comments: decrease urine output, elevating creatinine Do you want consulting provider notified?: Yes 07/10/20 08:24 Consult Physician Routine Consulting Provider: Sara Canela Consult Reason/Comments: cellulitis/possible pneumonia Do you want consulting provider notified?: Yes Primary care physician: Arash Mendoza MD Hospital Course: HPI: Patient is a 75-year-old female with a history of congestive heart failure, diabetes Type 2 insulin requiring, hypertension who presented to the emergency department with complaints of worsening shortness of breath for the last 4 weeks. Apparently patient had 2 vessel bypass with mitral valve repair at [facility]. She underwent extensive evaluation in the emergency department including a chest x-ray which demonstrated large bilateral pleural effusions right greater than left recommending thoracentesis. Venous Doppler was completed which showed no evidence of DVT in the left lower extremity. EKG appeared to be consistent with accelerated junctional rhythm. Laboratory analysis showed hemoglobin of 10.5, creatinine 2. In the ER she was started on a furosemide drip and arrangements are made for admission to the ICU. Echocardiogram was completed this evening which showed an ejection fraction of less than 20%, severe global kinesis of the left ventricle, and a large pleural effusion. Patient was admitted to [facility] on April 22 and was subsequently discharged on June 08. Son was able to provide me with some records. Apparently when she went in she was found to have congestive heart failure with an ejection fraction of less than 15%, she ultimately underwent cardiac catheterization which showed triple vessel disease. She then had double bypass surgery with repair of her mitral valve and maze procedure. They redid an echocardiogram prior to discharge which showed an ejection fraction of 45%. He reports that after surgery she did require reintubation and did attend a stent in inpatient rehab. She has been at home and has had home health through [facility]. She has since transitioned to seeing Dr. Hensley for her primary care and Dr. Rodrigues for cardiology. She was last seen by Dr. Mendoza one week ago and had her left leg bandaged in the office. He presented to the hospital today because they noted that her weight has increased to 216 pounds, it was 109 8 pounds on June 08 and she was discharged from the hospital. They also note that she has had worsening shortness of breath, increased leg swelling, increased abdominal swelling. He reports she has been watching her fluid and salt intake at home. She has a [employer] Izabel meter and has been having hypoglycemia down to the 70s at night. Her niece has been taking care of her. They note that some of her medications have been ch anged since discharge from [place] including moving her Lantus from morning to night time. She reports increased anxiety and feeling as though she has never gotten her recover from this. She reports that she does have chest pain with cough but has not had chest pain otherwise. She has been using a walker. She is unable to lie flat due to shortness of breath. Hospital Course: Acute exacerbation of systolic congestive heart failure with ejection fraction <20% and large pleural effusions, coronary artery disease with recent 2 vessel bypass and mitral valve replacement Acute kidney injury versus chronic kidney disease of unknown baseline creatinine, improving P. A fib with RVR Healthcare Associated Pneumonia Patient was admitted for acute exacerbation of systolic congestive heart failure with a low ejection fraction less than 20%. She then required transfer to the ICU due to refractory heart failure due to diuretics. She was placed on dobutam ine and Lasix drip and had cardio and pulmonary consultation. She temporarily need a BiPAP, however, had good urine output with Lasix IV. She also underwent right-sided thoracentesis on 07/11 as well as left-sided thoracentesis on 07/12 which both demonstrated transudative fluid. Throughout her hospitalization, her course was complicated by paroxysmal atrial fibrillation with RVR as well as acute kidney injury superimposed on CK D and lastly by healthcare associated pneumonia. Cardiology adjusted her rate control medications by adding amiodarone, changing carvedilol to metoprolol for more appropriate blood pressure control while achieving rate control. Her acute kidney injury improved with diuretics. Lastly, ID was consulted due to concern over left lower extremity wound thought to be infected, however, this was determined to be noninfectedhowever, patient did develop mild elevation of her procalcitonin, cough, elevated white count, and had sputum culture positive for Citrobacter freundii. Patient was started on cefepime, and improved quickly, and was transitioned to Omnicef on discharge for an additional 7 days per ID recommendation. On day of discharge, patient still had cough with sputum production but was feeling close to baseline. She no longer required oxygen. Still appeared volume overloaded but was putting out significant urine on oral diuretics. Patient was advised to follow-up with PCP, cardiology within the next week. Patient Entresto was resumed on discharge and held throughout hospitalization. I spent 45 minutes preparing this discharge. Assessment: Gen: awake, alert HEENT: normocephalic, atraumatic, good hearing acuity, moist mucous membranes Resp: good air exchange, breathing comfortably with no accessory muscle use, crackles in the bases posteriorly CVS: good distal perfusion x 4, tachycardic, irregular rhythm GI: soft, NTTP, ND : no SPT, no CVAT, hager catheter not present MSK: no pitting edema, no clubbing Neuro: non-focal, moving all extremities Psych: cooperative, euthymic mood Patient Condition at Discharge: Fair Plan - Discharge Summary New Discharge Prescriptions: New Apixaban [Eliquis] 5 mg PO BID #60 tab Metoprolol Tartrate [Lopressor] 50 mg PO BID #60 tab Collagenase [Santyl] 1 applic TOPICAL DAILY #30 applic Cefdinir [Omnicef] 300 mg PO Q12HR #14 capsule Amiodarone [Cordarone] 400 mg PO BID #120 tab Ferrous Sulfate [Iron (65 MG Elemental)] 325 mg PO DAILY #30 tab Continue Insulin Lispro [Insulin Lispro Kwikpen U-100] See Protocol SQ AC-TID Fluticasone Nasal [place] [Flonase Nasal Magnolia] 2 spr EA NOSTRIL DAILY Fluticasone/Vilanterol [Breo Ellipta 100-25 Mcg Inhaler] 1 puff INHALATION RT-DAILY Atorvastatin [Lipitor] 80 mg PO HS Albuterol Inhaler [Ventolin Hfa Inhaler] 2 puff INHALATION RT-Q6H PRN PRN Reason: Shortness Of Breath Tiotropium [place] [Spiriva] 2 cap INHALATION RT-DAILY Omeprazole 20 mg PO AC-SUPPER metOLazone [Zaroxolyn] 5 mg PO DAILY Loratadine [Claritin] 10 mg PO DAILY Sacubitril/Valsartan [Entresto 24 mg-26 mg Tablet] 1 tab PO Q12H Docusate [Colace] 100 mg PO BID Acetaminophen Tab [Tylenol] 500 mg PO BID ALPRAZolam [Xanax] 0.5 mg PO Q6H PRN PRN Reason: Anxiety Changed Bumetanide [BUMEX] 1 mg PO BID #60 tab Insulin Glargine,Hum.rec.anlog [Lantus Solostar] 8 unit SQ HS #0 Discontinued Carvedilol [Coreg] 50 mg PO Q12H Rivaroxaban [Xarelto] 2.5 mg PO BID Discharge Medication List ALPRAZolam [Xanax] 0.5 mg PO Q6H PRN 07/07/20 [History] Acetaminophen Tab [Tylenol] 500 mg PO BID 07/07/20 [History] Albuterol Inhaler [Ventolin Hfa Inhaler] 2 puff INHALATION RT-Q6H PRN 07/07/20 [History] Atorvastatin [Lipitor] 80 mg PO HS 07/07/20 [History] Docusate [Colace] 100 mg PO BID 07/07/20 [History] Fluticasone Nasal [place] [Flonase Nasal [place]] 2 spr EA NOSTRIL DAILY 07/07/20 [History] Fluticasone/Vilanterol [Breo Ellipta 100-25 Mcg Inhaler] 1 puff INHALATION RT- DAILY 07/07/20 [History] Insulin Lispro [Insulin Lispro Kwikpen U-100] See Protocol SQ AC-TID 07/07/20 [History] Loratadine [Claritin] 10 mg PO DAILY 07/07/20 [History] Omeprazole 20 mg PO AC-SUPPER 07/07/20 [History] Sacubitril/Valsartan [Entresto 24 mg-26 mg Tablet] 1 tab PO Q12H 07/07/20 [History] Tiotropium [place] [Spiriva] 2 cap INHALATION RT-DAILY 07/07/20 [History] metOLazone [Zaroxolyn] 5 mg PO DAILY 07/07/20 [History] Amiodarone [Cordarone] 400 mg PO BID #120 tab 07/16/20 [Rx] Apixaban [Eliquis] 5 mg PO BID #60 tab 07/16/20 [Rx] Bumetanide [BUMEX] 1 mg PO BID #60 tab 07/16/20 [Rx] Cefdinir [Omnicef] 300 mg PO Q12HR #14 capsule 07/16/20 [Rx] Collagenase [Santyl] 1 applic TOPICAL DAILY #30 applic 07/16/20 [Rx] Ferrous Sulfate [Iron (65 MG Elemental)] 325 mg PO DAILY #30 tab 07/16/20 [Rx] Insulin Glargine,Hum.rec.anlog [Lantus Solostar] 8 unit SQ HS #0 07/16/20 [Rx] Metoprolol Tartrate [Lopressor] 50 mg PO BID #60 tab 07/16/20 [Rx] Follow up Appointment(s)/Referral(s): Mendoza Rodrigues MD [STAFF PHYSICIAN] - 07/29/20 1:30 pm (At new office at [address]) [facility], [NON-STAFF] - 1-2 Days Arash Mendoza MD [Primary Care Provider] - 07/18/20 5:00 pm Patient Instructions/Handouts: Heart Failure (DC), Pulmonary Edema (DC) Discharge Disposition: HOME WITH HOME HEALTH SERVICES
[2020-07-16] MEDS ORDERED: AMIODARONE 200 MG TAB PO SCH (21:00)
[2020-07-17] MEDS ORDERED: CEFEPIME 1 GM in SODIUM CHLORIDE 0.9% 50 ML IVPB SCH (02:00)
--- NOTE | 2020-07-19 10:55 | CDI ---
Documentation Clarification Form Date: 07/19/20 From: Supriya Hopper Phone: Admit Date: 07/07/2020 05:21:00 PM Patient Name: Doris Magana Visit Number: [id number] Discharge Date: 07/16/2020 03:45:00 PM ATTENTION: The Clinical Documentation Specialists (CDI) and [facility] Coding Staff appreciate your assistance in clarifying documentation. Please respond to the clarification below the line at the bottom and electronically sign. The CDI & [facility] Coding staff will review the response and follow-up if needed. Please note: Queries are made part of the Legal Health Record. If you have any questions, please contact the author of this message via ITS. Dr. Arturo Douglass, Possible atrial flutter is documented your progress notes, starting with 07/11, but is not noted in subsequent documentation. Clarification is requested. History/Risk Factors: HTN w acute on chronic systolic CHF & cardiorenal, pneumonia, COPD, Clinical Indicators: EKG - accelerated junctional rhythm, vent rate-126 bpm, QRS-94, QT/QTc - 322/466 ms, Treatment: Cardizem bolus, Amiodarone PO Please clarify if the type of atrial flutter, if known: [ ] Typical/Type I [x ] Atypical/Type II [ ] Other, please specify [ ] Unable to determine MTDD
--- NOTE | 2020-07-21 13:47 | P.PN ---
Progress Note - Text Progress Note Date: 07/16/20 REASON FOR FOLLOWUP: 1. Left leg wound. 2. Possible pneumonia. INTERVAL HISTORY: The patient is afebrile. The patient is breathing comfortably on room air. The patient denies chest pain. The patient did have a congested cough with occasional sputum but decreased in intensity, No abdominal pain. No diarrhea. Denies any worsening pain to the left leg wound area. PHYSICAL EXAMINATION: Blood pressure is 110/50, pulse of 90, temperature 98.1. She is 99% on room air. General description is an elderly female up in the chair in no distress. RESPIRATORY SYSTEM: Unlabored breathing, decreased breath sounds at the bases. No wheeze. HEART: S1, S2. Regular rate and rhythm. ABDOMEN: Soft, no tenderness. Left leg is currently dressed up. No obvious drainage on the dressing. LABS: reviewed DIAGNOSTIC IMPRESSION AND PLAN: 1. Patient with left leg wound. No evidence of cellulitis. Local care to continue with Santyl followed by moist dressing. follow up in wound care next week 2. Patient with a cough. Sputum is positive for Citrobacter, possible tracheobronchitis pneumonia less likely but not excluded. Patient will finish therapy with ceftin , discussed with attending physician
== END 2020-07-16 15:45 | disposition home health service (06) | DRG 291 ==
LOC: EC 15:21 → 2SICU 17:21
PROVIDERS: ADMIT Internal Medicine; ATTEND Internal Medicine
PROC: 3E033XZ Introduction of Vasopressor into Peripheral Vein, Percutaneous Approach (ICD-10-PCS; 2020-07-09)
PROC: 4A133B1 Monitoring of Arterial Pressure, Peripheral, Percutaneous Approach (ICD-10-PCS; principal; 2020-07-10)
PROC: 4A133J1 Monitoring of Arterial Pulse, Peripheral, Percutaneous Approach (ICD-10-PCS; principal; 2020-07-10)
PROC: 03HY32Z Insertion of Monitoring Device into Upper Artery, Percutaneous Approach (ICD-10-PCS; principal; 2020-07-10)
PROC: 06HM33Z Insertion of Infusion Device into Right Femoral Vein, Percutaneous Approach (ICD-10-PCS; principal; 2020-07-10)
PROC: 0W993ZX Drainage of Right Pleural Cavity, Percutaneous Approach, Diagnostic (ICD-10-PCS; 2020-07-11)
PROC: 0W9B3ZZ Drainage of Left Pleural Cavity, Percutaneous Approach (ICD-10-PCS; 2020-07-12)
DX: I13.0 Hypertensive heart and chronic kidney disease with heart failure and stage 1 through stage 4 chronic kidney disease, or unspecified chronic kidney disease (principal); I50.23 Acute on chronic systolic (congestive) heart failure; J18.9 Pneumonia, unspecified organism; J96.01 Acute respiratory failure with hypoxia; R57.0 Cardiogenic shock; N17.9 Acute kidney failure, unspecified; J91.8 Pleural effusion in other conditions classified elsewhere; E87.1 Hypo-osmolality and hyponatremia; L97.922 Non-pressure chronic ulcer of unspecified part of left lower leg with fat layer exposed; J44.0 Chronic obstructive pulmonary disease with (acute) lower respiratory infection; E87.3 Alkalosis; I48.19 Other persistent atrial fibrillation; L03.116 Cellulitis of left lower limb; I48.4 Atypical atrial flutter; E11.649 Type 2 diabetes mellitus with hypoglycemia without coma; L89.152 Pressure ulcer of sacral region, stage 2; D63.1 Anemia in chronic kidney disease; E11.622 Type 2 diabetes mellitus with other skin ulcer; E11.22 Type 2 diabetes mellitus with diabetic chronic kidney disease; Z79.4 Long term (current) use of insulin; Z20.822 Contact with and (suspected) exposure to COVID-19; N18.9 Chronic kidney disease, unspecified; Y95 Nosocomial condition; E87.6 Hypokalemia; D50.9 Iron deficiency anemia, unspecified; I25.5 Ischemic cardiomyopathy; E78.5 Hyperlipidemia, unspecified; T50.2X5A Adverse effect of carbonic-anhydrase inhibitors, benzothiadiazides and other diuretics, initial encounter; I34.0 Nonrheumatic mitral (valve) insufficiency; I25.10 Atherosclerotic heart disease of native coronary artery without angina pectoris; F41.9 Anxiety disorder, unspecified; E66.9 Obesity, unspecified; Z68.37 Body mass index [BMI] 37.0-37.9, adult; Z79.01 Long term (current) use of anticoagulants; Z79.899 Other long term (current) drug therapy; Z90.49 Acquired absence of other specified parts of digestive tract; Z98.51 Tubal ligation status; Z90.710 Acquired absence of both cervix and uterus; Z87.42 Personal history of other diseases of the female genital tract; Z95.2 Presence of prosthetic heart valve; Z95.1 Presence of aortocoronary bypass graft; Z71.3 Dietary counseling and surveillance; Z77.22 Contact with and (suspected) exposure to environmental tobacco smoke (acute) (chronic); Z98.890 Other specified postprocedural states; Z88.2 Allergy status to sulfonamides; Z88.1 Allergy status to other antibiotic agents; Z88.5 Allergy status to narcotic agent; Z88.0 Allergy status to penicillin; Z91.013 Allergy to seafood; Z82.3 Family history of stroke; Z82.49 Family history of ischemic heart disease and other diseases of the circulatory system
CPT/HCPCS: 36415; 71045; 71046; 76604; 76770; 80048; 80053; 81001; 82272; 82728; 82945; 83036; 83540; 83550; 83605; 83615; 83735; 83880; 84132; 84145; 84157; 84443; 84484; 85025; 85027; 85610; 85730; 86140; 87070; 87075; 87077; 87186; 87205; 87635; 88305; 89050; 93005; 93306; 94640; 99291

== ENCOUNTER 2020-10-21 11:18 | Inpatient (IN) | payer MEDICARE ==
[2020-10-21] MEDS ORDERED: SODIUM CHLORIDE 0.9% 1,000 ML IV STA (12:19)
[2020-10-21] MEDS ORDERED: SODIUM CHLORIDE 0.9% 500 ML 500 ML IV STA (12:19)
[2020-10-21 12:20] LABS: Glucose,Whole Blood 159 mg/dL (75-99)
--- NOTE | 2020-10-21 12:24 | ED ---
Weakness HPI - General Chief complaint: Weakness Stated complaint: vomiting, low BP Time Seen by Provider: 10/21/20 12:05 Source: patient, RN notes reviewed, old records reviewed Mode of arrival: wheelchair Limitations: no limitations - History of Present Illness Initial comments: This is a 75-year-old female with a history of bypass surgery in April of this year also history of hypertension who states she had the onset this morning of nausea vomiting and generalized weakness and just generally not feeling well. No chest pain no shortness of breath no lightheadedness dizziness this generalized weakness she has chronic abdominal discomfort since her bypass surgery she states no diarrhea she had 2 normal bowel movements this morning she states. Currently she is not nauseated she was found have a low blood pressure and be tachycardic upon triage. No fevers chills sweats no other complaints or modifying factors at this time MD Complaint: generalized weakness - Related Data Home Medications Medication Instructions Recorded Confirmed ALPRAZolam [Xanax] 0.5 mg PO Q6H PRN 07/07/20 10/21/20 Acetaminophen Tab [Tylenol] 500 mg PO BID 07/07/20 10/21/20 Albuterol Inhaler [Ventolin Hfa 2 puff INHALATION RT-Q6H PRN 07/07/20 10/21/20 Inhaler] Atorvastatin [Lipitor] 80 mg PO HS 07/07/20 10/21/20 Docusate [Colace] 100 mg PO BID 07/07/20 10/21/20 Fluticasone Nasal [place] [Flonase 2 spr EA NOSTRIL DAILY 07/07/20 10/21/20 Nasal [place]] Fluticasone/Vilanterol [Breo 1 puff INHALATION RT-DAILY 07/07/20 10/21/20 Ellipta 100-25 Mcg Inhaler] Insulin Lispro [Insulin Lispro See Protocol SQ AC-TID 07/07/20 10/21/20 Nikhil U-100] Loratadine [Claritin] 10 mg PO DAILY 07/07/20 10/21/20 Omeprazole 20 mg PO AC-SUPPER 07/07/20 10/21/20 Sacubitril/Valsartan [Entresto 24 1 tab PO Q12H 07/07/20 10/21/20 mg-26 mg Tablet] Tiotropium [place] [Spiriva] 2 cap INHALATION RT-DAILY 07/07/20 10/21/20 metOLazone [Zaroxolyn] 5 mg PO DAILY 07/07/20 10/21/20 Amiodarone [Cordarone] 100 mg PO DAILY 10/21/20 10/21/20 Collagenase [Santyl] 1 applic TOPICAL DAILY 10/21/20 10/21/20 Insulin Glargine,Hum.rec.anlog 8 - 15 unit SQ HS 10/21/20 10/21/20 [Lantus Solostar Pen] Insulin Lispro [Insulin Lispro 6 units SQ AC-LUNCH@1200 10/21/20 10/21/20 Kwikpen U-100] Insulin Lispro [Insulin Lispro 10 units SQ AC-BID@0800,1600 10/21/20 10/21/20 Kwikpen U-100] Metoprolol Tartrate [Lopressor] 25 mg PO BID PRN 10/21/20 10/21/20 Previous Rx's Medication Instructions Recorded Apixaban [Eliquis] 5 mg PO BID #60 tab 07/16/20 Bumetanide [BUMEX] 1 mg PO BID #60 tab 07/16/20 Ferrous Sulfate [Iron (65 MG 325 mg PO DAILY #30 tab 07/16/20 Elemental)] Metoprolol Tartrate [Lopressor] 50 mg PO BID #60 tab 07/16/20 Allergies Allergy/AdvReac Type Severity Reaction Status Date / Time ciprofloxacin [From Cipro] Allergy Rash/Hives Verified 10/21/20 13:18 ciprofloxacin HCl Allergy Rash/Hives Verified 10/21/20 13:18 [From Cipro] codeine Allergy Rash/Hives Verified 10/21/20 13:18 Penicillins Allergy Rash/Hives Verified 10/21/20 13:18 shellfish derived [Shellfish] Allergy Rash/Hives Verified 10/21/20 13:18 Sulfa (Sulfonamide Allergy Rash/Hives Verified 10/21/20 13:18 Antibiotics) Review of Systems ROS Statement: Those systems with pertinent positive or pertinent negative responses have been documented in the HPI. ROS Other: All systems not noted in ROS Statement are negative. Past Medical History Past Medical History: Coronary Artery Disease (CAD), Heart Failure, COPD, Diabetes Mellitus, Hypertension Additional Past Medical History / Comment(s): asthma, A fib History of Any Multi-Drug Resistant Organisms: None Reported Past Surgical History: Appendectomy, Cholecystectomy, Hysterectomy, Tubal Ligation Additional Past Surgical History / Comment(s): 2 vessel bypass with mitral valve repair - CHEN and endoscopic vein, mitral valve 32mm sjm ridig saddle ring, maze procedure. Retocele repair Past Anesthesia/Blood Transfusion Reactions: No Reported Reaction Past Psychological History: No Psychological Hx Reported Smoking Status: Never smoker Past Alcohol Use History: None Reported Past Drug Use History: None Reported - Past Family History Father Additional Family Medical History / Comment(s): at 55 with a massive [place] Mother Family Medical History: CVA/TIA General Exam - General Exam Comments Initial Comments: This is a well-developed well-nourished awake alert oriented 3 female Limitations: no limitations General appearance: alert, in no apparent distress Head exam: Present: atraumatic, normocephalic, normal inspection Eye exam: Present: normal appearance, PERRL, EOMI. Absent: scleral icterus, conjunctival injection, periorbital swelling ENT exam: Present: mucous membranes dry Neck exam: Present: normal inspection, full ROM, other. Absent: tenderness, meningismus, lymphadenopathy Respiratory exam: Present: normal lung sounds bilaterally. Absent: respiratory distress, wheezes, rales, rhonchi, stridor Cardiovascular Exam: Present: normal rhythm, tachycardia (No stridor JVD or bruits), normal heart sounds. Absent: systolic murmur, diastolic murmur, rubs, gallop, clicks GI/Abdominal exam: Present: soft, normal bowel sounds. Absent: distended, tenderness, guarding, rebound, rigid Extremities exam: Present: normal inspection, full ROM, normal capillary refill. Absent: tenderness, pedal edema, joint swelling, calf tenderness Back exam: Present: normal inspection Neurological exam: Present: alert, oriented X3, CN II-XII intact Psychiatric exam: Present: normal affect, normal mood Skin exam: Present: warm, dry, normal color, other (Dressings on both lower extremities over the devi area no evidence of cellulitis). Absent: rash Course Vital Signs 10/21/20 10/21/20 10/21/20 11:50 13:50 15:33 Pulse Rate 116 H 115 H 116 H Respiratory 16 18 18 Rate Blood Pressure 76/46 98/52 107/49 O2 Sat by Pulse 99 99 98 Oximetry EKG Findings - EKG Results: EKG: interpreted by ERMD (Junctional rhythm rate 114 QRS 92 QT since QTC 414/570 abnormal QRS-T angle this is compared to an EKG dated ) Medical Decision Making - Medical Decision Making I did remove after patient on multiple occasions her blood pressure is improved however she still remains tachycardic. I did discuss findings with patient family who was present also with Dr. Sidhu. The patient will be admitted with cardiology consultation. - Lab Data Result diagrams: 10/21/20 12:27 10/21/20 12: Lab Results 10/21/20 10/21/20 10/21/20 Range/Units 12:19 12: 12:27 WBC 8.6 (3.8-10.6) k/uL RBC 3.93 (3.80-5.40) m/uL Hgb 12.1 (11.4-16.0) gm/dL Hct 37.3 (34.0-46.0) % MCV 95.1 (80.0-100.0) fL MCH 30.7 (25.0-35.0) pg MCHC 32.3 (31.0-37.0) g/dL RDW 18.3 H (11.5-15.5) % Plt Count 306 (150-450) k/uL MPV 7.7 Neutrophils % 80 % Lymphocytes % 9 % Monocytes % 5 % Eosinophils % 4 % Basophils % 1 % Neutrophils # 6.9 (1.3-7.7) k/uL Lymphocytes # 0.8 L (1.0-4.8) k/uL Monocytes # 0.4 (0-1.0) k/uL Eosinophils # 0.4 (0-0.7) k/uL Basophils # 0.1 (0-0.2) k/uL Anisocytosis Slight Macrocytosis Slight Sodium (137-145) mmol/L Potassium (3.5-5.1) mmol/L Chloride (98-107) mmol/L Carbon Dioxide (22-30) mmol/L Anion Gap mmol/L BUN (7-17) mg/dL Creatinine (0.52-1.04) mg/dL Est GFR (CKD-EPI)AfAm (>60 ml/min/1.73 sqM) Est GFR (CKD-EPI)NonAf (>60 ml/min/1.73 sqM) Glucose (74-99) mg/dL POC Glucose (mg/dL) 159 H (75-99) mg/dL POC Glu Steam Table Associate ID Payton, DEEP, Mendel Plasma Lactic Acid Mo (0.7-2.0) mmol/L Calcium (8.4-10.2) mg/dL Total Bilirubin (0.2-1.3) mg/dL AST (14-36) U/L ALT (4-34) U/L Alkaline Phosphatase (38-126) U/L Creatine Kinase (30-135) U/L Troponin I (0.000-0.034) ng/mL Total Protein (6.3-8.2) g/dL Albumin (3.5-5.0) g/dL Amylase (30-110) U/L Lipase (23-300) U/L Urine Color Light Yellow Urine Appearance Clear (Clear) Urine pH 6.5 (5.0-8.0) Ur Specific [place] 1.007 (1.001-1.035) Urine Protein Negative (Negative) Urine Glucose (UA) Negative (Negative) Urine Ketones Negative (Negative) Urine Blood Negative (Negative) Urine Nitrite Negative (Negative) Urine Bilirubin Negative (Negative) Urine Urobilinogen <2.0 (<2.0) mg/dL Ur Leukocyte Esterase Moderate H (Negative) Urine RBC 1 (0-5) /hpf Urine WBC 4 (0-5) /hpf Ur Squamous Epith Cells <1 (0-4) /hpf Hyaline Casts 5 H (0-2) /lpf Urine Mucus Rare H (None) /hpf 10/21/20 10/21/20 10/21/20 Range/Units 12:27 12:27 12:27 WBC (3.8-10.6) k/uL RBC (3.80-5.40) m/uL Hgb (11.4-16.0) gm/dL Hct (34.0-46.0) % MCV (80.0-100.0) fL MCH (25.0-35.0) pg MCHC (31.0-37.0) g/dL RDW (11.5-15.5) % Plt Count (150-450) k/uL MPV Neutrophils % % Lymphocytes % % Monocytes % % Eosinophils % % Basophils % % Neutrophils # (1.3-7.7) k/uL Lymphocytes # (1.0-4.8) k/uL Monocytes # (0-1.0) k/uL Eosinophils # (0-0.7) k/uL Basophils # (0-0.2) k/uL Anisocytosis Macrocytosis Sodium 138 (137-145) mmol/L Potassium 3.2 L (3.5-5.1) mmol/L Chloride 92 L (98-107) mmol/L Carbon Dioxide 31 H (22-30) mmol/L Anion Gap 15 mmol/L BUN 70 H (7-17) mg/dL Creatinine 1.36 H (0.52-1.04) mg/dL Est GFR (CKD-EPI)AfAm 44 (>60 ml/min/1.73 sqM) Est GFR (CKD-EPI)NonAf 38 (>60 ml/min/1.73 sqM) Glucose 165 H (74-99) mg/dL POC Glucose (mg/dL) (75-99) mg/dL POC Glu Steam Table Associate ID Plasma Lactic Acid Mo 2.0 (0.7-2.0) mmol/L Calcium 10.0 (8.4-10.2) mg/dL Total Bilirubin 0.7 (0.2-1.3) mg/dL AST 32 (14-36) U/L ALT 19 (4-34) U/L Alkaline Phosphatase 159 H (38-126) U/L Creatine Kinase 63 (30-135) U/L Troponin I 0.021 (0.000-0.034) ng/mL Total Protein 7.5 (6.3-8.2) g/dL Albumin 4.5 (3.5-5.0) g/dL Amylase 65 (30-110) U/L Lipase 110 (23-300) U/L Urine Color Urine Appearance (Clear) Urine pH (5.0-8.0) Ur Specific [place] (1.001-1.035) Urine Protein (Negative) Urine Glucose (UA) (Negative) Urine Ketones (Negative) Urine Blood (Negative) Urine Nitrite (Negative) Urine Bilirubin (Negative) Urine Urobilinogen (<2.0) mg/dL Ur Leukocyte Esterase (Negative) Urine RBC (0-5) /hpf Urine WBC (0-5) /hpf Ur Squamous Epith Cells (0-4) /hpf Hyaline Casts (0-2) /lpf Urine Mucus (None) /hpf - Radiology Data Radiology results: report reviewed (Imaging reviewed no acute findings.), image reviewed Disposition Clinical Impression: Tachycardia, Hypotensive episode, Dehydration Disposition: ADMITTED IP TO THIS HOSP Condition: Fair Referrals: Arash Mendoza MD [Primary Care Provider] - 1-2 days
[2020-10-21 12:45] LABS: Anisocytosis Slight; Basophils # (A) 0.1 k/uL (0-0.2); Basophils % (A) 1 %; Eosinophils # (A) 0.4 k/uL (0-0.7); Eosinophils % (A) 4 %; HCT 37.3 % (34.0-46.0); HGB 12.1 gm/dL (11.4-16.0); Lymphocytes # (A) 0.8 k/uL (1.0-4.8); Lymphocytes % (A) 9 %; MCH 30.7 pg (25.0-35.0); MCHC 32.3 g/dL (31.0-37.0); MCV 95.1 fL (80.0-100.0); Macrocytosis Slight; Mean Platelet Volume 7.7; Monocytes # (A) 0.4 k/uL (0-1.0); Monocytes % (A) 5 %; Neutrophils # (A) 6.9 k/uL (1.3-7.7); Neutrophils % (A) 80 %; Platelet Count 306 k/uL (150-450); RBC 3.93 m/uL (3.80-5.40); RDW 18.3 % (11.5-15.5); WBC 8.6 k/uL (3.8-10.6)
--- NOTE | 2020-10-21 12:46 | XR ---
EXAMINATION TYPE: XR chest 2V DATE OF EXAM: 10/21/2020 COMPARISON: 07/16/2020 TECHNIQUE: PA and lateral views submitted. HISTORY: Pain FINDINGS: Postsurgical change with the heart size at the upper limits of normal. Coarsened interstitium. Subseg mental areas of consolidation. Atherosclerotic change aorta with ectasia. Arthropathy of the shoulder s with diffuse osteopenia. No pneumothorax. Hypertrophic and degenerative change of the spine. Mild h yperinflation correlate for COPD. IMPRESSION: 1. COPD correlate for chronic interstitial lung disease. Superimposed mild venous congestion or inter stitial pneumonitis not excluded. 2. Subsegmental areas of consolidation right lung most typical of atelectasis.
--- NOTE | 2020-10-21 12:48 | XR ---
EXAMINATION TYPE: XR KUB DATE OF EXAM: 10/21/2020 COMPARISON: NONE HISTORY: Vomiting and pain TECHNIQUE: One view abdominal series FINDINGS: The osseous structures are intact. The bowel gas pattern is nonspecific. Surgical change involving t he mediastinum and cardiac valve replacement suggested. Vascular calcifications noted. Hypertrophic a nd degenerative changes spine. Surgical clips in the abdomen. Arthropathy of the hips. IMPRESSION: 1. Nonspecific abdomen with no diagnostic evidence of obstruction. Occasional air-fluid level can be associated with an ileus or enteritis correlate clinically.
[2020-10-21 13:27] LABS: Albumin 4.5 g/dL (3.5-5.0); Potassium 3.2 mmol/L (3.5-5.1); Total Bilirubin 0.7 mg/dL (0.2-1.3); Total Protein 7.5 g/dL (6.3-8.2)
[2020-10-21 13:45] LABS: Appearance,Urine Clear (Clear); Bilirubin,Urine Negative (Negative); Blood,Urine Negative (Negative); Color,Urine Light Yellow; Glucose,Urine (UA) Negative (Negative); Hyaline Casts,Urine 5 /lpf (0-2); Ketones,Urine Negative (Negative); Leukocyte Esterase,Urine Moderate (Negative); Mucus,Urine Rare /hpf; Nitrite,Urine Negative (Negative); PH, Urine 6.5 (5.0-8.0); Protein,Urine Negative (Negative); RBC,Urine 1 /hpf (0-5); Specific Gravity,Urine 1.007 (1.001-1.035); Squamous Epithelial Cell,Urine <1 /hpf (0-4); Urobilinogen,Urine <2.0 mg/dL (<2.0); WBC,Urine 4 /hpf (0-5)
[2020-10-21] MEDS ORDERED: NALOXONE 0.4 MG/ML 1 ML VIAL IV PRN (17:22)
[2020-10-21] MEDS ORDERED: ALBUTEROL NEBULIZED 2.5 MG/3 ML INHALATION PRN (17:24)
[2020-10-21] MEDS ORDERED: METOPROLOL TARTRATE 25 MG TAB PO PRN (17:24)
--- NOTE | 2020-10-21 17:31 | P.HPIM ---
History of Present Illness H&P Date: 10/21/20 This is a 75-year-old female with complex past medical history noted below significant for coronary artery disease status post bypass surgery in April of this year, underlying ischemic cardiomyopathy was known EF of 20%, type 2 diabetes that presented to the emergency room with a chief complaint of hypotension. Patient said that she was not feeling well today and she checked her blood pressure at home using her wrist cuff and had readings of 70s over 40s. She subsequently had her visiting nurse check her blood pressure and he was reported low. Patient said that she was feeling nauseous and vomited once. She otherwise denies any chest pain. She presented to the ER and was found to be in junctional accelerated rhythm and a heart rate in the 120s to 130s. Patient was also hypotensive in the ER but her blood pressure improved after some IV fluid hydration. She is otherwise feeling well. She does not have any complaints. She told me that she does not want stay in the hospital and would rather go home. Review of Systems Review of system: 14 points review of systems were obtained and were negative except to what were mentioned in the HPI. Past Medical History Past Medical History: Coronary Artery Disease (CAD), Heart Failure, COPD, Diabetes Mellitus, Hypertension Additional Past Medical History / Comment(s): asthma, A fib History of Any Multi-Drug Resistant Organisms: None Reported Past Surgical History: Appendectomy, Cholecystectomy, Hysterectomy, Tubal Ligation Additional Past Surgical History / Comment(s): 2 vessel bypass with mitral valve repair - CHEN and endoscopic vein, mitral valve 32mm sjm ridig saddle ring, maze procedure. Retocele repair Past Anesthesia/Blood Transfusion Reactions: No Reported Reaction Past Psychological History: No Psychological Hx Reported Smoking Status: Never smoker Past Alcohol Use History: None Reported Past Drug Use History: None Reported - Past Family History Father Additional Family Medical History / Comment(s): at 55 with a massive [place] Mother Family Medical History: CVA/TIA Medications and Allergies Home Medications Medication Instructions Recorded Confirmed Type ALPRAZolam [Xanax] 0.5 mg PO Q6H PRN 07/07/20 10/21/20 History Acetaminophen Tab [Tylenol] 500 mg PO BID 07/07/20 10/21/20 History Albuterol Inhaler [Ventolin Hfa 2 puff INHALATION RT-Q6H PRN 07/07/20 10/21/20 History Inhaler] Atorvastatin [Lipitor] 80 mg PO HS 07/07/20 10/21/20 History Docusate [Colace] 100 mg PO BID 07/07/20 10/21/20 History Fluticasone Nasal [place] [Flonase 2 spr EA NOSTRIL DAILY 07/07/20 10/21/20 History Nasal [place]] Fluticasone/Vilanterol [Breo 1 puff INHALATION RT-DAILY 07/07/20 10/21/20 History Ellipta 100-25 Mcg Inhaler] Insulin Lispro [Insulin Lispro See Protocol SQ AC-TID 07/07/20 10/21/20 History Kwikpen U-100] Loratadine [Claritin] 10 mg PO DAILY 07/07/20 10/21/20 History Omeprazole 20 mg PO AC-SUPPER 07/07/20 10/21/20 History Sacubitril/Valsartan [Entresto 24 1 tab PO Q12H 07/07/20 10/21/20 History mg-26 mg Tablet] Tiotropium [place] [Spiriva] 2 cap INHALATION RT-DAILY 07/07/20 10/21/20 History metOLazone [Zaroxolyn] 5 mg PO DAILY 07/07/20 10/21/20 History Apixaban [Eliquis] 5 mg PO BID #60 tab 07/16/20 10/21/20 Rx Bumetanide [BUMEX] 1 mg PO BID #60 tab 07/16/20 10/21/20 Rx Ferrous Sulfate [Iron (65 MG 325 mg PO DAILY #30 tab 07/16/20 10/21/20 Rx Elemental)] Metoprolol Tartrate [Lopressor] 50 mg PO BID #60 tab 07/16/20 10/21/20 Rx Amiodarone [Cordarone] 100 mg PO DAILY 10/21/20 10/21/20 History Collagenase [Santyl] 1 applic TOPICAL DAILY 10/21/20 10/21/20 History Insulin Glargine,Hum.rec.anlog 8 - 15 unit SQ HS 10/21/20 10/21/20 History [Lantus Solostar Pen] Insulin Lispro [Insulin Lispro 6 units SQ AC-LUNCH@1200 10/21/20 10/21/20 History Kwikpen U-100] Insulin Lispro [Insulin Lispro 10 units SQ AC-BID@0800,1600 10/21/20 10/21/20 History Kwikpen U-100] Metoprolol Tartrate [Lopressor] 25 mg PO BID PRN 10/21/20 10/21/20 History Allergies Allergy/AdvReac Type Severity Reaction Status Date / Time ciprofloxacin [From Cipro] Allergy Rash/Hives Verified 10/21/20 13:18 ciprofloxacin HCl Allergy Rash/Hives Verified 10/21/20 13:18 [From Cipro] codeine Allergy Rash/Hives Verified 10/21/20 13:18 Penicillins Allergy Rash/Hives Verified 10/21/20 13:18 shellfish derived [Shellfish] Allergy Rash/Hives Verified 10/21/20 13:18 Sulfa (Sulfonamide Allergy Rash/Hives Verified 10/21/20 13:18 Antibiotics) Physical Exam Vitals: Vital Signs Pulse Resp BP Pulse Ox 10/21/20 15:33 116 H 18 107/49 98 10/21/20 13:50 115 H 18 98/52 99 10/21/20 11:50 116 H 16 76/46 99 Intake and Output 10/21/20 10/21/20 10/21/20 06:59 14:59 22:59 Other: Weight 71.668 kg General: The patient is awake and alert, in no distress Eye: there is normal conjunctiva bilaterally. Neck: The neck is supple, there is no JVD. Cardiovascular: Normal S1-S2, no S3-S4, no murmurs. Respiratory: Lungs clear to auscultation bilaterally Gastrointestinal: Abdomen is soft, nontender Musculoskeletal: There is no pedal edema. Neurological:. Speech is normal. Skin: Skin is warm and dry Results CBC & Chem 7: 10/21/20 12:27 10/21/20 12:27 Labs: Abnormal Lab Results - Last 24 Hours (Table) 10/21/20 10/21/20 10/21/20 Range/Units 12:19 12:27 12:27 RDW 18.3 H (11.5-15.5) % Lymphocytes # 0.8 L (1.0-4.8) k/uL Potassium (3.5-5.1) mmol/L Chloride (98-107) mmol/L Carbon Dioxide (22-30) mmol/L BUN (7-17) mg/dL Creatinine (0.52-1.04) mg/dL Glucose (74-99) mg/dL POC Glucose (mg/dL) 159 H (75-99) mg/dL Alkaline Phosphatase (38-126) U/L Ur Leukocyte Esterase Moderate H (Negative) Hyaline Casts 5 H (0-2) /lpf Urine Mucus Rare H (None) /hpf 10/21/20 Range/Units 12:27 RDW (11.5-15.5) % Lymphocytes # (1.0-4.8) k/uL Potassium 3.2 L (3.5-5.1) mmol/L Chloride 92 L (98-107) mmol/L Carbon Dioxide 31 H (22-30) mmol/L BUN 70 H (7-17) mg/dL Creatinine 1.36 H (0.52-1.04) mg/dL Glucose 165 H (74-99) mg/dL POC Glucose (mg/dL) (75-99) mg/dL Alkaline Phosphatase 159 H (38-126) U/L Ur Leukocyte Esterase (Negative) Hyaline Casts (0-2) /lpf Urine Mucus (None) /hpf Assessment and Plan Assessment: 1. Hypotension, probably secondary to intravascular volume depletion, diuretics use, and polypharmacy 2. Accelerated junctional rhythm with heart rate up to 130s on presentation 3. Underlying ischemic cardiomyopathy with known EF of 20% 4. Coronary artery disease status post CABG at [facility] in April 2020 5. Type 2 diabetes 6. History of mitral valve replacement 7. Chronic atrial fibrillation Today, I reviewed her medication list and lab work results. We will resume her home medications and monitor blood pressure closely. Cardiology consulted for further evaluation. Echocardiogram in June of this year showed ejection fraction of less than 20%. Continue home anticoagulation with Eliquis. hypokalemia being replaced intravenously
--- NOTE | 2020-10-21 17:36 | ED ---
Medical Decision Making - Lab Data Result diagrams: 10/21/20 12:27 10/21/20 12:27 Lab Results 10/21/20 10/21/20 10/21/20 Range/Units 12:19 12: 12:27 WBC 8.6 (3.8-10.6) k/uL RBC 3.93 (3.80-5.40) m/uL Hgb 12.1 (11.4-16.0) gm/dL Hct 37.3 (34.0-46.0) % MCV 95.1 (80.0-100.0) fL MCH 30.7 (25.0-35.0) pg MCHC 32.3 (31.0-37.0) g/dL RDW 18.3 H (11.5-15.5) % Plt Count 306 (150-450) k/uL MPV 7.7 Neutrophils % 80 % Lymphocytes % 9 % Monocytes % 5 % Eosinophils % 4 % Basophils % 1 % Neutrophils # 6.9 (1.3-7.7) k/uL Lymphocytes # 0.8 L (1.0-4.8) k/uL Monocytes # 0.4 (0-1.0) k/uL Eosinophils # 0.4 (0-0.7) k/uL Basophils # 0.1 (0-0.2) k/uL Anisocytosis Slight Macrocytosis Slight Sodium (137-145) mmol/L Potassium (3.5-5.1) mmol/L Chloride (98-107) mmol/L Carbon Dioxide (22-30) mmol/L Anion Gap mmol/L BUN (7-17) mg/dL Creatinine (0.52-1.04) mg/dL Est GFR (CKD-EPI)AfAm (>60 ml/min/1.73 sqM) Est GFR (CKD-EPI)NonAf (>60 ml/min/1.73 sqM) Glucose (74-99) mg/dL POC Glucose (mg/dL) 159 H (75-99) mg/dL POC Glu Accounts Officer ID Svacha, II, Mendel Plasma Lactic Acid Mo (0.7-2.0) mmol/L Calcium (8.4-10.2) mg/dL Total Bilirubin (0.2-1.3) mg/dL AST (14-36) U/L ALT (4-34) U/L Alkaline Phosphatase (38-126) U/L Creatine Kinase (30-135) U/L Troponin I (0.000-0.034) ng/mL Total Protein (6.3-8.2) g/dL Albumin (3.5-5.0) g/dL Amylase (30-110) U/L Lipase (23-300) U/L Urine Color Light Yellow Urine Appearance Clear (Clear) Urine pH 6.5 (5.0-8.0) Ur Specific [place] 1.007 (1.001-1.035) Urine Protein Negative (Negative) Urine Glucose (UA) Negative (Negative) Urine Ketones Negative (Negative) Urine Blood Negative (Negative) Urine Nitrite Negative (Negative) Urine Bilirubin Negative (Negative) Urine Urobilinogen <2.0 (<2.0) mg/dL Ur Leukocyte Esterase Moderate H (Negative) Urine RBC 1 (0-5) /hpf Urine WBC 4 (0-5) /hpf Ur Squamous Epith Cells <1 (0-4) /hpf Hyaline Casts 5 H (0-2) /lpf Urine Mucus Rare H (None) /hpf 10/21/20 10/21/20 10/21/20 Range/Units 12:27 12:27 12:27 WBC (3.8-10.6) k/uL RBC (3.80-5.40) m/uL Hgb (11.4-16.0) gm/dL Hct (34.0-46.0) % MCV (80.0-100.0) fL MCH (25.0-35.0) pg MCHC (31.0-37.0) g/dL RDW (11.5-15.5) % Plt Count (150-450) k/uL MPV Neutrophils % % Lymphocytes % % Monocytes % % Eosinophils % % Basophils % % Neutrophils # (1.3-7.7) k/uL Lymphocytes # (1.0-4.8) k/uL Monocytes # (0-1.0) k/uL Eosinophils # (0-0.7) k/uL Basophils # (0-0.2) k/uL Anisocytosis Macrocytosis Sodium 138 (137-145) mmol/L Potassium 3.2 L (3.5-5.1) mmol/L Chloride 92 L (98-107) mmol/L Carbon Dioxide 31 H (22-30) mmol/L Anion Gap 15 mmol/L BUN 70 H (7-17) mg/dL Creatinine 1.36 H (0.52-1.04) mg/dL Est GFR (CKD-EPI)AfAm 44 (>60 ml/min/1.73 sqM) Est GFR (CKD-EPI)NonAf 38 (>60 ml/min/1.73 sqM) Glucose 165 H (74-99) mg/dL POC Glucose (mg/dL) (75-99) mg/dL POC Glu Accounts Officer ID Plasma Lactic Acid Mo 2.0 (0.7-2.0) mmol/L Calcium 10.0 (8.4-10.2) mg/dL Total Bilirubin 0.7 (0.2-1.3) mg/dL AST 32 (14-36) U/L ALT 19 (4-34) U/L Alkaline Phosphatase 159 H (38-126) U/L Creatine Kinase 63 (30-135) U/L Troponin I 0.021 (0.000-0.034) ng/mL Total Protein 7.5 (6.3-8.2) g/dL Albumin 4.5 (3.5-5.0) g/dL Amylase 65 (30-110) U/L Lipase 110 (23-300) U/L Urine Color Urine Appearance (Clear) Urine pH (5.0-8.0) Ur Specific [place] (1.001-1.035) Urine Protein (Negative) Urine Glucose (UA) (Negative) Urine Ketones (Negative) Urine Blood (Negative) Urine Nitrite (Negative) Urine Bilirubin (Negative) Urine Urobilinogen (<2.0) mg/dL Ur Leukocyte Esterase (Negative) Urine RBC (0-5) /hpf Urine WBC (0-5) /hpf Ur Squamous Epith Cells (0-4) /hpf Hyaline Casts (0-2) /lpf Urine Mucus (None) /hpf Disposition Clinical Impression: Tachycardia, Hypotensive episode, Dehydration, Hypokalemia Disposition: ADMITTED IP TO THIS [facility] Condition: Fair
[2020-10-21] MEDS ORDERED: 0.9% NACL WITH KCL 20 MEQ/L 1,000 ML IV SCH (18:00)
[2020-10-21] MEDS: BUMETANIDE 1 MG TAB PO SCH (19:02)
[2020-10-21] MEDS: PANTOPRAZOLE 40 MG TABLET PO SCH (19:02)
[2020-10-21 20:47] LABS: Glucose,Whole Blood 251 mg/dL (75-99)
[2020-10-21] MEDS ORDERED: METOPROLOL TARTRATE 50 MG TAB PO SCH (21:00)
[2020-10-21] MEDS: ACETAMINOPHEN TAB 500 MG TAB PO SCH (21:24)
[2020-10-21] MEDS: APIXABAN 5 MG TAB PO SCH (21:25)
[2020-10-21] MEDS: ATORVASTATIN 80 MG TAB PO SCH (21:25)
[2020-10-21] MEDS: DOCUSATE 100 MG CAP PO SCH (21:26)
[2020-10-21] MEDS ORDERED: INSULIN ASPART (NovoLOG) 100 UNIT/ML VIAL SQ ONE (22:20)
[2020-10-21 22:22] LABS: Glucose,Whole Blood 258 mg/dL (75-99)
[2020-10-21] MEDS: SACUBITRIL/VALSARTAN 24 MG-26 MG TABLET PO SCH (22:42)
[2020-10-21] MEDS: INSULIN DETEMIR (LEVEMIR) 100 UNIT/ML SYR SQ SCH (22:42)
[2020-10-22 02:11] LABS: Glucose,Whole Blood 189 mg/dL (75-99)
[2020-10-22 07:04] LABS: Glucose,Whole Blood 149 mg/dL (75-99)
[2020-10-22] MEDS: INSULIN ASPART (NovoLOG) 100 UNIT/ML VIAL SQ SCH ×7 (07:07→20:47)
[2020-10-22] MEDS: IPRATROPIUM 0.5 MG/2.5 ML NEBU INHALATION SCH ×4 (08:01→20:36)
[2020-10-22] MEDS: SYMBICORT 80-4.5 MCG INHALER INHALATION SCH ×2 (08:01→20:36)
[2020-10-22 08:38] LABS: Calcium 9.3 mg/dL (8.4-10.2); Potassium 3.4 mmol/L (3.5-5.1)
[2020-10-22] MEDS: BUMETANIDE 1 MG TAB PO SCH (08:38)
[2020-10-22] MEDS: SACUBITRIL/VALSARTAN 24 MG-26 MG TABLET PO SCH (08:39)
[2020-10-22] MEDS: LORATADINE 10 MG TAB PO SCH (08:48)
[2020-10-22] MEDS: AMIODARONE 100 MG TAB PO SCH (08:49)
[2020-10-22] MEDS: METOPROLOL TARTRATE 50 MG TAB PO SCH ×2 (08:49→20:46)
[2020-10-22] MEDS: metOLazone 5 MG TAB PO SCH (08:49)
[2020-10-22] MEDS: APIXABAN 5 MG TAB PO SCH ×2 (08:49→20:46)
[2020-10-22] MEDS: ACETAMINOPHEN TAB 500 MG TAB PO SCH ×2 (08:49→20:45)
[2020-10-22] MEDS: DOCUSATE 100 MG CAP PO SCH ×2 (08:50→20:46)
[2020-10-22] MEDS: FERROUS SULFATE 325 MG TAB PO SCH (08:50)
[2020-10-22] MEDS: FLUTICASONE 50MCG/SPRAY NASAL 16GM EA NOSTRIL SCH (08:53)
[2020-10-22] MEDS ORDERED: METOPROLOL TARTRATE 50 MG TAB PO SCH (09:00)
[2020-10-22] MEDS ORDERED: POTASSIUM CHLORIDE ER 20 MEQ TAB.ER PO STA ×2 (09:21→09:53)
[2020-10-22] MEDS ORDERED: POTASSIUM CHLORIDE 20 MEQ in WATER FOR INJECTION 1 100ML.BAG IVPB STA (09:21)
--- NOTE | 2020-10-22 10:41 | P.CRDCN ---
History of Present Illness Consult date: 10/22/20 History of present illness: HISTORY OF PRESENT ILLNESS: This is a 75-year-old female with a past medical history significant for ischemic cardiomyopathy, coronary artery disease with recent CABG and mitral valve repair and Maze procedure at [facility], congestive heart failure, paroxysmal atrial fibrillation, and hyperlipidemia. Patient follows in the office with Dr. Rodrigues. We have been asked to see the patient in consultation for tachycardia and hypotension. Patient examined at the bedside. Patient states yesterday when she woke up in the morning she was feeling "blah". She denied having any chest pain or pressure. She denied shortness of breath. She states she took her blood pressure in the morning which she usually does every day and her blood pressure was 8050s. She states her blood pressures usually around 100 systolic. She states shortly afterward she started having dry heaves and then had a few episodes of vomiting. She states a home care nurse came over to her her house to change the dressings on her legs and was having a difficult time obtaining her blood pressure so it was recommended that she come to the hospital for further evaluation. Patient was given IV fluids in the emergency room. Blood pressure is ranging from 80s to 100 systolic. Patient remains tachycardic with heart rate in the 120s. Telemetry reveals atrial tachycardia. EKG reveals atrial tachycardia Chest xray COPD correlate for chronic interstitial lung disease. Superimposed mild venous congestion or interstitial pneumonitis not excluded. Subsegmental areas of consolidation right lung most typical of atelectasis. Laboratory data: WBC 8.6. Hemoglobin 12.1. Platelet count 306. Sodium 138. Potassium 3.2. BUN 70. Creatinine 1.36. Current home cardiac medications include Zaroxolyn 5 mg daily, Entresto 24-26mg Q12 hours, metoprolol tartrate 50 mg twice a day, Bumex 1 mg twice a day, Eliquis 5 mg twice a day, Lipitor 80 mg daily, and amiodarone 100 mg daily Most recent echocardiogram obtained in June 2020 revealed ejection fraction less than 20%. Severe global hypokinesis of LV. [id number] tricuspid regurg itation. Large pleural effusion. Trivial pericardial effusion. REVIEW OF SYSTEMS: At the time of my exam: CONSTITUTIONAL: Denies fever or chills. HEENT: Denies blurred vision, vision changes, or eye pain. Denies hemoptysis CARDIOVASCULAR: Denies chest pain. Denies orthopnea. Denies PND. Denies palpitations RESPIRATORY: Denies shortness of breath. GASTROINTESTINAL: Denies abdominal pain. Denies nausea or vomiting. HEMATOLOGIC: Denies bleeding disorders. GENITOURINARY: Denies any blood in urine. SKIN: Denies pruitis. Denies rash. PHYSICAL EXAM: VITAL SIGNS: Reviewed. GENERAL: Well-developed in no acute distress. HEENT: Head is normocephalic. Pupils are equal, round. Sclerae anicteric. Mucous membranes of the mouth are moist. Neck supple. No JVD or thyromegaly LUNGS: Respirations even and unlabored. Lungs diminished to auscultation bilaterally. HEART: Regular rate and rhythm. S1 and S2 heard. ABDOMEN: Soft. Nondistended. Nontender. EXTREMITIES: Normal range of motion. No clubbing or cyanosis. Peripheral pulses intact. Trace bilateral lower extremity edema NEUROLOGIC: Awake and alert. Oriented x 3. ASSESSMENT: Hypotension secondary to volume depletion Nausea and vomiting Atrial tachycardia Acute on chronic kidney disease Hypokalemia Ischemic cardiomyopathy with ejection fraction of 20% Coronary artery disease with recent CABG, mitral valve repair, and Maze procedure at [facility] Chronic systolic congestive heart failure Paroxysmal atrial fibrillation Hyperlipidemia PLAN: Continue home cardiac medications Obtain 2D echo to assess cardiac structure and function Hold Entresto Hold Bumex Continue metoprolol 50mg BID. Will consider increasing dose pending future blood pressure trends Monitor blood pressure Continue telemetry monitoring Further recommendations pending patient course Nurse practitioner note has been reviewed by physician. Signing provider agrees with the documented findings, assessment, and plan of care. Past Medical History Past Medical History: Coronary Artery Disease (CAD), Heart Failure, COPD, Diabetes Mellitus, Hypertension Additional Past Medical History / Comment(s): asthma, A fib History of Any Multi-Drug Resistant Organisms: None Reported Past Surgical History: Appendectomy, Cholecystectomy, Hysterectomy, Tubal Ligation Additional Past Surgical History / Comment(s): 2 vessel bypass with mitral valve repair - CHEN and endoscopic vein, mitral valve 32mm sjm ridig saddle ring, maze procedure. Retocele repair Past Anesthesia/Blood Transfusion Reactions: No Reported Reaction Past Psychological History: No Psychological Hx Reported Smoking Status: Never smoker Past Alcohol Use History: None Reported Past Drug Use History: None Reported - Past Family History Father Family Medical History: Myocardial Infarction (PR) Additional Family Medical History / Comment(s): at 55 with a massive PR Mother Family Medical History: CVA/TIA Medications and Allergies Home Medications Medication Instructions Recorded Confirmed Type ALPRAZolam [Xanax] 0.5 mg PO Q6H PRN 07/07/20 10/21/20 History Acetaminophen Tab [Tylenol] 500 mg PO BID 07/07/20 10/21/20 History Albuterol Inhaler [Ventolin Hfa 2 puff INHALATION RT-Q6H PRN 07/07/20 10/21/20 History Inhaler] Atorvastatin [Lipitor] 80 mg PO HS 07/07/20 10/21/20 History Docusate [Colace] 100 mg PO BID 07/07/20 10/21/20 History Fluticasone Nasal [place] [Flonase 2 spr EA NOSTRIL DAILY 07/07/20 10/21/20 Histo ry Nasal [place]] Fluticasone/Vilanterol [Breo 1 puff INHALATION RT-DAILY 07/07/20 10/21/20 His tory Ellipta 100-25 Mcg Inhaler] Insulin Lispro [Insulin Lispro See Protocol SQ AC-TID 07/07/20 10/21/20 History Kwikpen U-100] Loratadine [Claritin] 10 mg PO DAILY 07/07/20 10/21/20 History Omeprazole 20 mg PO AC-SUPPER 07/07/20 10/21/20 History Sacubitril/Valsartan [Entresto 24 1 tab PO Q12H 07/07/20 10/21/20 History mg-26 mg Tablet] Tiotropium [place] [Spiriva] 2 cap INHALATION RT-DAILY 07/07/20 10/21/20 History metOLazone [Zaroxolyn] 5 mg PO DAILY 07/07/20 10/21/20 History Apixaban [Eliquis] 5 mg PO BID #60 tab 07/16/20 10/21/20 Rx Bumetanide [BUMEX] 1 mg PO BID #60 tab 07/16/20 10/21/20 Rx Ferrous Sulfate [Iron (65 MG 325 mg PO DAILY #30 tab 07/16/20 10/21/20 Rx Elemental)] Metoprolol Tartrate [Lopressor] 50 mg PO BID #60 tab 07/16/20 10/21/20 Rx Amiodarone [Cordarone] 100 mg PO DAILY 10/21/20 10/21/20 History Collagenase [Santyl] 1 applic TOPICAL DAILY 10/21/20 10/21/20 History Insulin Glargine,Hum.rec.anlog 8 - 15 unit SQ HS 10/21/20 10/21/20 History [Lantus Solostar Pen] Insulin Lispro [Insulin Lispro 6 units SQ AC-LUNCH@1200 10/21/20 10/21/20 History Kwikpen U-100] Insulin Lispro [Insulin Lispro 10 units SQ AC-BID@0800,1600 10/21/20 10/21/20 History Kwikpen U-100] Metoprolol Tartrate [Lopressor] 25 mg PO BID PRN 10/21/20 10/21/20 History Allergies Allergy/AdvReac Type Severity Reaction Status Date / Time ciprofloxacin [From Cipro] Allergy Rash/Hives Verified 10/21/20 13:18 ciprofloxacin HCl Allergy Rash/Hives Verified 10/21/20 13:18 [From Cipro] codeine Allergy Rash/Hives Verified 10/21/20 13:18 Iodine and Iodide Containing Allergy Rash/Hives Verified 10/22/20 01:38 Produc Penicillins Allergy Rash/Hives Verified 10/21/20 13:18 shellfish derived [Shellfish] Allergy Rash/Hives Verified 10/21/20 13:18 Sulfa (Sulfonamide Allergy Rash/Hives Verified 10/21/20 13:18 Antibiotics) Physical Exam Vitals: Vital Signs Temp Pulse Pulse Resp BP BP BP 10/22/20 08:14 120 H 14 10/22/20 08:02 118 H 14 10/22/20 07:15 98.2 F 121 H 16 80/47 80/48 10/22/20 04:00 98.0 F 112 H 16 113/66 10/22/20 02:00 122/69 10/22/20 00:00 98.4 F 121 H 18 103/47 10/21/20 22:40 121/58 10/21/20 19:54 98.0 F 112 H 16 128/66 10/21/20 18:55 98.3 F 121 H 16 112/58 10/21/20 18:30 112 H 18 105/62 10/21/20 15:33 116 H 18 107/49 10/21/20 13:50 115 H 18 98/52 10/21/20 11:50 116 H 16 76/46 Pulse Ox 10/22/20 08:14 10/22/20 08:02 10/22/20 07:15 100 10/22/20 04:00 98 10/22/20 02:00 10/22/20 00:00 97 10/21/20 22:40 10/21/20 19:54 99 10/21/20 18:55 100 10/21/20 18:30 99 10/21/20 15:33 98 10/21/20 13:50 99 10/21/20 11:50 99 Intake and Output 10/21/20 10/22/20 10/22/20 22:59 06:59 14:59 Output Total 400 900 Balance -400 -900 Output: Urine 400 900 Other: Voiding Method Toilet Toilet # Voids 1 1 # Bowel Movements 1 Weight 72.9 kg 72.9 kg Results 10/21/20 12:27 10/22/20 07:33 Cardiac Enzymes 10/21/20 10/21/20 Range/Units 12:27 12:27 AST 32 (14-36) U/L Troponin I 0.021 (0.000-0.034) ng/mL CBC 10/21/20 Range/Units 12:27 WBC 8.6 (3.8-10.6) k/uL RBC 3.93 (3.80-5.40) m/uL Hgb 12.1 (11.4-16.0) gm/dL Hct 37.3 (34.0-46.0) % Plt Count 306 (150-450) k/uL Comprehensive Metabolic Panel 10/21/20 Range/Units 12:27 Sodium 138 (137-145) mmol/L Potassium 3.2 L (3.5-5.1) mmol/L Chloride 92 L (98-107) mmol/L Carbon Dioxide 31 H (22-30) mmol/L BUN 70 H (7-17) mg/dL Creatinine 1.36 H (0.52-1.04) mg/dL Glucose 165 H (74-99) mg/dL Calcium 10.0 (8.4-10.2) mg/dL AST 32 (14-36) U/L ALT 19 (4-34) U/L Alkaline Phosphatase 159 H (38-126) U/L Total Protein 7.5 (6.3-8.2) g/dL Albumin 4.5 (3.5-5.0) g/dL Current Medications Generic Name Dose Route Start Last Admin Trade Name Freq PRN Reason Stop Dose Admin Acetaminophen 500 mg 10/21/20 21:00 10/21/20 21:24 Acetaminophen Tab 500 Mg Tab PO 500 mg BID SASHA Administration Albuterol Sulfate 2.5 mg 10/21/20 17:24 Albuterol Nebulized 2.5 Mg/3 Ml INHALATION RT-Q6H PRN Shortness Of Breath Alprazolam 0.5 mg 10/21/20 17:24 Alprazolam 0.5 Mg Tab PO Q6H PRN Anxiety Amiodarone HCl 100 mg 10/22/20 09:00 Amiodarone 100 Mg Tab PO DAILY SASHA Apixaban 5 mg 10/21/20 21:00 10/21/20 21:25 Apixaban 5 Mg Tab PO 5 mg BID SASHA Administration Protocol Atorvastatin Calcium 80 mg 10/21/20 21:00 10/21/20 21:25 Atorvastatin 80 Mg Tab PO 80 mg HS SASHA Administration Budesonide/Formoterol Fumarate 2 puff 10/22/20 08:00 10/22/20 08:01 Symbicort 80-4.5 Mcg Inhaler INHALATION 2 puff RT-BID SASHA Administration Bumetanide 1 mg 10/21/20 18:00 10/21/20 19:02 Bumetanide 1 Mg Tab PO 1 mg BID@0900,1600 SASHA Administration Docusate Sodium 100 mg 10/21/20 21:00 10/21/20 21:26 Docusate 100 Mg Cap PO 100 mg BID SASHA Administration Ferrous Sulfate 325 mg 10/22/20 09:00 Ferrous Sulfate 325 Mg Tab PO DAILY [facility] Fluticasone Propionate 2 spray 10/22/20 09:00 Fluticasone 50mcg/[place] Nasal 16gm EA NOSTRIL DAILY [facility] Potassium Chloride/Sodium Chloride 1,000 mls @ 50 mls/hr 10/21/20 18:00 10/21/20 21:26 Ns-Kcl 20 Meq/L Iv Solution IV 50 mls/hr .Q20H SASHA Administration Insulin Aspart 10 unit 10/22/20 08:00 10/22/20 07:07 Insulin Aspart (Novolog) 100 Unit/Ml Vial SQ 10 unit AC-BID@0800,1600 SASHA Administration Insulin Aspart 6 unit 10/22/20 12:00 Insulin Aspart (Novolog) 100 Unit/Ml Vial SQ AC-LUNCH@1200 [facility] Insulin Aspart 0 unit 10/22/20 07:30 10/22/20 07:08 Insulin Aspart (Novolog) 100 Unit/Ml Vial SQ Not Given ACHS [facility] Protocol Insulin Detemir 10 unit 10/21/20 22:00 10/21/20 22:42 Insulin Detemir (Levemir) 100 Unit/Ml Syr SQ 10 unit HS [facility] Administration Ipratropium [place] 0.5 mg 10/22/20 08:00 10/22/20 08:01 Ipratropium 0.5 Mg/2.5 Ml Nebu INHALATION 0.5 mg RT-QID SASHA Administration Loratadine 10 mg 10/22/20 09:00 Loratadine 10 Mg Tab PO DAILY [facility] Metolazone 5 mg 10/22/20 09:00 Metolazone 5 Mg Tab PO DAILY [facility] Metoprolol Tartrate 25 mg 10/21/20 17:24 Metoprolol Tartrate 25 Mg Tab PO BID PRN high bp Metoprolol Tartrate 50 mg 10/22/20 09:00 Metoprolol Tartrate 50 Mg Tab PO TID [facility] Naloxone HCl 0.2 mg 10/21/20 17:22 Naloxone 0.4 Mg/Ml 1 Ml Vial IV Q2M PRN Opioid Reversal Pantoprazole Sodium 40 mg 10/21/20 17:30 10/21/20 19:02 Pantoprazole 40 Mg Tablet PO 40 mg AC-SUPPER [facility] Administration Sacubitril/Valsartan 1 each 10/21/20 21:00 10/21/20 22:42 Sacubitril/Valsartan 24 Mg-26 Mg Tablet PO 1 each Q12HR [facility] Administration Intake and Output 10/21/20 10/22/20 10/22/20 22:59 06:59 14:59 Output Total 400 900 Balance -400 -900 Output: Urine 400 900 Other: Voiding Method Toilet Toilet # Voids 1 1 # Bowel Movements 1 Weight 72.9 kg 72.9 kg 10/21/20 12:27 10/21/20 12:27
--- NOTE | 2020-10-22 11:44 | P.PN ---
Subjective Progress Note Date: 10/22/20 Patient reports feeling better today. She denies dizziness or lightheadedness. She is still tachycardic in the 110s range. Blood pressure still borderline low. Objective - Vital Signs Vital signs: Vital Signs Temp 98.2 F 10/22/20 07:15 Pulse 112 H 10/22/20 11:37 Resp 16 10/22/20 11:37 BP 80/48 10/22/20 07:15 Pulse Ox 100 10/22/20 07:15 Intake & Output 10/21/20 10/22/20 10/22/20 18:59 06:59 18:59 Intake Total 840 Output Total 1300 300 Balance -1300 540 Weight 72.9 kg 72.9 kg Intake: Oral 840 Output: Urine 1300 300 Other: Voiding Method Toilet # Voids 1 # Bowel Movements 1 - Exam General: The patient is awake and alert, in no distress Eye: there is normal conjunctiva bilaterally. Neck: The neck is supple, there is no JVD. Cardiovascular: Normal S1-S2, no S3-S4, no murmurs. Respiratory: Lungs clear to auscultation bilaterally Gastrointestinal: Abdomen is soft, nontender Musculoskeletal: There is +1 pedal edema. Neurological:. Speech is normal. Skin: Skin is warm and dry - Labs CBC & Chem 7: 10/21/20 12:27 10/22/20 07:33 Labs: Abnormal Lab Results - Last 24 Hours (Table) 10/21/20 10/21/20 10/21/20 Range/Units 12:19 12:27 12:27 RDW 18.3 H (11.5-15.5) % Lymphocytes # 0.8 L (1.0-4.8) k/uL Potassium (3.5-5.1) mmol/L Chloride (98-107) mmol/L Carbon Dioxide (22-30) mmol/L BUN (7-17) mg/dL Creatinine (0.52-1.04) mg/dL Glucose (74-99) mg/dL POC Glucose (mg/dL) 159 H (75-99) mg/dL Alkaline Phosphatase (38-126) U/L Ur Leukocyte Esterase Moderate H (Negative) Hyaline Casts 5 H (0-2) /lpf Urine Mucus Rare H (None) /hpf 10/21/20 10/21/2021 Range/Units 12:27 20:41 22:20 RDW (11.5-15.5) % Lymphocytes # (1.0-4.8) k/uL Potassium 3.2 L (3.5-5.1) mmol/L Chloride 92 L (98-107) mmol/L Carbon Dioxide 31 H (22-30) mmol/L BUN 70 H (7-17) mg/dL Creatinine 1.36 H (0.52-1.04) mg/dL Glucose 165 H (74-99) mg/dL POC Glucose (mg/dL) 251 H 258 H (75-99) mg/dL Alkaline Phosphatase 159 H (38-126) U/L Ur Leukocyte Esterase (Negative) Hyaline Casts (0-2) /lpf Urine Mucus (None) /hpf 10/22/20 10/22/20 10/22/20 Range/Units 02:04 07:04 07:33 RDW (11.5-15.5) % Lymphocytes # (1.0-4.8) k/uL Potassium 3.4 L (3.5-5.1) mmol/L Chloride 97 L (98-107) mmol/L Carbon Dioxide 32 H (22-30) mmol/L BUN 57 H (7-17) mg/dL Creatinine (0.52-1.04) mg/dL Glucose 127 H (74-99) mg/dL POC Glucose (mg/dL) 189 H 149 H (75-99) mg/dL Alkaline Phosphatase (38-126) U/L Ur Leukocyte Esterase (Negative) Hyaline Casts (0-2) /lpf Urine Mucus (None) /hpf Assessment and Plan Assessment: This is a 75-year-old female with complex past medical history noted below who presented to the emergency room with low blood pressure readings at home. Patient was evaluated in the ER and admitted to the hospital for further management of her medical problems noted below. 1. Hypotension, probably secondary to intravascular volume depletion, diuretics use, and polypharmacy 2. Accelerated junctional rhythm with heart rate up to 130s on presentation 3. Acute kidney injury 4. Hypokalemia, replaced 5. Underlying ischemic cardiomyopathy with known EF of 20% 6. Coronary artery disease status post CABG at [facility] in April 2020 7. Type 2 diabetes 8. History of mitral valve replacement 9. Chronic atrial fibrillation Today, I reviewed her medication list and lab work results. Creatinine improved with IV fluid hydration. We will discontinue IV fluid. Patient was seen and evaluated by cardiology. Recommendation to discontinue Bumex and Entresto for now. Echocardiogram ordered. Echocardiogram in June of this year showed ejection fraction of less than 20%. Continue home anticoagulation with Eliquis. Repeat lab work in the morning.
[2020-10-22 12:06] LABS: Glucose,Whole Blood 109 mg/dL (75-99)
[2020-10-22 17:13] LABS: Glucose,Whole Blood 196 mg/dL (75-99)
[2020-10-22] MEDS: PANTOPRAZOLE 40 MG TABLET PO SCH (17:15)
[2020-10-22 19:36] LABS: Glucose,Whole Blood 193 mg/dL (75-99)
[2020-10-22] MEDS: INSULIN DETEMIR (LEVEMIR) 100 UNIT/ML SYR SQ SCH (20:46)
[2020-10-22] MEDS: ATORVASTATIN 80 MG TAB PO SCH (20:46)
[2020-10-23 02:07] LABS: Glucose,Whole Blood 99 mg/dL (75-99)
[2020-10-23 07:03] LABS: Glucose,Whole Blood 150 mg/dL (75-99)
[2020-10-23] MEDS: INSULIN ASPART (NovoLOG) 100 UNIT/ML VIAL SQ SCH ×7 (07:20→21:28)
[2020-10-23] MEDS: SYMBICORT 80-4.5 MCG INHALER INHALATION SCH ×2 (07:41→19:02)
[2020-10-23] MEDS: IPRATROPIUM 0.5 MG/2.5 ML NEBU INHALATION SCH ×4 (07:49→19:01)
[2020-10-23] MEDS: APIXABAN 5 MG TAB PO SCH ×2 (09:26→21:28)
[2020-10-23] MEDS: METOPROLOL TARTRATE 50 MG TAB PO SCH ×2 (09:26→21:28)
[2020-10-23] MEDS: FERROUS SULFATE 325 MG TAB PO SCH (09:26)
[2020-10-23] MEDS: LORATADINE 10 MG TAB PO SCH (09:26)
[2020-10-23] MEDS: metOLazone 5 MG TAB PO SCH (09:26)
[2020-10-23] MEDS: ACETAMINOPHEN TAB 500 MG TAB PO SCH ×2 (09:26→21:27)
[2020-10-23] MEDS: AMIODARONE 100 MG TAB PO SCH (09:26)
[2020-10-23] MEDS: FLUTICASONE 50MCG/SPRAY NASAL 16GM EA NOSTRIL SCH (09:27)
[2020-10-23] MEDS: DOCUSATE 100 MG CAP PO SCH ×2 (09:27→21:29)
[2020-10-23 10:23] LABS: Anisocytosis Slight; Basophils # (A) 0.1 k/uL (0-0.2); Basophils % (A) 1 %; Eosinophils # (A) 0.6 k/uL (0-0.7); Eosinophils % (A) 8 %; Lymphocytes % (A) 13 %; MCH 31.6 pg (25.0-35.0); MCHC 33.2 g/dL (31.0-37.0); MCV 95.1 fL (80.0-100.0); Mean Platelet Volume 7.7; Monocytes # (A) 0.4 k/uL (0-1.0); Monocytes % (A) 5 %; Neutrophils # (A) 5.7 k/uL (1.3-7.7); Neutrophils % (A) 71 %; Platelet Count 288 k/uL (150-450); RBC 3.47 m/uL (3.80-5.40); RDW 18.5 % (11.5-15.5)
[2020-10-23 10:40] LABS: Calcium 9.1 mg/dL (8.4-10.2); Magnesium 1.8 mg/dL (1.6-2.3); Potassium 3.8 mmol/L (3.5-5.1)
[2020-10-23] MEDS ORDERED: AMIODARONE 100 MG TAB PO STA (10:54)
--- NOTE | 2020-10-23 10:54 | P.PN ---
Subjective Progress Note Date: 10/23/20 Patient is doing well today. She went into A. fib last night. She denies any palpitations or pounding this morning. Objective - Vital Signs Vital signs: Vital Signs Temp 97.6 F 10/23/20 07:52 Pulse 150 H 10/23/20 08:45 Resp 18 10/23/20 08:00 BP 86/51 10/23/20 07:52 Pulse Ox 98 10/23/20 07:52 Intake & Output 10/22/20 10/23/20 10/23/20 18:59 06:59 18:59 Intake Total 1408 10 246 Output Total 900 800 500 Balance 508 -790 -254 Weight 72.5 kg Intake: IV 210 10 10 0.9% NaCl with KCl 20 Meq 200 /l 1,000 ml @ 50 mls/hr IV .Q20H [facility] Rx#: [id number] Invasive Line 1 10 10 10 Oral [id number] Output: Urine 900 800 500 Other: Voiding Method Toilet # Voids 1 - Exam General: The patient is awake and alert, in no distress Eye: there is normal conjunctiva bilaterally. Neck: The neck is supple, there is no JVD. Cardiovascular: Normal S1-S2, no S3-S4, no murmurs. Respiratory: Lungs clear to auscultation bilaterally Gastrointestinal: Abdomen is soft, nontender Musculoskeletal: There is +1 pedal edema. Neurological:. Speech is normal. Skin: Skin is warm and dry - Labs CBC & Chem 7: 10/23/20 10:06 10/23/20 10:06 Labs: Abnormal Lab Results - Last 24 Hours (Table) 10/22/20 10/22/20 10/22/20 Range/Units 12:04 17:11 19:35 RBC (3.80-5.40) m/uL Hgb (11.4-16.0) gm/dL Hct (34.0-46.0) % RDW (11.5-15.5) % Sodium (137-145) mmol/L Chloride (98-107) mmol/L BUN (7-17) mg/dL Glucose (74-99) mg/dL POC Glucose (mg/dL) 109 H 196 H 193 H (75-99) mg/dL 08/29/21 08/29/21 08/29/21 Range/Units 07:02 10:06 10:06 RBC 3.47 L (3.80-5.40) m/uL Hgb 11.0 L (11.4-16.0) gm/dL Hct 33.0 L (34.0-46.0) % RDW 18.5 H (11.5-15.5) % Sodium 135 L (137-145) mmol/L Chloride 97 L (98-107) mmol/L BUN 45 H (7-17) mg/dL Glucose 252 H (74-99) mg/dL POC Glucose (mg/dL) 150 H (75-99) mg/dL Assessment and Plan Assessment: This is a 75-year-old female with complex past medical history noted below who presented to the emergency room with low blood pressure readings at home. Patient was evaluated in the ER and admitted to the hospital for further management of her medical problems noted below. 1. Hypotension, probably secondary to intravascular volume depletion, diuretics use, and polypharmacy 2. Accelerated junctional rhythm with heart rate up to 130s on presentation 3. Acute kidney injury, resolved with gentle IV fluid hydration 4. Hypokalemia, replaced 5. Underlying ischemic cardiomyopathy with known EF of 20% 6. Coronary artery disease status post CABG at [facility] in April 2020 7. Type 2 diabetes 8. History of mitral valve replacement 9. Chronic atrial fibrillation Today, I reviewed her medication list and lab work results. Patient was seen and evaluated by cardiology. Recommendation to hold Bumex and Entresto for now. Echocardiogram ordered. Echocardiogram in June of this year showed ejection fraction of less than 20%. Continue home anticoagulation with Eliquis. Repeat lab work in the morning.
[2020-10-23] MEDS ORDERED: DIGOXIN 250 MCG/ML 2 ML AMP IVP ONE ×2 (10:55→17:00)
--- NOTE | 2020-10-23 11:05 | P.PN ---
Subjective Progress Note Date: 10/23/20 HISTORY OF PRESENT ILLNESS: This is a 75-year-old female with a past medical history significant for ischemic cardiomyopathy, coronary artery disease with recent CABG and mitral valve repair and Maze procedure at , congestive heart failure, paroxysmal atrial fibrillation, and hyperlipidemia. Patient follows in the office with Dr. Rodrigues. We have been asked to see the patient in consultation for tachycardia and hypotension. Patient examined at the bedside. Patient states yesterday when she woke up in the morning she was feeling "blah". She denied having any chest pain or pressure. She denied shortness of breath. She states she took her blood pressure in the morning which she usually does every day and her blood pressure was 8050s. She states her blood pressures usually around 100 systolic. She states shortly afterward she started having dry heaves and then had a few episodes of vomiting. She states a home care nurse came over to her her house to change the dressings on her legs and was having a difficult time obtaining her blood pressure so it was recommended that she come to the hospital for further evaluation. Patient was given IV fluids in the emergency room. Blood pressure is ranging from 80s to 100 systolic. Patient remains tachycardic with heart rate in the 120s. Telemetry reveals atrial tachycardia. EKG reveals atrial tachycardia Chest xray COPD correlate for chronic interstitial lung disease. Superimposed mild venous congestion or interstitial pneumonitis not excluded. Subsegmental areas of consolidation right lung most typical of atelectasis. Laboratory data: WBC 8.6. Hemoglobin 12.1. Platelet count 306. Sodium 138. Potassium 3.2. BUN 70. Creatinine 1.36. Current home cardiac medications include Zaroxolyn 5 mg daily, Entresto 24-26mg Q12 hours, metoprolol tartrate 50 mg twice a day, Bumex 1 mg twice a day, Eliquis 5 mg twice a day, Lipitor 80 mg daily, and amiodarone 100 mg daily Most recent echocardiogram obtained in June 2020 revealed ejection fraction less than 20%. Severe global hypokinesis of LV. [id number] tricuspid regurgitation. Large pleural effusion. Trivial pericardial effusion. 10/23/2020 Patient examined this morning at the bedside. Patient states she is feeling well today. She denies chest pain or pressure. She denies short of breath. She denies palpitations. Telemetry reveals atrial fibrillation with uncontrolled ventricular rate in the 130s. Patient remains hypotensive with a systolic blood pressure in the 80s to low 90s. BUN decreased to 45 today. PHYSICAL EXAM: VITAL SIGNS: Reviewed. GENERAL: Well-developed in no acute distress. HEENT: Head is normocephalic. Pupils are equal, round. Sclerae anicteric. Mucous membranes of the mouth are moist. Neck supple. No JVD or thyromegaly LUNGS: Respirations even and unlabored. Lungs diminished to auscultation bilaterally. HEART: Tachycardic. Irregular rate and rhythm. S1 and S2 heard. ABDOMEN: Soft. Nondistended. Nontender. EXTREMITIES: Normal range of motion. No clubbing or cyanosis. Peripheral pulses intact. Trace bilateral lower extremity edema NEUROLOGIC: Awake and alert. Oriented x 3. ASSESSMENT: Hypotension secondary to volume depletion Nausea and vomiting Atrial tachycardia Acute on chronic kidney disease Hypokalemia Ischemic cardiomyopathy with ejection fraction of 20% Coronary artery disease with recent CABG, mitral valve repair, and Maze procedure at Chronic systolic congestive heart failure Paroxysmal atrial fibrillation Hyperlipidemia PLAN: 2-D echo ordered. Await results Hold Entresto Hold Bumex Discontinue Zaroxolyn Continue metoprolol 50mg BID Increase amiodarone to 200mg BID Digoxin 125mcg IVP x 1 dose. Repeat dose in 6 hours. Oral digoxin starting tomorrow Monitor blood pressure Continue telemetry monitoring NPO at midnight for possible cardioversion if needed Further recommendations pending patient course Nurse practitioner note has been reviewed by physician. Signing provider agrees with the documented findings, assessment, and plan of care. Objective - Vital Signs Vital signs: Vital Signs Temp 97.6 F 10/23/20 07:52 Pulse 150 H 10/23/20 08:45 Resp 18 10/23/20 08:00 BP 86/51 10/23/20 07:52 Pulse Ox 98 10/23/20 07:52 Intake & Output 10/22/20 10/23/20 10/23/20 18:59 06:59 18:59 Intake Total 1408 10 246 Output Total 900 800 500 Balance 501 -794 -254 Weight 72.5 kg Intake: IV 210 10 10 0.9% NaCl with KCl 20 Meq 200 /l 1,000 ml @ 50 mls/hr IV .Q20H [facility] Rx#: [id number] Invasive Line 1 10 10 10 Oral [id number] 236 Output: Urine 900 800 500 Other: Voiding Method Toilet # Voids 1 - Labs CBC & Chem 7: 10/23/20 10:06 10/23/20 10:06 Labs: Abnormal Lab Results - Last 24 Hours (Table) 10/22/20 10/22/20 10/22/20 Range/Units 12:04 17:11 19:35 RBC (3.80-5.40) m/uL Hgb (11.4-16.0) gm/dL Hct (34.0-46.0) % RDW (11.5-15.5) % Sodium (137-145) mmol/L Chloride (98-107) mmol/L BUN (7-17) mg/dL Glucose (74-99) mg/dL POC Glucose (mg/dL) 109 H 196 H 193 H (75-99) mg/dL 10/23/20 10/23/20 10/23/20 Range/Units 07:02 10:06 10:06 RBC 3.47 L (3.80-5.40) m/uL Hgb 11.0 L (11.4-16.0) gm/dL Hct 33.0 L (34.0-46.0) % RDW 18.5 H (11.5-15.5) % Sodium 135 L (137-145) mmol/L Chloride 97 L (98-107) mmol/L BUN 45 H (7-17) mg/dL Glucose 252 H (74-99) mg/dL POC Glucose (mg/dL) 150 H (75-99) mg/dL
[2020-10-23 11:45] LABS: Glucose,Whole Blood 164 mg/dL (75-99)
[2020-10-23] MEDS: ALPRAZolam 0.5 MG TAB PO PRN ×2 (11:45→21:28)
[2020-10-23 16:16] LABS: Glucose,Whole Blood 116 mg/dL (75-99)
[2020-10-23] MEDS: PANTOPRAZOLE 40 MG TABLET PO SCH (17:04)
[2020-10-23 20:47] LABS: Glucose,Whole Blood 148 mg/dL (75-99)
[2020-10-23] MEDS: INSULIN DETEMIR (LEVEMIR) 100 UNIT/ML SYR SQ SCH (21:28)
[2020-10-23] MEDS: AMIODARONE 200 MG TAB PO SCH (21:28)
[2020-10-23] MEDS: ATORVASTATIN 80 MG TAB PO SCH (21:28)
[2020-10-24 02:02] LABS: Glucose,Whole Blood 162 mg/dL (75-99)
[2020-10-24 06:49] LABS: Glucose,Whole Blood 155 mg/dL (75-99)
[2020-10-24] MEDS: INSULIN ASPART (NovoLOG) 100 UNIT/ML VIAL SQ SCH ×7 (06:56→20:15)
[2020-10-24] MEDS: IPRATROPIUM 0.5 MG/2.5 ML NEBU INHALATION SCH ×4 (08:08→19:09)
[2020-10-24] MEDS: SYMBICORT 80-4.5 MCG INHALER INHALATION SCH ×2 (08:08→19:09)
[2020-10-24] MEDS: DOCUSATE 100 MG CAP PO SCH ×2 (09:01→20:20)
[2020-10-24] MEDS: FLUTICASONE 50MCG/SPRAY NASAL 16GM EA NOSTRIL SCH (09:02)
[2020-10-24] MEDS: METOPROLOL TARTRATE 50 MG TAB PO SCH ×2 (09:04→20:20)
[2020-10-24] MEDS: AMIODARONE 200 MG TAB PO SCH ×2 (09:04→20:19)
[2020-10-24] MEDS: APIXABAN 5 MG TAB PO SCH ×2 (09:04→20:19)
[2020-10-24] MEDS: LORATADINE 10 MG TAB PO SCH (09:04)
[2020-10-24] MEDS: ACETAMINOPHEN TAB 500 MG TAB PO SCH ×2 (09:05→20:19)
[2020-10-24] MEDS: DIGOXIN 125 MCG TAB PO SCH (09:05)
[2020-10-24] MEDS: FERROUS SULFATE 325 MG TAB PO SCH (09:05)
--- NOTE | 2020-10-24 10:54 | P.PN ---
Subjective Progress Note Date: 10/24/20 Patient is doing fairly well today. Blood pressure improved compared to yesterday. Systolic in the low 100. Patient is in normal sinus rhythm on the monitor today. She was loaded with digoxin yesterday Objective - Vital Signs Vital signs: Vital Signs Temp 97.6 F 10/24/20 08:00 Pulse 80 10/24/20 08:19 Resp 18 10/24/20 08:00 BP 102/59 10/24/20 08:00 Pulse Ox 100 10/24/20 08:00 Intake & Output 10/23/20 10/24/20 10/24/20 18:59 06:59 18:59 Intake Total 756 20 0 Output Total 500 Balance 256 20 0 Weight 73 kg Intake: IV 20 20 Invasive Line 1 20 20 Oral 736 0 Output: Urine 500 Other: Voiding Method Toilet # Voids 3 0 - Exam General: The patient is awake and alert, in no distress Eye: there is normal conjunctiva bilaterally. Neck: The neck is supple, there is no JVD. Cardiovascular: Normal S1-S2, no S3-S4, no murmurs. Respiratory: Lungs clear to auscultation bilaterally Gastrointestinal: Abdomen is soft, nontender Musculoskeletal: There is +1 pedal edema. Neurological:. Speech is normal. Skin: Skin is warm and dry - Labs CBC & Chem 7: 10/23/20 10:06 10/23/20 10:06 Labs: Abnormal Lab Results - Last 24 Hours (Table) 10/23/20 10/23/20 10/23/20 Range/Units 11:44 16:15 20:45 POC Glucose (mg/dL) 164 H 116 H 148 H (75-99) mg/dL 10/24/20 10/24/20 Range/Units 02:00 06:48 POC Glucose (mg/dL) 162 H 155 H (75-99) mg/dL Assessment and Plan Assessment: This is a 75-year-old female with complex past medical history noted below who presented to the emergency room with low blood pressure readings at home. Patient was evaluated in the ER and admitted to the hospital for further management of her medical problems noted below. 1. Hypotension, probably secondary to intravascular volume depletion, diuretics use, and polypharmacy 2. Accelerated junctional rhythm with heart rate up to 130s on presentation 3. Acute kidney injury, resolved with gentle IV fluid hydration 4. Hypokalemia, replaced 5. Underlying ischemic cardiomyopathy with known EF of 20% 6. Coronary artery disease status post CABG at [facility] in April 2020 7. Type 2 diabetes 8. History of mitral valve replacement 9. Chronic atrial fibrillation Today, I reviewed her medication list and lab work results. Patient was seen and evaluated by cardiology. Recommendation to hold Bumex and Entresto for now. Patient was given loading dose of digoxin yesterday and started on oral. There was discussion about possible cardioversion but patient seems to be in sinus today. Repeat Echocardiogram ordered. Echocardiogram in June of this year showed ejection fraction of less than 20%. Continue home anticoagulation with Eliquis. Repeat lab work in the morning.
--- NOTE | 2020-10-24 11:47 | P.PN ---
Subjective Progress Note Date: 10/24/20 HISTORY OF PRESENT ILLNESS: This is a 75-year-old female with a past medical history significant for ischemic cardiomyopathy, coronary artery disease with recent CABG and mitral valve repair and Maze procedure at [facility], congestive heart failure, paroxysmal atrial fibrillation, and hyperlipidemia. Patient follows in the office with Dr. Rodrigues. We have been asked to see the patient in consultation for tachycardia and hypotension. Patient examined at the bedside. Patient states yesterday when she woke up in the morning she was feeling "blah". She denied having any chest pain or pressure. She denied shortness of breath. She states she took her blood pressure in the morning which she usually does every day and her blood pressure was 8050s. She states her blood pressures usually around 100 systolic. She states shortly afterward she started having dry heaves and then had a few episodes of vomiting. She states a home care nurse came over to her her house to change the dressings on her legs and was having a difficult time obtaining her blood pressure so it was recommended that she come to the hospital for further evaluation. Patient was given IV fluids in the emergency room. Blood pressure is ranging from 80s to 100 systolic. Patient remains tachycardic with heart rate in the 120s. Telemetry reveals atrial tachycardia. EKG reveals atrial tachycardia Chest xray COPD correlate for chronic interstitial lung disease. Superimposed mild venous congestion or interstitial pneumonitis not excluded. Subsegmental areas of consolidation right lung most typical of atelectasis. Laboratory data: WBC 8.6. Hemoglobin 12.1. Platelet count 306. Sodium 138. Potassium 3.2. BUN 70. Creatinine 1.36. Current home cardiac medications include Zaroxolyn 5 mg daily, Entresto 24-26mg Q12 hours, metoprolol tartrate 50 mg twice a day, Bumex 1 mg twice a day, Eliquis 5 mg twice a day, Lipitor 80 mg daily, and amiodarone 100 mg daily Most recent echocardiogram obtained in June 2020 revealed ejection fraction less than 20%. Severe global hypokinesis of LV. [id number] tricuspid regurgitation. Large pleural effusion. Trivial pericardial effusion. 10/23/2020 Patient examined this morning at the bedside. Patient states she is feeling well today. She denies chest pain or pressure. She denies short of breath. She denies palpitations. Telemetry reveals atrial fibrillation with uncontrolled ventricular rate in the 130s. Patient remains hypotensive with a systolic blood pressure in the 80s to low 90s. BUN decreased to 45 today. 10/24/2020 Patient examined this morning at the bedside. Patient denies chest pain or pr essure. She denies shortness of breath. She denies palpitations. Telemetry this morning reveals sinus mechanism. Patient's blood pressure has improved with a systolic in the low 100s. Patient is hoping to be discharged home today. PHYSICAL EXAM: VITAL SIGNS: Reviewed. GENERAL: Well-developed in no acute distress. HEENT: Head is normocephalic. Pupils are equal, round. Sclerae anicteric. Mucous membranes of the mouth are moist. Neck supple. No JVD or thyromegaly LUNGS: Respirations even and unlabored. Lungs diminished to auscultation bilaterally. HEART: Regular rate and rhythm. S1 and S2 heard. ABDOMEN: Soft. Nondistended. Nontender. EXTREMITIES: Normal range of motion. No clubbing or cyanosis. Peripheral pulses intact. Trace bilateral lower extremity edema NEUROLOGIC: Awake and alert. Oriented x 3. ASSESSMENT: Hypotension secondary to volume depletion Nausea and vomiting Atrial tachycardia Acute on chronic kidney disease Hypokalemia Ischemic cardiomyopathy with ejection fraction of 20% Coronary artery disease with recent CABG, mitral valve repair, and Maze procedure at [facility] Chronic systolic congestive heart failure Paroxysmal atrial fibrillation Hyperlipidemia PLAN: Continue current cardiac medications Continue to hold Bumex and Entresto Possible discharge home afternoon Further recommendations pending patient course Nurse practitioner note has been reviewed by physician. Signing provider agrees with the documented findings, assessment, and plan of care. Objective - Vital Signs Vital signs: Vital Signs Temp 97.2 F L 10/24/20 11:39 Pulse 78 10/24/20 11:39 Resp 18 10/24/20 11:39 BP 107/58 10/24/20 11:39 Pulse Ox 100 10/24/20 11:39 Intake & Output 10/23/20 10/24/20 10/24/20 18:59 06:59 18:59 Intake Total 756 20 10 Output Total 500 Balance 256 20 10 Weight 73 kg Intake: IV 20 20 10 Invasive Line 1 20 20 10 Oral 736 0 Output: Urine 500 Other: Voiding Method Toilet # Voids 3 0 - Labs CBC & Chem 7: 10/23/20 10:06 10/23/20 10:06 Labs: Abnormal Lab Results - Last 24 Hours (Table) 10/23/20 10/23/20 10/24/20 Range/Units 16:15 20:45 02:00 POC Glucose (mg/dL) 116 H 148 H 162 H (75-99) mg/dL 10/24/20 Range/Units 06:48 POC Glucose (mg/dL) 155 H (75-99) mg/dL
[2020-10-24 11:58] LABS: Glucose,Whole Blood 122 mg/dL (75-99)
[2020-10-24 16:58] LABS: Glucose,Whole Blood 134 mg/dL (75-99)
[2020-10-24] MEDS: PANTOPRAZOLE 40 MG TABLET PO SCH (17:26)
[2020-10-24] MEDS: ALPRAZolam 0.5 MG TAB PO PRN ×2 (17:30→22:34)
[2020-10-24 20:07] LABS: Glucose,Whole Blood 118 mg/dL (75-99)
[2020-10-24] MEDS: ATORVASTATIN 80 MG TAB PO SCH (20:20)
[2020-10-24] MEDS: INSULIN DETEMIR (LEVEMIR) 100 UNIT/ML SYR SQ SCH (20:58)
[2020-10-25 01:56] LABS: Glucose,Whole Blood 159 mg/dL (75-99)
[2020-10-25 06:11] LABS: Glucose,Whole Blood 145 mg/dL (75-99)
[2020-10-25] MEDS: INSULIN ASPART (NovoLOG) 100 UNIT/ML VIAL SQ SCH ×7 (06:17→21:25)
[2020-10-25] MEDS: IPRATROPIUM 0.5 MG/2.5 ML NEBU INHALATION SCH ×4 (08:10→19:42)
[2020-10-25] MEDS: SYMBICORT 80-4.5 MCG INHALER INHALATION SCH ×2 (08:10→19:42)
[2020-10-25 08:59] LABS: Calcium 8.7 mg/dL (8.4-10.2); Magnesium 1.9 mg/dL (1.6-2.3); Potassium 3.8 mmol/L (3.5-5.1)
[2020-10-25] MEDS: DOCUSATE 100 MG CAP PO SCH ×2 (09:31→21:31)
[2020-10-25] MEDS: FLUTICASONE 50MCG/SPRAY NASAL 16GM EA NOSTRIL SCH (09:31)
[2020-10-25] MEDS: APIXABAN 5 MG TAB PO SCH ×2 (09:35→21:31)
[2020-10-25] MEDS: FERROUS SULFATE 325 MG TAB PO SCH (09:35)
[2020-10-25] MEDS: ACETAMINOPHEN TAB 500 MG TAB PO SCH ×2 (09:35→21:31)
[2020-10-25] MEDS: LORATADINE 10 MG TAB PO SCH (09:35)
[2020-10-25] MEDS: METOPROLOL TARTRATE 50 MG TAB PO SCH ×2 (09:35→21:31)
[2020-10-25] MEDS: AMIODARONE 200 MG TAB PO SCH ×2 (09:35→21:31)
[2020-10-25] MEDS: DIGOXIN 125 MCG TAB PO SCH (09:35)
--- NOTE | 2020-10-25 12:05 | P.PN ---
Subjective Progress Note Date: 10/25/20 HISTORY OF PRESENT ILLNESS: This is a 75-year-old female with a past medical history significant for ischemic cardiomyopathy, coronary artery disease with recent CABG and mitral valve repair and Maze procedure at [facility], congestive heart failure, paroxysmal atrial fibrillation, and hyperlipidemia. Patient follows in the office with Dr. Rodrigues. We have been asked to see the patient in consultation for tachycardia and hypotension. Patient examined at the bedside. Patient states yesterday when she woke up in the morning she was feeling "blah". She denied having any chest pain or pressure. She denied shortness of breath. She states she took her blood pressure in the morning which she usually does every day and her blood pressure was 8050s. She states her blood pressures usually around 100 systolic. She states shortly afterward she started having dry heaves and then had a few episodes of vomiting. She states a home care nurse came over to her her house to change the dressings on her legs and was having a difficult time obtaining her blood pressure so it was recommended that she come to the hospital for further evaluation. Patient was given IV fluids in the emergency room. Blood pressure is ranging from 80s to 100 systolic. Patient remains tachycardic with heart rate in the 120s. Telemetry reveals atrial tachycardia. EKG reveals atrial tachycardia Chest xray COPD correlate for chronic interstitial lung disease. Superimposed mild venous congestion or interstitial pneumonitis not excluded. Subsegmental areas of consolidation right lung most typical of atelectasis. Laboratory data: WBC 8.6. Hemoglobin 12.1. Platelet count 306. Sodium 138. Potassium 3.2. BUN 70. Creatinine 1.36. Current home cardiac medications include Zaroxolyn 5 mg daily, Entresto 24-26mg Q12 hours, metoprolol tartrate 50 mg twice a day, Bumex 1 mg twice a day, Eliquis 5 mg twice a day, Lipitor 80 mg daily, and amiodarone 100 mg daily Most recent echocardiogram obtained in June 2020 revealed ejection fraction less than 20%. Severe global hypokinesis of LV. [id number] tricuspid regurgitation. Large pleural effusion. Trivial pericardial effusion. 10/23/2020 Patient examined this morning at the bedside. Patient states she is feeling well today. She denies chest pain or pressure. She denies short of breath. She denies palpitations. Telemetry reveals atrial fibrillation with uncontrolled ventricular rate in the 130s. Patient remains hypotensive with a systolic blood pressure in the 80s to low 90s. BUN decreased to 45 today. 10/24/2020 Patient examined this morning at the bedside. Patient denies chest pain or pr essure. She denies shortness of breath. She denies palpitations. Telemetry this morning reveals sinus mechanism. Patient's blood pressure has improved with a systolic in the low 100s. Patient is hoping to be discharged home today. 10/25/2020 Patient examined this morning at the bedside. Patient denies chest pain or pressure. She denies shortness of breath. She denies palpitations. Telemetry r eveals sinus mechanism. Vital signs stable. PHYSICAL EXAM: VITAL SIGNS: Reviewed. GENERAL: Well-developed in no acute distress. HEENT: Head is normocephalic. Pupils are equal, round. Sclerae anicteric. Mucous membranes of the mouth are moist. Neck supple. No JVD or thyromegaly LUNGS: Respirations even and unlabored. Lungs diminished to auscultation bilaterally. HEART: Regular rate and rhythm. S1 and S2 heard. ABDOMEN: Soft. Nondistended. Nontender. EXTREMITIES: Normal range of motion. No clubbing or cyanosis. Peripheral pulses intact. Trace bilateral lower extremity edema NEUROLOGIC: Awake and alert. Oriented x 3. ASSESSMENT: Hypotension secondary to volume depletion Nausea and vomiting Atrial tachycardia Acute on chronic kidney disease Hypokalemia Ischemic cardiomyopathy with ejection fraction of 20% Coronary artery disease with recent CABG, mitral valve repair, and Maze procedure at [facility] Chronic systolic congestive heart failure Paroxysmal atrial fibrillation Hyperlipidemia PLAN: Continue current cardiac medications Continue to hold Bumex and Entresto Stable for discharge from a cardiac standpoint Further recommendations pending patient course Nurse practitioner note has been reviewed by physician. Signing provider agrees with the documented findings, assessment, and plan of care. Objective - Vital Signs Vital signs: Vital Signs Temp 97.7 F 10/25/20 08:30 Pulse 76 10/25/20 08:30 Resp 18 10/25/20 08:30 BP 105/56 10/25/20 08:30 Pulse Ox 95 10/25/20 08:30 Intake & Output 10/24/20 10/25/20 10/25/20 18:59 06:59 18:59 Intake Total 540 250 Output Total 401 Balance 139 250 Weight 73.2 kg Intake: IV 20 10 Invasive Line 1 20 10 Oral 520 240 Output: Urine 401 Other: Voiding Method Toilet # Voids 1 - Labs CBC & Chem 7: 10/23/20 10:06 10/25/20 08:19 Labs: Abnormal Lab Results - Last 24 Hours (Table) 10/24/20 10/24/20 10/24/20 Range/Units 11:57 16:45 20:06 BUN (7-17) mg/dL Glucose (74-99) mg/dL POC Glucose (mg/dL) 122 H 134 H 118 H (75-99) mg/dL 10/25/20 10/25/20 10/25/20 Range/Units 01:54 06:10 08:19 BUN 39 H (7-17) mg/dL Glucose 110 H (74-99) mg/dL POC Glucose (mg/dL) 159 H 145 H (75-99) mg/dL
[2020-10-25 12:06] LABS: Glucose,Whole Blood 58 mg/dL (75-99)
--- NOTE | 2020-10-25 13:03 | P.DS ---
<Rich Joseph - Last Filed: 10/25/20 12:43> Providers Expected date of discharge: 10/25/20 Hospital Course: Discharge Diagnosis: Hypotension, probably secondary to intravascular volume depletion, diuretics use, and polypharmacy Accelerated junctional rhythm with heart rate up to 130s on presentation Acute kidney injury, resolved with gentle IV fluid hydration Hypokalemia, replaced Underlying ischemic cardiomyopathy with known EF of 20% Coronary artery disease status post CABG at [facility] in April 2020 Type 2 diabetes History of mitral valve replacement Chronic persistent atrial fibrillation Hospital Course: Patient is a 75-year-old female with a past medical history of ischemic cardiomyopathy with a previously known ejection fraction of less than 20%, coronary artery disease status post CABG completed 04/2020, history of mitral valve replacement, chronic persistent atrial fibrillation on anticoagulation with Eliquis, hypertension, hyperlipidemia, COPD, and insulin-dependent diabetes mellitus type 2. She presented to the hospital on 10/21/20 with a chief complaint of hypotension after assessing her blood pressure at home secondary to not feeling well, nausea and vomiting. Patient was found to have a blood pressure 70s over 40s. Patient was admitted under our services secondary to accelerated junctional rhythm, symptomatic hypotension, acute kidney injury with BUN 70, creatinine 1.36, and GFR of 38. EKG was completed showing an accelerated junctional rhythm at 114 bpm. Chest x-ray correlating with chronic interstitial lung disease with superimposed mild venous congestion or interstitial pneumonitis not excluded and subsegmental areas of consolidation to right lung most typical of atelectasis.. Troponin 0.021. Cardiology was consulted. Patient was rehydrated and symptoms of generally not feeling well, nausea, and vomiting resolved. Acute kidney injury resolved after fluid hydration. Bumex and Entresto discontinued. Changes made to cardiac med ications including increase of amiodarone to 200 mg twice daily and adding on digoxin 125 g daily. Patient was cleared by cardiology for discharge home. She denies medically stable and cleared for discharge home at this time. Patient instructed to follow-up with her PCP in 1-2 days and cardiology in 1 week. Patient was educated on the importance of weighing himself daily status post discontinuation of her diuretic and instructed to notify her PCP/truck unloader immediately with any noted weekend, shortness of breath, chest pain, development of new dry cough, increased fatigue, or increased swelling in her legs. Physical Examination: Patient seen and examined at bedside. She denied having any complaints or concerns including headache, lightheadedness, dizziness, changes in vision or hearing, chest pain or palpitations, shortness of breath, dyspnea with exertion, abdominal pain, nausea, vomiting, or any other complaints. Vital signs reviewed and stable. General: Nontoxic, no distress and appears stated age. Derm: Skin warm and dry, normal coloration for ethnicity. Head: Atraumatic, normocephalic and symmetric. Eyes: EOMs intact, no lid lag, and anicteric sclera Mouth: no lip lesions, mucus membranes moist Cardiovascular: regular rate and rhythm with normal S1S2, no murmur, positive posterior tibial pulses bilaterally, and cap refill < 2 seconds. Lungs: Respirations even, regular, and unlabored on room air. Lungs CTA bilaterally, no rhonchi, no rales, no wheezing, and no accessory muscle usage. Abdominal: soft, nontender to palpation, no guarding, no appreciable organomegaly Ext: ROM intact. No gross muscle atrophy, no edema, no contractures Neuro: Speech clear, face symmetrical and CN II-XII grossly intact with no noted focal neuro deficits Psych: Alert and oriented to person, place, time, and situation. Appropriate and pleasant affect. A total of 45 minutes of time were spent preparing this complex discharge summary. Patient Condition at Discharge: Fair Plan - Discharge Summary Discharge Rx Participant: No New Discharge Prescriptions: New Amiodarone [Cordarone] 200 mg PO BID 30 Days #60 tab Digoxin [Lanoxin] 125 mcg PO DAILY 30 Days #30 tab Continue Insulin Lispro [Insulin Lispro Kwikpen U-100] See Protocol SQ AC-TID Fluticasone Nasal [place] [Flonase Nasal [place]] 2 spr EA NOSTRIL DAILY Fluticasone/Vilanterol [Breo Ellipta 100-25 Mcg Inhaler] 1 puff INHALATION RT-DAILY Atorvastatin [Lipitor] 80 mg PO HS Albuterol Inhaler [Ventolin Hfa Inhaler] 2 puff INHALATION RT-Q6H PRN PRN Reason: Shortness Of Breath Apixaban [Eliquis] 5 mg PO BID #60 tab Metoprolol Tartrate [Lopressor] 50 mg PO BID #60 tab Insulin Lispro [Insulin Lispro Kwikpen U-100] 10 units SQ AC-BID@0800,1600 Metoprolol Tartrate [Lopressor] 25 mg PO BID PRN PRN Reason: high bp Tiotropium [place] [Spiriva] 2 cap INHALATION RT-DAILY Omeprazole 20 mg PO AC-SUPPER Loratadine [Claritin] 10 mg PO DAILY Docusate [Colace] 100 mg PO BID Acetaminophen Tab [Tylenol] 500 mg PO BID ALPRAZolam [Xanax] 0.5 mg PO Q6H PRN PRN Reason: Anxiety Ferrous Sulfate [Iron (65 MG Elemental)] 325 mg PO DAILY #30 tab Insulin Lispro [Insulin Lispro Kwikpen U-100] 6 units SQ AC-LUNCH@1200 Insulin Glargine,Hum.rec.anlog [Lantus Solostar Pen] 8 - 15 unit SQ HS Collagenase [Santyl] 1 applic TOPICAL DAILY Discontinued Amiodarone [Cordarone] 100 mg PO DAILY metOLazone [Zaroxolyn] 5 mg PO DAILY Sacubitril/Valsartan [Entresto 24 mg-26 mg Tablet] 1 tab PO Q12H Bumetanide [BUMEX] 1 mg PO BID #60 tab Discharge Medication List ALPRAZolam [Xanax] 0.5 mg PO Q6H PRN 07/07/20 [History] Acetaminophen Tab [Tylenol] 500 mg PO BID 07/07/20 [History] Albuterol Inhaler [Ventolin Hfa Inhaler] 2 puff INHALATION RT-Q6H PRN 07/07/20 [History] Atorvastatin [Lipitor] 80 mg PO HS 07/07/20 [History] Docusate [Colace] 100 mg PO BID 07/07/20 [History] Fluticasone Nasal [place] [Flonase Nasal [place]] 2 spr EA NOSTRIL DAILY 07/07/20 [History] Fluticasone/Vilanterol [Breo Ellipta 100-25 Mcg Inhaler] 1 puff INHALATION RT- DAILY 07/07/20 [History] Insulin Lispro [Insulin Lispro Kwikpen U-100] See Protocol SQ AC-TID 07/07/20 [History] Loratadine [Claritin] 10 mg PO DAILY 07/07/20 [History] Omeprazole 20 mg PO AC-SUPPER 07/07/20 [History] Tiotropium [place] [Spiriva] 2 cap INHALATION RT-DAILY 07/07/20 [History] Apixaban [Eliquis] 5 mg PO BID #60 tab 07/16/20 [Rx] Ferrous Sulfate [Iron (65 MG Elemental)] 325 mg PO DAILY #30 tab 07/16/20 [Rx] Metoprolol Tartrate [Lopressor] 50 mg PO BID #60 tab 07/16/20 [Rx] Collagenase [Santyl] 1 applic TOPICAL DAILY 10/21/20 [History] Insulin Glargine,Hum.rec.anlog [Lantus Solostar Pen] 8 - 15 unit SQ HS 10/21/20 [History] Insulin Lispro [Insulin Lispro Kwikpen U-100] 6 units SQ AC-LUNCH@1200 10/21/20 [History] Insulin Lispro [Insulin Lispro Kwikpen U-100] 10 units SQ AC-BID@0800,1600 10/21/20 [History] Metoprolol Tartrate [Lopressor] 25 mg PO BID PRN 10/21/20 [History] Amiodarone [Cordarone] 200 mg PO BID 30 Days #60 tab 10/25/20 [Rx] Digoxin [Lanoxin] 125 mcg PO DAILY 30 Days #30 tab 10/25/20 [Rx] Follow up Appointment(s)/Referral(s): Mendoza Rodrigues MD [STAFF PHYSICIAN] - 11/04/20 8:45 am (Carmen Yi NP) [facility], [NON-STAFF] - Arash Mendoza MD [Primary Care Provider] - 10/27/20 10:30 am Patient Instructions/Handouts: Digoxin (By mouth), Amiodarone (By mouth), Heart Failure (ER), A-fib (Atrial Fibrillation) (IP), Heart Healthy Diet (ED), COPD (Chronic Obstructive Pulmonary Disease) (ED), Anxiety (ED) Activity/Diet/Wound Care/Special Instructions: Activity: As tolerated. Take breaks as needed. Diet: Heart healthy and carb consistent diet. Avoid salts, or foods with hidden salts such as canned or boxed foods and frozen dinners. Extra salt makes your heart w ork harder and traps the fluid in your body for longer. Special Instructions: We have discontinued your water pills, it is important to monitor this and weigh yourself every morning after you urinate. If you gain 3 pounds overnight or more than 5 pounds in one week, call your primary physician and truck unloader for guidance on your medications or they may want to see you in their office. Keep a daily log of your weights and be sure to bring with you at follow up visits with your PCP and truck unloader. Take all of your medications as directed. NEVER skip a dose. And remember to keep all of your doctor's appointments and follow-up as needed. Call your primary care provider and truck unloader if you notice any extra swelling in your legs, ankles, feet or abdomen, if you have a new dry cough, if your shortness of breath worsens with activity or at rest, or if you feel more fatigued. Bumex, Zaroxalolyn, and Entresto have been discontinued. Cardiology has increased your amiodarone and added an additional cardiac medication called digoxin. It is important for you to follow up with your primary care provider, Dr. Mendoza in 1-2 days and with your truck unloader, Dr. Rodrigues in one week. Thank you for allowing us to participate in your care, it was truly a pleasure having you for our patient!!! Discharge Disposition: HOME WITH HOME HEALTH SERVICES <AmberJess goel Sam - Last Filed: 10/25/20 19:49> Providers Date of admission: 10/24/20 11:11 Attending physician: Lele Sidhu Consults: 10/21/20 17:23 Consult Physician Routine Consulting Provider: Mendoza Rodrigues Consult Reason/Comments: Tachycardia, hypotensive episode Do you want consulting provider notified?: Yes Primary care physician: Arash Mendoza MD Hospital Course: Rich Joseph NP rendered care for this patient independently, reviewed the findings and plan as documented in the note above. I did not physically speak with or examine the patient on this date. Was going over discharge with nurse practitioner when patient's blood sugar was noted be low at 58. Nursing was called to hold discharge. We'll monitor closely overnight with anticipated discharge in the morning.
[2020-10-25 13:18] LABS: Glucose,Whole Blood 66 mg/dL (75-99)
[2020-10-25] MEDS ORDERED: DEXTROSE 50% SYRINGE 50 ML IVP ONE (13:53)
[2020-10-25 13:54] LABS: Glucose,Whole Blood 27 mg/dL (75-99)
[2020-10-25 13:54] LABS: Glucose,Whole Blood 28 mg/dL (75-99)
[2020-10-25 13:58] LABS: Glucose,Whole Blood 79 mg/dL (75-99)
[2020-10-25 14:07] LABS: Glucose,Whole Blood 464 mg/dL (75-99)
[2020-10-25 14:37] LABS: Glucose,Whole Blood 121 mg/dL (75-99)
[2020-10-25 14:37] LABS: Glucose,Whole Blood 140 mg/dL (75-99)
[2020-10-25 15:34] LABS: Glucose,Whole Blood 120 mg/dL (75-99)
[2020-10-25 16:29] LABS: Glucose,Whole Blood 158 mg/dL (75-99)
[2020-10-25 17:32] LABS: Glucose,Whole Blood 148 mg/dL (75-99)
[2020-10-25] MEDS: PANTOPRAZOLE 40 MG TABLET PO SCH (17:59)
[2020-10-25 19:05] LABS: Glucose,Whole Blood 173 mg/dL (75-99)
[2020-10-25 19:58] LABS: Glucose,Whole Blood 133 mg/dL (75-99)
[2020-10-25 20:26] VITALS: RESP 16
[2020-10-25 21:05] LABS: Glucose,Whole Blood 110 mg/dL (75-99)
[2020-10-25] MEDS: ATORVASTATIN 80 MG TAB PO SCH (21:30)
[2020-10-25 21:56] LABS: Glucose,Whole Blood 113 mg/dL (75-99)
[2020-10-25 23:00] LABS: Glucose,Whole Blood 134 mg/dL (75-99)
[2020-10-25] MEDS: INSULIN DETEMIR (LEVEMIR) 100 UNIT/ML SYR SQ SCH (23:04)
[2020-10-25 23:59] LABS: Glucose,Whole Blood 137 mg/dL (75-99)
[2020-10-26 00:57] LABS: Glucose,Whole Blood 140 mg/dL (75-99)
[2020-10-26 01:58] LABS: Glucose,Whole Blood 156 mg/dL (75-99)
[2020-10-26 02:59] LABS: Glucose,Whole Blood 156 mg/dL (75-99)
[2020-10-26 04:00] LABS: Glucose,Whole Blood 149 mg/dL (75-99)
[2020-10-26 04:17] VITALS: TEMP 98
[2020-10-26 05:00] LABS: Glucose,Whole Blood 154 mg/dL (75-99)
[2020-10-26 05:58] LABS: Glucose,Whole Blood 160 mg/dL (75-99)
[2020-10-26] MEDS: INSULIN ASPART (NovoLOG) 100 UNIT/ML VIAL SQ SCH ×2 (06:10→07:38)
[2020-10-26 07:04] LABS: Glucose,Whole Blood 158 mg/dL (75-99)
[2020-10-26 07:44] VITALS: BP 122/56
[2020-10-26] MEDS: SYMBICORT 80-4.5 MCG INHALER INHALATION SCH (08:07)
[2020-10-26] MEDS: IPRATROPIUM 0.5 MG/2.5 ML NEBU INHALATION SCH (08:07)
[2020-10-26 08:16] LABS: Glucose,Whole Blood 198 mg/dL (75-99)
[2020-10-26 08:18] VITALS: PULSE 80
[2020-10-26] MEDS: FLUTICASONE 50MCG/SPRAY NASAL 16GM EA NOSTRIL SCH (08:20)
[2020-10-26] MEDS: DOCUSATE 100 MG CAP PO SCH (08:20)
[2020-10-26] MEDS: METOPROLOL TARTRATE 50 MG TAB PO SCH (08:23)
[2020-10-26] MEDS: FERROUS SULFATE 325 MG TAB PO SCH (08:23)
[2020-10-26] MEDS: DIGOXIN 125 MCG TAB PO SCH (08:24)
[2020-10-26] MEDS: ACETAMINOPHEN TAB 500 MG TAB PO SCH (08:24)
[2020-10-26] MEDS: APIXABAN 5 MG TAB PO SCH (08:24)
[2020-10-26] MEDS: LORATADINE 10 MG TAB PO SCH (08:24)
[2020-10-26] MEDS: AMIODARONE 200 MG TAB PO SCH (08:24)
[2020-10-26 09:05] LABS: Glucose,Whole Blood 215 mg/dL (75-99)
--- NOTE | 2020-10-26 10:55 | P.DS ---
<Rich Joseph - Last Filed: 10/26/20 12:41> Providers Expected date of discharge: 10/26/20 Hospital Course: Discharge Diagnosis: Hypotension, likely multi-factorial secondary to intravascular volume depletion, diuretics use, and polypharmacy; resolved Accelerated junctional rhythm with heart rate up to 130s on presentation, resolved Hypoglycemia, resolved Acute kidney injury, resolved with gentle IV fluid hydration Hypokalemia, replaced Underlying ischemic cardiomyopathy with known EF of 20% Coronary artery disease status post CABG at [facility] in April 2020 Type 2 diabetes History of mitral valve replacement Chronic persistent atrial fibrillation Hospital Course: Patient is a 75-year-old female with a past medical history of ischemic cardiomyopathy with a previously known ejection fraction of less than 20%, coronary artery disease status post CABG completed 04/2020, history of mitral valve replacement, chronic persistent atrial fibrillation on anticoagulation with Eliquis, hypertension, hyperlipidemia, COPD, and insulin-dependent diabetes mellitus type 2. She presented to the hospital on 10/21/20 with a chief complaint of hypotension after assessing her blood pressure at home secondary to not feeling well, nausea and vomiting. Patient was found to have a blood pressure 70s over 40s. Patient was admitted under our services secondary to accelerated junctional rhythm, symptomatic hypotension, acute kidney injury with BUN 70, creatinine 1.36, and GFR of 38. EKG was completed showing an accelerated junctional rhythm at 114 bpm. Chest x-ray correlating with chronic interstitial lung disease with superimposed mild venous congestion or interstitial pneumonitis not excluded and subsegmental areas of consolidation to right lung most typical of atelectasis.. Troponin 0.021. Cardiology was consulted. Patient was rehydrated and symptoms of generally not feeling well, nausea, and vomiting resolved. Acute kidney injury resolved after fluid hydration. Bumex and Entresto discontinued. Changes made to cardiac medications including increase of amiodarone to 200 mg twice daily and adding on digoxin 125 g daily. Patient was cleared by cardiology for discharge home. Yesterday after initial discharge, patient had episode of significant hypoglycemia in which blood sugar was noted to be originally 58 followed by repeat a 66 followed by repeat of 28, and 27 patient required amp of D50 followed by continuous close monitoring. Blood glucose levels were measured hourly throughout the rest of the afternoon, evening, and through the night. Patient had no further episodes of hypoglycemia. Vital signs stable. Patient denies having any complaints or concerns at this time. She has medically stable for discharge home at this time. She is scheduled to follow-up with her primary doctor on 10/27/20 and with cardiology on 11/04/20. Patient was educated on the importance of weighing herself daily status post discontinuation of her diuretics and instructed to notify her PCP/singe machine operator immediately with any noted weekend, shortness of breath, chest pain, development of new dry cough, increased fatigue, or increased swelling in her legs. Physical Examination: Patient seen and examined at bedside. She denied having any complaints or concerns including headache, lightheadedness, dizziness, changes in vision or hearing, chest pain or palpitations, shortness of breath, dyspnea with exertion, abdominal pain, nausea, vomiting, or any other complaints. Vital signs reviewed and stable. General: Nontoxic, no distress and appears stated age. Derm: Skin warm and dry, normal coloration for ethnicity. Head: Atraumatic, normocephalic and symmetric. Eyes: EOMs intact, no lid lag, and anicteric sclera Mouth: no lip lesions, mucus membranes moist Cardiovascular: regular rate and rhythm with normal S1S2, no murmur, positive posterior tibial pulses bilaterally, and cap refill < 2 seconds. Lungs: Respirations even, regular, and unlabored on room air. Lungs CTA bilaterally, no rhonchi, no rales, no wheezing, and no accessory muscle usage. Abdominal: soft, nontender to palpation, no guarding, no appreciable organomegaly Ext: ROM intact. No gross muscle atrophy, no edema, no contractures Neuro: Speech clear, face symmetrical and CN II-XII grossly intact with no noted focal neuro deficits Psych: Alert and oriented to person, place, time, and situation. Appropriate and pleasant affect. A total of 45 minutes of time were spent preparing this complex discharge summary. Patient Condition at Discharge: Stable Plan - Discharge Summary Discharge Rx Participant: No New Discharge Prescriptions: New Amiodarone [Cordarone] 200 mg PO BID 30 Days #60 tab Digoxin [Lanoxin] 125 mcg PO DAILY 30 Days #30 tab Continue Insulin Lispro [Insulin Lispro Kwikpen U-100] See Protocol SQ AC-TID Fluticasone Nasal [place] [Flonase Nasal [place]] 2 spr EA NOSTRIL DAILY Fluticasone/Vilanterol [Breo Ellipta 100-25 Mcg Inhaler] 1 puff INHALATION RT-DAILY Atorvastatin [Lipitor] 80 mg PO HS Albuterol Inhaler [Ventolin Hfa Inhaler] 2 puff INHALATION RT-Q6H PRN PRN Reason: Shortness Of Breath Apixaban [Eliquis] 5 mg PO BID #60 tab Metoprolol Tartrate [Lopressor] 50 mg PO BID #60 tab Insulin Lispro [Insulin Lispro Kwikpen U-100] 10 units SQ AC-BID@0800,1600 Metoprolol Tartrate [Lopressor] 25 mg PO BID PRN PRN Reason: high bp Tiotropium [place] [Spiriva] 2 cap INHALATION RT-DAILY Omeprazole 20 mg PO AC-SUPPER Loratadine [Claritin] 10 mg PO DAILY Docusate [Colace] 100 mg PO BID Acetaminophen Tab [Tylenol] 500 mg PO BID ALPRAZolam [Xanax] 0.5 mg PO Q6H PRN PRN Reason: Anxiety Ferrous Sulfate [Iron (65 MG Elemental)] 325 mg PO DAILY #30 tab Insulin Lispro [Insulin Lispro Kwikpen U-100] 6 units SQ AC-LUNCH@1200 Insulin Glargine,Hum.rec.anlog [Lantus Solostar Pen] 8 - 15 unit SQ HS Collagenase [Santyl] 1 applic TOPICAL DAILY Discontinued Amiodarone [Cordarone] 100 mg PO DAILY metOLazone [Zaroxolyn] 5 mg PO DAILY Sacubitril/Valsartan [Entresto 24 mg-26 mg Tablet] 1 tab PO Q12H Bumetanide [BUMEX] 1 mg PO BID #60 tab Discharge Medication List ALPRAZolam [Xanax] 0.5 mg PO Q6H PRN 07/07/20 [History] Acetaminophen Tab [Tylenol] 500 mg PO BID 07/07/20 [History] Albuterol Inhaler [Ventolin Hfa Inhaler] 2 puff INHALATION RT-Q6H PRN 07/07/20 [History] Atorvastatin [Lipitor] 80 mg PO HS 07/07/20 [History] Docusate [Colace] 100 mg PO BID 07/07/20 [History] Fluticasone Nasal [place] [Flonase Nasal [place]] 2 spr EA NOSTRIL DAILY 07/07/20 [History] Fluticasone/Vilanterol [Breo Ellipta 100-25 Mcg Inhaler] 1 puff INHALATION RT- DAILY 07/07/20 [History] Insulin Lispro [Insulin Lispro Kwikpen U-100] See Protocol SQ AC-TID 07/07/20 [History] Loratadine [Claritin] 10 mg PO DAILY 07/07/20 [History] Omeprazole 20 mg PO AC-SUPPER 07/07/20 [History] Tiotropium [place] [Spiriva] 2 cap INHALATION RT-DAILY 07/07/20 [History] Apixaban [Eliquis] 5 mg PO BID #60 tab 07/16/20 [Rx] Ferrous Sulfate [Iron (65 MG Elemental)] 325 mg PO DAILY #30 tab 07/16/20 [Rx] Metoprolol Tartrate [Lopressor] 50 mg PO BID #60 tab 07/16/20 [Rx] Collagenase [Santyl] 1 applic TOPICAL DAILY 10/21/20 [History] Insulin Glargine,Hum.rec.anlog [Lantus Solostar Pen] 8 - 15 unit SQ HS 10/21/20 [History] Insulin Lispro [Insulin Lispro Kwikpen U-100] 6 units SQ AC-LUNCH@1200 10/21/20 [History] Insulin Lispro [Insulin Lispro Kwikpen U-100] 10 units SQ AC-BID@0800,1600 10/21/20 [History] Metoprolol Tartrate [Lopressor] 25 mg PO BID PRN 10/21/20 [History] Amiodarone [Cordarone] 200 mg PO BID 30 Days #60 tab 10/25/20 [Rx] Digoxin [Lanoxin] 125 mcg PO DAILY 30 Days #30 tab 10/25/20 [Rx] Follow up Appointment(s)/Referral(s): Mendoza Rodrigues MD [STAFF PHYSICIAN] - 11/04/20 8:45 am (Carmen Yi NP) [facility], [NON-STAFF] - Arash Mendoza MD [Primary Care Provider] - 10/27/20 10:30 am Patient Instructions/Handouts: Digoxin (By mouth), Amiodarone (By mouth), Heart Failure (ER), A-fib (Atrial Fibrillation) (IP), Heart Healthy Diet (ED), COPD (Chronic Obstructive Pulmonary Disease) (ED), Anxiety (ED) Activity/Diet/Wound Care/Special Instructions: Activity: As tolerated. Take breaks as needed. Diet: Heart healthy and carb consistent diet. Avoid salts, or foods with hidden salts such as canned or boxed foods and frozen dinners. Extra salt makes your heart work harder and traps the fluid in your body for longer. Special Instructions: We have discontinued your water pills, it is important to monitor this and weigh yourself every morning after you urinate. If you gain 3 pounds overnight or more than 5 pounds in one week, call your primary physician and singe machine operator for guidance on your medications or they may want to see you in their office. Keep a daily log of your weights and be sure to bring with you at follow up visits with your PCP and singe machine operator. Take all of your medications as directed. NEVER skip a dose. And remember to ke ep all of your doctor's appointments and follow-up as needed. Call your primary care provider and singe machine operator if you notice any extra swelling in your legs, ankles, feet or abdomen, if you have a new dry cough, if your shortness of breath worsens with activity or at rest, or if you feel more fatigued. Bumex, Zaroxalolyn, and Entresto have been discontinued. Cardiology has increased your amiodarone and added an additional cardiac medication called digoxin. It is important for you to follow up with your primary care provider, Dr. Mendoza in 1-2 days and with your singe machine operator, Dr. Rodrigues in one week. Thank you for allowing us to participate in your care, it was truly a pleasure having you for our patient!!! Discharge Disposition: HOME WITH HOME HEALTH SERVICES <Jess Clark - Last Filed: 10/26/20 18:24> Providers Date of admission: 10/24/20 11:11 Attending physician: Lele Sidhu Primary care physician: Arash Mendoza MD Hospital Course: Rich Joseph NP rendered care for this patient independently, reviewed the findings and plan as documented in the note above. I did not physically speak with or examine the patient on this date.
[2020-10-26 11:26] VITALS: BMI 29.9
--- NOTE | 2020-10-27 09:26 | CDI ---
Documentation Clarification Form Date: 10/27/20 From: Supriya Hopper Admit Date: 10/24/2020 11:11:00 AM Patient Name: Doris Magana Visit Number: [id number] Discharge Date: 10/26/2020 11:47:00 AM ATTENTION: The Clinical Documentation Specialists (CDI) and [facility] Coding Staff appreciate your assistance in clarifying documentation. Please respond to the clarification below the line at the bottom and electronically sign. The CDI & [facility] Coding staff will review the response and follow-up if needed. Please note: Queries are made part of the Legal Health Record. If you have any questions, please contact the author of this message via ITS. Dr. Jess Clakr, Chronic kidney disease is documented in the cardiology consult and PNs], but is not noted in subsequent documentation. Clarification is requested. History/Risk Factors: DM, HTN, chronic systolic CHF Clinical Indicators: The patient presented with hypotension, dehydration and acute kidney injury. BUN: 70, 57, 45, 39 GFR: 38, 57, 53, 65 CR: 1.35, 0.97, 1.03, 0.87 Treatment: Hold Bumex & Entresto Please clarify CKD if so include stage: [ ] CKD confirmed, remains under treatment, please specify stage [ ] CKD ruled out [ ] Other condition, please specify [ ] Unable to determine CKD III MTDD
== END 2020-10-26 11:47 | disposition home health service (06) | DRG 641 ==
LOC: EC 11:18 → 3SCARD 17:22 → OBSVTOIN 10-24 11:11
PROVIDERS: ADMIT Internal Medicine; ATTEND Internal Medicine
DX: E86.0 Dehydration (principal); N17.9 Acute kidney failure, unspecified; I50.22 Chronic systolic (congestive) heart failure; I47.1 Supraventricular tachycardia; J98.11 Atelectasis; I48.19 Other persistent atrial fibrillation; I13.0 Hypertensive heart and chronic kidney disease with heart failure and stage 1 through stage 4 chronic kidney disease, or unspecified chronic kidney disease; E11.649 Type 2 diabetes mellitus with hypoglycemia without coma; E11.22 Type 2 diabetes mellitus with diabetic chronic kidney disease; I95.9 Hypotension, unspecified; Z79.4 Long term (current) use of insulin; N18.30 Chronic kidney disease, stage 3 unspecified; J44.9 Chronic obstructive pulmonary disease, unspecified; I07.1 Rheumatic tricuspid insufficiency; E87.6 Hypokalemia; E78.5 Hyperlipidemia, unspecified; I25.5 Ischemic cardiomyopathy; I25.10 Atherosclerotic heart disease of native coronary artery without angina pectoris; T50.1X5A Adverse effect of loop [high-ceiling] diuretics, initial encounter; Z95.1 Presence of aortocoronary bypass graft; Z95.2 Presence of prosthetic heart valve; Z79.01 Long term (current) use of anticoagulants; Z79.51 Long term (current) use of inhaled steroids; Z79.899 Other long term (current) drug therapy; Z90.49 Acquired absence of other specified parts of digestive tract; Z87.19 Personal history of other diseases of the digestive system; Z87.42 Personal history of other diseases of the female genital tract; Z98.51 Tubal ligation status; Z86.79 Personal history of other diseases of the circulatory system; Z90.710 Acquired absence of both cervix and uterus; Z98.890 Other specified postprocedural states; Z88.2 Allergy status to sulfonamides; Z88.1 Allergy status to other antibiotic agents; Z88.5 Allergy status to narcotic agent; Z88.0 Allergy status to penicillin; Z91.013 Allergy to seafood; Z82.49 Family history of ischemic heart disease and other diseases of the circulatory system; Z82.3 Family history of stroke
CPT/HCPCS: 36415; 71046; 74018; 80048; 80053; 81001; 82150; 82550; 82947; 83605; 83690; 83735; 84484; 85025; 93005; 93306; 94640; 99285

== ENCOUNTER 2021-02-04 16:45 | Emergency (ER) | payer MEDICARE ==
[2021-02-04 16:53] VITALS: TEMP 98.3
--- NOTE | 2021-02-04 17:00 | ED ---
Fall HPI - General Chief Complaint: Fall Stated Complaint: fall yesterday, on thinners Time Seen by Provider: 02/04/21 16:49 Source: patient, EMS Mode of arrival: EMS - History of Present Illness Initial Comments: May a pleasant 75-year-old female who is brought to the ER today by ambulance for evaluation of a fall at home. Patient reports that around 2 PM yesterday showed a mechanical fall forward she struck her face on the ground. She did not lose consciousness. She did have some bruising to her head, bruising seemed to settle from her forehead around her eye today. She does feel the swelling is going down however her sons were concerned about the injury and advised her she had to come to the hospital. Patient has had no headache no loss of consciousness no vision changes. Does take L Rolan. - Related Data Home Medications Medication Instructions Recorded Confirmed ALPRAZolam [Xanax] 0.5 mg PO Q6H PRN 07/07/20 02/04/21 Acetaminophen Tab [Tylenol] 500 mg PO BID 07/07/20 02/04/21 Albuterol Inhaler [Ventolin Hfa 2 puff INHALATION RT-QID PRN 07/07/20 02/04/21 Inhaler] Atorvastatin [Lipitor] 80 mg PO HS 07/07/20 02/04/21 Docusate [Colace] 100 mg PO BID PRN 07/07/20 02/04/21 Fluticasone Nasal [place] [Flonase 2 spr EA NOSTRIL DAILY 07/07/20 02/04/21 Nasal [place]] Insulin Lispro [Insulin Lispro See Protocol SQ PC-TID 07/07/20 02/04/21 Nikhil U-100] Loratadine [Claritin] 10 mg PO DAILY 07/07/20 02/04/21 Omeprazole 20 mg PO AC-SUPPER 07/07/20 02/04/21 Tiotropium [place] [Spiriva] 2 cap INHALATION RT-DAILY 07/07/20 02/04/21 Insulin Glargine,Hum.rec.anlog 8 unit SQ HS 10/21/20 02/04/21 [Lantus Solostar Pen] Metoprolol Tartrate [Lopressor] 25 mg PO BID PRN 10/21/20 02/04/21 Albuterol Inhaler [Ventolin Hfa 2 puff INHALATION RT-DAILY 02/04/21 02/04/21 Inhaler] Amiodarone [Cordarone] 200 mg PO DAILY 02/04/21 02/04/21 Aspirin EC [Ecotrin Low Dose] 81 mg PO DAILY 02/04/21 02/04/21 Bumetanide [Bumex] 1 mg PO BID@0900,1400 02/04/21 02/04/21 Iron Infusion 1 dose IV Q30D 02/04/21 02/04/21 Lactobacillus Rhamnosus GG 1 cap PO DAILY 02/04/21 02/04/21 [Culturelle] Potassium Chloride ER [K-Dur 10] 10 meq PO DAILY 02/04/21 02/04/21 Previous Rx's Medication Instructions Recorded Apixaban [Eliquis] 5 mg PO BID #60 tab 07/16/20 Metoprolol Tartrate [Lopressor] 50 mg PO BID #60 tab 07/16/20 Allergies Allergy/AdvReac Type Severity Reaction Status Date / Time cephalexin [From Keflex] Allergy Unknown Verified 02/04/21 19:38 ciprofloxacin [From Cipro] Allergy Rash/Hives Verified 02/04/21 19:38 ciprofloxacin HCl Allergy Rash/Hives Verified 02/04/21 19:38 [From Cipro] codeine Allergy Rash/Hives Verified 02/04/21 19:38 Iodine and Iodide Containing Allergy Rash/Hives Verified 02/04/21 19:38 Produc Penicillins Allergy Rash/Hives Verified 02/04/21 19:38 shellfish derived [Shellfish] Allergy Rash/Hives Verified 02/04/21 19:38 Sulfa (Sulfonamide Allergy Rash/Hives Verified 02/04/21 19:38 Antibiotics) Review of Systems ROS Statement: Those systems with pertinent positive or pertinent negative responses have been documented in the HPI. ROS Other: All systems not noted in ROS Statement are negative. Past Medical History Past Medical History: Coronary Artery Disease (CAD), Heart Failure, COPD, Diabetes Mellitus, Hypertension Additional Past Medical History / Comment(s): asthma, A fib History of Any Multi-Drug Resistant Organisms: None Reported Past Surgical History: Appendectomy, Cholecystectomy, Hysterectomy, Tubal Ligation Additional Past Surgical History / Comment(s): 2 vessel bypass with mitral valve repair - CHEN and endoscopic vein, mitral valve 32mm sjm ridig saddle ring, maze procedure. Retocele repair Past Anesthesia/Blood Transfusion Reactions: No Reported Reaction Past Psychological History: No Psychological Hx Reported Smoking Status: Never smoker Past Alcohol Use History: None Reported Past Drug Use History: None Reported - Past Family History Father Family Medical History: Myocardial Infarction (MT) Additional Family Medical History / Comment(s): at 55 with a massive MT Mother Family Medical History: CVA/TIA General Exam - General Exam Comments Initial Comments: Physical Exam GENERAL: Patient is well-developed and well-nourished. Patient is nontoxic and well- hydrated and is in no distress. HENT: Hematoma to right frontal scalp, hematoma around the eye, no subcu conjunctival hematoma or injury to the eye EYES: PERRL, EOMI PULMONARY: Unlabored respirations. No audible rales rhonchi or wheezing was noted. CARDIOVASCULAR: There is a regular rate and rhythm without any murmurs gallops or rubs. ABDOMEN: Soft and nontender with normal bowel sounds. SKIN: Skin is clear with no lesions or rashes and otherwise unremarkable. : Deferred NEUROLOGIC: Patient is alert and oriented x3. Moving all extremities spontaneously MUSCULOSKELETAL: Normal extremities with adequate strength and full range of motion. No lower extremity swelling or edema. No calf tenderness. PSYCHIATRIC: Normal psychiatric evaluation. Course Vital Signs 02/04/21 02/04/21 02/04/21 16:49 17:27 18:35 Temperature 98.3 F Pulse Rate 70 71 65 Respiratory 18 18 18 Rate Blood Pressure 115/99 135/63 134/56 O2 Sat by Pulse 94 L 95 95 Oximetry 02/04/21 20:01 Temperature Pulse Rate 61 Respiratory 20 Rate Blood Pressure 136/55 O2 Sat by Pulse 94 L Oximetry Medical Decision Making - Medical Decision Making Patient was seen and evaluated, history is obtained from the patient I advised the patient we needed a computed tomography scan to evaluate for any bleeding around her brain, patient expressed significant fear she states she is claustrophobic she does not want to have the computed tomography scan she states that she takes medication for her nerves when she is doing this anxious. Patient was given Xanax and she did agree to a computed tomography scan. Computed tomography scan of the brain was obtained and is concerning for traumatic subarachnoid hemorrhage. Results were discussed the patient and her son at bedside, I advised patient that there is bleeding around her brain we would like to transfer her to a from a Center for further evaluation and observation by a neurosurgeon. Patient is adamant that she will not be transferred. I then offered to keep the patient in our hospital for 24-48 hours of observation and repeat computed tomography scan. Patient states that every time she's been told she has to stay in hospital for a day or 2 she ends up staying for weeks and she does not want to be in the hospital. I discussed with the patient and her son at bedside multiple times that I would recommend staying, discussed the dangers having bleeding the brain especially in somebody of her age and who takes Eliquis - Lab Data Result diagrams: 02/04/21 19:10 02/04/21 19:10 Lab Results 02/04/21 02/04/21 02/04/21 Range/Units 19:10 19:10 19:10 WBC 6.3 (3.8-10.6) k/uL RBC 3.69 L (3.80-5.40) m/uL Hgb 10.7 L (11.4-16.0) gm/dL Hct 33.7 L (34.0-46.0) % MCV 91.4 (80.0-100.0) fL MCH 29.1 (25.0-35.0) pg MCHC 31.9 (31.0-37.0) g/dL RDW 17.5 H (11.5-15.5) % Plt Count 251 (150-450) k/uL MPV 7.9 Neutrophils % 72 % Lymphocytes % 13 % Monocytes % 7 % Eosinophils % 4 % Basophils % 1 % Neutrophils # 4.6 (1.3-7.7) k/uL Lymphocytes # 0.8 L (1.0-4.8) k/uL Monocytes # 0.5 (0-1.0) k/uL Eosinophils # 0.3 (0-0.7) k/uL Basophils # 0.1 (0-0.2) k/uL Hypochromasia Slight Anisocytosis Slight PT 13.9 H (9.0-12.0) sec INR 1.4 H (<1.2) APTT 35.6 H (22.0-30.0) sec Sodium 134 L (137-145) mmol/L Potassium 4.1 (3.5-5.1) mmol/L Chloride 96 L (98-107) mmol/L Carbon Dioxide 30 (22-30) mmol/L Anion Gap 8 mmol/L BUN 25 H (7-17) mg/dL Creatinine 0.90 (0.52-1.04) mg/dL Est GFR (CKD-EPI)AfAm 72 (>60 ml/min/1.73 sqM) Est GFR (CKD-EPI)NonAf 63 (>60 ml/min/1.73 sqM) Glucose 219 H (74-99) mg/dL Calcium 8.5 (8.4-10.2) mg/dL Total Bilirubin 1.0 (0.2-1.3) mg/dL AST 30 (14-36) U/L ALT 15 (4-34) U/L Alkaline Phosphatase 337 H (38-126) U/L Total Protein 6.1 L (6.3-8.2) g/dL Albumin 3.2 L (3.5-5.0) g/dL Coronavirus (PCR) (Not Detectd) 02/04/21 Range/Units 19:59 WBC (3.8-10.6) k/uL RBC (3.80-5.40) m/uL Hgb (11.4-16.0) gm/dL Hct (34.0-46.0) % MCV (80.0-100.0) fL MCH (25.0-35.0) pg MCHC (31.0-37.0) g/dL RDW (11.5-15.5) % Plt Count (150-450) k/uL MPV Neutrophils % % Lymphocytes % % Monocytes % % Eosinophils % % Basophils % % Neutrophils # (1.3-7.7) k/uL Lymphocytes # (1.0-4.8) k/uL Monocytes # (0-1.0) k/uL Eosinophils # (0-0.7) k/uL Basophils # (0-0.2) k/uL Hypochromasia Anisocytosis PT (9.0-12.0) sec INR (<1.2) APTT (22.0-30.0) sec Sodium (137-145) mmol/L Potassium (3.5-5.1) mmol/L Chloride (98-107) mmol/L Carbon Dioxide (22-30) mmol/L Anion Gap mmol/L BUN (7-17) mg/dL Creatinine (0.52-1.04) mg/dL Est GFR (CKD-EPI)AfAm (>60 ml/min/1.73 sqM) Est GFR (CKD-EPI)NonAf (>60 ml/min/1.73 sqM) Glucose (74-99) mg/dL Calcium (8.4-10.2) mg/dL Total Bilirubin (0.2-1.3) mg/dL AST (14-36) U/L ALT (4-34) U/L Alkaline Phosphatase (38-126) U/L Total Protein (6.3-8.2) g/dL Albumin (3.5-5.0) g/dL Coronavirus (PCR) Not Detected (Not Detectd) - EKG Data -: EKG Interpreted by Me EKG Comments: EEG was obtained as per the trauma workup from EKG obtained at 1856, rate is 66 rhythm is sinus no acute ST elevations or depressions no evidence of ischemia or infarction. Disposition Clinical Impression: Traumatic subarachnoid hemorrhage without loss of consciousness Disposition: Left Against Medical Advice Condition: Stable Additional Instructions: If there is any worsening headache, change in mental status or any new or concerning symptoms please call 911 immediately Is patient prescribed a controlled substance at d/c from ED?: No Referrals: Arash Mendoza MD [Primary Care Provider] - 1-2 days
[2021-02-04] MEDS ORDERED: ALPRAZolam 1 MG TAB PO STA (17:09)
--- NOTE | 2021-02-04 18:42 | CT ---
EXAMINATION TYPE: CT brain wo con DATE OF EXAM: 02/04/2021 COMPARISON: None HISTORY: Fall yesterday, bruising/swelling RT eye/confucianism. CT DLP: 1143.4 mGycm Automated exposure control for dose reduction was used. There is cerebral cortical atrophy. There is no mass effect nor midline shift. There is some gyriform increased density in the left parietal sulcus. This is probably some acute subarachnoid hemorrhage. This measures 2.3 x 1 cm. There is also a similar 1 cm focus in the right posterior frontal lobe. There is right periorbital soft tissue swelling. There is right posterior frontal scalp hematoma that measures up to 1 cm in thickness. IMPRESSION: Acute small focal subarachnoid hemorrhage left parietal lobe and right posterior frontal lobe. Large right frontal temporal scalp hematoma. Exam was discussed with Dr. Huynh at 6:45 PM.
[2021-02-04 19:24] LABS: Anisocytosis Slight; Basophils # (A) 0.1 k/uL (0-0.2); Basophils % (A) 1 %; Eosinophils # (A) 0.3 k/uL (0-0.7); Eosinophils % (A) 4 %; HCT 33.7 % (34.0-46.0); HGB 10.7 gm/dL (11.4-16.0); Hypochromasia Slight; Lymphocytes # (A) 0.8 k/uL (1.0-4.8); Lymphocytes % (A) 13 %; MCH 29.1 pg (25.0-35.0); MCHC 31.9 g/dL (31.0-37.0); MCV 91.4 fL (80.0-100.0); Mean Platelet Volume 7.9; Monocytes # (A) 0.5 k/uL (0-1.0); Monocytes % (A) 7 %; Neutrophils # (A) 4.6 k/uL (1.3-7.7); Neutrophils % (A) 72 %; Platelet Count 251 k/uL (150-450); RBC 3.69 m/uL (3.80-5.40); RDW 17.5 % (11.5-15.5); WBC 6.3 k/uL (3.8-10.6)
[2021-02-04 19:31] LABS: Albumin 3.2 g/dL (3.5-5.0); Calcium 8.5 mg/dL (8.4-10.2); Potassium 4.1 mmol/L (3.5-5.1); Total Protein 6.1 g/dL (6.3-8.2)
[2021-02-04 19:33] LABS: INR 1.4 (<1.2); Partial Thromboplastin Time 35.6 sec (22.0-30.0); Prothrombin Time 13.9 sec (9.0-12.0)
[2021-02-04 20:02] VITALS: BP 136/55; PULSE 61; RESP 20
== END 2021-02-04 20:44 | disposition left against medical advice (07) ==
LOC: EC 16:45
DX: S06.6X0A Traumatic subarachnoid hemorrhage without loss of consciousness, initial encounter (principal); J44.9 Chronic obstructive pulmonary disease, unspecified; I11.0 Hypertensive heart disease with heart failure; I50.9 Heart failure, unspecified; E11.9 Type 2 diabetes mellitus without complications; Z88.0 Allergy status to penicillin; Z20.822 Contact with and (suspected) exposure to COVID-19; Z88.1 Allergy status to other antibiotic agents; Z88.8 Allergy status to other drugs, medicaments and biological substances; Z88.5 Allergy status to narcotic agent; Z91.013 Allergy to seafood; Z79.82 Long term (current) use of aspirin; Z79.4 Long term (current) use of insulin; Z79.51 Long term (current) use of inhaled steroids; Z79.899 Other long term (current) drug therapy; W18.30XA Fall on same level, unspecified, initial encounter
CPT/HCPCS: 36415; 70450; 80053; 85025; 85610; 85730; 87635; 93005; 99284

== ENCOUNTER → 2021-06-20 | Outpatient (CLI) | payer MEDICARE ==
--- NOTE | 2021-06-20 14:35 | US ---
EXAMINATION TYPE: US abdomen complete DATE OF EXAM: 06/20/2021 COMPARISON: NONE CLINICAL HISTORY: R18.8 Ascites. Pain and swelling. EXAM MEASUREMENTS: Liver Length: 12.5 cm Gallbladder Wall: Surgically absent CBD: not seen Spleen: 13.9 cm Right Kidney: 10.0 x 4.5 x 4.7 cm Left Kidney: 11.6 x 4.8 x 4.4 cm Pancreas: Obscured by bowel gas Liver: surrounded by free fluid Gallbladder: Surgically absent CBD: not seen Spleen: wnl Right Kidney: No hydronephrosis or masses seen Left Kidney: No hydronephrosis or masses seen Upper IVC: not seen Abd Aorta: not seen Pancreas suboptimally seen on initial images. Visualized liver heterogeneously hyperechoic and somewh at small in size. Evaluation for focal masses suboptimal due to the heterogeneity. Gallbladder surgic ally absent. Kidneys symmetric and normal in size. No hydronephrosis seen. Spleen mildly enlarged at 13.9 cm. Large amount of intra-abdominal intraperitoneal ascites noted IMPRESSION: Large amount of intraperitoneal ascites. Suspect cirrhosis and underlying portal venous h ypertension as there is mild splenomegaly noted. Correlate clinically.
== END | disposition home or self-care (01) ==
LOC: RADUSWWP 13:49
PROVIDERS: ATTEND Family Medicine
DX: R18.8 Other ascites (principal)
CPT/HCPCS: 76700

== ENCOUNTER 2021-07-01 09:45 | Emergency (ER) | payer MEDICARE ==
[2021-07-01] MEDS ORDERED: diphenhydrAMINE 50 MG/ML 1 ML VIAL IVP STA (09:55)
[2021-07-01] MEDS ORDERED: FAMOTIDINE 20 MG/2 ML VIAL IV STA (09:55)
[2021-07-01] MEDS ORDERED: methylPREDNISolone SOD SUCCI 125 MG/2 ML VIAL IV STA (09:55)
[2021-07-01 10:20] LABS: Anisocytosis Moderate; Basophils % (A) 0 %; Eosinophils # (A) 0.1 k/uL (0-0.7); Eosinophils % (A) 1 %; HCT 40.6 % (34.0-46.0); HGB 13.2 gm/dL (11.4-16.0); Lymphocytes # (A) 0.5 k/uL (1.0-4.8); Lymphocytes % (A) 4 %; MCH 32.1 pg (25.0-35.0); MCHC 32.6 g/dL (31.0-37.0); MCV 98.5 fL (80.0-100.0); Macrocytosis Moderate; Mean Platelet Volume 7.7; Monocytes # (A) 0.6 k/uL (0-1.0); Monocytes % (A) 6 %; Neutrophils # (A) 9.8 k/uL (1.3-7.7); Neutrophils % (A) 87 %; Platelet Count 321 k/uL (150-450); RBC 4.12 m/uL (3.80-5.40); RDW 20.6 % (11.5-15.5); WBC 11.2 k/uL (3.8-10.6)
[2021-07-01 10:42] LABS: INR 2.4 (<1.2); Partial Thromboplastin Time 52.5 sec (22.0-30.0); Prothrombin Time 23.9 sec (9.0-12.0)
[2021-07-01 10:48] LABS: Albumin 2.7 g/dL (3.5-5.0); Calcium 8.4 mg/dL (8.4-10.2); Potassium 4.7 mmol/L (3.5-5.1)
[2021-07-01 10:52] LABS: Total Bilirubin 20.8 mg/dL (0.2-1.3)
--- NOTE | 2021-07-01 11:06 | XR ---
EXAMINATION TYPE: XR chest 1V portable DATE OF EXAM: 07/01/2021 COMPARISON: 10/21/2020 HISTORY: Shortness of breath TECHNIQUE: Single frontal view of the chest is obtained. FINDINGS: There are median sternotomy wires and a prosthetic heart valve. The heart is moderately enlarged and there is mild pulmonary vascular congestion and interstitial tomer ma. There is a [id number] right pleural effusion. Findings are most consistent with CHF. There is no pneumothorax. There is diffuse osteopenia but the osseous structures are intact IMPRESSION: Acute cardiopulmonary disease most consistent with moderate CHF
[2021-07-01] MEDS ORDERED: VANCOMYCIN IV PER PHARMACY 1 EACH MISC MISCELLANE PRN (11:13)
[2021-07-01] MEDS ORDERED: FUROSEMIDE 10 MG/ML 4 ML VIAL IV STA (11:38)
--- NOTE | 2021-07-01 11:59 | CT ---
EXAMINATION TYPE: CT brain wo con DATE OF EXAM: 07/01/2021 COMPARISON: 02/04/2021 HISTORY: head trauma CT DLP: 1099.4 mGycm Automated exposure control for dose reduction was used. FINDINGS: The ventricles, basal cisterns and sulci over the convexities are within normal limits for the patien t's age. There is no mass effect or shift of midline structures. There is minimal basal ganglial calcification. There is no acute intra or extra-axial hemorrhage. The posterior fossa is grossly normal with the exception of a tiny lacunar infarct in the left cerebe llar hemisphere. Intraorbital contents appear normal and symmetric. Visualized paranasal sinuses and mastoid air cells are well aerated. There is mild chronic inflammatory change in the right maxillary sinus. The calvarium is intact IMPRESSION: 1. NO ACUTE BLEED OR MASS EFFECT. 2. SMALL REMOTE LACUNAR INFARCT IN THE LEFT CEREBELLUM. 3. MILD CHRONIC INFLAMMATORY CHANGE IN THE RIGHT MAXILLARY SINUS
[2021-07-01] MEDS ORDERED: VANCOMYCIN 1,750 MG in SODIUM CHLORIDE 0.9% 500 ML 500 ML IVPB ONE (12:00)
--- NOTE | 2021-07-01 12:03 | CT ---
EXAMINATION TYPE: CT abdomen pelvis wo con DATE OF EXAM: 07/01/2021 COMPARISON: None HISTORY: Jaundice, Abdominal pain CT DLP: 1006.6 mGycm Automated exposure control for dose reduction was used. TECHNIQUE: Helical acquisition of images was performed from the lung bases through the pelvis. FINDINGS: There is a moderate right pleural effusion which is partially loculated. The abdomen is markedly distended with a marked amount of ascites. There is no organomegaly of the solid visceral organs of the abdomen. There is diffuse vascular calcification but the caliber of the abdominal aorta is normal. Kidneys appear mildly atrophic but there is no hydrocephalus. There is no bowel obstruction. IMPRESSION: 1. Marked abdominal distention secondary to marked ascites. 2. Moderate right pleural effusion which is partially loculated.
[2021-07-01 12:15] VITALS: RESP 18
[2021-07-01] MEDS ORDERED: HYDROmorphone 0.5 MG/0.5 ML SYRINGE IVP STA (12:16)
[2021-07-01] MEDS ORDERED: MEROPENEM 1 GM in SODIUM CHLORIDE 0.9% 100 ML IVPB STA (12:31)
--- NOTE | 2021-07-01 12:45 | ED ---
General Adult HPI - General Chief complaint: GI Bleed Stated complaint: Jaundice Time Seen by Provider: 07/01/21 09:53 Source: patient, family, EMS, RN notes reviewed, old records reviewed Mode of arrival: EMS - History of Present Illness Initial comments: Patient is a 76-year-old female with past medical history remarkable for atrial fibrillation on Eliquis, CAD, heart failure, COPD, diabetes, hypertension presents emergency Department complaining of a GI bleed and wanted to days ago in addition to sudden onset of worsening jaundice and scleral icterus over the last 1-2 days. Denies any history of liver cirrhosis. Denies any history of liver issues. States she does have a cholecystectomy. Denies any liver issues previously. Has been monitored for her ascites over the last 2 weeks, noticed it was worse over the last 1-2 months. Endorses abdominal distention but no pain. Denies any urinary complaints. Denies any chest pain. Does endorse mild dyspnea as the swelling out worse in her belly. His no other acute complaints at this time. Does have bedsores as well as a right anterior devi sore. Denies any fevers. No sick contacts. Presents for further evaluation. Denies any worsening weakness. - Related Data Home Medications Medication Instructions Recorded Confirmed ALPRAZolam [Xanax] 0.5 mg PO Q6H PRN 07/07/20 02/04/21 Acetaminophen Tab [Tylenol] 500 mg PO BID 07/07/20 02/04/21 Albuterol Inhaler [Ventolin Hfa 2 puff INHALATION RT-QID PRN 07/07/20 02/04/21 Inhaler] Atorvastatin [Lipitor] 80 mg PO HS 07/07/20 02/04/21 Docusate [Colace] 100 mg PO BID PRN 07/07/20 02/04/21 Fluticasone Nasal [place] [Flonase 2 spr EA NOSTRIL DAILY 07/07/20 02/04/21 Nasal [place]] Insulin Lispro [Insulin Lispro See Protocol SQ PC-TID 07/07/20 02/04/21 Nikhil U-100] Loratadine [Claritin] 10 mg PO DAILY 07/07/20 02/04/21 Omeprazole 20 mg PO AC-SUPPER 07/07/20 02/04/21 Tiotropium [place] [Spiriva] 2 cap INHALATION RT-DAILY 07/07/20 02/04/21 Insulin Glargine,Hum.rec.anlog 8 unit SQ HS 10/21/20 02/04/21 [Lantus Solostar Pen] Metoprolol Tartrate [Lopressor] 25 mg PO BID PRN 10/21/20 02/04/21 Albuterol Inhaler [Ventolin Hfa 2 puff INHALATION RT-DAILY 02/04/21 02/04/21 Inhaler] Amiodarone [Cordarone] 200 mg PO DAILY 02/04/21 02/04/21 Aspirin EC [Ecotrin Low Dose] 81 mg PO DAILY 02/04/21 02/04/21 Bumetanide [Bumex] 1 mg PO BID@0900,1400 02/04/21 02/04/21 Iron Infusion 1 dose IV Q30D 02/04/21 02/04/21 Lactobacillus Rhamnosus GG 1 cap PO DAILY 02/04/21 02/04/21 [Culturelle] Potassium Chloride ER [K-Dur 10] 10 meq PO DAILY 02/04/21 02/04/21 Previous Rx's Medication Instructions Recorded Apixaban [Eliquis] 5 mg PO BID #60 tab 07/16/20 Metoprolol Tartrate [Lopressor] 50 mg PO BID #60 tab 07/16/20 Allergies Allergy/AdvReac Type Severity Reaction Status Date / Time cephalexin [From Keflex] Allergy Unknown Verified 07/01/21 09:53 ciprofloxacin [From Cipro] Allergy Rash/Hives Verified 07/01/21 09:53 ciprofloxacin HCl Allergy Rash/Hives Verified 07/01/21 09:53 [From Cipro] codeine Allergy Rash/Hives Verified 07/01/21 09:53 Iodine and Iodide Containing Allergy Rash/Hives Verified 07/01/21 09:53 Produc Penicillins Allergy Rash/Hives Verified 07/01/21 09:53 shellfish derived [Shellfish] Allergy Rash/Hives Verified 07/01/21 09:53 Sulfa (Sulfonamide Allergy Rash/Hives Verified 07/01/21 09:53 Antibiotics) Review of Systems ROS Statement: Those systems with pertinent positive or pertinent negative responses have been documented in the HPI. Review of Systems: CONST: Denies fever EYES: Denies blurry vision ENT: Denies nasal congestion C/V: Denies Chest pain RESP: Endorses mild shortness of breath GI: Endorses abdominal distention : Denies dysuria SKIN: Endorses jaundiced MSK: Denies joint pain. NEURO: Denies headache ROS Other: All systems not noted in ROS Statement are negative. Past Medical History Past Medical History: Coronary Artery Disease (CAD), Heart Failure, COPD, Diabetes Mellitus, Hypertension Additional Past Medical History / Comment(s): asthma, A fib, bed sore on back, History of Any Multi-Drug Resistant Organisms: None Reported Past Surgical History: Appendectomy, Cholecystectomy, Hysterectomy, Tubal Ligation Additional Past Surgical History / Comment(s): 2 vessel bypass with mitral valve repair - CHEN and endoscopic vein, mitral valve 32mm sjm ridig saddle ring, maze procedure. Retocele repair Past Anesthesia/Blood Transfusion Reactions: No Reported Reaction Past Psychological History: No Psychological Hx Reported Smoking Status: Never smoker Past Alcohol Use History: None Reported Past Drug Use History: None Reported - Past Family History Father Family Medical History: Myocardial Infarction (OK) Additional Family Medical History / Comment(s): at 55 with a massive [place] Mother Family Medical History: CVA/TIA General Exam - General Exam Comments Initial Comments: General: Appears in no acute distress. HEAD: Normal with no signs of head trauma. EYES: PERRLA, EOMI. Pupils are 2-3 mm and equal bilaterally. Scleral icterus. ENT: Hearing grossly intact, normal oropharynx. RESPIRATORY: Clear breath sounds bilaterally. No wheezes, rales, or rhonchi. Minimal increased work of breathing. Comfortable on 2 L nasal cannula. C/V: Regular rate and rhythm. S1 and S2 auscultated, no edema, peripheral pulses 2+ and intact throughout ABD: Abdomen is distended. Not tender to palpation. No rebound tenderness. No peritoneal signs. Fluid wave present. No guarding. EXT: Normal range of motion, no obvious deformity SKIN: No rashes or lesions observed on exposed skin. NEURO: Alert and oriented 4. No focal deficits. Course Vital Signs 07/01/21 07/01/21 07/01/21 09:46 11:10 12:12 Temperature 97.7 F Pulse Rate 71 70 69 Respiratory 20 18 18 Rate Blood Pressure 125/78 113/56 O2 Sat by Pulse 100 100 100 Oximetry Medical Decision Making - Medical Decision Making Based on patient's presentation and physical exam, I'm concerned for possible pedal cellular disease versus heart failure as the cause of her current symptoms. Cannot rule out intra-abdominal process. Seems to be somewhat acute on chronic. Patient did have the one time episode of GI bleed a few days ago without any recurrent episodes. Is on blood thinners. Presents for further evaluation. We will obtain broad workup. CT imaging will be obtained of the belly as well as the head throughout acute intracranial processes patient does endorse hitting her head recently. She was in agreement this plan. We will hold fluid administration at this time as she appears volume overloaded. She is hemodynamically stable otherwise. She is requiring minimal oxygen for comfort. She'll be given Dilaudid for pain control. EKG showed no signs of acute ischemia. Chest x-ray showed findings consistent with moderate CHF. Brain CT shows an old remote lacunar infarct with no acute intracranial process. Abdomen pelvis CT without contrast was obtained due to poor renal function. Revealed marketed abdominal distention secondary to ascite s. There is also a moderate right pleural effusion which is partially loculated. Cannot rule out infectious etiology at that time. Laboratory studies were remarkable for a leukocytosis of 11.2. Coags are all elevated in the setting of USE as well as concern for hepatocellular disease. Laboratory studies are remarkable for an elevated lactic acid of 4.4. Total bilirubin is 20.8. AST and ALT are mildly elevated to 121 and 621 respectively. Alk phos is 303. Troponin is indeterminate. BNP is elevated 2400. Ammonia is within normal limits. Albumin is low at 2.7. Occult blood is positive. Urine is still pending at this time. Review of the patient's ultrasound from last week revealed ascites as well as concern for possible portal hypertension. Due to concern for possible lung infection versus peritoneal infection, she was in Percocet on vancomycin particularly with the right devi wound as well as chronic's decubitus ulcers. She was also administered meropenem due to her history of multiple antibiotic ALLERGIES. I spoke with pharmacy was in agreement with this plan. Based on labs, cannot rule out sepsis at this time. She met criteria at 1220. Empiric antibiotics were started. Fluids are held as the patient is very obviously fluid overloaded and would not be able to tolerate any form of fluid bolus. She remains hemodynamically stable at this time. Patient may be experiencing a hepatorenal syndrome versus possible cardiac etiology for fluid overload state. She'll be given a single dose of Lasix here in the department in addition to the antibiotics. I discussed the results with the patient as well as family members. We do not have GI service here, and patient will likely require evaluation by gastroenterology, possible surgery, possible liver specialist. She did receive her cardiac surgery at [facility] and request to be transferred there. I did speak with them over the phone, and Dr. Bah of the ER accepted the patient. Patient's family was in agreement this plan. I answered all questions that they had. - Lab Data Result diagrams: 07/01/21 10:06 07/01/21 10:06 Lab Results 07/01/21 07/01/21 07/01/21 Range/Units 10:03 10:06 10:06 WBC 11.2 H (3.8-10.6) k/uL RBC 4.12 (3.80-5.40) m/uL Hgb 13.2 (11.4-16.0) gm/dL Hct 40.6 (34.0-46.0) % MCV 98.5 (80.0-100.0) fL MCH 32.1 (25.0-35.0) pg MCHC 32.6 (31.0-37.0) g/dL RDW 20.6 H (11.5-15.5) % Plt Count 321 (150-450) k/uL MPV 7.7 Neutrophils % 87 % Lymphocytes % 4 % Monocytes % 6 % Eosinophils % 1 % Basophils % 0 % Neutrophils # 9.8 H (1.3-7.7) k/uL Lymphocytes # 0.5 L (1.0-4.8) k/uL Monocytes # 0.6 (0-1.0) k/uL Eosinophils # 0.1 (0-0.7) k/uL Basophils # 0.0 (0-0.2) k/uL Anisocytosis Moderate Macrocytosis Moderate PT 23.9 H (9.0-12.0) sec INR 2.4 H (<1.2) APTT 52.5 H (22.0-30.0) sec Sodium (137-145) mmol/L Potassium (3.5-5.1) mmol/L Chloride (98-107) mmol/L Carbon Dioxide (22-30) mmol/L Anion Gap mmol/L BUN (7-17) mg/dL Creatinine (0.52-1.04) mg/dL Est GFR (CKD-EPI)AfAm (>60 ml/min/1.73 sqM) Est GFR (CKD-EPI)NonAf (>60 ml/min/1.73 sqM) Glucose (74-99) mg/dL Plasma Lactic Acid Mo (0.7-2.0) mmol/L Calcium (8.4-10.2) mg/dL Total Bilirubin (0.2-1.3) mg/dL AST (14-36) U/L ALT (4-34) U/L Alkaline Phosphatase (38-126) U/L Ammonia (<30) umol/L Troponin I (0.000-0.034) ng/mL NT-Pro-B Natriuret Pep pg/mL Total Protein (6.3-8.2) g/dL Albumin (3.5-5.0) g/dL Amylase (30-110) U/L Lipase (23-300) U/L Stool Occult Blood (Negative) Blood Type B Positive Blood Type Recheck B Pos Bld Type Recheck Status No Antibody Screen NEGATIVE Spec Expiration Date 07/04/2021230207/01/21 07/01/21 07/01/21 Range/Units 10:06 10:06 10:06 WBC (3.8-10.6) k/uL RBC (3.80-5.40) m/uL Hgb (11.4-16.0) gm/dL Hct (34.0-46.0) % MCV (80.0-100.0) fL MCH (25.0-35.0) pg MCHC (31.0-37.0) g/dL RDW (11.5-15.5) % Plt Count (150-450) k/uL MPV Neutrophils % % Lymphocytes % % Monocytes % % Eosinophils % % Basophils % % Neutrophils # (1.3-7.7) k/uL Lymphocytes # (1.0-4.8) k/uL Monocytes # (0-1.0) k/uL Eosinophils # (0-0.7) k/uL Basophils # (0-0.2) k/uL Anisocytosis Macrocytosis PT (9.0-12.0) sec INR (<1.2) APTT (22.0-30.0) sec Sodium 132 L (137-145) mmol/L Potassium 4.7 (3.5-5.1) mmol/L Chloride 94 L (98-107) mmol/L Carbon Dioxide 23 (22-30) mmol/L Anion Gap 15 mmol/L BUN 48 H (7-17) mg/dL Creatinine 2.24 H (0.52-1.04) mg/dL Est GFR (CKD-EPI)AfAm 24 (>60 ml/min/1.73 sqM) Est GFR (CKD-EPI)NonAf 21 (>60 ml/min/1.73 sqM) Glucose 165 H (74-99) mg/dL Plasma Lactic Acid Mo 4.4 H* (0.7-2.0) mmol/L Calcium 8.4 (8.4-10.2) mg/dL Total Bilirubin 20.8 H* (0.2-1.3) mg/dL AST 121 H (14-36) U/L ALT 61 H (4-34) U/L Alkaline Phosphatase 303 H (38-126) U/L Ammonia (<30) umol/L Troponin I 0.018 (0.000-0.034) ng/mL NT-Pro-B Natriuret Pep pg/mL Total Protein 7.0 (6.3-8.2) g/dL Albumin 2.7 L (3.5-5.0) g/dL Amylase 46 (30-110) U/L Lipase 98 (23-300) U/L Stool Occult Blood (Negative) Blood Type Blood Type Recheck Bld Type Recheck Status Antibody Screen Spec Expiration Date 07/01/21 07/01/21 07/01/21 Range/Units 10:06 10:06 11:52 WBC (3.8-10.6) k/uL RBC (3.80-5.40) m/uL Hgb (11.4-16.0) gm/dL Hct (34.0-46.0) % MCV (80.0-100.0) fL MCH (25.0-35.0) pg MCHC (31.0-37.0) g/dL RDW (11.5-15.5) % Plt Count (150-450) k/uL MPV Neutrophils % % Lymphocytes % % Monocytes % % Eosinophils % % Basophils % % Neutrophils # (1.3-7.7) k/uL Lymphocytes # (1.0-4.8) k/uL Monocytes # (0-1.0) k/uL Eosinophils # (0-0.7) k/uL Basophils # (0-0.2) k/uL Anisocytosis Macrocytosis PT (9.0-12.0) sec INR (<1.2) APTT (22.0-30.0) sec Sodium (137-145) mmol/L Potassium (3.5-5.1) mmol/L Chloride (98-107) mmol/L Carbon Dioxide (22-30) mmol/L Anion Gap mmol/L BUN (7-17) mg/dL Creatinine (0.52-1.04) mg/dL Est GFR (CKD-EPI)AfAm (>60 ml/min/1.73 sqM) Est GFR (CKD-EPI)NonAf (>60 ml/min/1.73 sqM) Glucose (74-99) mg/dL Plasma Lactic Acid Mo (0.7-2.0) mmol/L Calcium (8.4-10.2) mg/dL Total Bilirubin (0.2-1.3) mg/dL AST (14-36) U/L ALT (4-34) U/L Alkaline Phosphatase (38-126) U/L Ammonia 23 (<30) umol/L Troponin I (0.000-0.034) ng/mL NT-Pro-B Natriuret Pep 2400 pg/mL Total Protein (6.3-8.2) g/dL Albumin (3.5-5.0) g/dL Amylase (30-110) U/L Lipase (23-300) U/L Stool Occult Blood Positive H (Negative) Blood Type Blood Type Recheck Bld Type Recheck Status Antibody Screen Spec Expiration Date - EKG Data -: EKG Interpreted by Me EKG Comments: 12-lead Electrocardiogram Interpretation Note EKG was reviewed and interpreted by myself. 12-lead ECG performed at 0953 is interpreted by me as revealing normal sinus rhythm at a rate of 71 beats per min [place]. [place] is normal. [place] interval is 190 ms, QRS durations 103 ms, QTc is 461 ms.. There were no ST or T wave abnormalities to suggest myocardial ischemia or injury. R wave progression across the precordium was satisfactory. By my interpretation this EKG is non-diagnostic for acute ischemia. Critical Care Time Critical Care Time: Yes Total Critical Care Time: 35 Critical Care Time: Upon my evaluation, this patient had a high probability of imminent or life- threatening deterioration due to infection, hepatorenal syndrome, hepatic disease, ascites, jaundice, [place] eye, hyperbilirubinemia, which required my direct attention, intervention, and personal management. I have personally provided 35 minutes of critical care time exclusive of time spent on separately billable procedures. Time includes review of laboratory data, radiology results, discussion with consultants, and monitoring for potential decompensation. Interventions were performed as documented in my note. Disposition Clinical Impression: Abdominal ascites, Occult blood in stools, NATE (acute kidney injury), Portal hypertension, Pleural effusion, Sepsis, Volume overload, Decubitus ulcer, Jaundice, Hyperbilirubinemia, GI bleed Disposition: OTHER INSTITUTION NOT DEFINED Condition: Serious Referrals: Arash Mendoza MD [Primary Care Provider] - 1-2 days Time of Disposition: 12:45 - Out of Hospital Transfer - Req. Specs Out of Hospital Transfer - Requested Specifics: Other Emergency Center (Transferred for escalation of care for GI evaluation.)
[2021-07-01 13:10] VITALS: BP 114/54; PULSE 68; TEMP 97.8
== END 2021-07-01 13:22 | disposition other institution (70) ==
LOC: EC 09:45
DX: A41.9 Sepsis, unspecified organism (principal); I25.10 Atherosclerotic heart disease of native coronary artery without angina pectoris; Z79.82 Long term (current) use of aspirin; I10 Essential (primary) hypertension; J44.9 Chronic obstructive pulmonary disease, unspecified; Z82.79 Family history of other congenital malformations, deformations and chromosomal abnormalities; R18.8 Other ascites; N17.9 Acute kidney failure, unspecified; K76.6 Portal hypertension; J90 Pleural effusion, not elsewhere classified; Z88.1 Allergy status to other antibiotic agents; Z88.5 Allergy status to narcotic agent; Z88.8 Allergy status to other drugs, medicaments and biological substances; Z88.0 Allergy status to penicillin; Z88.2 Allergy status to sulfonamides
CPT/HCPCS: 36415; 93005; 86900; 86901; 83880; 80053; 82140; 82150; 83605; 83690; 84484; 85025; 85610; 85730; 86850; 82272; 87040; 71045; 70450; 74176; 99291; 96365; 96375; J3370; J1940; J1170